=== PATIENT | male | born 1955 | race Hispanic/Latino ===

== ENCOUNTER 2016-06-01 02:32 | Inpatient (IN) | payer OTHER ==
[~2016-06-01] VITALS: Ht 172.7 cm; Wt 84.8 kg
[~2016-06-01 02:32] MED LIST: AMARYL1 MG PO; FUROSEMIDE20 MG PO; GLUCOPHAGE500 MG PO; HYDRALAZINE10 MG PO; LISINOPRIL2.5 MG PO; LISINOPRIL20 MG PO; METFORMIN1000 MG PO
--- NOTE | 2016-06-01 02:49 | NUR ---
PT FROM HOME C/O DIABETES PER DAUGHTER "I NEED HIM CHECKED OUT". PT [place] [facility] [place] PER PT "WOULD NOT TREAT ME BECAUSE I WAS NOT COVERED, I RAN OUT OF INSULIN 10 DAYS AGO" BILATERAL LEG EDEMA AND CERVANTES SHEDDING. PT PRIMARY LANGUAGE IRISH, PT HAD CATARACTS SURGERY LAST YEAR THAT WAS NOT COMPLETED AND PT HAS VISION LOSS. AWAITING [facility]
--- NOTE | 2016-06-01 02:52 | NUR ---
PT AMBULATE TO ROOM WITH CANE ASSISTANCE.
--- NOTE | 2016-06-01 02:53 | NUR ---
DR MADDEN IN FOR LUIS MANUELAL
--- NOTE | 2016-06-01 02:55 | NUR ---
PTS BS IN TRIAGE 425.
--- NOTE | 2016-06-01 02:58 | NUR ---
PT MANUAL BP 196/70.
--- NOTE | 2016-06-01 03:05 | ED GENERAL ADULT ---
History of Present Illness General Chief Complaint: General Adult Stated Complaint: PER DAUGHTER " I WANT HIM CHECKED" HX DIABETIES Source: patient, family, old records Exam Limitations: no limitations Vital Signs & Intake/Output Vital Signs & Intake/Output Vital Signs Date Time Temp Pulse Resp B/P Pulse O2 O2 Flow FiO2 Ox Delivery Rate 06/01 0249 98 Room Air 06/01 023 98.5 72 18 196/70 97 Room Air Allergies Coded Allergies: MDX - Seafood (SEAFOOD) (Severe, RASH, BREATHING PROBLEM 10/08/13) Reconcile Medications Furosemide 20 MG TABLET 0.5 TAB PO DAILY LEG EDEMA Glimepiride (Amaryl) 1 MG TAB 1 TAB PO DAILY DIABETES HYDRALAZINE HCL (Hydralazine) 10 MG TABLET 1 TAB PO TID HTN Lisinopril 2.5 MG TABLET 1 TAB PO DAILY HTN Metformin Hydochloride (Glucophage) 500 MG TABLET 500 MG PO 0800,1700 DIABETES Triage Note: PT FROM HOME C/O DIABETES PER DAUGHTER "I NEED HIM CHECKED OUT". [place] [place] PER PT "WOULD NOT TREAT ME BECAUSE I WAS NOT COVERED, I RAN OUT OF INSULIN 10 DAYS AGO" BILATERAL LEG EDEMA AND CERVANTES SHEDDING. PT PRIMARY LANGUAGE GERMAN, PT HAD CATARACTS SURGERY LAST YEAR THAT WAS NOT COMPLETED AND PT HAS VISION LOSS. AWAITING [facility] Triage Nurses Notes Reviewed? yes HPI: Patient had been living in [place] for the past 6 months and just came back to [place] today. His girlfriend in [place] and was supposed be taking care of him and his medications however she has not been doing so. Patient is currently staying with his daughter. Tonight as he was getting ready for bed his daughter noticed that his legs were very scaly and flaking. Patient is on a lot of medications and he does not know what they're for his daughter does not know what they are so she brought him to the emergency room for evaluation. Patient states he has no fevers or chills. There is no nausea or vomiting. There is no chest pain or shortness of breath. Patient is not sure which medication she is supposed to be taking and he knows that he has not taking his insulin and approximately 4 days. Past History Travel History Traveled to [place] past 21 day No Medical History Any Pertinent Medical History? see below for history EENT: cataracts Cardiovascular: hypertension, hyperlipidemia Renal: chronic kidney disease Endocrine: diabetes History of MRSA: No History of VRE: No History of CDIFF: No Surgical History Surgical History: non-contributory Psychosocial History Who do you live with Spouse What is your primary language Urdu Tobacco Use: Quit >30 days ago ETOH Use: denies use Illicit Drug Use: denies illicit drug use Family History Family History, If Any: MOTHER (CVA, DM, ). SISTER (Breast cancer). Hx Contributory? No Review of Systems Review of Systems Constitutional: Reports: no symptoms. EENTM: Reports: no symptoms. Respiratory: Reports: no symptoms. Cardiovascular: Reports: no symptoms. GI: Reports: no symptoms. Genitourinary: Reports: no symptoms. Musculoskeletal: Reports: no symptoms. Skin: Reports: no symptoms. Neurological/Psychological: Reports: no symptoms. Hematologic/Endocrine: Reports: no symptoms. Immunologic/Allergic: Reports: no symptoms. All Other Systems: Reviewed and Negative Physical Exam Physical Exam General Appearance: well developed/nourished, alert, awake, moderate distress Head: atraumatic Eyes: Bilateral: other (BLIND). Ears, Nose, Throat: normal pharynx, normal ENT inspection, hearing grossly normal Neck: normal inspection, supple, full range of motion, NO jvd Respiratory: normal breath sounds, chest non-tender, no respiratory distress, lungs clear Cardiovascular: regular rate/rhythm, normal peripheral pulses Gastrointestinal: normal bowel sounds, soft, non-tender, no organomegaly Back: normal inspection, normal range of motion Extremities: pedal edema, EVIDENCE OF A TINEA INFECTION Neurologic/Psych: no motor/sensory deficits, awake, alert, oriented x 3 Skin: TINEA INFECTION TO LOWER EXTREMITIES Lymphatic: no anterior cervical veronica Core Measures ACS in differential dx? No CVA/TIA Diagnosis: No Severe Sepsis Present: No Septic Shock Present: No Progress Differential Diagnoses I considered the following diagnoses in my evaluation of the patient: [ Electrolyte abnormality, DKA, hyperglycemia, tinea infection] Plan of Care: Orders Procedure Date/time Status Patient Data 06/01 412 Active Add-on Test (ER Only) 06/01 412 Active URINE DRUGS OF ABUSE 06/01 410 Active URINALYSIS 06/01 410 Active Admit to inpatient 06/01 408 Active Add-on Test (ER Only) 06/01 407 Active ARTERIAL BLOOD GAS (GEN) 06/01 401 Active Add-on Test (ER Only) 06/01 401 Active EKG 06/01 401 Active TROPONIN LEVEL 06/01 308 Active LACTIC ACID 06/01 308 Active COMPREHENSIVE METABOLIC PANEL 06/01 304 Active CBC WITHOUT DIFFERENTIAL 06/01 304 Complete ACETONE 06/01 304 Active Current Medications Sig/Michael Start time Last Medication Dose Stop Time Status Admin Insulin Human Regular 6 UNITS ONCE ONE 06/01 414 UNVr (Novolin R Inj) 06/01 415 Insulin Human Regular 100 UNIT Q24H 06/01 414 UNVr (Novolin R (Insulin Drip)) Sodium Chloride 100 ML (Normal Saline 0.9%) Sodium Chloride 1,000 ML BOLUS ONE 06/01 414 UNVr (Normal Saline 0.9%) 06/01 513 Laboratory Tests 06/01/16401: Lactic Acid Cancelled 06/01/16308: Anion Gap 18 H, Estimated GFR 17 L, BUN/Creatinine Ratio 26.9 H, Glucose 541 *H, Lactic Acid Pending, Calcium 8.8, Total Bilirubin 0.3, AST 14 L, ALT 23, Alkaline Phosphatase 134 H, Troponin I Pending, Total Protein 7.3, Albumin 3.7, Globulin 3.6, Albumin/Globulin Ratio 1.0 L, CBC w Diff NO MAN DIFF REQ, RBC 3.52 L, MCV 87.2, MCH 28.7, RDW 14.3, MPV 9.9, Gran % 81.9 H, Lymphocytes % 9.1 L, Monocytes % 6.4, Eosinophils % 2.0, Basophils % 0.6, Absolute Granulocytes 7.6 H, Absolute Lymphocytes 0.8 L, Absolute Monocytes 0.6, Absolute Eosinophils 0.2, Absolute Basophils 0.1, PUBS MCHC 33.0, Acetone Level NEGATIVE Initial ED EKG: SINUS RHYTHM WITH NO ISCHEMIC st CHANGES HOWEVER THERE ARE PEAKED t WAVES. Rhythm Strip: normal sinus rhythm Comments: The main thing is Mr. Roblero needs to be set up with a primary care physician to sit down and talk to him and his daughter the medications that he is supposed be taking and what they are for. History has a low CO2 and an elevated anion gap however his acetone is negative. He is hyperglycemic and his potassium level is high in response to the acidosis. Patient will be treated for DKA. Lactic acid is pending. Patient is not on metformin. Departure Departure Disposition: STILL A PATIENT Condition: Critical Clinical Impression Primary Impression: Metabolic acidosis Secondary Impressions: Acute renal failure, Hyperglycemia, Hyperkalemia, Tinea pedis Referrals: PATIENT HAS NO PRIMARY CARE DR (PCP/Family) Departure Forms: Customer Survey General Discharge Information Admission Note Spoke With: TISHA GIBBS,AICHA Documentation of Exam: Documentation of any treatments & extenuating circumstances including Concerns Regarding Discharge (functional status, medication knowledge or non-compliance, living conditions, etc.) that warrant an admission rather than observation: [ Patient will require ICU level of monitoring. Insulin drip was initiated. IV fluids. Patient will require an endocrinology consult, renal consult,] Critical Care Note Critical Care Note Critical Care Time: mins: (80 MINUTES)
[2016-06-01 03:19] LABS: ABSOLUTE BASOPHIL COUNT 0.1 /CUMM (0.0-0.2); ABSOLUTE EOSINOPHIL COUNT 0.2 /CUMM (0.0-0.7); ABSOLUTE GRANULOCYTE CT 7.6 /CUMM (1.4-6.5); ABSOLUTE LYMPH COUNT 0.8 /CUMM (1.2-3.4); ABSOLUTE MONOCYTE COUNT 0.6 /CUMM (0.10-0.60); BASOPHIL % 0.6 % (0.0-2.0); GRANULOCYTE % 81.9 % (42.2-75.2); HEMATOCRIT 30.7 % (42-52); MEAN CORPUSCULAR HGB 28.7 PG (27.0-31.0); MEAN CORPUSCULAR VOLUME 87.2 FL (80.0-94.0); MEAN PLATELET VOLUME 9.9 FL (7.4-10.4); PLATELET COUNT 208 /CUMM (130-400); RBC DISTRIBUTION WIDTH 14.3 % (11.5-14.5); RED BLOOD CELL CT 3.52 /CUMM (4.70-6.10); WHITE BLOOD CELL COUNT 9.3 /CUMM (4.8-10.8)
--- NOTE | 2016-06-01 03:20 | NUR ---
IV ACCESS ESTALIBSHED BY THIS RN, RH #[id number]. LABS DRAWN AND SENT BY THIS RN (SST, RUSSELL ,LAV, BLUE)
--- NOTE | 2016-06-01 03:59 | NUR ---
CRITICAL TEST RESULTS [id number] TANI NESS 60 M TESTS AND RESULTS: POTASSSIUM: 6.0, GLUCOSE: 541 Results received and read back by: TERESO FERNÁNDEZ Results received date and time: 06/01/16 2029 The following provider was notified of the results, and read the results back: DR. MADDEN Notified date and time: 06/01/16 at 0354
--- NOTE | 2016-06-01 04:34 | NUR ---
PT ADMIT TO ICU RM 112.
--- NOTE | 2016-06-01 04:42 | NUR ---
SECOND IV LINE ESTABLISHED BY THIS RN #[id number]. 10% CALCIUM CL INFUSING AT 100MH/HR.
--- NOTE | 2016-06-01 05:09 | NUR ---
PT URINATED IN A URINAL, PT REFUSED PACK CATHETER AND DR GILES INFORMED AND STATED THAT IS FINE. URINE TRIO SENT BY THIS RN. URINE OUTPUT 250ML. INSULIN DRIP ADMINISTERED STARTING AT 4UNITS/HR PER DR GILES AND HOUSE STAFF.
--- NOTE | 2016-06-01 05:14 | History & Physical ---
See Addendum REYNA GIBBS,JOSE A 06/01/16 0512: General Information and HPI MD Statement: I have seen and personally examined TANI NESS and documented this H&P. The patient is a 60 year old M who presented with a patient stated chief complaint of poor state of health. Source of Information: patient, family Exam Limitations: no limitations History of Present Illness: This a 60-year-old gentleman with a past medical history of hypertension, hyperlipidemia, CKD, diabetes, asthma, cholelithiasis, legally blind from cataracts, is presented to [facility] by family members were concerned that the patient was in a very poor state of health. Of note patient had just arrived tonight from [place] (where he has been living for about 6 months) via train and was being picked up by his daughter. Most of the history is obtained from the daughter and ex- who were present in the room, patient speaks mostly mohawk. Patient relayed to family members that he had not taken his medications for about 10 days and also states that while he was in [place] he has been hospitalized at [facility] for what seems to be treatment for hypoglycemia. Patient is unsure of his medication regimens. Of note, Daughter is very concerned and feels like the patient has been neglected he was in [place], and that he is homeless and wanted to know if patient getting assistance with half-way upon discharge. Patient denies any recent infection, cough, fever/chills, abdominal pain, nausea , vomiting, chest pain, shortness of breath, or illicit drug use. Allergies/Medications Allergies: Coded Allergies: Fish Containing Products (Severe, RASH, BREATHING PROBLEM? 06/01/16) Uncoded Allergies: SEAFOOD (Severe, RASH, BREATHING PROBLEM 06/01/16) Past History Travel History Traveled to [place] past 21 day No Medical History EENT: cataracts Cardiovascular: hypertension, hyperlipidemia Renal: chronic kidney disease Endocrine: diabetes History of MRSA: No History of VRE: No History of CDIFF: No Surgical History Surgical History: non-contributory Past Family/Social History Family History Relations & Conditions if any MOTHER (CVA, DM, ). SISTER (Breast cancer). Psychosocial History ETOH Use: denies use Illicit Drug Use: denies illicit drug use Review of Systems Review of Systems Constitutional: Reports: chills. Cardiovascular: Denies: chest pain, orthopena, palpitations. Respiratory: Denies: cough, hemoptysis, orthopnea, short of breath. GI: Denies: abdominal pain, constipation, diarrhea. Genitourinary: Denies: discharge, dysuria, frequency. Musculoskeletal: Denies: joint pain, joint swelling. Skin: Reports: erythema. Neurological/Psychological: Denies: confusion, depressed, dementia, numbness, paresthesia. Hematologic/Endocrine: Denies: bruising, bleeding. Exam & Diagnostic Data Last 24 Hrs of Vital Signs/I&O Vital Signs Date Time Temp Pulse Resp B/P Pulse O2 O2 Flow FiO2 Ox Delivery Rate 06/01 05 96.4 64 18 160/64 97 Room Air 06/01 0249 98 Room Air 06/01 0239 98.5 72 18 196/70 97 Room Air Intake & Output 06/01 0800 06/01 0000 05/31 1600 Intake Total Output Total Balance Patient 77.111 kg Weight Physical Exam General Appearance Alert, Oriented X3, Cooperative, Mild Distress Skin significance dermatitis with flaking on lower extremity bilaterally from toes extending to mid tibial areas , mild ulceration of right toe. HEENT Atraumatic, dry oral mucosa Neck Supple, No JVD, No thryomegaly Lymphatic Cervical nl Cardiovascular Regular Rate, Normal S1, Normal S2 Lungs Clear to Auscultation Abdomen Soft, No Tenderness, distended abdomen Neurological Normal Speech, Strength at 5/5 X4 Ext, Sensation Intact Extremities No Tenderness/Swelling Vascular not able to appreciate DP pulses Last 24 Hrs of Labs/Eduardo: Laboratory Tests 06/01/16 0513: Methadone Screen Pending, Barbiturate Screen Pending, Ur Phencyclidine Scrn Pending, Amphetamines Screen Pending, U Benzodiazepines Scrn Pending, Urine Cocaine Screen Pending, Urine Cannabis Screen Pending, Urine Color Pending, Urine Clarity Pending, Urine pH Pending, Ur Specific [place] Pending, Urine Protein Pending, Urine Ketones Pending, Urine Nitrite Pending, Urine Bilirubin Pending, Urine Urobilinogen Pending, Ur Leukocyte Esterase Pending, Ur Microscopic SEDIMENT EXAMINED, Urine RBC Pending, Urine Hemoglobin Pending, Urine Glucose Pending 06/01/16 0405: pH 7.30 *L, pCO2 39, pO2 90, HCO3 19 L, ABG O2 Sat (Measured) 96.0, P-50 (Temp Corrected) N, Carboxyhemoglobin 0.3 L, O2 Concentration % RA, Phlebotomy Draw Site RIGHT BRACHIAL 06/01/16 0402: Lactic Acid Cancelled 06/01/16 0309: Anion Gap 18 H, Estimated GFR 17 L, BUN/Creatinine Ratio 26.9 H, Glucose 541 *H, Serum Osmolality 348 H, Lactic Acid 2.2 H, Calcium 8.8, Magnesium 2.1, Total Bilirubin 0.3, AST 14 L, ALT 23, Alkaline Phosphatase 134 H, Troponin I 0.03, Total Protein 7.3, Albumin 3.7, Globulin 3.6, Albumin/Globulin Ratio 1.0 L, CBC w Diff NO MAN DIFF REQ, RBC 3.52 L, MCV 87.2, MCH 28.7, RDW 14.3, MPV 9.9, Gran % 81.9 H, Lymphocytes % 9.1 L, Monocytes % 6.4, Eosinophils % 2.0, Basophils % 0.6, Absolute Granulocytes 7.6 H, Absolute Lymphocytes 0.8 L, Absolute Monocytes 0.6, Absolute Eosinophils 0.2, Absolute Basophils 0.1, PUBS MCHC 33.0, Acetone Level NEGATIVE Microbiology 06/01 537 UPPER RESP: Surveillance Culture - ORD 06/01 537 GI: Surveillance Culture - ORD 06/01 512 URINE ROUT: Urine Culture - RECD 06/01 432 BLOOD: Blood Culture - COLB 06/01 432 BLOOD: Blood Culture - COLB Diagnostic Data EKG Results No acute ischemic changes noted CXR Results XAM TYPE: RAD - XRY-PORTABLE CHEST XRAY EXAMINATION: XR PORTABLE CHEST CLINICAL INFORMATION: Diabetic ketoacidosis of unknown source. COMPARISON: 10/08/2013 TECHNIQUE: Portable view of the chest was obtained. FINDINGS: The lungs are well expanded. There is no focal consolidation, edema, or effusion. No pneumothorax. The cardiomediastinal silhouette is prominent, unchanged. No acute osseous abnormality. IMPRESSION: No acute pulmonary findings. DICTATED BY: LAMAR GIBBS,JANA Assessment/Plan Assessment: This is a 60-year-old male with a significant past medical history of diabetes, hypertension, CKD, who has not taken his medication for 10 days, presents in a poor state of health and is found to have hyperglycemia, elevated blood pressure and hyperkalemia. Impression * Hyperglycemia: No ketones and medication history suggest a Type 2 diabetes. Not DKA. * Metabolic acidosis could be possible 2/2 to renal insufficency * Hyperkalemia with no acute EKG: possibly 2/2 metabolic acidosis vs renal insufficiency * Acute on chronic CKD? * Anemia * Elevated BP in the setting of non compliance * Lower extremity swelling with venous insufficency Plan * Status post 2 L bolus, will start 100ml/hr NS hydration * Accu-Cheks every 1 hours * Insulin drip 4 unit/hr and will adjusty according targeting BG of 250 * Will switch to D5 normal saline once BG <250 * Obtain HgAIC * Will trend BEP and monitor potassium closely q 3hrs * Will trend troponins and EKG * Continuous cardiac monitoring * Strict ins and outs to monitor for fluid overload in the context of security patient CKD patient * Even though patient denies any cardiac history, he does have isosorbide and Nitrostat as part of his medication regimen therefore will obtain cardiology consult * Echocardiogram in the morning * Will consider vascular consult * f/u cultures * Will obtain ICU consult * wound consult * Will obtain social work consult for possible placement as patient is homeless. As Ranked By This Provider Problem List: 1. Hyperkalemia 2. Hyperglycemia 3. Metabolic acidosis 4. SAMSON (acute kidney injury) 5. Uncontrolled hypertension Core Measures/Miscellaneous Acute Coronary Syndrome ACS Diagnosis: No Cerebrovascular Accident CVA/TIA Diagnosis: No Congestive Heart Failure CHF Diagnosis: No Venous Thromboembolism VTE Risk Factors: Acute medical illness, Age > 40 VTE Prophylaxis Ordered Inpt: Pharm- Heparin No Mech VTE prophylaxis d/t: Vascular insuff of limb No VTE Pharm Prophylaxis d/t: No contraindications VTE Diagnosis: No VTE Type: NONE VTE Confirmed by (Test): NONE Severe Sepsis Severe Sepsis Present: No Septic Shock Septic Shock Present: No Miscellaneous Documentation Attending Case Discussed With: AICHA GILES MD Primary Care Physician: PATIENT HAS NO PRIMARY CARE DR Patient sees these Specialists none Level of Patient Care: Critical Care (CRI) BOB GILES MD 06/01/16 0518: General Information and HPI Allergies/Medications Home Med list Allopurinol 100 MG TABLET 1 TAB PO DAILY Gout (Reported) Amlodipine Besylate 10 MG TABLET 1 TAB PO DAILY Hypertension (Reported) Atorvastatin Calcium 80 MG TABLET 1 TAB PO DAILY Hyperlipidemia (Reported) Bumetanide 1 MG TABLET 1 TAB PO DAILY Heart (Reported) Calcium Acetate 667 MG CAPSULE 1 CAP PO TID Unknown (Reported) Clonidine HCl 0.2 MG TABLET 1 TAB PO QPM HTN (Reported) Doxazosin Mesylate 2 MG TABLET 1 TAB PO DAILY Angina (Reported) Furosemide 40 MG TABLET 1 TAB PO BID LE swelling (Reported) Gabapentin 100 MG CAPSULE 1 CAP PO TID Neuropathy (Reported) Glimepiride (Amaryl) 1 MG TAB 1 TAB PO DAILY DIABETES Hydralazine HCl 25 MG TABLET 1 TAB PO TID HTN (Reported) Insulin Detemir (Levemir) 100 UNIT/ML VIAL 14 UNITS SQ ONCE Diabetes ( Reported) Linagliptin (Tradjenta) 5 MG TABLET 1 TAB PO DAILY Diabetes (Reported) Lisinopril 2.5 MG TABLET 1 TAB PO DAILY HTN Metformin Hydochloride (Glucophage) 500 MG TABLET 500 MG PO 0800,1700 DIABETES Nitroglycerin (Nitrostat) 0.4 MG TAB.SUBL 1 TAB SL AD PRN Chest pain ( Reported) 1st sign of attack; may repeat every 5 minutes until relief; if pain persists after 3 tablets in 15 minutes, prompt medical att Pravastatin Sodium 40 MG TABLET 1 TAB PO DAILY Hyperlipidemia (Reported) Attending MD Review Statement Attending Statement Attending MD Statement: examined this patient, discuss w/resident/PA/ELEMENTARY SCHOOL PRINCIPAL, agreed w/resident/PA/ELEMENTARY SCHOOL PRINCIPAL, discussed with family Attending Assessment/Plan: 60 yo St Helenian speaking M with h/o Insulin dependent DM, asthma, HTN, HLD, diabetic neuropathy, retinopathy, CKD stage 3B, vision loss s/p cataract surgery , is brought in by daughter for evaluation. History as provided by daughter (Zuleima ) and ex-. Patient had moved to [place] 6 months ago with his girlfriend who was not taking good care of him. He came back to [place] by train today with girlfriend and her kids, while at the train station, they had an argument after which she left him there. Patient called his daughter who then brought him to her apartment. Daughter checked his sugar which was in 300-400's. She then saw his LE were scaly and leaking so she brought him for evaluation. Patient reports , he ran out of insulin 10 days ago. He was also admitted to a hospital in [place] for ?diabetes ?LE cellulitis. Daughter reports the girlfriend used to keep him in the [place] hospital and not care for him. Patient c/o dry mouth, itching all over, dyspnea on exertion, mild chest discomfort and chills. He denies lightheadedness, nausea, vomiting, abdominal pain, diarrhea or urinary s/ s. Ex-smoker quit 30 yrs ago, denies alcohol or illicit drug use. He was last admitted to [facility] 2013 for hypertensive urgency, and his PCP was Karena Ríos at that point. VSS. Exam: elderly male in mild distress due to shaking chills, vision loss, no pallor or jaundice. HEENT: PERRL, dry mucous membranes, no pharyngeal erythema, Neck supple, Chest b/l clear, Heart S1S2 regular, Abd soft, distended, nontender , Extremities: b/l LE with 1+ edema and dry scaling/ peeling skin with multiple erythematous open areas starting from mid calf to involve up to both the feet, tinea pedis++. Ringworm rash noted to his left thigh. Labs: H/H 10.1/30.7, K 6.0 , bicarb 19, AG 18, BUN 97, creat 3.6 (1.5 in 2014), glucose 541, lactic acid 2.2, S. Osm 348, trop neg, acetone neg, AB.30/39/90/19. CXR neg. EKG: SR, no acute changes (compared to 2014 EKG). Echo (2013): EF > 65%. 1. DKA in the setting of noncompliance with insulin, although acetone is negative. Accucheks Q1, NS bolus x 3, followed by maintenance, insulin drip titrate based on sugars, once sugars < 250, change to D5-1/2NS with KCL, ICU bundle Q3 hourly, Endo consult, clear liquid diet, once AG closes and acidosis improves will change to subcutaneous insulin per Endo recs. Hold tradjenta and levemir (patient's meds). Obtain critical care consult. Trend lactic acid. Check urinalysis, urine tox screen, HbA1c, lipid panel, TSH and free T4. 2. Acute on CKD stage 3B with metabolic acidosis and hyperkalemia. IV fluids, monitor BUN/ creatinine. If renal functions do not improve, check renal ultrasound, urine lytes and obtain Nephro consult. Hold lasix, bumex, allopurinol and calcium acetate. 3. Lower extremity scaly rash with tinea pedis. I don't think he has active cellulitis, the changes appear to be chronic. He was treated with multiple antibiotics previously, will need to obtain information from [facility] and [facility] in [place]. Will obtain Wound and ID consult in AM. 4. HTN. Hold hydralazine, amlodipine, doxazosin and clonidine for now, restart slowly with one at a time based on BP response. 5. Patient denies h/o CAD or CHF, unclear why he is on 2 different doses of lasix and bumex. Holding off both for now. c/o dyspnea on exertion and mild chest discomfort, will give TRC nebs, check serial EKG and troponin to rule out ACS, obtain Echo, CXR neg for pneumonia or CHF. 6. HLD. Check lipid panel and plan to restart statin. Noted patient has both pravastatin and atorvastatin listed. 7. Diabetic neuropathy. Can restart gabapentin in AM. DVT ppx Hep SC. Full code. Discharge disposition: please obtain Social work and case management consult for disposition as patient is homeless. Ex- and daughter Zuleima do not have resources to care for him. TTS > 45 mins. Please note, daughter Zuleima and ex- do not want patient's girlfriend - Isela West to meet him or get in touch with him in the hospital premises. ROHIT SALAS 06/01/16 0615: Resident Review Statement Resident Statement: examined this patient, discussed with agriculture intern, agreed with agriculture intern, discussed with family, reviewed EMR data (avail), discussed with nursing , reviewed images Other Findings: Mr. Ness is a 60-year-old gentleman with a PMH of DM, HTN, cataract surgery, vision loss, chronic kidney disease was brought in by his daughter after arriving this evening via train from [place] due to concerns of not looking well. Patient is St Helenian-speaking only: She reports that he has been living in [facility] for the past 6 months is unsure as to which medications he has been taking while living with his girlfriend. He reports shivering, some shortness of breath with exertion, diffuse itching, some changes in urinary frequency. He denies any cough, recent URI symptoms, palpitations, fevers, diarrhea/ constipation. At his baseline he ablates with the aide of a cane. His daughter reports that he currently doesn't have a place to live here in [place]. VS on admission: BP 196/70, HR 72, RR 18, SPO2 97% on RA, T 98.5 Pertinent labs: WBC 9.3, H&H 10.2/30.7, platelets 208, potassium 6.0, sodium 139 , anion gap 19 BUN/CR: 97/3.6 Glucose 541 Lactic acid 2.2 Serum osmolality 348 Echo (10/09/2013): EF greater than 65%, RV systolic pressure 33.5 mmHg (seen by Dr. Lopez) PE: AAO 3, St Helenian-speaking. No acute distress. Lungs CTA BL. RRR, normal S1 /S2. Normal bowel sounds. Noticeable erythema along the right forearm extending from the wrist up to the elbow. Significant bilateral lower extremity skin changes with flaking/chronic venous changes covering both dital aspects of his LE. Problem list 1. Hyperglycemia with anion gap metabolic acidosis 2. Hyperkalemia 3. Anemia 4. Renal insufficiency 5. Hypertensive urgency with wide pulse pressure 6. Venous skin changes bilateral lower extremities Plan: * Admit to the ICU and start the patient on insulin drip at 4 units an hour. Accucheks Q1hr, follow-up electrolytes Qhrs. Endocrinology already consulted ( Gage Lira MD). Recommendations: Transition from normal saline to D5 half tenderness once sugar reaches 250mg/dL. Adjust insulin drip to maintain blood sugar above 180mg/dL * Continuous cardiac monitoring, Serial EKG/troponin: 0900 hrs,1500 hrs. Echocardiogram. Patient has been previously seen by Dr. Lopez. Lasix have been held in setting of renal insufficiency. Monitor for fluid congestion. We' ll start patient on home dose of amlodipine 10 mg. Hydralazine 25 mg 3 times a day on hold at this time * Follow-up iron studies * Monitor creatinine in setting of aggressive fluid hydration * Obtain wound consult, ID consult for lower extremity venous skin changes. Follow blood cultures and consider starting on Unasyn if spiking fever hypotensive. * Obtain social work consult prior to discharge for housing assistance * Clear liquids and advance as tolerated * DVT prophylaxis: ALPs * CODE STATUS: Full code OF NOTE: Family has requested no contact from the patient's ex-girlfriend (Isela Swain)
--- NOTE | 2016-06-01 05:19 | Admission Certification ---
Admission Certification Certification Statement - As attending physician, I certify that at the time of - admission, based on clinical presentation, severity of - symptoms, need for further diagnostic testing and - therapeutic interventions, and risk of adverse outcomes - without in-hospital treatment, in my clinical assessment, - this patient requires an acute hospital stay for a minimum - of two nights or longer. I have also considered psychsocial - factors such as support system, advanced age, financial - issues, cognitive issues, and failed out-patient treatments, - past re-admission history, safety of patient, and lack of - compliance as applicable. Specific rationale supporting this admission is: Diabetic ketoacidosis due to noncompliance with insulin requiring ICU level of care. Acute on CKD stage 3B.
[2016-06-01] MEDS ORDERED: PRAVASTATIN SOD40 M2 PO ×2 (05:23→08:18)
[2016-06-01] MEDS ORDERED: ATORVASTATIN CA80 M1 PO (05:24)
[2016-06-01] MEDS ORDERED: HYDRALAZINE HCL25 M1 PO (05:25)
[2016-06-01] MEDS ORDERED: FUROSEMIDE40 M1 PO (05:25)
[2016-06-01] MEDS ORDERED: TRADJENTA5 M1 PO (05:26)
[2016-06-01] MEDS ORDERED: ALLOPURINOL100 M1 PO (05:27)
--- NOTE | 2016-06-01 05:29 | NUR ---
REPORT GIVEN TO [facility]. THIS RN ASKED SHEYLA IF SOMEONE COULD HELP TRANSFER AND SHEYLA RESPONDED WITH "WE DONT HAVE TECHS SO ILL SEE" THIS RN ASKED SHEYLA TO PLEASE CALL ME BACK TO INFORM ME OF TRANSPORT SITUATION.
--- NOTE | 2016-06-01 05:39 | RADIOLOGY REPORT ---
EXAMINATION: XR PORTABLE CHEST CLINICAL INFORMATION: Diabetic ketoacidosis of unknown source. COMPARISON: 10/08/2013 TECHNIQUE: Portable view of the chest was obtained. FINDINGS: The lungs are well expanded. There is no focal consolidation, edema, or effusion. No pneumothorax. The cardiomediastinal silhouette is prominent, unchanged. No acute osseous abnormality. IMPRESSION: No acute pulmonary findings.
[2016-06-01 06:00] VITALS: BP 180/84
[2016-06-01] MEDS ORDERED: AMLODIPINE BESY10 M1 PO (06:01)
--- NOTE | 2016-06-01 06:30 | NUR ---
PT ALERT SPEAKS MOSTLY ROMANIAN BUT ABLE TO MAKE NEEDS KNOW. PT TRANSFERED SELF INTO BED. PLACED ON MONITOR. PT VSS. PT ON RA, LUNGS CLEAR. PT IN SINUS ARRYTHMIA RATE 56-60. DR. GODOY NOTIFIED. PT BP 180/70 MANUALLY TO LEFT ARM AND RIGHT ARM BP 204/78. MD AWARE. BLOOD SUGAR DOWN TO 223. INULSIN GTTS DECREASED TO 1 UNIT/HR AND D5-1/2 NS @ 100 MLS/HR INTIATED PE . LABS DRAWN CALL LIGHT WITHIN REACH. PT HAS VISUAL ISSUES, CALL LIGHT HAS GAUZE TO CALL LIGHT SO PATIENT CAN FEEL. PER PT AND FAMILY NO INFORMATION AND NO VISITS FROM ADILSON MUÑOZ
--- NOTE | 2016-06-01 07:38 | Cons- Endocrinology ---
General Information and HPI Consulting Request Date of Consult: 06/01/16 Requested By: medical team Reason for Consult: uncontrolled diabetes Source of Information: patient, old records Exam Limitations: language barrier History of Present Illness: This 60-year-old male with a known history of diabetes mellitus type 2, hypertension, and chronic renal insufficiency came up from [place] by train. Family brought him to emergency room because he was not feeling well. He states he had not taken his medications for several days. He may have been hospitalized in [place] for hypoglycemia. In speaking with him he states he was on once a day insulin but is not sure the name of the insulin. He states he took 20-30 units. Reported diabetes mellitus medication includes glimeperide 2 mg daily and metformin. The patient has briefly been treated with an insulin drip with improvement in his his numbers. His most recent labs show glucose 209 creatinine 3.4, and potassium 5.2. His anion gap has closed and his bicarbonate remains low at 19. Allergies/Medications Allergies: Coded Allergies: Fish Containing Products (Severe, RASH, BREATHING PROBLEM? 06/01/16) Uncoded Allergies: SEAFOOD (Severe, RASH, BREATHING PROBLEM 06/01/16) Home Med List: Allopurinol 100 MG TABLET 1 TAB PO DAILY Gout (Reported) Amlodipine Besylate 10 MG TABLET 1 TAB PO DAILY Hypertension (Reported) Atorvastatin Calcium 80 MG TABLET 1 TAB PO DAILY Hyperlipidemia (Reported) Bumetanide 1 MG TABLET 1 TAB PO DAILY Heart (Reported) Calcium Acetate 667 MG CAPSULE 1 CAP PO TID Unknown (Reported) Clonidine HCl 0.2 MG TABLET 1 TAB PO QPM HTN (Reported) Doxazosin Mesylate 2 MG TABLET 1 TAB PO DAILY Angina (Reported) Furosemide 40 MG TABLET 1 TAB PO BID LE swelling (Reported) Gabapentin 100 MG CAPSULE 1 CAP PO TID Neuropathy (Reported) Glimepiride (Amaryl) 1 MG TAB 1 TAB PO DAILY DIABETES Hydralazine HCl 25 MG TABLET 1 TAB PO TID HTN (Reported) Insulin Detemir (Levemir) 100 UNIT/ML VIAL 14 UNITS SQ ONCE Diabetes ( Reported) Linagliptin (Tradjenta) 5 MG TABLET 1 TAB PO DAILY Diabetes (Reported) Lisinopril 2.5 MG TABLET 1 TAB PO DAILY HTN Metformin Hydochloride (Glucophage) 500 MG TABLET 500 MG PO 0800,1700 DIABETES Nitroglycerin (Nitrostat) 0.4 MG TAB.SUBL 1 TAB SL AD PRN Chest pain ( Reported) 1st sign of attack; may repeat every 5 minutes until relief; if pain persists after 3 tablets in 15 minutes, prompt medical att Pravastatin Sodium 40 MG TABLET 1 TAB PO DAILY Hyperlipidemia (Reported) Current Medications: Current Medications Sig/Michael Start time Last Medication Dose Route Stop Time Status Admin Amlodipine Besylate 10 MG DAILY 06/01 0615 AC PO Calcium Chloride 1 GM ONCE ONE 06/01 429 DC 06/01 IV 06/01 0431 0444 Calcium Chloride 0 .STK-MED ONE 06/01 0422 DC .ROUTE Dextrose/Sodium 1,000 ML Q10H 06/01 0630 AC 06/01 Chloride IV 0656 Glycerin/Mineral Oil 1 ALISIA TID PRN 06/01 0745 UNVr TOP Heparin Sodium 5,000 UNIT Q8 06/01 06 AC 06/01 (Porcine) SC 0704 Insulin Human Regular 6 UNITS ONCE ONE 06/01 0415 DC 06/01 IV 06/01 0416 0445 Insulin Human Regular 100 UNIT Q24H 06/01 0415 AC 06/01 Sodium Chloride 100 ML IV 0514 Sodium Chloride 1,000 ML Q10H 06/01 0545 AC IV Sodium Chloride 1,000 ML BOLUS ONE 06/01 0430 DC 06/01 IV 06/01 0529 0458 Sodium Chloride 1,000 ML BOLUS ONE 06/01 0415 DC 06/01 IV 06/01 0514 0444 Past History Travel History Traveled to [place] past 21 day No Medical History EENT: cataracts Cardiovascular: hypertension, hyperlipidemia Renal: chronic kidney disease Endocrine: diabetes Surgical History Surgical History: non-contributory Family History Relations & Conditions If Any: MOTHER (CVA, DM, ). SISTER (Breast cancer). Psychosocial History ETOH Use: denies use Illicit Drug Use: denies illicit drug use Exam & Diagnostic Data Last 24 Hrs of Vital Signs/I&O Vital Signs Date Time Temp Pulse Resp B/P Pulse O2 O2 Flow FiO2 Ox Delivery Rate 06/01 511 96.4 64 18 160/64 97 Room Air 06/01 0249 98 Room Air 06/01 023 98.5 72 18 196/70 97 Room Air Intake & Output 06/01 0800 06/01 0000 05/31 1600 Intake Total 263 Output Total 0 Balance 263 Intake, IV 263 Intake, Oral 0 Output, Urine 0 Patient 170 lb Weight Vital Signs Date Time Temp Pulse Resp B/P Pulse O2 O2 Flow FiO2 Ox Delivery Rate 06/01 511 96.4 64 18 160/64 97 Room Air 06/01 0249 98 Room Air 06/01 0239 98.5 72 18 196/70 97 Room Air Intake & Output 06/01 0800 06/01 0000 05/31 1600 Intake Total 263 Output Total 0 Balance 263 Intake, IV 263 Intake, Oral 0 Output, Urine 0 Patient 170 lb Weight Physical Exam General Appearance: alert, awake, comfortable Head: normal appearance Neck: normal inspection Respiratory: normal breath sounds Cardiovascular: regular rate/rhythm Gastrointestinal: normal bowel sounds, soft Extremities: normal inspection Skin: scaly red rash lower legs and feet Labs/Eduardo Results: Laboratory Tests 06/01 06/01 06/01 0702 0620 0620 Chemistry Sodium (137 - 145 mmol/L) 144 Potassium (3.5 - 5.1 mmol/L) 5.2 H Chloride (98 - 107 mmol/L) 109 H Carbon Dioxide (22 - 30 mmol/L) 19 L Anion Gap (5 - 16) 16 BUN (9 - 20 mg/dL) 89 H Creatinine (0.7 - 1.2 mg/dL) 3.4 H Estimated GFR (>60 ml/min) 19 L Glucose (65 - 99 mg/dL) 209 H Lactic Acid (0.7 - 2.1 mmol/L) Cancelled 1.7 Calcium (8.4 - 10.2 mg/dL) 9.0 Phosphorus (2.5 - 4.5 mg/dL) 5.0 H Magnesium (1.6 - 2.3 mg/dL) 2.0 Total Bilirubin (0.2 - 1.3 mg/dL) 0.2 AST (17 - 59 U/L) 13 L ALT (21 - 72 U/L) 17 L Albumin (3.5 - 5.0 g/dL) 3.1 L Triglycerides (<150 mg/dL) 191 H Cholesterol (< 200 MG/DL) 100 LDL Cholesterol, Calc (65 - 129 mg/dL) 35 L HDL Cholesterol (40 - 60 mg/dL) 27 L Cholesterol/HDL Ratio (0.00 - 4.88 %) 4 06/01 06/01 0513 0405 Blood Gas pH (7.35 - 7.45 PH) 7.30 *L pCO2 (35 - 45 TORR) 39 pO2 (80 - 100 TORR) 90 HCO3 (21 - 28 MEQ/L) 19 L ABG O2 Sat (Measured) (>96.0 %) 96.0 P-50 (Temp Corrected) N Carboxyhemoglobin (1.5 - 5.0 %) 0.3 L O2 Concentration % RA Miscellaneous Phlebotomy Draw Site RIGHT BRACHIAL Toxicology Urine Opiates Screen (>2000 NG/ML) < 100.00 Methadone Screen (>300 NG/ML) < 40 Barbiturate Screen (>200 NG/ML) < 60 Ur Phencyclidine Scrn (>25 NG/ML) < 6.00 Amphetamines Screen (>1000 NG/ML) < 100 U Benzodiazepines Scrn (>200 NG/ML) < 85 Urine Cocaine Screen (>300 NG/ML) < 50 Urine Cannabis Screen (>50 NG/ML) < 5.00 Urines Urinalysis LIGHT H Urine Color (YEL,AMB,STR) YEL Urine Clarity (CLEAR) CLEAR Urine pH (5.0 - 8.0) 6.0 Ur Specific [place] (1.001 - 1.035) 1.025 Urine Protein (NEG,<30 MG/DL) 100 H Urine Ketones (NEG) NEG Urine Nitrite (NEG) NEG Urine Bilirubin (NEG) NEG Urine Urobilinogen (0.1 - 1.0 EU/dl) 0.2 Ur Leukocyte Esterase (NEG) NEG Ur Microscopic SEDIMENT EXAMINED Urine RBC (0 - 5 /HPF) 1-3 Ur Epithelial Cells (NONE,FEW) FEW Urine Hemoglobin (NEG) SMALL H Urine Glucose (N MG/DL) >=1000 H 06/01 06/01 06/01 0402 0309 0305 Chemistry Sodium (137 - 145 mmol/L) 139 Potassium (3.5 - 5.1 mmol/L) 6.0 *H Chloride (98 - 107 mmol/L) 102 Carbon Dioxide (22 - 30 mmol/L) 19 L Anion Gap (5 - 16) 18 H BUN (9 - 20 mg/dL) 97 H Creatinine (0.7 - 1.2 mg/dL) 3.6 H Estimated GFR (>60 ml/min) 17 L BUN/Creatinine Ratio (7 - 25 %) 26.9 H Glucose (65 - 99 mg/dL) 541 *H Hemoglobin A1c Pending Serum Osmolality (285 - 295 MOSM/KG) 348 H Lactic Acid (0.7 - 2.1 mmol/L) Cancelled 2.2 H Calcium (8.4 - 10.2 mg/dL) 8.8 Magnesium (1.6 - 2.3 mg/dL) 2.1 Iron (49 - 181 ug/dL) 49 TIBC (261 - 462 ug/dL) 306 Ferritin (17.9 - 464 ng/mL) 157.0 Total Bilirubin (0.2 - 1.3 mg/dL) 0.3 AST (17 - 59 U/L) 14 L ALT (21 - 72 U/L) 23 Alkaline Phosphatase (< 127 U/L) 134 H Creatine Kinase (55 - 170 U/L) 157 Troponin I (<0.11 ng/ml) 0.03 Total Protein (6.3 - 8.2 g/dL) 7.3 Albumin (3.5 - 5.0 g/dL) 3.7 Globulin (1.9 - 4.2 gm/dL) 3.6 Albumin/Globulin Ratio (1.1 - 2.2 %) 1.0 L Hematology CBC w Diff NO MAN DIFF REQ WBC (4.8 - 10.8 /CUMM) 9.3 RBC (4.70 - 6.10 /CUMM) 3.52 L Hgb (14.0 - 18.0 G/DL) 10.1 L Hct (42 - 52 %) 30.7 L MCV (80.0 - 94.0 FL) 87.2 MCH (27.0 - 31.0 PG) 28.7 RDW (11.5 - 14.5 %) 14.3 Plt Count (130 - 400 /CUMM) 208 MPV (7.4 - 10.4 FL) 9.9 Gran % (42.2 - 75.2 %) 81.9 H Lymphocytes % (20.5 - 51.1 %) 9.1 L Monocytes % (1.7 - 9.3 %) 6.4 Eosinophils % (0 - 5 %) 2.0 Basophils % (0.0 - 2.0 %) 0.6 Absolute Granulocytes (1.4 - 6.5 /CUMM) 7.6 H Absolute Lymphocytes (1.2 - 3.4 /CUMM) 0.8 L Absolute Monocytes (0.10 - 0.60 /CUMM) 0.6 Absolute Eosinophils (0.0 - 0.7 /CUMM) 0.2 Absolute Basophils (0.0 - 0.2 /CUMM) 0.1 PUBS MCHC (33.0 - 37.0 G/DL) 33.0 Toxicology Acetone Level (NEGATIVE) NEGATIVE Assessment/Plan Assessment/Plan This 60-year-old L with a known history of diabetes mellitus type 2 and chronic renal insufficiency, as well as hypertension was brought by his family to the emergency room because he was not feeling well. He recently arrived by train from [place]. He he was found in the emergency room to have a high sugar of 541 with hyperkalemia( k=6.0). Anion gap was mildly elevated at 18 and CO2 reduced to 19. Lactic acid was 2.2 The patient has been treated with an insulin drip briefly and his numbers have improved. His blood sugars now 209 in the laboratory and his potassium has improved to 5.2. The anion gap is closed and his CO2 remains low at 19. The insulin drip has been stopped. The patient's acidosis is partly on the basis of chronic renal insufficiency with a small component of ketosis. He has some skin breakdown on his feet with a scaly rash and this could be a source of infection. He has been pancultured. At this time I would recommend placing the patient on a diabetic diet and subcutaneous insulin. We should reduce the rate of his IV to 50 mL an hour of D5 half-normal saline. The IV can be discontinued once we know he is eating and drinking well. Because he has chronic renal insufficiency out of place him on rather a low dose insulin regimen while monitoring carefully for hypoglycemia. Would begin Levemir 10 units once a day in the morning and sliding-scale NovoLog before meals. Sliding scale NovoLog before meals should be 80-150 give 2 units NovoLog, 151-200 give 3 units NovoLog, 201-250 give 4 units NovoLog, 251 of 300 give 5 units NovoLog, 301-350 give 6 units NovoLog, 351 of 400 give 7 units NovoLog. A separate bedtime sliding scale NovoLog should be written. Sliding-scale NovoLog at bedtime should be less than 250 give no insulin, 251-300 give 2 units NovoLog, 301-350 give 3 units NovoLog, 351 of 400 give 4 units NovoLog. Consult Acknowledgment - Thank you for your consult request.
[2016-06-01 08:00] VITALS: BP 156/84
--- NOTE | 2016-06-01 08:15 | NUR ---
REC'D THE PT SLEEPING IN BED. PT EASILKY AROUSED AND OFFERS NO C/O. LAZAR. POSITIONS SELF FOR COMFORT. PT IS IN A FIRST DEGREE AVB WITH A RATE IN THE HIGH 50'S TO 60'S W/ ECTOPY PER THE GLASS BLOCK BENDER. BLANCA BS ARE CLEAR WITH AN O2 SAT OF 98% ON ROOM AIR. ABD ISSOFT WTH NORMOACTIVE BOWEL SOUNDS. PT VOIDED 400ML OF CLEAR YELLOW URINE. THE IV RATE WAS DECREASED TO 50ML/HR PER DR MONTIEL. PT NOW PLACED ON TIDAC/HS FSG WITH NOVOLOG COVERAGE, TO START AT 1200. BLE ARE NOTED TO BE REDDENED AND SWOLLEN WITH DRY SCALY PATCHES FROM TOP OF CERVANTES TO FEET. OPEN AREA NOTED TO OUTER ASPECT OF L FOOT. AWAITING WOUND CONSULT FROM DR. SALCEDO.
[2016-06-01] MEDS ORDERED: GABAPENTIN100 M2 PO (08:20)
[2016-06-01] MEDS ORDERED: DOXAZOSIN MESYLA2 M1 PO (08:21)
[2016-06-01] MEDS ORDERED: NITROSTAT0.4 M1 SL (08:21)
[2016-06-01] MEDS ORDERED: CLONIDINE HCL0.2 M1 PO (08:22)
[2016-06-01] MEDS ORDERED: BUMETANIDE1 M1 PO (08:22)
[2016-06-01] MEDS ORDERED: CALCIUM ACETAT667 M3 PO (08:23)
[2016-06-01] MEDS ORDERED: LEVEMIR100 UNIT/1 SQ (08:24)
--- NOTE | 2016-06-01 08:50 | Cons- Wound Care ---
General Information and HPI Consulting Request Date of Consult: 06/01/16 Requested By: TISHA GIBBS,SIENNABossman Reason for Consult: Right lower extremity ulcers present on admission. History of Present Illness: Patient is 60-year-old with poorly controlled diabetes hypertension and kidney disease admitted with feeling poorly hyperglycemia and metabolic acidosis. He reports having had a chronic lower extremity edema and pruritus. He's had small ulcers of his right foot for some time with no specific intervention. He is unaware of any comp getting peripheral vascular disease. Allergies/Medications Allergies: Coded Allergies: Fish Containing Products (Severe, RASH, BREATHING PROBLEM? 06/01/16) Uncoded Allergies: SEAFOOD (Severe, RASH, BREATHING PROBLEM 06/01/16) Home Med List: Allopurinol 100 MG TABLET 1 TAB PO DAILY Gout (Reported) Amlodipine Besylate 10 MG TABLET 1 TAB PO DAILY Hypertension (Reported) Atorvastatin Calcium 80 MG TABLET 1 TAB PO DAILY Hyperlipidemia (Reported) Bumetanide 1 MG TABLET 1 TAB PO DAILY Heart (Reported) Calcium Acetate 667 MG CAPSULE 1 CAP PO TID Unknown (Reported) Clonidine HCl 0.2 MG TABLET 1 TAB PO QPM HTN (Reported) Doxazosin Mesylate 2 MG TABLET 1 TAB PO DAILY Angina (Reported) Furosemide 40 MG TABLET 1 TAB PO BID LE swelling (Reported) Gabapentin 100 MG CAPSULE 1 CAP PO TID Neuropathy (Reported) Glimepiride (Amaryl) 1 MG TAB 1 TAB PO DAILY DIABETES Hydralazine HCl 25 MG TABLET 1 TAB PO TID HTN (Reported) Insulin Detemir (Levemir) 100 UNIT/ML VIAL 14 UNITS SQ ONCE Diabetes ( Reported) Linagliptin (Tradjenta) 5 MG TABLET 1 TAB PO DAILY Diabetes (Reported) Lisinopril 2.5 MG TABLET 1 TAB PO DAILY HTN Metformin Hydochloride (Glucophage) 500 MG TABLET 500 MG PO 0800,1700 DIABETES Nitroglycerin (Nitrostat) 0.4 MG TAB.SUBL 1 TAB SL AD PRN Chest pain ( Reported) 1st sign of attack; may repeat every 5 minutes until relief; if pain persists after 3 tablets in 15 minutes, prompt medical att Pravastatin Sodium 40 MG TABLET 1 TAB PO DAILY Hyperlipidemia (Reported) Review of Systems Review of Systems: He denies claudication Past History Travel History Traveled to [place] past 21 day No Medical History Blood Transfusion Hx: No Neurological: N EENT: cataracts Cardiovascular: hypertension, hyperlipidemia Respiratory: asthma Gastrointestinal: NONE Hepatic: NONE Renal: chronic kidney disease Musculoskeletal: NONE Psychiatric: NONE Endocrine: diabetes Blood Disorders: NONE Cancer(s): NONE 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 SISTER (Breast cancer). Psychosocial History Where Do You Live? Home Smoking Status: Former Smoker ETOH Use: denies use Illicit Drug Use: denies illicit drug use Exam & Diagnostic Data Vital Signs and I&O Vital Signs Result Date Time Pulse Ox 98 06/01 599 O2 Delivery Room Air 06/01 599 B/P 180/84 06/01 599 Temp 98.1 06/01 599 Pulse 58 06/01 599 Resp 20 06/01 599 There is bilateral 2+ pitting edema there is extensive flaking of skin of both lower extremities distal pulses are unable to be palpated over the right dorsal foot is a superficial probable partial thickness wound with dry red fill measuring approximately 1.5 x 0.7 cm over the plantar aspect of his right great toe is evidence of a prior ulcer which appears to be epithelialized approximately 2 x 0.8 cm proximal to this is a fissure which measures approximately 2 x 1 mm Assessment/Plan Impression/Plan: 60-year-old gentleman poorly controlled diabetes hypertension admitted with hyperglycemia and metabolic acidosis. His chronic edema for which there is likely a component of venous insufficiency. His wounds appear to be a partially healed and/or partial thickness present on admission. His exam suggests complicating peripheral vascular disease. Recommend leg elevation and skin moisturization. Wounds can be covered with Xeroform change daily. Obtain arterial ultrasound to evaluate presence of peripheral vascular disease Consult Acknowledgment - Thank you for your consult request.
--- NOTE | 2016-06-01 09:47 | Cons- Nephrology ---
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 Found to be hyperglycemic & hyperkalemic requiring initiation of insulin drip. Known severe, stage 4, CKD w baseline Cr mid 3s associated nononephrotic range proteinuria & renal function near baseline on admit. On outpt ACEI but recently noncompliant w insulin. Has declined all ESRD planning in past but denies gross uremic sx or SOB. No record of any NSAIDs or recent IV contrast. Has also had chronic met acid requiring po bicarb supplement. Allergies/Medications Allergies: Coded Allergies: Fish Containing Products (Severe, RASH, BREATHING PROBLEM? 06/01/16) Uncoded Allergies: SEAFOOD (Severe, RASH, BREATHING PROBLEM 06/01/16) Home Med List: Allopurinol 100 MG TABLET 1 TAB PO DAILY Gout (Reported) Amlodipine Besylate 10 MG TABLET 1 TAB PO DAILY Hypertension (Reported) Atorvastatin Calcium 80 MG TABLET 1 TAB PO DAILY Hyperlipidemia (Reported) Bumetanide 1 MG TABLET 1 TAB PO DAILY Heart (Reported) Calcium Acetate 667 MG CAPSULE 1 CAP PO TID Unknown (Reported) Clonidine HCl 0.2 MG TABLET 1 TAB PO QPM HTN (Reported) Doxazosin Mesylate 2 MG TABLET 1 TAB PO DAILY Angina (Reported) Furosemide 40 MG TABLET 1 TAB PO BID LE swelling (Reported) Gabapentin 100 MG CAPSULE 1 CAP PO TID Neuropathy (Reported) Glimepiride (Amaryl) 1 MG TAB 1 TAB PO DAILY DIABETES Hydralazine HCl 25 MG TABLET 1 TAB PO TID HTN (Reported) Insulin Detemir (Levemir) 100 UNIT/ML VIAL 14 UNITS SQ ONCE Diabetes ( Reported) Linagliptin (Tradjenta) 5 MG TABLET 1 TAB PO DAILY Diabetes (Reported) Lisinopril 2.5 MG TABLET 1 TAB PO DAILY HTN Metformin Hydochloride (Glucophage) 500 MG TABLET 500 MG PO 0800,1700 DIABETES Nitroglycerin (Nitrostat) 0.4 MG TAB.SUBL 1 TAB SL AD PRN Chest pain ( Reported) 1st sign of attack; may repeat every 5 minutes until relief; if pain persists after 3 tablets in 15 minutes, prompt medical att Pravastatin Sodium 40 MG TABLET 1 TAB PO DAILY Hyperlipidemia (Reported) Current Medications: Current Medications Sig/Michael Start time Last Medication Dose Route Stop Time Status Admin Amlodipine Besylate 10 MG DAILY 06/01 0615 AC PO Calcium Chloride 1 GM ONCE ONE 06/01 0430 DC 06/01 IV 06/01 0431 0444 Calcium Chloride 0 .STK-MED ONE 06/01 0422 DC .ROUTE Dextrose/Sodium 1,000 ML Q10H 06/01 0630 AC 06/01 Chloride IV 0656 Glycerin/Mineral Oil 1 ALISIA TID PRN 06/01 0745 AC TOP Heparin Sodium 5,000 UNIT Q8 06/01 0600 AC 06/01 (Porcine) SC 0704 Insulin Aspart 0 AC & AT BEDTIME 06/01 1200 AC SC Insulin Detemir 10 UNITS DAILY 06/01 1000 AC SC Insulin Human Regular 6 UNITS ONCE ONE 06/01 0415 DC 06/01 IV 06/01 0416 0445 Insulin Human Regular 100 UNIT Q24H 06/01 0415 DC 06/01 Sodium Chloride 100 ML IV 0514 Sodium Chloride 1,000 ML Q10H 06/01 0545 DC IV Sodium Chloride 1,000 ML BOLUS ONE 06/01 0430 DC 06/01 IV 06/01 0529 0458 Sodium Chloride 1,000 ML BOLUS ONE 06/01 0415 DC 06/01 IV 06/01 0514 0444 Review of Systems Review of Systems Constitutional: Reports: chills. EENTM: Reports: no symptoms. Cardiovascular: Reports: no symptoms. Respiratory: Reports: no symptoms. GI: Reports: no symptoms. Genitourinary: Reports: no symptoms. Musculoskeletal: Reports: no symptoms. Skin: Reports: rash (chronic desquamtaing rash legs). Neurological/Psychological: Reports: no symptoms. Hematologic/Endocrine: Reports: no symptoms. Immunologic/Allergic: Reports: no symptoms. 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 SISTER (Breast cancer). Relation not specified for: FH: diabetes mellitus FH: hypertension Psychosocial History Where Do You Live? Home Smoking Status: Former Smoker ETOH Use: denies use Illicit Drug Use: denies illicit drug use Exam & Diagnostic Data Vital Signs and I&O Vital Signs Date Time Temp Pulse Resp B/P Pulse O2 O2 Flow FiO2 Ox Delivery Rate 06/01 599 98 Room Air 06/01 06 98.1 58 20 180/84 95 Room Air 06/01 0512 96.4 64 18 160/64 97 Room Air 06/01 0249 98 Room Air 06/01 0239 98.5 72 18 196/70 97 Room Air Intake & Output 06/01 1600 06/01 0400 05/31 1600 05/31 0400 05/30 1600 05/30 0400 Intake Total 263 Output Total 0 Balance 263 Intake, IV 263 Intake, Oral 0 Output, Urine 0 Patient 187 lb 170 lb Weight Physical Exam General Appearance: well developed/nourished, no apparent distress Head: atraumatic, normal appearance Eyes: Bilateral: normal appearance. 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, no asterixis Skin: rash (desquamating lower legs bilat) Lymphatic: no anterior cervical veronica Results Pertinent Lab Results: Laboratory Tests 06/01 06/01 06/01 06/01 0905 0702 0620 0620 Chemistry Sodium (137 - 145 mmol/L) Pending 144 Potassium (3.5 - 5.1 mmol/L) Pending 5.2 H Chloride (98 - 107 mmol/L) Pending 109 H Carbon Dioxide (22 - 30 mmol/L) Pending 19 L Anion Gap (5 - 16) Pending 16 BUN (9 - 20 mg/dL) Pending 89 H Creatinine (0.7 - 1.2 mg/dL) Pending 3.4 H Estimated GFR (>60 ml/min) 19 L Glucose (65 - 99 mg/dL) Pending 209 H Lactic Acid (0.7 - 2.1 mmol/L) Cancelled 1.7 Calcium (8.4 - 10.2 mg/dL) Pending 9.0 Phosphorus (2.5 - 4.5 mg/dL) Pending 5.0 H Magnesium (1.6 - 2.3 mg/dL) Pending 2.0 Total Bilirubin (0.2 - 1.3 mg/dL) Pending 0.2 AST (17 - 59 U/L) Pending 13 L ALT (21 - 72 U/L) Pending 17 L Troponin I Pending Albumin (3.5 - 5.0 g/dL) Pending 3.1 L Triglycerides (<150 mg/dL) 191 H Cholesterol (< 200 MG/DL) 100 LDL Cholesterol, Calc (65 - 129 mg/dL) 35 L HDL Cholesterol (40 - 60 mg/dL) 27 L Cholesterol/HDL Ratio (0.00 - 4.88 %) 4 TSH Pending Free T4 Pending 06/01 06/01 0513 0405 Blood Gas pH (7.35 - 7.45 PH) 7.30 *L pCO2 (35 - 45 TORR) 39 pO2 (80 - 100 TORR) 90 HCO3 (21 - 28 MEQ/L) 19 L ABG O2 Sat (Measured) (>96.0 %) 96.0 P-50 (Temp Corrected) N Carboxyhemoglobin (1.5 - 5.0 %) 0.3 L O2 Concentration % RA Miscellaneous Phlebotomy Draw Site RIGHT BRACHIAL Toxicology Urine Opiates Screen (>2000 NG/ML) < 100.00 Methadone Screen (>300 NG/ML) < 40 Barbiturate Screen (>200 NG/ML) < 60 Ur Phencyclidine Scrn (>25 NG/ML) < 6.00 Amphetamines Screen (>1000 NG/ML) < 100 U Benzodiazepines Scrn (>200 NG/ML) < 85 Urine Cocaine Screen (>300 NG/ML) < 50 Urine Cannabis Screen (>50 NG/ML) < 5.00 Urines Urinalysis LIGHT H Urine Color (YEL,AMB,STR) YEL Urine Clarity (CLEAR) CLEAR Urine pH (5.0 - 8.0) 6.0 Ur Specific [place] (1.001 - 1.035) 1.025 Urine Protein (NEG,<30 MG/DL) 100 H Urine Ketones (NEG) NEG Urine Nitrite (NEG) NEG Urine Bilirubin (NEG) NEG Urine Urobilinogen (0.1 - 1.0 EU/dl) 0.2 Ur Leukocyte Esterase (NEG) NEG Ur Microscopic SEDIMENT EXAMINED Urine RBC (0 - 5 /HPF) 1-3 Ur Epithelial Cells (NONE,FEW) FEW Urine Hemoglobin (NEG) SMALL H Urine Glucose (N MG/DL) >=1000 H 06/01 06/01 06/01 0402 0309 0305 Chemistry Sodium (137 - 145 mmol/L) 139 Potassium (3.5 - 5.1 mmol/L) 6.0 *H Chloride (98 - 107 mmol/L) 102 Carbon Dioxide (22 - 30 mmol/L) 19 L Anion Gap (5 - 16) 18 H BUN (9 - 20 mg/dL) 97 H Creatinine (0.7 - 1.2 mg/dL) 3.6 H Estimated GFR (>60 ml/min) 17 L BUN/Creatinine Ratio (7 - 25 %) 26.9 H Glucose (65 - 99 mg/dL) 541 *H Hemoglobin A1c Pending Serum Osmolality (285 - 295 MOSM/KG) 348 H Lactic Acid (0.7 - 2.1 mmol/L) Cancelled 2.2 H Calcium (8.4 - 10.2 mg/dL) 8.8 Magnesium (1.6 - 2.3 mg/dL) 2.1 Iron (49 - 181 ug/dL) 49 TIBC (261 - 462 ug/dL) 306 Ferritin (17.9 - 464 ng/mL) 157.0 Total Bilirubin (0.2 - 1.3 mg/dL) 0.3 AST (17 - 59 U/L) 14 L ALT (21 - 72 U/L) 23 Alkaline Phosphatase (< 127 U/L) 134 H Creatine Kinase (55 - 170 U/L) 157 Troponin I (<0.11 ng/ml) 0.03 Total Protein (6.3 - 8.2 g/dL) 7.3 Albumin (3.5 - 5.0 g/dL) 3.7 Globulin (1.9 - 4.2 gm/dL) 3.6 Albumin/Globulin Ratio (1.1 - 2.2 %) 1.0 L Hematology CBC w Diff NO MAN DIFF REQ WBC (4.8 - 10.8 /CUMM) 9.3 RBC (4.70 - 6.10 /CUMM) 3.52 L Hgb (14.0 - 18.0 G/DL) 10.1 L Hct (42 - 52 %) 30.7 L MCV (80.0 - 94.0 FL) 87.2 MCH (27.0 - 31.0 PG) 28.7 RDW (11.5 - 14.5 %) 14.3 Plt Count (130 - 400 /CUMM) 208 MPV (7.4 - 10.4 FL) 9.9 Gran % (42.2 - 75.2 %) 81.9 H Lymphocytes % (20.5 - 51.1 %) 9.1 L Monocytes % (1.7 - 9.3 %) 6.4 Eosinophils % (0 - 5 %) 2.0 Basophils % (0.0 - 2.0 %) 0.6 Absolute Granulocytes (1.4 - 6.5 /CUMM) 7.6 H Absolute Lymphocytes (1.2 - 3.4 /CUMM) 0.8 L Absolute Monocytes (0.10 - 0.60 /CUMM) 0.6 Absolute Eosinophils (0.0 - 0.7 /CUMM) 0.2 Absolute Basophils (0.0 - 0.2 /CUMM) 0.1 PUBS MCHC (33.0 - 37.0 G/DL) 33.0 Toxicology Acetone Level (NEGATIVE) NEGATIVE Imaging/Other Studies: CXR: The lungs are well expanded. There is no focal consolidation, edema, or effusion. No pneumothorax. The cardiomediastinal silhouette is prominent, unchanged. No acute osseous abnormality. IMPRESSION: No acute pulmonary findings. Assessment/Plan Assessment/Recommendations Assessment: 1. CKD: severe, stage 4, due to presumed diabetic & HTN nephrosclerosis. GFR @ recent baseline & no renal replacement need @ present time. Needs ESRD option education & planning, but has repeatedly declined & best done as outpt. 2. Hyperkalemia: improved; due to hyperglycemia w redistribution K out of cells, ACEI, & prob underlying hyporenin hypoaldo. Needs K diet restriction & given recurrent nature --> avoid RAAS interruption going forward. 3. 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 DKA unlikely w neg serum acetone & urine ketones. Recommendations: 1. 2 gram K diet 2. Na bicarb 1300 mg bid po 3. Lasix as needed 4. No ACEI or ARB; no K sparing diuretics OK for floor from renal perespective
--- NOTE | 2016-06-01 10:17 | Cons- Cardiology ---
General Information and HPI Consulting Request Date of Consult: 06/01/16 Requested By: TISHA GIBBS,AICHA Reason for Consult: Cardiology evaluation in a patient with renal disease and diabetes who presents with DKA. Source of Information: patient, old records Exam Limitations: language barrier History of Present Illness: The patient is a 60-year-old man with a history of diabetes and CKD. He presents with diabetic ketoacidosis. He has stage 4 CKD which is worse than his previous values. He apparently just returned from [place] and was brought to the hospital by his family because he did not look well. Apparently he has not been taking his medications for some time. Unfortunately because of language barrier I cannot get any useful history out of the patient and his family is not here at the current time. He is on blood pressure medications and a statin at home. The patient denies any history of heart disease. His initial and second EKG were both within normal limits and he has 1 negative troponin. There is no history of chest pain or shortness of breath on admission. Allergies/Medications Allergies: Coded Allergies: Fish Containing Products (Severe, RASH, BREATHING PROBLEM? 06/01/16) Uncoded Allergies: SEAFOOD (Severe, RASH, BREATHING PROBLEM 06/01/16) Home Med List: Allopurinol 100 MG TABLET 1 TAB PO DAILY Gout (Reported) Amlodipine Besylate 10 MG TABLET 1 TAB PO DAILY Hypertension (Reported) Atorvastatin Calcium 80 MG TABLET 1 TAB PO DAILY Hyperlipidemia (Reported) Bumetanide 1 MG TABLET 1 TAB PO DAILY Heart (Reported) Calcium Acetate 667 MG CAPSULE 1 CAP PO TID Unknown (Reported) Clonidine HCl 0.2 MG TABLET 1 TAB PO QPM HTN (Reported) Doxazosin Mesylate 2 MG TABLET 1 TAB PO DAILY Angina (Reported) Furosemide 40 MG TABLET 1 TAB PO BID LE swelling (Reported) Gabapentin 100 MG CAPSULE 1 CAP PO TID Neuropathy (Reported) Glimepiride (Amaryl) 1 MG TAB 1 TAB PO DAILY DIABETES Hydralazine HCl 25 MG TABLET 1 TAB PO TID HTN (Reported) Insulin Detemir (Levemir) 100 UNIT/ML VIAL 14 UNITS SQ ONCE Diabetes ( Reported) Linagliptin (Tradjenta) 5 MG TABLET 1 TAB PO DAILY Diabetes (Reported) Lisinopril 2.5 MG TABLET 1 TAB PO DAILY HTN Metformin Hydochloride (Glucophage) 500 MG TABLET 500 MG PO 0800,1700 DIABETES Nitroglycerin (Nitrostat) 0.4 MG TAB.SUBL 1 TAB SL AD PRN Chest pain ( Reported) 1st sign of attack; may repeat every 5 minutes until relief; if pain persists after 3 tablets in 15 minutes, prompt medical att Pravastatin Sodium 40 MG TABLET 1 TAB PO DAILY Hyperlipidemia (Reported) Current Medications: Current Medications Sig/Michael Start time Last Medication Dose Route Stop Time Status Admin Amlodipine Besylate 10 MG DAILY 06/01 0615 AC PO Calcium Chloride 1 GM ONCE ONE 06/01 0430 DC 06/01 IV 06/01 0431 0444 Calcium Chloride 0 .STK-MED ONE 06/01 0422 DC .ROUTE Dextrose/Sodium 1,000 ML Q10H 06/01 0630 AC 06/01 Chloride IV 0656 Glycerin/Mineral Oil 1 ALISIA TID PRN 06/01 0745 AC TOP Heparin Sodium 5,000 UNIT Q8 06/01 0600 AC 06/01 (Porcine) SC 0704 Insulin Aspart 0 AC & AT BEDTIME 06/01 1200 AC SC Insulin Detemir 10 UNITS DAILY 06/01 1000 AC SC Insulin Human Regular 6 UNITS ONCE ONE 06/01 0415 DC 06/01 IV 06/01 0416 0445 Insulin Human Regular 100 UNIT Q24H 06/01 0415 DC 06/01 Sodium Chloride 100 ML IV 0514 Sodium Chloride 1,000 ML Q10H 06/01 0545 DC IV Sodium Chloride 1,000 ML BOLUS ONE 06/01 0430 DC 06/01 IV 06/01 0529 0458 Sodium Chloride 1,000 ML BOLUS ONE 06/01 0415 DC 06/01 IV 06/01 0514 0444 Review of Systems Review of Systems: Unobtainable at this time Past History Travel History Traveled to [place] past 21 day No Medical History Blood Transfusion Hx: No Neurological: N EENT: cataracts Cardiovascular: hypertension, hyperlipidemia Respiratory: asthma Gastrointestinal: NONE Hepatic: NONE Renal: chronic kidney disease Musculoskeletal: NONE Psychiatric: NONE Endocrine: diabetes Blood Disorders: anemia Cancer(s): 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 SISTER (Breast cancer). Relation not specified for: FH: diabetes mellitus FH: hypertension Psychosocial History Where Do You Live? Home Smoking Status: Former Smoker ETOH Use: denies use Illicit Drug Use: denies illicit drug use Exam & Diagnostic Data Vital Signs and I&O Vital Signs Date Time Temp Pulse Resp B/P Pulse O2 O2 Flow FiO2 Ox Delivery Rate 06/01 599 98 Room Air 06/01 06 98.1 58 20 180/84 95 Room Air 06/01 0512 96.4 64 18 160/64 97 Room Air 06/01 0249 98 Room Air 06/01 0239 98.5 72 18 196/70 97 Room Air Intake & Output 06/01 0000 05/31 1600 05/31 0000 Intake Total 263 Output Total 0 Balance 263 Intake, IV 263 Intake, Oral 0 Output, Urine 0 Patient 187 lb 187 lb Weight Physical Exam: Elderly-appearing male in bed in no distress HEENT exam grossly normal but poor vision Neck veins not distended Chest is clear Heart reveals grade 2 to 3/6 systolic ejection murmur at the base radiating to the apex Abdomen is benign Extremities show extensive fungal infection of the nails and legs Labs/Eduardo Results: Laboratory Tests 06/01 06/01 06/01 06/01 0905 0702 0620 0620 Chemistry Sodium (137 - 145 mmol/L) 145 144 Potassium (3.5 - 5.1 mmol/L) 5.3 H 5.2 H Chloride (98 - 107 mmol/L) 110 H 109 H Carbon Dioxide (22 - 30 mmol/L) 21 L 19 L Anion Gap (5 - 16) 14 16 BUN (9 - 20 mg/dL) 87 H 89 H Creatinine (0.7 - 1.2 mg/dL) 3.2 H 3.4 H Estimated GFR (>60 ml/min) 20 L 19 L Glucose (65 - 99 mg/dL) 165 H 209 H Lactic Acid (0.7 - 2.1 mmol/L) Cancelled 1.7 Calcium (8.4 - 10.2 mg/dL) 8.9 9.0 Phosphorus (2.5 - 4.5 mg/dL) 4.8 H 5.0 H Magnesium (1.6 - 2.3 mg/dL) 2.0 2.0 Total Bilirubin (0.2 - 1.3 mg/dL) 0.2 0.2 AST (17 - 59 U/L) 13 L 13 L ALT (21 - 72 U/L) 16 L 17 L Troponin I (<0.11 ng/ml) Pending Albumin (3.5 - 5.0 g/dL) 3.1 L 3.1 L Triglycerides (<150 mg/dL) 191 H Cholesterol (< 200 MG/DL) 100 LDL Cholesterol, Calc (65 - 129 mg/dL) 35 L HDL Cholesterol (40 - 60 mg/dL) 27 L Cholesterol/HDL Ratio (0.00 - 4.88 %) 4 TSH (0.270 - 4.200 uIU/mL) Pending Free T4 (0.78 - 2.44 ng/dL) Pending 06/01 06/01 0513 0405 Blood Gas pH (7.35 - 7.45 PH) 7.30 *L pCO2 (35 - 45 TORR) 39 pO2 (80 - 100 TORR) 90 HCO3 (21 - 28 MEQ/L) 19 L ABG O2 Sat (Measured) (>96.0 %) 96.0 P-50 (Temp Corrected) N Carboxyhemoglobin (1.5 - 5.0 %) 0.3 L O2 Concentration % RA Miscellaneous Phlebotomy Draw Site RIGHT BRACHIAL Toxicology Urine Opiates Screen (>2000 NG/ML) < 100.00 Methadone Screen (>300 NG/ML) < 40 Barbiturate Screen (>200 NG/ML) < 60 Ur Phencyclidine Scrn (>25 NG/ML) < 6.00 Amphetamines Screen (>1000 NG/ML) < 100 U Benzodiazepines Scrn (>200 NG/ML) < 85 Urine Cocaine Screen (>300 NG/ML) < 50 Urine Cannabis Screen (>50 NG/ML) < 5.00 Urines Urinalysis LIGHT H Urine Color (YEL,AMB,STR) YEL Urine Clarity (CLEAR) CLEAR Urine pH (5.0 - 8.0) 6.0 Ur Specific [place] (1.001 - 1.035) 1.025 Urine Protein (NEG,<30 MG/DL) 100 H Urine Ketones (NEG) NEG Urine Nitrite (NEG) NEG Urine Bilirubin (NEG) NEG Urine Urobilinogen (0.1 - 1.0 EU/dl) 0.2 Ur Leukocyte Esterase (NEG) NEG Ur Microscopic SEDIMENT EXAMINED Urine RBC (0 - 5 /HPF) 1-3 Ur Epithelial Cells (NONE,FEW) FEW Urine Hemoglobin (NEG) SMALL H Urine Glucose (N MG/DL) >=1000 H 06/01 06/01 06/01 0402 0309 0309 Chemistry Sodium (137 - 145 mmol/L) 139 Potassium (3.5 - 5.1 mmol/L) 6.0 *H Chloride (98 - 107 mmol/L) 102 Carbon Dioxide (22 - 30 mmol/L) 19 L Anion Gap (5 - 16) 18 H BUN (9 - 20 mg/dL) 97 H Creatinine (0.7 - 1.2 mg/dL) 3.6 H Estimated GFR (>60 ml/min) 17 L BUN/Creatinine Ratio (7 - 25 %) 26.9 H Glucose (65 - 99 mg/dL) 541 *H Hemoglobin A1c Pending Serum Osmolality (285 - 295 MOSM/KG) 348 H Lactic Acid (0.7 - 2.1 mmol/L) Cancelled 2.2 H Calcium (8.4 - 10.2 mg/dL) 8.8 Magnesium (1.6 - 2.3 mg/dL) 2.1 Iron (49 - 181 ug/dL) 49 TIBC (261 - 462 ug/dL) 306 Ferritin (17.9 - 464 ng/mL) 157.0 Total Bilirubin (0.2 - 1.3 mg/dL) 0.3 AST (17 - 59 U/L) 14 L ALT (21 - 72 U/L) 23 Alkaline Phosphatase (< 127 U/L) 134 H Creatine Kinase (55 - 170 U/L) 157 Troponin I (<0.11 ng/ml) 0.03 Total Protein (6.3 - 8.2 g/dL) 7.3 Albumin (3.5 - 5.0 g/dL) 3.7 Globulin (1.9 - 4.2 gm/dL) 3.6 Albumin/Globulin Ratio (1.1 - 2.2 %) 1.0 L Hematology CBC w Diff NO MAN DIFF REQ WBC (4.8 - 10.8 /CUMM) 9.3 RBC (4.70 - 6.10 /CUMM) 3.52 L Hgb (14.0 - 18.0 G/DL) 10.1 L Hct (42 - 52 %) 30.7 L MCV (80.0 - 94.0 FL) 87.2 MCH (27.0 - 31.0 PG) 28.7 RDW (11.5 - 14.5 %) 14.3 Plt Count (130 - 400 /CUMM) 208 MPV (7.4 - 10.4 FL) 9.9 Gran % (42.2 - 75.2 %) 81.9 H Lymphocytes % (20.5 - 51.1 %) 9.1 L Monocytes % (1.7 - 9.3 %) 6.4 Eosinophils % (0 - 5 %) 2.0 Basophils % (0.0 - 2.0 %) 0.6 Absolute Granulocytes (1.4 - 6.5 /CUMM) 7.6 H Absolute Lymphocytes (1.2 - 3.4 /CUMM) 0.8 L Absolute Monocytes (0.10 - 0.60 /CUMM) 0.6 Absolute Eosinophils (0.0 - 0.7 /CUMM) 0.2 Absolute Basophils (0.0 - 0.2 /CUMM) 0.1 PUBS MCHC (33.0 - 37.0 G/DL) 33.0 Toxicology Acetone Level (NEGATIVE) NEGATIVE Diagnostic Data EKG Results EKG on admission showed sinus rhythm at a rate of 61 and is within normal limits. Repeat EKG done at 9:25 AM today shows sinus rhythm at a rate of 60 and is within normal limits CXR Results PATIENT: TANI NESS PRESENT AGE: 60 PATIENT ACCOUNT NO: [id number] : 54 LOCATION: [facility] ORDERING PHYSICIAN: ROHIT SALAS MD SERVICE DATE: 06/01/16 EXAM TYPE: RAD - XRY-PORTABLE CHEST XRAY EXAMINATION: XR PORTABLE CHEST CLINICAL INFORMATION: Diabetic ketoacidosis of unknown source. COMPARISON: 10/08/2013 TECHNIQUE: Portable view of the chest was obtained. FINDINGS: The lungs are well expanded. There is no focal consolidation, edema, or effusion. No pneumothorax. The cardiomediastinal silhouette is prominent, unchanged. No acute osseous abnormality. IMPRESSION: No acute pulmonary findings. 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 <Electronically signed in Other Vendor System> SIGNED BY: JANA NEWTON MD 06/01 0539 Assessment/Plan Assessment/Plan This patient presents with uncontrolled diabetes and worsening renal failure. There is no history of heart disease and he has normal EKGs. He has a negative troponin 1. He has a murmur consistent with aortic stenosis. An echocardiogram has been ordered. I recommend restarting him on blood pressure medications to keep his blood pressure in the reasonable range. As per nephrology we should not use an EMY inhibitor or an ARB but we can resume his amlodipine and hydralazine as needed for blood pressure control. The echocardiogram will be useful to evaluate the degree of aortic valve disease that he has. This can be followed up as an outpatient. I would not recommend a stress test at this time but he may need that also as an outpatient. Consult Acknowledgment - Thank you for your consult request.
--- NOTE | 2016-06-01 11:14 | PN- CRCU ---
Subjective HPI/Critical Care Issues: The patient is a 60-year-old man with a history of diabetes and CKD. He presents with diabetic ketoacidosis. He has stage 4 CK D which is worse than his some previous values. He apparently just returned from [place] and was brought to the hospital by his family because he did not look well. Apparently he has not been taking his medications for some time. Unfortunately because of language barrier I cannot get any useful history out of the patient and his family is not here at the current time. He is on blood pressure medication and a statin at home. The patient denies any history of heart disease. There is no history of chest pain or shortness of breath on admission. Review of Systems Constitutional: Reports: chills. Cardiovascular: Denies: chest pain, orthopena, palpitations. Respiratory: Denies: cough, hemoptysis, orthopnea, short of breath. GI: Denies: abdominal pain, constipation, diarrhea. Genitourinary: Denies: discharge, dysuria, frequency. Musculoskeletal: Denies: joint pain, joint swelling. Skin: Reports: erythema. Neurological/Psychological: Denies: confusion, depressed, dementia, numbness, paresthesia. Hematologic/Endocrine: Denies: bruising, bleeding. Physical Exam General Appearance Alert, Oriented X3, Cooperative, Mild Distress Skin significance dermatitis with flaking on lower extremity bilaterally from toes extending to mid tibial areas , mild ulceration of right toe. HEENT Atraumatic, dry oral mucosa Neck Supple, No JVD, No thryomegaly Lymphatic Cervical nl Cardiovascular Regular Rate, Normal S1, Normal S2 Lungs Clear to Auscultation Abdomen Soft, No Tenderness, distended abdomen Neurological Normal Speech, Strength at 5/5 X4 Ext, Sensation Intact Extremities There is bilateral 2+ pitting edema there is extensive flaking of skin of both lower extremities distal pulses are unable to be palpated over the right dorsal foot is a superficial probable partial thickness wound with dry red fill measuring approximately 1.5 x 0.7 cm over the plantar aspect of his right great toe is evidence of a prior ulcer which appears to be epithelialized approximately 2 x 0.8 cm proximal to this is a fissure which measures approximately 2 x 1 mm Vascular not able to appreciate DP pulses Objective Current Medications: Current Medications Sig/Michael Start time Last Medication Dose Route Stop Time Status Admin Amlodipine Besylate 10 MG DAILY 06/01 0615 AC 06/01 PO 1028 Calcium Chloride 1 GM ONCE ONE 06/01 0430 DC 06/01 IV 06/01 0431 0444 Calcium Chloride 0 .STK-MED ONE 06/01 0422 DC .ROUTE Dextrose/Sodium 1,000 ML Q10H 06/01 0630 AC 06/01 Chloride IV 0656 Glycerin/Mineral Oil 1 ALISIA TID PRN 06/01 0745 AC TOP Heparin Sodium 5,000 UNIT Q8 06/01 0600 AC 06/01 (Porcine) SC 0704 Hydralazine HCl 25 MG TID 06/01 1600 AC PO Insulin Aspart 0 AC & AT BEDTIME 06/01 1200 AC SC Insulin Detemir 10 UNITS DAILY 06/01 1000 AC 06/01 SC 1027 Insulin Human Regular 6 UNITS ONCE ONE 06/01 0415 DC 06/01 IV 06/01 0416 0445 Insulin Human Regular 100 UNIT Q24H 06/01 0415 DC 06/01 Sodium Chloride 100 ML IV 0514 Sodium Bicarbonate 1,300 MG BID 06/01 1051 UNVr PO Sodium Chloride 1,000 ML Q10H 06/01 0545 DC IV Sodium Chloride 1,000 ML BOLUS ONE 06/01 429 DC 06/01 IV 06/01 0529 0458 Sodium Chloride 1,000 ML BOLUS ONE 06/015 DC 06/01 IV 06/01 0514 0444 Vital Signs & I&O Last 24 Hrs of Vitals and I&O: Laboratory Tests 06/01 06/01 06/01 06/01 0905 0702 0620 0620 Chemistry Sodium (137 - 145 mmol/L) 145 144 Potassium (3.5 - 5.1 mmol/L) 5.3 H 5.2 H Chloride (98 - 107 mmol/L) 110 H 109 H Carbon Dioxide (22 - 30 mmol/L) 21 L 19 L Anion Gap (5 - 16) 14 16 BUN (9 - 20 mg/dL) 87 H 89 H Creatinine (0.7 - 1.2 mg/dL) 3.2 H 3.4 H Estimated GFR (>60 ml/min) 20 L 19 L Glucose (65 - 99 mg/dL) 165 H 209 H Lactic Acid (0.7 - 2.1 mmol/L) Cancelled 1.7 Calcium (8.4 - 10.2 mg/dL) 8.9 9.0 Phosphorus (2.5 - 4.5 mg/dL) 4.8 H 5.0 H Magnesium (1.6 - 2.3 mg/dL) 2.0 2.0 Total Bilirubin (0.2 - 1.3 mg/dL) 0.2 0.2 AST (17 - 59 U/L) 13 L 13 L ALT (21 - 72 U/L) 16 L 17 L Troponin I (<0.11 ng/ml) 0.06 Albumin (3.5 - 5.0 g/dL) 3.1 L 3.1 L Triglycerides (<150 mg/dL) 191 H Cholesterol (< 200 MG/DL) 100 LDL Cholesterol, Calc (65 - 129 mg/dL) 35 L HDL Cholesterol (40 - 60 mg/dL) 27 L Cholesterol/HDL Ratio (0.00 - 4.88 %) 4 TSH (0.270 - 4.200 uIU/mL) 0.572 Free T4 (0.78 - 2.44 ng/dL) 1.27 06/01 06/01 0513 0405 Blood Gas pH (7.35 - 7.45 PH) 7.30 *L pCO2 (35 - 45 TORR) 39 pO2 (80 - 100 TORR) 90 HCO3 (21 - 28 MEQ/L) 19 L ABG O2 Sat (Measured) (>96.0 %) 96.0 P-50 (Temp Corrected) N Carboxyhemoglobin (1.5 - 5.0 %) 0.3 L O2 Concentration % RA Miscellaneous Phlebotomy Draw Site RIGHT BRACHIAL Toxicology Urine Opiates Screen (>2000 NG/ML) < 100.00 Methadone Screen (>300 NG/ML) < 40 Barbiturate Screen (>200 NG/ML) < 60 Ur Phencyclidine Scrn (>25 NG/ML) < 6.00 Amphetamines Screen (>1000 NG/ML) < 100 U Benzodiazepines Scrn (>200 NG/ML) < 85 Urine Cocaine Screen (>300 NG/ML) < 50 Urine Cannabis Screen (>50 NG/ML) < 5.00 Urines Urinalysis LIGHT H Urine Color (YEL,AMB,STR) YEL Urine Clarity (CLEAR) CLEAR Urine pH (5.0 - 8.0) 6.0 Ur Specific [place] (1.001 - 1.035) 1.025 Urine Protein (NEG,<30 MG/DL) 100 H Urine Ketones (NEG) NEG Urine Nitrite (NEG) NEG Urine Bilirubin (NEG) NEG Urine Urobilinogen (0.1 - 1.0 EU/dl) 0.2 Ur Leukocyte Esterase (NEG) NEG Ur Microscopic SEDIMENT EXAMINED Urine RBC (0 - 5 /HPF) 1-3 Ur Epithelial Cells (NONE,FEW) FEW Urine Hemoglobin (NEG) SMALL H Urine Glucose (N MG/DL) >=1000 H 06/01 06/01 06/01 0402 0309 0305 Chemistry Sodium (137 - 145 mmol/L) 139 Potassium (3.5 - 5.1 mmol/L) 6.0 *H Chloride (98 - 107 mmol/L) 102 Carbon Dioxide (22 - 30 mmol/L) 19 L Anion Gap (5 - 16) 18 H BUN (9 - 20 mg/dL) 97 H Creatinine (0.7 - 1.2 mg/dL) 3.6 H Estimated GFR (>60 ml/min) 17 L BUN/Creatinine Ratio (7 - 25 %) 26.9 H Glucose (65 - 99 mg/dL) 541 *H Hemoglobin A1c Pending Serum Osmolality (285 - 295 MOSM/KG) 348 H Lactic Acid (0.7 - 2.1 mmol/L) Cancelled 2.2 H Calcium (8.4 - 10.2 mg/dL) 8.8 Magnesium (1.6 - 2.3 mg/dL) 2.1 Iron (49 - 181 ug/dL) 49 TIBC (261 - 462 ug/dL) 306 Ferritin (17.9 - 464 ng/mL) 157.0 Total Bilirubin (0.2 - 1.3 mg/dL) 0.3 AST (17 - 59 U/L) 14 L ALT (21 - 72 U/L) 23 Alkaline Phosphatase (< 127 U/L) 134 H Creatine Kinase (55 - 170 U/L) 157 Troponin I (<0.11 ng/ml) 0.03 Total Protein (6.3 - 8.2 g/dL) 7.3 Albumin (3.5 - 5.0 g/dL) 3.7 Globulin (1.9 - 4.2 gm/dL) 3.6 Albumin/Globulin Ratio (1.1 - 2.2 %) 1.0 L Hematology CBC w Diff NO MAN DIFF REQ WBC (4.8 - 10.8 /CUMM) 9.3 RBC (4.70 - 6.10 /CUMM) 3.52 L Hgb (14.0 - 18.0 G/DL) 10.1 L Hct (42 - 52 %) 30.7 L MCV (80.0 - 94.0 FL) 87.2 MCH (27.0 - 31.0 PG) 28.7 RDW (11.5 - 14.5 %) 14.3 Plt Count (130 - 400 /CUMM) 208 MPV (7.4 - 10.4 FL) 9.9 Gran % (42.2 - 75.2 %) 81.9 H Lymphocytes % (20.5 - 51.1 %) 9.1 L Monocytes % (1.7 - 9.3 %) 6.4 Eosinophils % (0 - 5 %) 2.0 Basophils % (0.0 - 2.0 %) 0.6 Absolute Granulocytes (1.4 - 6.5 /CUMM) 7.6 H Absolute Lymphocytes (1.2 - 3.4 /CUMM) 0.8 L Absolute Monocytes (0.10 - 0.60 /CUMM) 0.6 Absolute Eosinophils (0.0 - 0.7 /CUMM) 0.2 Absolute Basophils (0.0 - 0.2 /CUMM) 0.1 PUBS MCHC (33.0 - 37.0 G/DL) 33.0 Toxicology Acetone Level (NEGATIVE) NEGATIVE Microbiology Date/Time Procedure - Status Source Growth 06/01 627 Blood Culture - RECD BLOOD 06/01 619 Blood Culture - RECD BLOOD 06/01 599 Surveillance Culture - RECD GI 06/01 05 Surveillance Culture - RECD UPPER RESP 06/01 512 Urine Culture - RECD URINE ROUT Vital Signs Date Time Temp Pulse Resp B/P Pulse O2 O2 Flow FiO2 Ox Delivery Rate 06/01 1028 98.7 60 18 173/75 06/01 0600 98 Room Air 06/01 06 98.1 58 20 180/84 95 Room Air 06/01 0512 96.4 64 18 160/64 97 Room Air 06/01 0249 98 Room Air 06/01 0239 98.5 72 18 196/70 97 Room Air Intake & Output 06/01 1600 06/01 0800 06/01 0000 Intake Total 263 Output Total 0 Balance 263 Intake, IV 263 Intake, Oral 0 Output, Urine 0 Patient 187 lb 187 lb Weight Impression/Plan Impression/Plan Impression/Plan: This 60-year-old male with a known history of diabetes mellitus type 2, hypertension, and chronic renal insufficiency came up from [place] by train. Family brought him to emergency room because he was not feeling well. He states he had not taken his medications for several days. He may have been hospitalized in [place] for hypoglycemia. Impression * Hyperglycemia: No ketones and medication history suggest a Type 2 diabetes. Not DKA. * Metabolic acidosis could be possible 2/2 to renal insufficency and rtz prob * Improved Hyperkalemia with no acute EKG: possibly 2/2 metabolic acidosis vs renal insufficiency * Acute on chronic CKD? with acidosis, stage 4, due to presumed diabetic & HTN nephrosclerosis. GFR @ recent baseline & no renal replacement need @ present time. Needs ESRD option education & planning, but has repeatedly declined * Anemia * Elevated BP in the setting of non compliance * Lower extremity swelling with venous insufficency with chronic ulcers REC 2 gram K diet Na bicarb 1300 mg bid po Lasix as needed No ACEI or ARB; no K sparing diuretics Diabetic diet Reduce ivf and dc once he is eating LEvemir per endo and sliding scale as noted by endo WOund care per Wound team Arterial ultrasound OK to the floor regular vs TELE Ask cardio and pt should be transferred today
--- NOTE | 2016-06-01 12:44 | NUR ---
PT WAS DOWNGRADED TO GEN MED AT 1130.
--- NOTE | 2016-06-01 13:54 | NUR ---
XEROFORM PLACD TO THE OPEN AREA ON THE INNER ASPECT OF THE R FOOT AND THEN THE WOUND AND PART OF FOOT WAS WRAPPED IN KERLIX. LUBRIDERN LOTION GENEROUSLY APPPLIED TO BLE.
--- NOTE | 2016-06-01 13:57 | NUR ---
PT IS HAVING AN ULTRASOUND PERFORMED OF BLE AT THE BEDSIDE.
--- NOTE | 2016-06-01 15:46 | ULTRASOUND REPORT ---
EXAMINATION: US-BILAT LOW EXTR ARTERIAL DOP CLINICAL INFORMATION: Chronic venous insufficiency, rule out arterial disease. COMPARISON: None. TECHNIQUE: Real-time ultrasound and Doppler techniques (integrating B-mode 2-D vascular images, Doppler spectral analysis and color flow Doppler imaging) were utilized to interrogate the lower extremities. FINDINGS: Right lower extremity: Common femoral artery: 217 cm/sec; monophasic waveform Superficial femoral artery proximal: 164 cm/sec; monophasic waveform Superficial femoral artery mid portion: 139 cm/sec; monophasic waveform Superficial femoral artery distal: 138 cm/sec; monophasic waveform Profunda artery: 181 cm/sec; monophasic waveform Popliteal artery: 299 cm/sec; monophasic waveform Posterior tibial artery: 57 cm/sec; monophasic waveform Anterior tibial artery: 218 cm/sec; monophasic waveform Dorsalis pedis artery: Not visualized due to open wound over the area. Left lower extremity: Common femoral artery: 206 cm/sec; monophasic waveform Superficial femoral artery proximal: 105 cm/sec; monophasic waveform Superficial femoral artery mid portion: 122 cm/sec; monophasic waveform Superficial femoral artery distal: 110 cm/sec; monophasic waveform Profunda artery: 168 cm/sec; monophasic waveform Popliteal artery: 181 cm/sec; monophasic waveform Posterior tibial artery: 109 cm/sec; monophasic waveform Anterior tibial artery: 186 cm/sec; monophasic waveform Dorsalis pedis artery: 140 cm/sec; monophasic waveform ADDITIONAL FINDINGS: 3.0 x 1.9 x 3.0 cm lymph node in the left groin with preserved fatty rowan.. IMPRESSION: Evidence of mild to moderate bilateral peripheral arterial disease. Greater sensitivity and specificity can be obtained with pre-and post exercise PVRs with GEOVANY calculations. Also consider dedicated CTA for further anatomical detail.
[2016-06-01 16:00] VITALS: BP 190/76
--- NOTE | 2016-06-01 17:16 | NUR ---
PT JUST HAD BEDSIDE ECHO PEFORMED. IVF STOPPED AT 1710 PER MD ORDER.
[2016-06-01 17:45] VITALS: BP 168/64
--- NOTE | 2016-06-01 17:48 | NUR ---
PT'S BP WAS NOTED TO BE 190/76 AT 1600. PT WAS MEDICATED WITH 1600 DOSE OF APRESOLINE 25MG PO AT THAT TIME. REPEST BP AT [facility] WAS 168/64. DR KOKI SERNA NOTIFIED.
--- NOTE | 2016-06-01 18:08 | ECHOCARDIOGRAM REPORT ---
TANI NESS Age: 60 : 1955 Gender: M Exam Date: 06/01/2016 16:40 Exam Location: [facility] Ht (in): 65 Wt (lb): 170 BSA: 1.90 BP: 190 / 76 Ordering Physician: ROHIT SALAS MD Referring Physician: Iraj Lopez MD Chief, SoC Technologist: Nayely King [facility] Room Number: 112 Indications: HYPERTENSION Rhythm: Sinus Technical Quality: Good FINDINGS Left Ventricle Normal size left ventricle. Mild concentric left ventricular hypertrophy. Normal left ventricular ejection fraction visually estimated at %. No obvious regional wall motion abnormalities. Normal left ventricular diastolic filling pattern for age. Right Ventricle The right ventricle is normal in size and function. Right Atrium The right atrium is normal in size. Left Atrium Left atrial size at the upper limits of normal. Mitral Valve Mild thickening/calcification of the mitral valve leaflets. Trace mitral regurgitation. Aortic Valve Diffuse thickening of the aortic valve cusps with mnimally reduced excursion. There is very mild aortic stenosis. There is no aortic regurgitation. Tricuspid Valve Structurally normal tricuspid valve. Mild tricuspid regurgitation. Right ventricular systolic pressure estimated to be elevated at 45- 50 mmHg. Pulmonic Valve Structurally normal pulmonic valve. There is no pulmonic regurgitation. Pericardium Normal pericardium without effusion. No pleural effusion. Great Vessels Normal aortic root dimension. The aortic arch and great vessels are well seen and are normal. CONCLUSIONS Mild concentric left ventricular hypertrophy. Normal left ventricular ejection fraction visually estimated at %. Left atrial size at the upper limits of normal. Mild thickening/calcification of the mitral valve leaflets. Diffuse thickening of the aortic valve cusps with mnimally reduced excursion. There is very mild aortic stenosis. Right ventricular systolic pressure estimated to be elevated at 45- 50 mmHg. Iraj Lopez M.D. (Electronically Signed) Final Date: 01 June 2016 18:08 MEASUREMENTS (Male / Female) Normal Values 2D ECHO LV Diastolic Diameter PLAX 5.0 cm 4.2 - 5.9 / 3.9 - 5.3 cm LV Systolic Diameter PLAX 3.0 cm 2.1 - 4.0 cm LV Fractional Shortening PLAX 40.0 % 25 - 46 % LV Ejection Fraction 2D Teich 70.4 % IVS Diastolic Thickness 1.2 cm LVPW Diastolic Thickness 1.2 cm LV Relative Wall Thickness 0.5 RV Internal Dim ED PLAX 3.2 cm 1.9 - 3.8 cm LVOT Diameter 2.0 cm Aortic Root Diameter 3.1 cm LA Systolic Diameter LX 4.7 cm 3.0 - 4.0 / 2.7 - 3.8 cm LA Volume 55.0 cm 18 - 58 / 22 - 52 cm Ascending Aorta Diameter 3.2 cm DOPPLER AV Peak Velocity 220.0 cm/s AV Peak Gradient 19.4 mmHg AV Mean Velocity 154.0 cm/s AV Mean Gradient 11.0 mmHg AV Velocity Time Integral 55.3 cm LVOT Peak Velocity 148.0 cm/s LVOT Peak Gradient 8.8 mmHg LVOT Mean Velocity 107.0 cm/s LVOT Mean Gradient 5.0 mmHg LVOT Velocity Time Integral 35.5 cm LVOT Stroke Volume 111.5 cm AV Area Cont Eq vti 2.0 cm AV Area Cont Eq pk 2.1 cm MV Peak Velocity 159.0 cm/s MV Peak Gradient 10.1 mmHg MV Mean Velocity 87.2 cm/s MV Mean Gradient 4.0 mmHg Mitral E Point Velocity 138.0 cm/s Mitral A Point Velocity 117.0 cm/s Mitral E to A Ratio 1.2 MV PHT Velocity 165.0 cm/s MV Deceleration Sunflower 839.0 cm/s MV Pressure Half Time 59.0 ms MV Area PHT 3.7 cm MV Deceleration Time 209.0 ms TR Peak Velocity 327.0 cm/s TR Peak Gradient 42.8 mmHg Right Atrial Pressure 5.0 mmHg Pulmonary Artery Systolic Pressu 47.8 mmHg Right Ventricular Systolic Press 47.8 mmHg PV Peak Velocity 177.0 cm/s PV Peak Gradient 12.5 mmHg PV Mean Velocity 117.0 cm/s PV Mean Gradient 6.0 mmHg PV Velocity Time Integral 45.0 cm LV E' Lateral Velocity 10.3 cm/s Mitral E to LV E' Lateral Ratio 13.4 LV E' Septal Velocity 6.2 cm/s Mitral E to LV E' Septal Ratio 22.1
--- NOTE | 2016-06-01 20:41 | NUR ---
REPORTED 188/[address] GUERRERO GIVE SCHEDULED APRESOLINE & CLONIDINE NOW WILL CONTINUE TO MONITOR
[2016-06-02] VITALS: BP 170/80
--- NOTE | 2016-06-02 00:37 | NUR ---
MANUAL BP 170/80, REPORTED TO , APRESOLINE 25 MG PO GIVEN ORDERED. ALERT AND ORIENTED, DENIES PAIN AT THIS TIME. LUNGS SOUND CLEAR.
--- NOTE | 2016-06-02 02:49 | NUR ---
MANUAL BP 180/90. REPORTED TO .DENIES CHEST PAIN.
[2016-06-02 05:51] LABS: ABSOLUTE BASOPHIL COUNT 0 /CUMM (0.0-0.2); ABSOLUTE EOSINOPHIL COUNT 0.3 /CUMM (0.0-0.7); ABSOLUTE GRANULOCYTE CT 5.1 /CUMM (1.4-6.5); ABSOLUTE LYMPH COUNT 1.3 /CUMM (1.2-3.4); ABSOLUTE MONOCYTE COUNT 0.7 /CUMM (0.10-0.60); BASOPHIL % 0.6 % (0.0-2.0); EOSINOPHIL % 3.8 % (0-5); GRANULOCYTE % 69.1 % (42.2-75.2); HEMATOCRIT 28.4 % (42-52); MEAN CORPUSCULAR HGB CONC 33.3 G/DL (33.0-37.0); MEAN CORPUSCULAR VOLUME 87.1 FL (80.0-94.0); MEAN PLATELET VOLUME 9.7 FL (7.4-10.4); PLATELET COUNT 201 /CUMM (130-400); RBC DISTRIBUTION WIDTH 14.5 % (11.5-14.5); RED BLOOD CELL CT 3.26 /CUMM (4.70-6.10); WHITE BLOOD CELL COUNT 7.4 /CUMM (4.8-10.8)
--- NOTE | 2016-06-02 07:41 | PN- Diabetes ---
Assessment/Plan Assessment: The patient is eating. He states that he feels improved. He states that he does not live in [place] but has been living in [place]. He does go to [facility] for his medical care. The patient is presently on Levemir 10 units once a day as well as low dose sliding scale NovoLog. His blood sugars have been in good control with fasting 149 before lunch 213 before dinner 126 and at bedtime 146. His sugar in the laboratory this morning is 110. The patient has been started on bicarbonate by mouth by Dr. Asher because of probable Type 4 renal tubular acidosis Plan: Suggest continue the present insulin. The patient should not be on metformin which is listed as one of his preadmission drugs because of his renal failure. Subjective Subjective: Feels improved Review of Systems Constitutional: Denies: chills, fever. Cardiovascular: Denies: chest pain. Respiratory: Denies: short of breath. Gastrointestinal: Denies: nausea, vomiting. Skin: Reports: rash (flaky rash on the). Objective Last 24 Hrs of Vital Signs/I&O Vital Signs Date Time Temp Pulse Resp B/P Pulse O2 O2 Flow FiO2 Ox Delivery Rate 06/02 0033 82 22 170/60 06/02 0000 98.5 82 20 170/80 Room Air 06/02 0000 98 Room Air 06/01 2037 188/06/01 63 188/06/01 1745 168/64 06/01 1607 98.8 68 20 190/76 06/01 1600 97 Room Air Room Air 06/01 1600 99.2 68 20 190/76 97 Room Air Room Air 06/01 1028 98.7 60 18 173/75 06/01 0800 98 Room Air Room Air 06/01 0800 98.7 58 16 156/84 98 Room Air Room Air Intake & Output 06/02 0800 06/02 0000 06/01 1600 Intake Total 426 674 Output Total 850 1150 Balance -424 -476 Intake, IV 166 424 Intake, Oral 260 250 Number 0 0 Bowel Movements Output, Urine 850 1150 Patient 187 lb Weight Vital Signs Date Time Temp Pulse Resp B/P Pulse O2 O2 Flow FiO2 Ox Delivery Rate 06/02 0033 82 22 170/60 06/02 0000 98.5 82 20 170/80 Room Air 06/02 0000 98 Room Air 06/01 2037 188/74 01/10 2037 63 188/74 06/01 1745 168/64 06/01 1607 98.8 68 20 190/76 06/01 1600 97 Room Air Room Air 06/01 1600 99.2 68 20 190/76 97 Room Air Room Air 06/01 1028 98.7 60 18 173/75 06/01 0800 98 Room Air Room Air 06/01 0800 98.7 58 16 156/84 98 Room Air Room Air Intake & Output 06/02 0800 06/02 0000 06/01 1600 Intake Total 426 674 Output Total 850 1150 Balance -424 -476 Intake, IV 166 424 Intake, Oral 260 250 Number 0 0 Bowel Movements Output, Urine 850 1150 Patient 187 lb Weight Physical Exam General Appearance: alert, awake Neck: normal inspection Respiratory: normal breath sounds Abdomen: normal bowel sounds Extremities: right foot bandage. Left foot rash which is flaking. Current Medications: Current Medications Sig/Michael Start time Last Medication Dose Route Stop Time Status Admin Amlodipine Besylate 10 MG DAILY 06/01 0615 AC 06/01 PO 1028 Clonidine 0.2 MG QPM 06/01 2200 AC 06/01 PO 2038 Dextrose/Sodium 1,000 ML Q10H 06/01 0630 DC 06/01 Chloride IV 0656 Diphenhydramine HCl 25 MG ONCE ONE 06/01 1615 DC 06/01 PO 06/01 1616 1607 Glycerin/Mineral Oil 1 ALISIA TID PRN 06/01 0745 AC 06/01 TOP 1338 Heparin Sodium 5,000 UNIT Q8 06/01 0600 AC 06/01 (Porcine) SC 2146 Hydralazine HCl 25 MG ONCE ONE 06/01 2345 DC 06/02 PO 06/01 2346 0033 Hydralazine HCl 25 MG TID 06/01 1600 AC 06/01 PO 2037 Insulin Aspart 0 AC & AT BEDTIME 06/01 1200 AC 06/01 SC 2145 Insulin Detemir 10 UNITS DAILY 06/01 1000 AC 06/01 SC 1027 Insulin Human Regular 100 UNIT Q24H 06/01 0415 DC 06/01 Sodium Chloride 100 ML IV 0514 Sodium Bicarbonate 1,300 MG BID 06/01 1051 AC 06/01 PO 2144 Sodium Chloride 1,000 ML Q10H 06/01 0545 DC IV Findings Pertinent Lab/Eduardo Results: Laboratory Tests 06/02 06/01 06/01 0445 1530 1500 Chemistry Sodium (137 - 145 mmol/L) 146 H Potassium (3.5 - 5.1 mmol/L) 5.0 5.6 H Cancelled Chloride (98 - 107 mmol/L) 111 H Carbon Dioxide (22 - 30 mmol/L) 20 L Anion Gap (5 - 16) 14 BUN (9 - 20 mg/dL) 76 H Creatinine (0.7 - 1.2 mg/dL) 2.9 H Estimated GFR (>60 ml/min) 22 L Glucose (65 - 99 mg/dL) 110 H Calcium (8.4 - 10.2 mg/dL) 8.7 Phosphorus (2.5 - 4.5 mg/dL) 4.3 Magnesium (1.6 - 2.3 mg/dL) 1.9 Total Bilirubin (0.2 - 1.3 mg/dL) 0.3 AST (17 - 59 U/L) 13 L ALT (21 - 72 U/L) 21 Troponin I (<0.11 ng/ml) 0.06 Albumin (3.5 - 5.0 g/dL) 2.9 L Hematology CBC w Diff NO MAN DIFF REQ WBC (4.8 - 10.8 /CUMM) 7.4 RBC (4.70 - 6.10 /CUMM) 3.26 L Hgb (14.0 - 18.0 G/DL) 9.5 L Hct (42 - 52 %) 28.4 L MCV (80.0 - 94.0 FL) 87.1 MCH (27.0 - 31.0 PG) 29.0 RDW (11.5 - 14.5 %) 14.5 Plt Count (130 - 400 /CUMM) 201 MPV (7.4 - 10.4 FL) 9.7 Gran % (42.2 - 75.2 %) 69.1 Lymphocytes % (20.5 - 51.1 %) 17.1 L Monocytes % (1.7 - 9.3 %) 9.4 H Eosinophils % (0 - 5 %) 3.8 Basophils % (0.0 - 2.0 %) 0.6 Absolute Granulocytes (1.4 - 6.5 /CUMM) 5.1 Absolute Lymphocytes (1.2 - 3.4 /CUMM) 1.3 Absolute Monocytes (0.10 - 0.60 /CUMM) 0.7 H Absolute Eosinophils (0.0 - 0.7 /CUMM) 0.3 Absolute Basophils (0.0 - 0.2 /CUMM) 0 PUBS MCHC (33.0 - 37.0 G/DL) 33.3 06/01 0905 Chemistry Sodium (137 - 145 mmol/L) 145 Potassium (3.5 - 5.1 mmol/L) 5.3 H Chloride (98 - 107 mmol/L) 110 H Carbon Dioxide (22 - 30 mmol/L) 21 L Anion Gap (5 - 16) 14 BUN (9 - 20 mg/dL) 87 H Creatinine (0.7 - 1.2 mg/dL) 3.2 H Estimated GFR (>60 ml/min) 20 L Glucose (65 - 99 mg/dL) 165 H Calcium (8.4 - 10.2 mg/dL) 8.9 Phosphorus (2.5 - 4.5 mg/dL) 4.8 H Magnesium (1.6 - 2.3 mg/dL) 2.0 Total Bilirubin (0.2 - 1.3 mg/dL) 0.2 AST (17 - 59 U/L) 13 L ALT (21 - 72 U/L) 16 L Troponin I (<0.11 ng/ml) 0.06 Albumin (3.5 - 5.0 g/dL) 3.1 L TSH (0.270 - 4.200 uIU/mL) 0.572 Free T4 (0.78 - 2.44 ng/dL) 1.27
[2016-06-02 08:00] VITALS: BP 186/72
--- NOTE | 2016-06-02 09:13 | PN- Nephrology ---
Assessment/Plan Assessment: 1. CKD: severe, stage 4, due to DM & HTN; no renal replacement indication but will need eventual ESRD planning --> best done as outpt 2. Met acid: stable - continue po bicarb 3. Hyperkalemia: improved; keep off RAAS interrruption 4. Hypertension: uncontrolled - would increase hydralazine; if remains hi can add labetalol or carvedilol Suggestion: 1. 2 gram K diet 2. change hydralazine 50 mg bid (doubt will comply w tid schedule as outpt) OK for discharge from renal perspective w outpt f/u in our office Subjective Subjective: No complaints Ate breakfast - no N/V No SOB or CP Objective Vital Signs and I&Os Vital Signs Date Time Temp Pulse Resp B/P Pulse O2 O2 Flow FiO2 Ox Delivery Rate 06/02 0033 82 22 170/60 06/02 0000 98.5 82 20 170/80 Room Air 06/02 0000 98 Room Air 06/01 2038 188/74 06/01 2037 63 188/74 06/01 1745 168/64 06/01 1607 98.8 68 20 190/76 06/01 1600 97 Room Air Room Air 06/01 1600 99.2 68 20 190/76 97 Room Air Room Air 06/01 1028 98.7 60 18 173/75 Intake & Output 06/02 1600 06/02 0400 06/01 1600 06/01 0400 05/31 1600 05/31 0400 Intake Total 426 937 Output Total 850 1150 Balance -424 -213 Intake, IV 166 687 Intake, Oral 260 250 Number 0 0 Bowel Movements Output, Urine 850 1150 Patient 187 lb 170 lb Weight Physical Exam General Appearance: well developed/nourished, no apparent distress Head: atraumatic Neck: normal inspection Respiratory: lungs clear Cardiovascular: regular rate/rhythm, friction rub (none) Abdomen: soft, non-tender Extremities: pedal edema Neurologic/Psychiatric: no motor/sensory deficits, awake, alert Skin: rash (scaley lower extremities) Current Medications: Current Medications Sig/Michael Start time Last Medication Dose Route Stop Time Status Admin Amlodipine Besylate 10 MG DAILY 06/01 0615 AC 06/01 PO 1028 Clonidine 0.2 MG QPM 06/01 2199 AC 06/01 PO 203 Dextrose/Sodium 1,000 ML Q10H 06/01 0630 DC 06/01 Chloride IV 0656 Diphenhydramine HCl 25 MG ONCE ONE 06/01 1615 DC 06/01 PO 06/01 1616 1607 Glycerin/Mineral Oil 1 ALISIA TID PRN 06/01 0745 06/01 TOP 1338 Heparin Sodium 5,000 UNIT Q8 06/01 0600 AC 06/01 (Porcine) SC 2146 Hydralazine HCl 25 MG .STK-MED ONE 06/02 0027 DC PO 06/02 0028 Hydralazine HCl 25 MG ONCE ONE 06/01 2345 DC 06/02 PO 06/01 2346 0033 Hydralazine HCl 25 MG TID 06/01 1600 AC 06/01 PO 2037 Insulin Aspart 0 AC & AT BEDTIME 06/01 1200 AC 06/02 VT 0837 Insulin Detemir 10 UNITS DAILY 06/01 1000 AC 06/01 VT 1027 Sodium Bicarbonate 1,300 MG BID 06/01 1051 AC 06/01 PO 2144 Results Pertinent Lab Results: Laboratory Tests 06/02 06/01 06/01 0445 1530 1500 Chemistry Sodium (137 - 145 mmol/L) 146 H Potassium (3.5 - 5.1 mmol/L) 5.0 5.6 H Cancelled Chloride (98 - 107 mmol/L) 111 H Carbon Dioxide (22 - 30 mmol/L) 20 L Anion Gap (5 - 16) 14 BUN (9 - 20 mg/dL) 76 H Creatinine (0.7 - 1.2 mg/dL) 2.9 H Estimated GFR (>60 ml/min) 22 L Glucose (65 - 99 mg/dL) 110 H Calcium (8.4 - 10.2 mg/dL) 8.7 Phosphorus (2.5 - 4.5 mg/dL) 4.3 Magnesium (1.6 - 2.3 mg/dL) 1.9 Total Bilirubin (0.2 - 1.3 mg/dL) 0.3 AST (17 - 59 U/L) 13 L ALT (21 - 72 U/L) 21 Troponin I (<0.11 ng/ml) 0.06 Albumin (3.5 - 5.0 g/dL) 2.9 L Hematology CBC w Diff NO MAN DIFF REQ WBC (4.8 - 10.8 /CUMM) 7.4 RBC (4.70 - 6.10 /CUMM) 3.26 L Hgb (14.0 - 18.0 G/DL) 9.5 L Hct (42 - 52 %) 28.4 L MCV (80.0 - 94.0 FL) 87.1 MCH (27.0 - 31.0 PG) 29.0 RDW (11.5 - 14.5 %) 14.5 Plt Count (130 - 400 /CUMM) 201 MPV (7.4 - 10.4 FL) 9.7 Gran % (42.2 - 75.2 %) 69.1 Lymphocytes % (20.5 - 51.1 %) 17.1 L Monocytes % (1.7 - 9.3 %) 9.4 H Eosinophils % (0 - 5 %) 3.8 Basophils % (0.0 - 2.0 %) 0.6 Absolute Granulocytes (1.4 - 6.5 /CUMM) 5.1 Absolute Lymphocytes (1.2 - 3.4 /CUMM) 1.3 Absolute Monocytes (0.10 - 0.60 /CUMM) 0.7 H Absolute Eosinophils (0.0 - 0.7 /CUMM) 0.3 Absolute Basophils (0.0 - 0.2 /CUMM) 0 PUBS MCHC (33.0 - 37.0 G/DL) 33.3 06/01 06/01 06/01 06/01 0905 0702 0620 0620 Chemistry Sodium (137 - 145 mmol/L) 145 144 Potassium (3.5 - 5.1 mmol/L) 5.3 H 5.2 H Chloride (98 - 107 mmol/L) 110 H 109 H Carbon Dioxide (22 - 30 mmol/L) 21 L 19 L Anion Gap (5 - 16) 14 16 BUN (9 - 20 mg/dL) 87 H 89 H Creatinine (0.7 - 1.2 mg/dL) 3.2 H 3.4 H Estimated GFR (>60 ml/min) 20 L 19 L Glucose (65 - 99 mg/dL) 165 H 209 H Lactic Acid (0.7 - 2.1 mmol/L) Cancelled 1.7 Calcium (8.4 - 10.2 mg/dL) 8.9 9.0 Phosphorus (2.5 - 4.5 mg/dL) 4.8 H 5.0 H Magnesium (1.6 - 2.3 mg/dL) 2.0 2.0 Total Bilirubin (0.2 - 1.3 mg/dL) 0.2 0.2 AST (17 - 59 U/L) 13 L 13 L ALT (21 - 72 U/L) 16 L 17 L Troponin I (<0.11 ng/ml) 0.06 Albumin (3.5 - 5.0 g/dL) 3.1 L 3.1 L Triglycerides (<150 mg/dL) 191 H Cholesterol (< 200 MG/DL) 100 LDL Cholesterol, Calc (65 - 129 mg/dL) 35 L HDL Cholesterol (40 - 60 mg/dL) 27 L Cholesterol/HDL Ratio (0.00 - 4.88 %) 4 TSH (0.270 - 4.200 uIU/mL) 0.572 Free T4 (0.78 - 2.44 ng/dL) 1.27 06/01 06/01 0513 0405 Blood Gas pH (7.35 - 7.45 PH) 7.30 *L pCO2 (35 - 45 TORR) 39 pO2 (80 - 100 TORR) 90 HCO3 (21 - 28 MEQ/L) 19 L ABG O2 Sat (Measured) (>96.0 %) 96.0 P-50 (Temp Corrected) N Carboxyhemoglobin (1.5 - 5.0 %) 0.3 L O2 Concentration % RA Miscellaneous Phlebotomy Draw Site RIGHT BRACHIAL Toxicology Urine Opiates Screen (>2000 NG/ML) < 100.00 Methadone Screen (>300 NG/ML) < 40 Barbiturate Screen (>200 NG/ML) < 60 Ur Phencyclidine Scrn (>25 NG/ML) < 6.00 Amphetamines Screen (>1000 NG/ML) < 100 U Benzodiazepines Scrn (>200 NG/ML) < 85 Urine Cocaine Screen (>300 NG/ML) < 50 Urine Cannabis Screen (>50 NG/ML) < 5.00 Urines Urinalysis LIGHT H Urine Color (YEL,AMB,STR) YEL Urine Clarity (CLEAR) CLEAR Urine pH (5.0 - 8.0) 6.0 Ur Specific [place] (1.001 - 1.035) 1.025 Urine Protein (NEG,<30 MG/DL) 100 H Urine Ketones (NEG) NEG Urine Nitrite (NEG) NEG Urine Bilirubin (NEG) NEG Urine Urobilinogen (0.1 - 1.0 EU/dl) 0.2 Ur Leukocyte Esterase (NEG) NEG Ur Microscopic SEDIMENT EXAMINED Urine RBC (0 - 5 /HPF) 1-3 Ur Epithelial Cells (NONE,FEW) FEW Urine Hemoglobin (NEG) SMALL H Urine Glucose (N MG/DL) >=1000 H 06/01 06/01 06/01 0402 0309 0305 Chemistry Sodium (137 - 145 mmol/L) 139 Potassium (3.5 - 5.1 mmol/L) 6.0 *H Chloride (98 - 107 mmol/L) 102 Carbon Dioxide (22 - 30 mmol/L) 19 L Anion Gap (5 - 16) 18 H BUN (9 - 20 mg/dL) 97 H Creatinine (0.7 - 1.2 mg/dL) 3.6 H Estimated GFR (>60 ml/min) 17 L BUN/Creatinine Ratio (7 - 25 %) 26.9 H Glucose (65 - 99 mg/dL) 541 *H Hemoglobin A1c Pending Serum Osmolality (285 - 295 MOSM/KG) 348 H Lactic Acid (0.7 - 2.1 mmol/L) Cancelled 2.2 H Calcium (8.4 - 10.2 mg/dL) 8.8 Magnesium (1.6 - 2.3 mg/dL) 2.1 Iron (49 - 181 ug/dL) 49 TIBC (261 - 462 ug/dL) 306 Ferritin (17.9 - 464 ng/mL) 157.0 Total Bilirubin (0.2 - 1.3 mg/dL) 0.3 AST (17 - 59 U/L) 14 L ALT (21 - 72 U/L) 23 Alkaline Phosphatase (< 127 U/L) 134 H Creatine Kinase (55 - 170 U/L) 157 Troponin I (<0.11 ng/ml) 0.03 Total Protein (6.3 - 8.2 g/dL) 7.3 Albumin (3.5 - 5.0 g/dL) 3.7 Globulin (1.9 - 4.2 gm/dL) 3.6 Albumin/Globulin Ratio (1.1 - 2.2 %) 1.0 L Hematology CBC w Diff NO MAN DIFF REQ WBC (4.8 - 10.8 /CUMM) 9.3 RBC (4.70 - 6.10 /CUMM) 3.52 L Hgb (14.0 - 18.0 G/DL) 10.1 L Hct (42 - 52 %) 30.7 L MCV (80.0 - 94.0 FL) 87.2 MCH (27.0 - 31.0 PG) 28.7 RDW (11.5 - 14.5 %) 14.3 Plt Count (130 - 400 /CUMM) 208 MPV (7.4 - 10.4 FL) 9.9 Gran % (42.2 - 75.2 %) 81.9 H Lymphocytes % (20.5 - 51.1 %) 9.1 L Monocytes % (1.7 - 9.3 %) 6.4 Eosinophils % (0 - 5 %) 2.0 Basophils % (0.0 - 2.0 %) 0.6 Absolute Granulocytes (1.4 - 6.5 /CUMM) 7.6 H Absolute Lymphocytes (1.2 - 3.4 /CUMM) 0.8 L Absolute Monocytes (0.10 - 0.60 /CUMM) 0.6 Absolute Eosinophils (0.0 - 0.7 /CUMM) 0.2 Absolute Basophils (0.0 - 0.2 /CUMM) 0.1 PUBS MCHC (33.0 - 37.0 G/DL) 33.0 Toxicology Acetone Level (NEGATIVE) NEGATIVE Imaging/Other Studies: CXR: IMPRESSION: No acute pulmonary findings. ECHO: Mild concentric left ventricular hypertrophy. Normal left ventricular ejection fraction visually estimated at %. Left atrial size at the upper limits of normal. Mild thickening/calcification of the mitral valve leaflets. Diffuse thickening of the aortic valve cusps with mnimally reduced excursion. There is very mild aortic stenosis. Right ventricular systolic pressure estimated to be elevated at 45- 50 mmHg.
--- NOTE | 2016-06-02 11:08 | PN- Cardiology ---
Subjective Subjective: The patient is alert and up in a chair. He is a lot more conversant than yesterday. He has no complaints. He remains hypertensive. He has been restarted on hydralazine, clonidine, amlodipine. His BUN/creatinine are slightly improved to 76 and 2.9 respectively. His echocardiogram showed minimal aortic stenosis and mild to moderate pulmonary hypertension. Objective Vital Signs and I&Os Vital Signs Date Time Temp Pulse Resp B/P Pulse O2 O2 Flow FiO2 Ox Delivery Rate 06/02 0914 80 186/74 06/02 0913 80 184/76 06/02 0800 97.8 80 20 186/72 96 Room Air 06/02 0033 82 22 170/60 06/02 0000 98.5 82 20 170/80 Room Air 06/02 0000 98 Room Air 06/01 2038 188/74 06/01 2037 63 188/74 06/01 1745 168/64 06/01 1607 98.8 68 20 190/76 06/01 1600 97 Room Air Room Air 06/01 1600 99.2 68 20 190/76 97 Room Air Room Air Intake & Output 06/02 1600 06/02 0800 06/02 0000 06/01 1600 06/01 0800 06/01 0000 Intake Total 426 674 263 Output Total 850 1150 0 Balance -424 -476 263 Intake, IV 166 424 263 Intake, Oral 260 250 0 Number 0 0 Bowel Movements Output, Urine 850 1150 0 Patient 187 lb 187 lb Weight Physical Exam: HEENT exam is normal Chest is clear Heart reveals systolic ejection murmur at the base Extremities reveal no edema Current Medications: Current Medications Sig/Michael Start time Last Medication Dose Route Stop Time Status Admin Amlodipine Besylate 10 MG DAILY 06/01 0615 AC 06/02 PO 0914 Clonidine 0.2 MG QPM 06/01 2200 AC 06/01 PO 2038 Dextrose/Sodium 1,000 ML Q10H 06/01 0630 DC 06/01 Chloride IV 0656 Diphenhydramine HCl 25 MG ONCE ONE 06/01 1615 DC 06/01 PO 06/01 1616 1607 Glycerin/Mineral Oil 1 ALISIA TID PRN 06/01 0745 AC 06/01 TOP 1338 Heparin Sodium 5,000 UNIT Q8 06/01 0600 AC 06/01 (Porcine) SC 2146 Hydralazine HCl 25 MG .STK-MED ONE 06/02 0027 DC PO 06/02 0028 Hydralazine HCl 25 MG ONCE ONE 06/01 2345 DC 06/02 PO 06/01 2346 0033 Hydralazine HCl 25 MG TID 06/01 1600 AC 06/02 PO 0913 Insulin Aspart 0 AC & AT BEDTIME 06/01 1200 AC 06/02 SC 0837 Insulin Detemir 10 UNITS DAILY 06/01 1000 AC 06/02 SC 0914 Sodium Bicarbonate 1,300 MG BID 06/01 1051 AC 06/02 PO 0913 Results Recent Imaging Studies: CONCLUSIONS Mild concentric left ventricular hypertrophy. Normal left ventricular ejection fraction visually estimated at %. Left atrial size at the upper limits of normal. Mild thickening/calcification of the mitral valve leaflets. Diffuse thickening of the aortic valve cusps with mnimally reduced excursion. There is very mild aortic stenosis. Right ventricular systolic pressure estimated to be elevated at 45- 50 mmHg. Iraj Lopez M.D. (Electronically Signed) Final Date: 01 June 2016 18:08 Assessment/Plan Assessment/Plan The patient is clinically improved. He does not have any clinically significant heart disease at this time. I would just recommend adjusting his blood pressure medications to keep his pressure in the high-normal range. He does not need telemetry on transfer from the ICU. Continue telemetry? No
[2016-06-02 12:35] VITALS: BP 192/70
--- NOTE | 2016-06-02 13:08 | PN- Pulmonary ---
Subjective HPI/Critical Care Issues: The patient is alert and up in a chair. He is a lot more conversant than yesterday. He has no complaints. He remains hypertensive. He has been restarted on hydralazine, clonidine, amlodipine. His BUN/creatinine are slightly improved to 76 and 2.9 respectively. His echocardiogram showed minimal aortic stenosis and mild to moderate pulmonary hypertension. Objective Current Medications: Current Medications Sig/Michael Start time Last Medication Dose Route Stop Time Status Admin Amlodipine Besylate 10 MG DAILY 06/01 0615 AC 06/02 PO 0914 Clonidine 0.2 MG QPM 06/01 2200 AC 06/01 PO 2038 Dextrose/Sodium 1,000 ML Q10H 06/01 0630 DC 06/01 Chloride IV 0656 Diphenhydramine HCl 25 MG ONCE ONE 06/01 1615 DC 06/01 PO 06/01 1616 1607 Glycerin/Mineral Oil 1 ALISIA TID PRN 06/01 0745 AC 06/01 TOP 1338 Heparin Sodium 5,000 UNIT Q8 06/01 0600 AC 06/01 (Porcine) SC 2146 Hydralazine HCl 50 MG BID 06/02 2200 AC PO Hydralazine HCl 25 MG ONCE ONE 06/02 1245 DC 06/02 PO 06/02 1246 1241 Hydralazine HCl 25 MG .STK-MED ONE 06/02 0027 DC PO 06/02 0028 Hydralazine HCl 25 MG ONCE ONE 06/01 2345 DC 06/02 PO 06/01 2346 0033 Hydralazine HCl 25 MG TID 06/01 1600 DC 06/02 PO 0913 Insulin Aspart 0 AC & AT BEDTIME 06/01 1200 AC 06/02 VT 1153 Insulin Detemir 10 UNITS DAILY 06/01 1000 AC 06/02 SC 0914 Sodium Bicarbonate 1,300 MG BID 06/01 1051 AC 06/02 PO 0913 Vital Signs & I&O Last 24 Hrs of Vitals and I&O: Vital Signs Date Time Temp Pulse Resp B/P Pulse O2 O2 Flow FiO2 Ox Delivery Rate 06/02 1241 70 192/70 06/02 1235 192/70 06/02 0914 80 186/74 06/02 0913 80 184/76 06/02 0800 97.8 80 20 186/72 96 Room Air 06/02 0033 82 22 170/60 06/02 0000 98.5 82 20 170/80 Room Air 06/02 0000 98 Room Air 06/01 2037 188/74 06/01 2036 63 188/74 06/01 1745 168/64 06/01 1607 98.8 68 20 190/76 06/01 1600 97 Room Air Room Air 06/01 1600 99.2 68 20 190/76 97 Room Air Room Air Intake & Output 06/02 1600 06/02 0800 06/02 0000 Intake Total 426 Output Total 850 Balance -424 Intake, IV 166 Intake, Oral 260 Number 0 Bowel Movements Output, Urine 850 Patient 187 lb Weight Laboratory Tests 06/02 06/01 06/01 0445 1530 1500 Chemistry Sodium (137 - 145 mmol/L) 146 H Potassium (3.5 - 5.1 mmol/L) 5.0 5.6 H Cancelled Chloride (98 - 107 mmol/L) 111 H Carbon Dioxide (22 - 30 mmol/L) 20 L Anion Gap (5 - 16) 14 BUN (9 - 20 mg/dL) 76 H Creatinine (0.7 - 1.2 mg/dL) 2.9 H Estimated GFR (>60 ml/min) 22 L Glucose (65 - 99 mg/dL) 110 H Calcium (8.4 - 10.2 mg/dL) 8.7 Phosphorus (2.5 - 4.5 mg/dL) 4.3 Magnesium (1.6 - 2.3 mg/dL) 1.9 Total Bilirubin (0.2 - 1.3 mg/dL) 0.3 AST (17 - 59 U/L) 13 L ALT (21 - 72 U/L) 21 Troponin I (<0.11 ng/ml) 0.06 Albumin (3.5 - 5.0 g/dL) 2.9 L Hematology CBC w Diff NO MAN DIFF REQ WBC (4.8 - 10.8 /CUMM) 7.4 RBC (4.70 - 6.10 /CUMM) 3.26 L Hgb (14.0 - 18.0 G/DL) 9.5 L Hct (42 - 52 %) 28.4 L MCV (80.0 - 94.0 FL) 87.1 MCH (27.0 - 31.0 PG) 29.0 RDW (11.5 - 14.5 %) 14.5 Plt Count (130 - 400 /CUMM) 201 MPV (7.4 - 10.4 FL) 9.7 Gran % (42.2 - 75.2 %) 69.1 Lymphocytes % (20.5 - 51.1 %) 17.1 L Monocytes % (1.7 - 9.3 %) 9.4 H Eosinophils % (0 - 5 %) 3.8 Basophils % (0.0 - 2.0 %) 0.6 Absolute Granulocytes (1.4 - 6.5 /CUMM) 5.1 Absolute Lymphocytes (1.2 - 3.4 /CUMM) 1.3 Absolute Monocytes (0.10 - 0.60 /CUMM) 0.7 H Absolute Eosinophils (0.0 - 0.7 /CUMM) 0.3 Absolute Basophils (0.0 - 0.2 /CUMM) 0 PUBS MCHC (33.0 - 37.0 G/DL) 33.3 06/01 06/01 06/01 06/01 0905 0702 0620 0620 Chemistry Sodium (137 - 145 mmol/L) 145 144 Potassium (3.5 - 5.1 mmol/L) 5.3 H 5.2 H Chloride (98 - 107 mmol/L) 110 H 109 H Carbon Dioxide (22 - 30 mmol/L) 21 L 19 L Anion Gap (5 - 16) 14 16 BUN (9 - 20 mg/dL) 87 H 89 H Creatinine (0.7 - 1.2 mg/dL) 3.2 H 3.4 H Estimated GFR (>60 ml/min) 20 L 19 L Glucose (65 - 99 mg/dL) 165 H 209 H Lactic Acid (0.7 - 2.1 mmol/L) Cancelled 1.7 Calcium (8.4 - 10.2 mg/dL) 8.9 9.0 Phosphorus (2.5 - 4.5 mg/dL) 4.8 H 5.0 H Magnesium (1.6 - 2.3 mg/dL) 2.0 2.0 Total Bilirubin (0.2 - 1.3 mg/dL) 0.2 0.2 AST (17 - 59 U/L) 13 L 13 L ALT (21 - 72 U/L) 16 L 17 L Troponin I (<0.11 ng/ml) 0.06 Albumin (3.5 - 5.0 g/dL) 3.1 L 3.1 L Triglycerides (<150 mg/dL) 191 H Cholesterol (< 200 MG/DL) 100 LDL Cholesterol, Calc (65 - 129 mg/dL) 35 L HDL Cholesterol (40 - 60 mg/dL) 27 L Cholesterol/HDL Ratio (0.00 - 4.88 %) 4 TSH (0.270 - 4.200 uIU/mL) 0.572 Free T4 (0.78 - 2.44 ng/dL) 1.27 06/01 06/01 0513 0405 Blood Gas pH (7.35 - 7.45 PH) 7.30 *L pCO2 (35 - 45 TORR) 39 pO2 (80 - 100 TORR) 90 HCO3 (21 - 28 MEQ/L) 19 L ABG O2 Sat (Measured) (>96.0 %) 96.0 P-50 (Temp Corrected) N Carboxyhemoglobin (1.5 - 5.0 %) 0.3 L O2 Concentration % RA Miscellaneous Phlebotomy Draw Site RIGHT BRACHIAL Toxicology Urine Opiates Screen (>2000 NG/ML) < 100.00 Methadone Screen (>300 NG/ML) < 40 Barbiturate Screen (>200 NG/ML) < 60 Ur Phencyclidine Scrn (>25 NG/ML) < 6.00 Amphetamines Screen (>1000 NG/ML) < 100 U Benzodiazepines Scrn (>200 NG/ML) < 85 Urine Cocaine Screen (>300 NG/ML) < 50 Urine Cannabis Screen (>50 NG/ML) < 5.00 Urines Urinalysis LIGHT H Urine Color (YEL,AMB,STR) YEL Urine Clarity (CLEAR) CLEAR Urine pH (5.0 - 8.0) 6.0 Ur Specific [place] (1.001 - 1.035) 1.025 Urine Protein (NEG,<30 MG/DL) 100 H Urine Ketones (NEG) NEG Urine Nitrite (NEG) NEG Urine Bilirubin (NEG) NEG Urine Urobilinogen (0.1 - 1.0 EU/dl) 0.2 Ur Leukocyte Esterase (NEG) NEG Ur Microscopic SEDIMENT EXAMINED Urine RBC (0 - 5 /HPF) 1-3 Ur Epithelial Cells (NONE,FEW) FEW Urine Hemoglobin (NEG) SMALL H Urine Glucose (N MG/DL) >=1000 H 06/01 06/01 06/01 0402 0309 0305 Chemistry Sodium (137 - 145 mmol/L) 139 Potassium (3.5 - 5.1 mmol/L) 6.0 *H Chloride (98 - 107 mmol/L) 102 Carbon Dioxide (22 - 30 mmol/L) 19 L Anion Gap (5 - 16) 18 H BUN (9 - 20 mg/dL) 97 H Creatinine (0.7 - 1.2 mg/dL) 3.6 H Estimated GFR (>60 ml/min) 17 L BUN/Creatinine Ratio (7 - 25 %) 26.9 H Glucose (65 - 99 mg/dL) 541 *H Hemoglobin A1c (<5.7) 8.8 H Serum Osmolality (285 - 295 MOSM/KG) 348 H Lactic Acid (0.7 - 2.1 mmol/L) Cancelled 2.2 H Calcium (8.4 - 10.2 mg/dL) 8.8 Magnesium (1.6 - 2.3 mg/dL) 2.1 Iron (49 - 181 ug/dL) 49 TIBC (261 - 462 ug/dL) 306 Ferritin (17.9 - 464 ng/mL) 157.0 Total Bilirubin (0.2 - 1.3 mg/dL) 0.3 AST (17 - 59 U/L) 14 L ALT (21 - 72 U/L) 23 Alkaline Phosphatase (< 127 U/L) 134 H Creatine Kinase (55 - 170 U/L) 157 Troponin I (<0.11 ng/ml) 0.03 Total Protein (6.3 - 8.2 g/dL) 7.3 Albumin (3.5 - 5.0 g/dL) 3.7 Globulin (1.9 - 4.2 gm/dL) 3.6 Albumin/Globulin Ratio (1.1 - 2.2 %) 1.0 L Hematology CBC w Diff NO MAN DIFF REQ WBC (4.8 - 10.8 /CUMM) 9.3 RBC (4.70 - 6.10 /CUMM) 3.52 L Hgb (14.0 - 18.0 G/DL) 10.1 L Hct (42 - 52 %) 30.7 L MCV (80.0 - 94.0 FL) 87.2 MCH (27.0 - 31.0 PG) 28.7 RDW (11.5 - 14.5 %) 14.3 Plt Count (130 - 400 /CUMM) 208 MPV (7.4 - 10.4 FL) 9.9 Gran % (42.2 - 75.2 %) 81.9 H Lymphocytes % (20.5 - 51.1 %) 9.1 L Monocytes % (1.7 - 9.3 %) 6.4 Eosinophils % (0 - 5 %) 2.0 Basophils % (0.0 - 2.0 %) 0.6 Absolute Granulocytes (1.4 - 6.5 /CUMM) 7.6 H Absolute Lymphocytes (1.2 - 3.4 /CUMM) 0.8 L Absolute Monocytes (0.10 - 0.60 /CUMM) 0.6 Absolute Eosinophils (0.0 - 0.7 /CUMM) 0.2 Absolute Basophils (0.0 - 0.2 /CUMM) 0.1 PUBS MCHC (33.0 - 37.0 G/DL) 33.0 Toxicology Acetone Level (NEGATIVE) NEGATIVE Microbiology Date/Time Procedure - Status Source Growth 06/01 0528 Blood Culture - RES BLOOD 06/01 06 Blood Culture - RES BLOOD 06/01 06 Surveillance Culture - COMP GI 06/01 05 Surveillance Culture - COMP UPPER RESP 06/01 512 Urine Culture - RES URINE ROUT Impression/Plan Impression/Plan Impression/Plan: hysical Exam: HEENT exam is normal Chest is clear Heart reveals systolic ejection murmur at the base Extremities reveal no edema This 60-year-old male with a known history of diabetes mellitus type 2, hypertension, and chronic renal insufficiency came up from [place] by train. Family brought him to emergency room because he was not feeling well. He states he had not taken his medications for several days. He may have been hospitalized in [place] for hypoglycemia. Impression * Improving Hyperglycemia: No ketones and medication history suggest a Type 2 diabetes. Not DKA. * Improving Metabolic acidosis could be possible 2/2 to renal insufficency and rtz prob * Improved Hyperkalemia with no acute EKG: possibly 2/2 metabolic acidosis vs renal insufficiency * Acute on chronic CKD? with acidosis, stage 4, due to presumed diabetic & HTN nephrosclerosis. GFR @ recent baseline & no renal replacement need @ present time. Needs ESRD option education & planning, but has repeatedly declined * Anemia * Elevated BP in the setting of non compliance, now on meds * Lower extremity swelling with venous insufficency with chronic ulcers REC Transfer to floor and signed out to the hospitalist team ( Dr Rod aware) 2 gram K diet Na bicarb 1300 mg bid po Lasix as needed No ACEI or ARB; no K sparing diuretics Diabetic diet BP mgt per renal and cardio LEvemir per endo and sliding scale as noted by endo WOund care per Wound team OK to the floor regular
--- NOTE | 2016-06-02 13:51 | PN- Resident CRCU ---
See Addendum Subjective HPI/CRCU Issues: Patient seen and examined. He is seen sitting upright in his chair at bedside resting comfortably. He appears to be in no acute distress. He denies any pain or any other complaints at this time. Additionally he denies any headache, fever, chills, chest pain, shortness of breath, nausea, vomiting, diarrhea. No overnight events reported. Objective Vital Signs & I&O Last 8 Hrs of Vitals and I&O: Intake & Output 06/02 1600 Intake Total Output Total Balance Patient 84.822 kg Weight Vitals: - Temperature: 97.8-98.5 - Heart Rate: 70-82 - Respiratory Rate: 20-22 - Systolic Blood pressure: 170-192 - Diastolic Blood pressure: 60-80 - Oxygen Saturation: 96-98% on room air Exam General Appearance: well developed/nourished, no apparent distress, alert, awake , comfortable Other Physical Findings: General -well-developed, elderly male in no acute distress HEENT - NCAT, PERRL, EOMI, anicteric sclera Cardio - S1, S2 w/o murmurs/gallops/rubs Resp - CTA bilaterally w/o wheezing/rhochi/crackles GI -soft, nontender, nondistended, bowel sounds present Neuro - Awake and alert, CN II - XII grossly intact Extremities-chronic bilateral lower extremity skin changes with scaling, distal pulses intact Current Medications: Current Medications Sig/Michael Start time Last Medication Dose Route Stop Time Status Admin Amlodipine Besylate 10 MG DAILY 06/01 0615 AC 06/02 PO 0914 Clonidine 0.2 MG QPM 06/01 2200 AC 06/01 PO 2038 Dextrose/Sodium 1,000 ML Q10H 06/01 0630 MO 06/01 Chloride IV 0656 Diphenhydramine HCl 25 MG ONCE ONE 06/01 1615 DC 06/01 PO 06/01 1616 1607 Glycerin/Mineral Oil 1 ALISIA TID PRN 06/01 0745 06/01 TOP 1338 Heparin Sodium 5,000 UNIT Q8 06/01 0600 06/01 (Porcine) SC 2146 Hydralazine HCl 50 MG BID 06/02 2200 AC PO Hydralazine HCl 25 MG ONCE ONE 06/02 1245 DC 06/02 PO 06/02 1246 1241 Hydralazine HCl 25 MG .STK-MED ONE 06/02 0027 DC PO 06/02 0028 Hydralazine HCl 25 MG ONCE ONE 06/01 2345 DC 06/02 PO 06/01 2346 0033 Hydralazine HCl 25 MG TID 06/01 1600 DC 06/02 PO 0913 Insulin Aspart 0 AC & AT BEDTIME 06/01 1200 AC 06/02 SC 1153 Insulin Detemir 10 UNITS DAILY 06/01 1000 AC 06/02 SC 0914 Sodium Bicarbonate 1,300 MG BID 06/01 1051 AC 06/02 PO 0913 Impression/Plan Impression/Problem List Impression: Patient appears comfortable today with no complaints. Heart no current plans to pursue any intervention for his elevated creatinine levels which are reportedly baseline. He is noncompliant with his home medication regimen which may have caused many of his ailments. Social work consult placed to determine best next step regarding patient's discharge. Patient was cleared to be transferred to the general medicine floor without telemetry per the recommendations by the consulting specialists. Problem list: -Hyperglycemia, normalized with insulin drip now stable -CKD stage IV -Chronic bilateral lower extremity skin changes -Uncontrolled hypertension Cardiovascular/nephrology: Patient with a history of uncontrolled hypertension possibly secondary to renal disease. Murmur on examination is suggestive of aortic stenosis. -Avoid ACEi/ARBS, K+ sparring diuretics & nephrotoxic medications -Hydralazine 50 mg by mouth twice a day -Clonidine 0.2 mg by mouth before bed -Amlodipine 10 mg by mouth daily -Sodium bicarbonate 1300 mg by mouth twice a day -Cardiology consult following -Nephrology consult following -Follow up echocardiogram Endocrinology: Patient has a long history of insulin-dependent diabetes mellitus with associated medication noncompliance. -Accu-Cheks -Discontinue metformin at home for renal disease -NovoLog sliding scale insulin 3 times a day before meals/at bedtime -Levemir 10 units daily Social: Patient reportedly returned to [place] from [place] recently after an event with his girlfriend. His daughter and ex- in [place] reportedly do not have the resources to take care of the patient. -Social work consult placed, follow-up recommendations Diet-diabetic diet with 2 g and Na/K restriction DVT PPx - SC Heparin Code Status - FULL CODE Problem List: 1. Hyperglycemia Pain Ratin Tomorrow's Labs & Rationales: BEP - SAMSON ON CKD, hyperkalemia Plan DVT/Prophylaxis: pharmacological
--- NOTE | 2016-06-02 15:57 | NUR ---
Referral received yeterday morning via electronic order filler. This patient is a 60 year old man, admitted to the hospital on 06/01/16 with hyperkalemia. Of note, patient and his family (which includes a common law and twin daughters age 6) arrived in [place] from [place] late in the evening of 05/31/16. Patient also has two adult daughters, Zuleima and Zack and I spoke with both of them today. Mr. Roblero has lived in [place] previously and had medical coverage from [facility]. I met with the patient this am along with Dr. Ardon. Medical team reports that patient is nearing stability for discharge. Mr. Roblero said he would be living with his daughter Zuleima, but when Zack called me, it seemed as though he would be better suited there. I have asked Zack to work with her sister on locating necessary documentation to assist in getting his [facility] coverage reinstated and she has verbalized understanding. Case discussed with returned case inspector and will follow to support case managements efforts for safe disposition planning.
[2016-06-02 16:00] VITALS: BP 180/70
[2016-06-03] VITALS: BP 190/80
--- NOTE | 2016-06-03 00:47 | NUR ---
PATIENT ALERT AND CONVERSING FREELY. PULSE RATE =60 AND XA=916/80. NOTIFIED. LUBRIDERM APPLIED TO DRY LOWER LEGS. DRESSING INTACT TO R LOWER LEG.
--- NOTE | 2016-06-03 04:47 | NUR ---
PATIENT'S MC=609/80. MADE AWARE. PATIENT DENIES HEADACHE OR CHEST PAIN,.REPORYS NAUSEA.GINGERALE GIVEN. WILL OBTAIN ORDER FOR MED.
--- NOTE | 2016-06-03 05:00 | NUR ---
AC=000/80.PULSE RATE=60. REPORTED TO .AM NORVASC DOSE GIVEN NOW. PO ZOFRAN GIVEN FOR NAUSEA.
--- NOTE | 2016-06-03 07:00 | NUR ---
YU=502/80 AFTER NORVASC DOSE.
--- NOTE | 2016-06-03 07:30 | PN- Diabetes ---
Assessment/Plan Assessment: The patient is eating. He states that he feels improved. However he has noticed some sweating. His blood pressure remains high. He states that he does not live in [place] but has been living in [place]. He was visiting in [place] for 3 months with his brother. He does go to [facility] for his medical care. The patient is presently on Levemir 10 units once a day as well as low dose sliding scale NovoLog. Fingerstick blood sugars yesterday were 118 before breakfast, 296 before lunch, 201 and before dinner, and 166 at bedtime. The patient has been started on bicarbonate by mouth by Dr. Asher because of probable Type 4 renal tubular acidosis Plan: Suggest continue the present insulin. Increase activity. Adjust blood pressure medications as per cardiology. Subjective Subjective: And planes of sweating Review of Systems Constitutional: Reports: chills. Denies: fever. Cardiovascular: Denies: chest pain. Respiratory: Denies: short of breath. Gastrointestinal: Denies: nausea, vomiting. Skin: Reports: rash (feet). Objective Last 24 Hrs of Vital Signs/I&O Vital Signs Date Time Temp Pulse Resp B/P Pulse O2 O2 Flow FiO2 Ox Delivery Rate 06/03 0501 60 20 200/80 06/03 0000 98.7 60 20 190/80 97 Room Air 06/03 0000 97 Room Air 06/02 2136 96.5 66 16 180/60 06/02 2135 96.5 66 18 180/60 06/02 1635 99.0 69 18 180/70 06/02 1600 99.0 69 18 180/70 99 Room Air 06/02 1241 70 192/70 06/02 1235 192/70 06/02 0914 80 186/74 06/02 0913 80 184/76 06/02 0800 97.8 80 20 186/72 96 Room Air Intake & Output 06/03 0800 06/03 0000 06/02 1600 Intake Total 300 360 Output Total 1000 Balance -700 360 Intake, Oral 300 360 Output, Urine 1000 Patient 187 lb Weight Vital Signs Date Time Temp Pulse Resp B/P Pulse O2 O2 Flow FiO2 Ox Delivery Rate 06/03 0501 60 20 200/80 06/03 0000 98.7 60 20 190/80 97 Room Air 06/03 0000 97 Room Air 06/02 2136 96.5 66 16 180/60 01/11 2136 96.5 66 18 180/60 06/02 1635 99.0 69 18 180/70 06/02 1600 99.0 69 18 180/70 99 Room Air 06/02 1241 70 192/70 06/02 1235 192/70 06/02 0914 80 186/74 06/02 0913 80 184/76 06/02 0800 97.8 80 20 186/72 96 Room Air Intake & Output 06/03 0800 06/03 0000 06/02 1600 Intake Total 300 360 Output Total 1000 Balance -700 360 Intake, Oral 300 360 Output, Urine 1000 Patient 187 lb Weight Physical Exam General Appearance: alert, awake Neck: normal inspection Respiratory: normal breath sounds Cardiovascular: regular rate/rhythm Neurologic/Psychiatric: awake, alert Skin: rash (both feet with flaking skin) Current Medications: Current Medications Sig/Michael Start time Last Medication Dose Route Stop Time Status Admin Amlodipine Besylate 10 MG DAILY 06/01 0615 AC 06/03 PO 0501 Clonidine 0.2 MG QPM 06/01 2200 AC 06/02 PO 2137 Glycerin/Mineral Oil 1 ALISIA TID PRN 06/01 0745 AC 06/03 TOP 0000 Heparin Sodium 5,000 UNIT Q8 06/01 0600 AC 06/03 (Porcine) IN 0706 Hydralazine HCl 50 MG BID 06/02 2200 DC PO Hydralazine HCl 50 MG TID 06/02 1600 AC 06/02 PO 2136 Hydralazine HCl 25 MG ONCE ONE 06/02 1245 DC 06/02 PO 06/02 1246 1241 Hydralazine HCl 25 MG TID 06/01 1600 DC 06/02 PO 0913 Insulin Aspart 0 AC & AT BEDTIME 06/01 1200 AC 06/02 IN 1641 Insulin Detemir 10 UNITS DAILY 06/01 1000 AC 06/02 IN 0914 Ondansetron HCl 4 MG ONCE ONE 06/03 0500 DC 06/03 PO 06/03 0501 0503 Sodium Bicarbonate 1,300 MG BID 06/01 1051 AC 06/02 PO 2137 Findings Pertinent Lab/Eduardo Results: Laboratory Tests 06/03 0430 Chemistry Sodium (137 - 145 mmol/L) 144 Potassium (3.5 - 5.1 mmol/L) 4.8 Chloride (98 - 107 mmol/L) 107 Carbon Dioxide (22 - 30 mmol/L) 21 L Anion Gap (5 - 16) 16 BUN (9 - 20 mg/dL) 67 H Creatinine (0.7 - 1.2 mg/dL) 2.7 H Estimated GFR (>60 ml/min) 24 L BUN/Creatinine Ratio (7 - 25 %) 24.8
[2016-06-03 08:00] VITALS: BP 172/64
--- NOTE | 2016-06-03 08:16 | PN- Wound Care ---
Subjective Subjective: Patient is awake alert without complaints Objective Vital Signs and I&Os Vital Signs Result Date Time B/P 200/80 06/03 0501 Pulse 60 06/03 0501 Resp 20 06/03 0501 Pulse Ox 97 06/03 0000 O2 Delivery Room Air 06/03 0000 Temp 98.7 06/03 0000 O2 Flow Rate Room Air 06/03 0000 Intake & Output 06/03 0000 06/02 1600 06/02 0800 Intake Total 360 Output Total Balance 360 Intake, Oral 360 Patient 187 lb Weight Exam of his legs show persistent scaling. The right plantar great toe ulcer after cleansing has an area that appears to be open and full-thickness measuring approximately 1 x 0.5 cm. The remainder ulcers are unchanged Impression/Plan Impression/Plan Impression/Plan: 60-year-old gentleman poorly controlled diabetes hypertension admitted with hyperglycemia and metabolic acidosis. His chronic edema for which there is likely a component of venous insufficiency. Continue moisturization Xeroform on a daily basis with leg elevation await arterial ultrasound
--- NOTE | 2016-06-03 08:44 | PN- Nephrology ---
Assessment/Plan Assessment: 1. CKD: severe, stage 4, due to DM & HTN; w/o current renal replacement indication but needs ESRD planning --> best done as outpt 2. Met acid: stable - continue po bicarb 3. Hyperkalemia: improved; keep off RAAS interrruption 4. Hypertension: still uncontrolled; would restart Lasix & add labetalol Suggestion: 1. Lasix 40 mg qday 2. Labetalol 200 mg bid OK for discharge from renal perspective w outpt f/u Subjective Subjective: No complaints Denies uremic sx; no CP or SOB Objective Vital Signs and I&Os Vital Signs Date Time Temp Pulse Resp B/P Pulse O2 O2 Flow FiO2 Ox Delivery Rate 06/03 0501 60 20 200/80 06/03 0000 98.7 60 20 190/80 97 Room Air 06/03 0000 97 Room Air 06/02 213 96.5 66 16 180/60 06/02 2136 96.5 66 18 180/60 06/02 1635 99.0 69 18 180/70 06/02 1600 99.0 69 18 180/70 99 Room Air 06/02 1241 70 192/70 06/02 1235 192/70 06/02 0914 80 186/74 06/02 0913 80 184/76 Intake & Output 06/03 1600 06/03 0400 06/02 1600 06/02 0400 06/01 1600 06/01 0400 Intake Total 300 360 426 937 Output Total 0850 661 4806 Balance -700 360 -424 -213 Intake, IV 166 687 Intake, Oral 300 360 260 250 Number 0 0 Bowel Movements Output, Urine 3375 382 8871 Patient 187 lb 187 lb 170 lb Weight Physical Exam General Appearance: well developed/nourished, no apparent distress Head: atraumatic, normal appearance Respiratory: normal breath sounds, no respiratory distress, quiet respiration, lungs clear Cardiovascular: regular rate/rhythm, friction rub (none) Abdomen: soft, non-tender Extremities: pedal edema (1+ right; tr left) Neurologic/Psychiatric: awake, alert Current Medications: Current Medications Sig/Michael Start time Last Medication Dose Route Stop Time Status Admin Amlodipine Besylate 10 MG DAILY 06/01 0615 AC 06/03 PO 0501 Clonidine 0.2 MG QPM 06/01 2199 AC 06/02 PO 213 Glycerin/Mineral Oil 1 ALISIA TID PRN 06/01 0745 AC 06/03 TOP 0000 Heparin Sodium 5,000 UNIT Q8 06/01 0600 AC 06/03 (Porcine) PR 0706 Hydralazine HCl 50 MG BID 06/02 2200 DC PO Hydralazine HCl 50 MG TID 06/02 1600 AC 06/02 PO 2136 Hydralazine HCl 25 MG ONCE ONE 06/02 1245 DC 06/02 PO 06/02 1246 1241 Hydralazine HCl 25 MG TID 06/01 1600 DC 06/02 PO 0913 Insulin Aspart 0 AC & AT BEDTIME 06/01 1200 AC 06/03 PR 0816 Insulin Detemir 10 UNITS DAILY 06/01 1000 AC 06/02 PR 0914 Ondansetron HCl 4 MG ONCE ONE 06/03 0500 DC 06/03 PO 06/03 0501 0503 Sodium Bicarbonate 1,300 MG BID 06/01 1051 AC 06/02 PO 2137 Results Pertinent Lab Results: Laboratory Tests 06/03 06/02 06/01 0430 0445 1530 Chemistry Sodium (137 - 145 mmol/L) 144 146 H Potassium (3.5 - 5.1 mmol/L) 4.8 5.0 5.6 H Chloride (98 - 107 mmol/L) 107 111 H Carbon Dioxide (22 - 30 mmol/L) 21 L 20 L Anion Gap (5 - 16) 16 14 BUN (9 - 20 mg/dL) 67 H 76 H Creatinine (0.7 - 1.2 mg/dL) 2.7 H 2.9 H Estimated GFR (>60 ml/min) 24 L 22 L BUN/Creatinine Ratio (7 - 25 %) 24.8 Glucose (65 - 99 mg/dL) 110 H Calcium (8.4 - 10.2 mg/dL) 8.7 Phosphorus (2.5 - 4.5 mg/dL) 4.3 Magnesium (1.6 - 2.3 mg/dL) 1.9 Total Bilirubin (0.2 - 1.3 mg/dL) 0.3 AST (17 - 59 U/L) 13 L ALT (21 - 72 U/L) 21 Troponin I (<0.11 ng/ml) 0.06 Albumin (3.5 - 5.0 g/dL) 2.9 L Hematology CBC w Diff NO MAN DIFF REQ WBC (4.8 - 10.8 /CUMM) 7.4 RBC (4.70 - 6.10 /CUMM) 3.26 L Hgb (14.0 - 18.0 G/DL) 9.5 L Hct (42 - 52 %) 28.4 L MCV (80.0 - 94.0 FL) 87.1 MCH (27.0 - 31.0 PG) 29.0 RDW (11.5 - 14.5 %) 14.5 Plt Count (130 - 400 /CUMM) 201 MPV (7.4 - 10.4 FL) 9.7 Gran % (42.2 - 75.2 %) 69.1 Lymphocytes % (20.5 - 51.1 %) 17.1 L Monocytes % (1.7 - 9.3 %) 9.4 H Eosinophils % (0 - 5 %) 3.8 Basophils % (0.0 - 2.0 %) 0.6 Absolute Granulocytes (1.4 - 6.5 /CUMM) 5.1 Absolute Lymphocytes (1.2 - 3.4 /CUMM) 1.3 Absolute Monocytes (0.10 - 0.60 /CUMM) 0.7 H Absolute Eosinophils (0.0 - 0.7 /CUMM) 0.3 Absolute Basophils (0.0 - 0.2 /CUMM) 0 PUBS MCHC (33.0 - 37.0 G/DL) 33.3 06/01 06/01 06/01 06/01 1500 0905 0702 0620 Chemistry Sodium (137 - 145 mmol/L) 145 Potassium (3.5 - 5.1 mmol/L) Cancelled 5.3 H Chloride (98 - 107 mmol/L) 110 H Carbon Dioxide (22 - 30 mmol/L) 21 L Anion Gap (5 - 16) 14 BUN (9 - 20 mg/dL) 87 H Creatinine (0.7 - 1.2 mg/dL) 3.2 H Estimated GFR (>60 ml/min) 20 L Glucose (65 - 99 mg/dL) 165 H Lactic Acid (0.7 - 2.1 mmol/L) Cancelled 1.7 Calcium (8.4 - 10.2 mg/dL) 8.9 Phosphorus (2.5 - 4.5 mg/dL) 4.8 H Magnesium (1.6 - 2.3 mg/dL) 2.0 Total Bilirubin (0.2 - 1.3 mg/dL) 0.2 AST (17 - 59 U/L) 13 L ALT (21 - 72 U/L) 16 L Troponin I (<0.11 ng/ml) 0.06 Albumin (3.5 - 5.0 g/dL) 3.1 L TSH (0.270 - 4.200 uIU/mL) 0.572 Free T4 (0.78 - 2.44 ng/dL) 1.27 06/01 06/01 0620 0513 Chemistry Sodium (137 - 145 mmol/L) 144 Potassium (3.5 - 5.1 mmol/L) 5.2 H Chloride (98 - 107 mmol/L) 109 H Carbon Dioxide (22 - 30 mmol/L) 19 L Anion Gap (5 - 16) 16 BUN (9 - 20 mg/dL) 89 H Creatinine (0.7 - 1.2 mg/dL) 3.4 H Estimated GFR (>60 ml/min) 19 L Glucose (65 - 99 mg/dL) 209 H Calcium (8.4 - 10.2 mg/dL) 9.0 Phosphorus (2.5 - 4.5 mg/dL) 5.0 H Magnesium (1.6 - 2.3 mg/dL) 2.0 Total Bilirubin (0.2 - 1.3 mg/dL) 0.2 AST (17 - 59 U/L) 13 L ALT (21 - 72 U/L) 17 L Albumin (3.5 - 5.0 g/dL) 3.1 L Triglycerides (<150 mg/dL) 191 H Cholesterol (< 200 MG/DL) 100 LDL Cholesterol, Calc (65 - 129 mg/dL) 35 L HDL Cholesterol (40 - 60 mg/dL) 27 L Cholesterol/HDL Ratio (0.00 - 4.88 %) 4 Toxicology Urine Opiates Screen (>2000 NG/ML) < 100.00 Methadone Screen (>300 NG/ML) < 40 Barbiturate Screen (>200 NG/ML) < 60 Ur Phencyclidine Scrn (>25 NG/ML) < 6.00 Amphetamines Screen (>1000 NG/ML) < 100 U Benzodiazepines Scrn (>200 NG/ML) < 85 Urine Cocaine Screen (>300 NG/ML) < 50 Urine Cannabis Screen (>50 NG/ML) < 5.00 Urines Urinalysis LIGHT H Urine Color (YEL,AMB,STR) YEL Urine Clarity (CLEAR) CLEAR Urine pH (5.0 - 8.0) 6.0 Ur Specific [place] (1.001 - 1.035) 1.025 Urine Protein (NEG,<30 MG/DL) 100 H Urine Ketones (NEG) NEG Urine Nitrite (NEG) NEG Urine Bilirubin (NEG) NEG Urine Urobilinogen (0.1 - 1.0 EU/dl) 0.2 Ur Leukocyte Esterase (NEG) NEG Ur Microscopic SEDIMENT EXAMINED Urine RBC (0 - 5 /HPF) 1-3 Ur Epithelial Cells (NONE,FEW) FEW Urine Hemoglobin (NEG) SMALL H Urine Glucose (N MG/DL) >=1000 H 06/01 06/01 0405 0402 Blood Gas pH (7.35 - 7.45 PH) 7.30 *L pCO2 (35 - 45 TORR) 39 pO2 (80 - 100 TORR) 90 HCO3 (21 - 28 MEQ/L) 19 L ABG O2 Sat (Measured) (>96.0 %) 96.0 P-50 (Temp Corrected) N Carboxyhemoglobin (1.5 - 5.0 %) 0.3 L O2 Concentration % RA Chemistry Lactic Acid Cancelled Miscellaneous Phlebotomy Draw Site RIGHT BRACHIAL 06/01 06/01 0309 0305 Chemistry Sodium (137 - 145 mmol/L) 139 Potassium (3.5 - 5.1 mmol/L) 6.0 *H Chloride (98 - 107 mmol/L) 102 Carbon Dioxide (22 - 30 mmol/L) 19 L Anion Gap (5 - 16) 18 H BUN (9 - 20 mg/dL) 97 H Creatinine (0.7 - 1.2 mg/dL) 3.6 H Estimated GFR (>60 ml/min) 17 L BUN/Creatinine Ratio (7 - 25 %) 26.9 H Glucose (65 - 99 mg/dL) 541 *H Hemoglobin A1c (<5.7) 8.8 H Serum Osmolality (285 - 295 MOSM/KG) 348 H Lactic Acid (0.7 - 2.1 mmol/L) 2.2 H Calcium (8.4 - 10.2 mg/dL) 8.8 Magnesium (1.6 - 2.3 mg/dL) 2.1 Iron (49 - 181 ug/dL) 49 TIBC (261 - 462 ug/dL) 306 Ferritin (17.9 - 464 ng/mL) 157.0 Total Bilirubin (0.2 - 1.3 mg/dL) 0.3 AST (17 - 59 U/L) 14 L ALT (21 - 72 U/L) 23 Alkaline Phosphatase (< 127 U/L) 134 H Creatine Kinase (55 - 170 U/L) 157 Troponin I (<0.11 ng/ml) 0.03 Total Protein (6.3 - 8.2 g/dL) 7.3 Albumin (3.5 - 5.0 g/dL) 3.7 Globulin (1.9 - 4.2 gm/dL) 3.6 Albumin/Globulin Ratio (1.1 - 2.2 %) 1.0 L Hematology CBC w Diff NO MAN DIFF REQ WBC (4.8 - 10.8 /CUMM) 9.3 RBC (4.70 - 6.10 /CUMM) 3.52 L Hgb (14.0 - 18.0 G/DL) 10.1 L Hct (42 - 52 %) 30.7 L MCV (80.0 - 94.0 FL) 87.2 MCH (27.0 - 31.0 PG) 28.7 RDW (11.5 - 14.5 %) 14.3 Plt Count (130 - 400 /CUMM) 208 MPV (7.4 - 10.4 FL) 9.9 Gran % (42.2 - 75.2 %) 81.9 H Lymphocytes % (20.5 - 51.1 %) 9.1 L Monocytes % (1.7 - 9.3 %) 6.4 Eosinophils % (0 - 5 %) 2.0 Basophils % (0.0 - 2.0 %) 0.6 Absolute Granulocytes (1.4 - 6.5 /CUMM) 7.6 H Absolute Lymphocytes (1.2 - 3.4 /CUMM) 0.8 L Absolute Monocytes (0.10 - 0.60 /CUMM) 0.6 Absolute Eosinophils (0.0 - 0.7 /CUMM) 0.2 Absolute Basophils (0.0 - 0.2 /CUMM) 0.1 PUBS MCHC (33.0 - 37.0 G/DL) 33.0 Toxicology Acetone Level (NEGATIVE) NEGATIVE
--- NOTE | 2016-06-03 10:13 | PN- Housestaff ---
See Addendum Subjective Follow-up For: Hyperglycemia Chronic lower extremity wounds Hypertension Chronic kidney disease Subjective: Patient seen and examined. He is seen sitting upright in bed resting comfortably injuring his breakfast. He appears to be in no acute distress. He reports that his legs are persistently itchy but are relieved with Benadryl as needed. He does otherwise say that he did not sleep well last night and is quite tired. He denies any further complaints. Additionally he denies any headache, fever, chills, chest pain, shortness of breath, cough, nausea, vomiting, diarrhea. No overnight events reported. Review of Systems Constitutional: Reports: see HPI. Objective Last 24 Hrs of Vital Signs/I&O Vital Signs Date Time Temp Pulse Resp B/P Pulse O2 O2 Flow FiO2 Ox Delivery Rate 06/03 0800 98.1 60 20 172/64 97 Room Air 06/03 0501 60 20 200/80 06/03 0000 98.7 60 20 190/80 97 Room Air 06/03 0000 97 Room Air 06/02 2137 96.5 66 16 180/60 06/02 2136 96.5 66 18 180/60 06/02 1635 99.0 69 18 180/70 06/02 1600 99.0 69 18 180/70 99 Room Air 06/02 1241 70 192/70 06/02 1235 192/70 Intake & Output 06/03 1600 06/03 0800 06/03 0000 Intake Total 300 360 Output Total 1000 Balance -700 360 Intake, Oral 300 360 Output, Urine 1000 Physical Exam General Appearance: Alert, Oriented X3, Cooperative, No Acute Distress Other Physical Findings: General -well-developed, elderly male in no acute distress HEENT - NCAT, PERRL, EOMI, anicteric sclera Cardio -systolic murmur Resp - CTA bilaterally w/o wheezing/rhochi/crackles GI -soft, obese, nontender, bowel sounds present Neuro - Awake and alert, CN II - XII grossly intact, visual acuity diminished Extremities-chronic bilateral lower extremity skin changes, distal pulses intact Current Medications: Current Medications Sig/Michael Start time Last Medication Dose Route Stop Time Status Admin Amlodipine Besylate 10 MG DAILY 06/01 0615 AC 06/03 PO 0501 Clonidine 0.2 MG QPM 06/01 2200 DC 06/02 PO 213 Doxazosin Mesylate 1 MG DAILY 06/03 1000 AC PO Furosemide 40 MG DAILY 06/03 1000 AC PO Glycerin/Mineral Oil 1 ALISIA TID PRN 06/01 0745 AC 06/03 TOP 0000 Heparin Sodium 5,000 UNIT Q8 06/01 0600 AC 06/03 (Porcine) SC 0706 Hydralazine HCl 50 MG BID 06/02 2200 DC PO Hydralazine HCl 50 MG TID 06/02 1600 AC 06/02 PO 2136 Hydralazine HCl 25 MG ONCE ONE 06/02 1245 DC 06/02 PO 06/02 1246 1241 Hydralazine HCl 25 MG TID 06/01 1600 DC 06/02 PO 0913 Insulin Aspart 0 AC & AT BEDTIME 06/01 1200 AC 06/03 SC 0816 Insulin Detemir 10 UNITS DAILY 06/01 1000 AC 06/02 SC 0914 Ondansetron HCl 4 MG ONCE ONE 06/03 0500 DC 06/03 PO 06/03 0501 0503 Sodium Bicarbonate 1,300 MG BID 06/01 1051 AC 06/02 PO 2137 Last 24 Hrs of Lab/Eduardo Results Last 24 Hrs of Labs/Mics: Laboratory Tests 06/03/16 0430: Anion Gap 16, Estimated GFR 24 L, BUN/Creatinine Ratio 24.8 Assessment/Plan Assessment: Per recommendations of housestaff attending patient's hypertensive medication regimen was optimized to include cardura 1 mg to be titrated for further control blood pressure in lieu of clonidine. Lasix were restarted for mild fluid retention observed in patients lower extremities. Echocardiogram did not include about ejection fraction, awaiting addendum. Patient remains a general medicine hold and will be transferred to the medical floor once a bed is available. Case management is working on obtaining insurance for the patient as he previously had a [employer] plan. Problem list: -Hyperglycemia, normalized with insulin drip now stable -CKD stage IV -Chronic bilateral lower extremity skin changes -Uncontrolled hypertension Cardiovascular/nephrology: Patient with a history of uncontrolled hypertension possibly secondary to renal disease. Murmur on examination is suggestive of aortic stenosis. -Avoid ACEi/ARBS, K+ sparring diuretics & nephrotoxic medications -Hydralazine 50mg PO TID -Cardura 1mg PO Daily started -Clonidine discontinued -Amlodipine 10 mg by mouth daily -Sodium bicarbonate 1300 mg by mouth twice a day -Cardiology consult following -Nephrology consult following -Follow up echocardiogram ejection fraction Endocrinology: Patient has a long history of insulin-dependent diabetes mellitus with associated medication noncompliance. -Accu-Cheks -Discontinue metformin at home for renal disease -NovoLog sliding scale insulin 3 times a day before meals/at bedtime -Levemir 10 units daily Social: Patient reportedly returned to [place] from [place] recently after an event with his girlfriend. His daughter and ex- in [place] reportedly do not have the resources to take care of the patient. Patient's other daughter Amee was contacted by social work whom is willing to take and her father after discharge. -Social work consult placed, follow-up recommendations Diet-diabetic diet with 2 g and Na/K restriction DVT PPx - SC Heparin Code Status - FULL CODE Problem List: 1. Hyperglycemia Pain Ratin Pain Location: As noted in plan Pain Goal: Remain pain free Pain Plan: As noted in plan Tomorrow's Labs & Rationales: BEP - acute on chronic kidney injury
[2016-06-03 16:00] VITALS: BP 172/64
[2016-06-03 18:08] VITALS: BP 178/64
[2016-06-03 20:00] VITALS: BP 190/80
--- NOTE | 2016-06-03 20:51 | NUR ---
PATIENT ALERT.TJ=533/80. DENIES PAIN.NO SOB NOTED.DUE FOR HYDRALAZINE AT 2200
[2016-06-03 22:53] VITALS: BP 210/72
[2016-06-04 01:11] VITALS: BP 190/74
--- NOTE | 2016-06-04 02:27 | NUR ---
LATE ENTRY FOR 06/03/[address] RAMON BLOODPRESSURE 210/78 HR 68. AX3. NO C/O FROM PT. AWAIT ANY NEW ORDERS.
[2016-06-04 04:14] VITALS: BP 190/70
--- NOTE | 2016-06-04 07:39 | PN- Diabetes ---
See Addendum Assessment/Plan Assessment: The patient is eating. He states that he feels improved. Sweating at night but his blood sugar was tested again and was not low. His blood pressure remains poorly controlled. The patient is presently on Levemir 10 units once a day as well as low dose sliding scale NovoLog. His blood sugars came high after breakfast yesterday. His stick blood sugar just they were 196 before breakfast, 310 before lunch, 131 before dinner, and 170 at bedtime. The patient has been started on bicarbonate by mouth by Dr. Asher because of probable Type 4 renal tubular acidosis. This has helped his serum potassium. The patient has an ulcer on his right great toe. Plan: Suggest continue the present insulin regimen. The patient needs better control of his blood pressure. Increase activity. The patient should have an x-ray of the right foot and right great toe to see if there is evidence of osteomyelitis. Also consider podiatry consult. Subjective Subjective: Perspiring during the night Review of Systems Constitutional: Reports: chills. Denies: fever. Cardiovascular: Denies: chest pain. Respiratory: Denies: short of breath. Gastrointestinal: Denies: nausea, vomiting. Skin: Reports: rash (both feet). Objective Last 24 Hrs of Vital Signs/I&O Vital Signs Date Time Temp Pulse Resp B/P Pulse O2 O2 Flow FiO2 Ox Delivery Rate 06/04 413 66 190/70 06/04 0111 68 190/74 Intake & Output 06/04 0800 Intake Total 120 Output Total Balance 120 Intake, Oral 120 Vital Signs Date Time Temp Pulse Resp B/P Pulse O2 O2 Flow FiO2 Ox Delivery Rate 06/044 66 190/70 06/04 0111 68 190/74 06/03 2253 97.0 68 20 210/72 97 Room Air 06/03 2111 98.3 66 18 190/80 06/03 2000 98.3 66 18 190/80 97 06/03 1808 178/64 06/03 1600 99.1 58 20 172/64 97 Room Air 06/03 1557 58 172/64 06/03 1011 60 192/74 06/03 0800 98.1 60 20 172/64 97 Room Air Intake & Output 06/04 0800 06/04 0000 06/03 1600 Intake Total 320 Output Total Balance 320 Intake, Oral 320 Physical Exam General Appearance: alert, awake, comfortable Head: normal appearance Neck: normal inspection Respiratory: normal breath sounds Abdomen: normal bowel sounds Extremities: normal inspection (right foot bandaged) Current Medications: Current Medications Sig/Michael Start time Last Medication Dose Route Stop Time Status Admin Amlodipine Besylate 10 MG DAILY 06/01 0615 AC 06/03 PO 0501 Clonidine 0.2 MG ONE ONE 06/03 2345 CAN PO 06/03 2346 Clonidine 0.2 MG QPM 06/01 2200 DC 06/02 PO 2137 Doxazosin Mesylate 2 MG DAILY 06/04 1000 CAN PO Doxazosin Mesylate 2 MG ONCE ONE 06/03 2345 DC 06/03 PO 06/03 2346 2349 Doxazosin Mesylate 1 MG ONCE ONE 06/03 1345 DC 06/03 PO 06/03 1346 1410 Doxazosin Mesylate 1 MG DAILY 06/03 1000 DC 06/03 PO 1010 Furosemide 40 MG DAILY 06/03 1000 AC 06/03 PO 1011 Glycerin/Mineral Oil 1 ALISIA TID PRN 06/01 0745 AC 06/03 TOP 2115 Heparin Sodium 5,000 UNIT Q8 06/01 0600 AC 06/04 (Porcine) NV 0726 Hydralazine HCl 100 MG BID 06/04 1000 AC PO Hydralazine HCl 50 MG TID 06/02 1600 DC 06/03 PO 06/04 0000 2111 Insulin Aspart 0 AC & AT BEDTIME 06/01 1200 AC 06/03 SC 1647 Insulin Detemir 10 UNITS DAILY 06/01 1000 AC 06/03 SC 1012 Loratadine 10 MG DAILY 06/03 1203 AC 06/03 PO 1408 Ondansetron HCl 4 MG ONCE ONE 06/04 0300 DC 06/04 PO 06/04 0301 0323 Oxymetazoline HCl 2 SPRAY BID PRN 06/03 1215 AC DEREJE Sodium Bicarbonate 1,300 MG BID 06/01 1051 AC 06/03 PO 2109
--- NOTE | 2016-06-04 08:06 | NUR ---
LATE ENTRY FOR 414 DR RAMON NOTIFIED OF BLOOD PRESSURE 190/70 AND HEART RATE 66. PT WITH NO COMPLAINTS.
--- NOTE | 2016-06-04 08:28 | Event Note ---
Event Note Event Note: Situation: * hypertensive Urgency Brief: * Patient was transferred to [facility] overnight. * I was called from the floor saying that his pressures were very high * They were noted to be 220/80mmhg * One of the nurses and myselves rechecked it again and it was 218/78mmHg * Signs/Symptoms : patient was alert oriented x 3,complaining of mild heaviness in the head sweating and having feeling warm, also is complaning of nausea * Vitals : b/p 220/80, HR : 63, RR : 20,T- 98.9, 97% On RA * FS :127 * Patient was put on portable montior on the general medicine floor * Current hypertension regimen regimen:cardura 1mg daily, hydralazine 100 mg bid ( which was increased dosage yday) and norvasc 10 mg daily. A/P: * Patient was given one time 5 mg of iv hydralazine while on general medicine floor while he was on the protable monitor * 5 ot 10 minutes after one time 5 mg iv hydralaziNe B/P : 216/70 * Transfer the patient to tele, so that B/P can be continuosly monitored alongwith telemetry monitoring * Patient will go to ICU as tele hold in room 112 * Plan to give another 10 mg iv hydralazine. * please do Stat EKg, troponin times one. * Plan discussed with Dr hameed. * Consider giving PO BP meds early if b/p still high. * target systolic b/p : 160 to 170, donot drop aggesively.
--- NOTE | 2016-06-04 09:00 | NUR ---
0810: PATIENT TRANSFERRED DOWN FROM [facility] AND SETTLED IN ROOM 112 PATIENT C/O DIAPHORESIS AND SOME INTERMITTENT NAUSEA MANUAL B/P ASSESSED TO BE 220/84. OTHER VITALS WNL. 10 MG IV HYDRALAZINE ORDERED/GIVEN. MORNING B/P MEDS GIVEN AT 0750 PER EMAR BEFORE PATIENT WAS TRANSFERRED DOWN. SB/P REASSESSMENTS: 150S-180S. SBP-DOWN IS THE 150S-160S WHEN PATIENT WAS ASLEEP. PATIENT DOWNGRADED TO GEN MED AGAIN. PATIENT MADE COMFORTABLE ORIENTED TO ROOM, GIVEN URINAL AND CALL DIXON, SAFETY MAINTAINED.
--- NOTE | 2016-06-04 09:32 | NUR ---
PHYSICAL THERAPY: Attempted to see patient this A.M.; Patient refusing P.T. stating "Not now, not today, I do not feel good." Patient educated on the benefits of mobility and diane activity to maintain strength. Patient con't to defer treatment; will f/u as appropriate
--- NOTE | 2016-06-04 11:10 | PN- Nephrology ---
See Addendum Assessment/Plan Assessment: 1. CKD: severe, stage 4, due to DM & HTN; stable w/o dialysis indication 2. Met acid: stable - continue po bicarb 3. Hyperkalemia: improved; keep off RAAS interrruption 4. Hypertension: improved Suggestion: 1. uptitrate Cardura tonight if BP remains hi 2. consider change hydralazine --> minoxidil if BP remains uncontrolled Subjective Subjective: Events this morning w worsening HTN requiring IV hydralazine noted Now BP better 156/65 No CP or SOB No uremic sx Objective Vital Signs and I&Os Vital Signs Date Time Temp Pulse Resp B/P Pulse O2 O2 Flow FiO2 Ox Delivery Rate 06/04 0854 67 220/90 06/04 0800 63 210/82 06/04 0751 63 210/82 06/04 0751 63 210/82 06/04 0414 66 190/70 06/04 0111 68 190/74 06/03 2253 97.0 68 20 210/72 97 Room Air 06/03 2111 98.3 66 18 190/80 06/03 2000 98.3 66 18 190/80 97 06/03 1808 178/64 06/03 1600 99.1 58 20 172/64 97 Room Air 06/03 1557 58 172/64 Intake & Output 06/04 1600 06/04 0400 06/03 1600 06/03 0400 06/02 1600 06/02 0400 Intake Total 120 320 300 360 426 Output Total 200 1000 850 Balance -80 320 -700 360 -424 Intake, IV 166 Intake, Oral 120 320 300 360 260 Number 0 Bowel Movements Output, Urine 200 1000 850 Patient 187 lb Weight Physical Exam General Appearance: well developed/nourished, no apparent distress Head: atraumatic, normal appearance Neck: normal inspection Respiratory: no respiratory distress, quiet respiration, lungs clear Cardiovascular: regular rate/rhythm, friction rub (none) Abdomen: soft, non-tender, no organomegaly Extremities: swelling (trace) Neurologic/Psychiatric: awake, alert Current Medications: Current Medications Sig/Michael Start time Last Medication Dose Route Stop Time Status Admin Amlodipine Besylate 10 MG DAILY 06/01 0615 AC 06/04 PO 0751 Clonidine 0.2 MG ONE ONE 06/03 2345 CAN PO 06/03 2346 Doxazosin Mesylate 2 MG DAILY 06/04 1000 CAN PO Doxazosin Mesylate 2 MG ONCE ONE 06/03 2345 DC 06/03 PO 06/03 2346 2349 Doxazosin Mesylate 1 MG ONCE ONE 06/03 1345 DC 06/03 PO 06/03 1346 1410 Doxazosin Mesylate 1 MG DAILY 06/03 1000 DC 06/03 PO 1010 Furosemide 40 MG DAILY 06/03 1000 AC 06/04 PO 0938 Glycerin/Mineral Oil 1 ALISIA TID PRN 06/01 0745 AC 06/03 TOP 2115 Heparin Sodium 5,000 UNIT Q8 06/01 0600 AC 06/04 (Porcine) SC 0726 Hydralazine HCl 100 MG BID 06/04 1000 AC 06/04 PO 0751 Hydralazine HCl 10 MG ONCE ONE 06/04 0830 DC 06/04 IV 06/04 0831 0854 Hydralazine HCl 5 MG ONCE ONE 06/04 0800 DC 06/04 IV 06/04 0801 0800 Hydralazine HCl 50 MG TID 06/02 1600 DC 06/03 PO 06/04 0000 2111 Insulin Aspart 0 AC & AT BEDTIME 06/01 1200 AC 06/04 SC 0909 Insulin Detemir 10 UNITS DAILY 06/01 1000 AC 06/04 SC 0938 Loratadine 10 MG DAILY 06/03 1203 AC 06/04 PO 0937 Ondansetron HCl 4 MG ONCE ONE 06/04 0300 DC 06/04 PO 06/04 0301 0323 Oxymetazoline HCl 2 SPRAY BID PRN 06/03 1215 AC 06/04 DEREJE 0942 Sodium Bicarbonate 1,300 MG BID 06/01 1051 AC 06/04 PO 0937 Results Pertinent Lab Results: Laboratory Tests 06/04 06/04 06/03 06/02 0900 0642 0430 0445 Chemistry Sodium (137 - 145 mmol/L) 141 144 146 H Potassium (3.5 - 5.1 mmol/L) 4.8 4.8 5.0 Chloride (98 - 107 mmol/L) 105 107 111 H Carbon Dioxide (22 - 30 mmol/L) 25 21 L 20 L Anion Gap (5 - 16) 11 16 14 BUN (9 - 20 mg/dL) 61 H 67 H 76 H Creatinine (0.7 - 1.2 mg/dL) 2.7 H 2.7 H 2.9 H Estimated GFR (>60 ml/min) 24 L 24 L 22 L BUN/Creatinine Ratio (7 - 25 %) 22.6 24.8 Glucose (65 - 99 mg/dL) 110 H Calcium (8.4 - 10.2 mg/dL) 8.7 Phosphorus (2.5 - 4.5 mg/dL) 4.3 Magnesium (1.6 - 2.3 mg/dL) 1.9 Total Bilirubin (0.2 - 1.3 mg/dL) 0.3 AST (17 - 59 U/L) 13 L ALT (21 - 72 U/L) 21 Troponin I (<0.11 ng/ml) 0.07 Albumin (3.5 - 5.0 g/dL) 2.9 L Hematology CBC w Diff NO MAN DIFF REQ WBC (4.8 - 10.8 /CUMM) 7.4 RBC (4.70 - 6.10 /CUMM) 3.26 L Hgb (14.0 - 18.0 G/DL) 9.5 L Hct (42 - 52 %) 28.4 L MCV (80.0 - 94.0 FL) 87.1 MCH (27.0 - 31.0 PG) 29.0 RDW (11.5 - 14.5 %) 14.5 Plt Count (130 - 400 /CUMM) 201 MPV (7.4 - 10.4 FL) 9.7 Gran % (42.2 - 75.2 %) 69.1 Lymphocytes % (20.5 - 51.1 %) 17.1 L Monocytes % (1.7 - 9.3 %) 9.4 H Eosinophils % (0 - 5 %) 3.8 Basophils % (0.0 - 2.0 %) 0.6 Absolute Granulocytes (1.4 - 6.5 /CUMM) 5.1 Absolute Lymphocytes (1.2 - 3.4 /CUMM) 1.3 Absolute Monocytes (0.10 - 0.60 /CUMM) 0.7 H Absolute Eosinophils (0.0 - 0.7 /CUMM) 0.3 Absolute Basophils (0.0 - 0.2 /CUMM) 0 PUBS MCHC (33.0 - 37.0 G/DL) 33.3 06/01 06/01 1530 1500 Chemistry Potassium (3.5 - 5.1 mmol/L) 5.6 H Cancelled Troponin I (<0.11 ng/ml) 0.06
--- NOTE | 2016-06-04 11:22 | PN- Housestaff ---
See Addendum Subjective Follow-up For: Hypertension Hyperglycemia Subjective: Patient seen and examined. He is seen sitting upright in bed resting comfortably. He appears to be in no acute distress. He was transferred back to the ICU as a telemetry hold for persistent elevated systolic blood pressure. Currently he admits to feeling sweaty but denies any chest pain, nausea, shortness of breath. Additionally he denies any headache, fever, chills, palpitations, cough, vomiting, diarrhea. No overnight events reported other than above. Review of Systems Constitutional: Reports: see HPI. Objective Last 24 Hrs of Vital Signs/I&O Vital Signs Date Time Temp Pulse Resp B/P Pulse O2 O2 Flow FiO2 Ox Delivery Rate 06/04 0854 67 220/90 06/04 0800 63 210/82 06/04 0800 97 Room Air Room Air 06/04 0751 63 210/82 06/04 0751 63 210/82 06/04 0414 66 190/70 06/04 0111 68 190/74 06/03 2253 97.0 68 20 210/72 97 Room Air 06/03 2111 98.3 66 18 190/80 06/03 2000 98.3 66 18 190/80 97 06/03 1808 178/64 06/03 1600 99.1 58 20 172/64 97 Room Air 06/03 1557 58 172/64 Intake & Output 06/04 1600 06/04 0800 06/04 0000 Intake Total 120 320 Output Total 200 Balance -80 320 Intake, Oral 120 320 Output, Urine 200 Physical Exam General Appearance: Alert, Oriented X3, Cooperative, No Acute Distress Other Physical Findings: General - well developed, well nourished man in no acute distress Skin-cool to touch, mild diaphoresis HEENT - NCAT, PERRL, EOMI, anicteric sclera Cardio - S1, S2 w/o murmurs/gallops/rubs Resp - CTA bilaterally w/o wheezing/rhochi/crackles GI - soft, nontender, nondistended, bowel sounds present Neuro - Awake and alert, CN II - XII grossly intact Extremities - no edema, pulses intact Current Medications: Current Medications Sig/Michael Start time Last Medication Dose Route Stop Time Status Admin Amlodipine Besylate 10 MG DAILY 06/01 0615 AC 06/04 PO 0751 Clonidine 0.2 MG ONE ONE 06/03 2345 CAN PO 06/03 2346 Doxazosin Mesylate 2 MG QPM 06/04 2200 AC PO Doxazosin Mesylate 2 MG DAILY 06/04 1000 CAN PO Doxazosin Mesylate 2 MG ONCE ONE 06/03 2345 DC 06/03 PO 06/03 2346 2349 Doxazosin Mesylate 1 MG ONCE ONE 06/03 1345 DC 06/03 PO 06/03 1346 1410 Doxazosin Mesylate 1 MG DAILY 06/03 1000 DC 06/03 PO 1010 Furosemide 40 MG DAILY 06/03 1000 AC 06/04 PO 0938 Glycerin/Mineral Oil 1 ALISIA TID PRN 06/01 0745 AC 06/03 TOP 2115 Heparin Sodium 5,000 UNIT Q8 06/01 0600 AC 06/04 (Porcine) SC 0726 Hydralazine HCl 100 MG BID 06/04 1000 AC 06/04 PO 0751 Hydralazine HCl 10 MG ONCE ONE 06/04 0830 DC 06/04 IV 06/04 0831 0854 Hydralazine HCl 5 MG ONCE ONE 06/04 0800 DC 06/04 IV 06/04 0801 0800 Hydralazine HCl 50 MG TID 06/02 1600 DC 06/03 PO 06/04 0000 2111 Insulin Aspart 0 AC & AT BEDTIME 06/01 1200 AC 06/04 SC 1211 Insulin Detemir 10 UNITS DAILY 06/01 1000 AC 06/04 SC 0938 Loratadine 10 MG DAILY 06/03 1203 AC 06/04 PO 0937 Ondansetron HCl 4 MG ONCE ONE 06/04 0300 DC 06/04 PO 06/04 0301 0323 Oxymetazoline HCl 2 SPRAY BID PRN 06/03 1215 AC 06/04 DEREJE 0942 Sodium Bicarbonate 1,300 MG BID 06/01 1051 AC 06/04 PO 0937 Last 24 Hrs of Lab/Eduardo Results Last 24 Hrs of Labs/Mics: Laboratory Tests 06/04/16 0900: Troponin I 0.07 06/04/16 0642: Anion Gap 11, Estimated GFR 24 L, BUN/Creatinine Ratio 22.6 Assessment/Plan Assessment: Patient transferred back to the intensive care unit as a telemetry hold for persistent elevated blood pressure despite multiple medications. She was found to have a systolic blood pressure reportedly in the 230 range despite being given doses of his a.m. blood pressure medications early. He was given a total of 15 mg of intravenous hydralazine for his blood pressure lowered to 150s systolic. Problem list: -Hyperglycemia, normalized with insulin drip now stable -CKD stage IV -Chronic bilateral lower extremity skin changes -Uncontrolled hypertension Cardiovascular/nephrology: Patient with a history of uncontrolled hypertension possibly secondary to renal disease. Murmur on examination is suggestive of aortic stenosis. -Avoid ACEi/ARBS, K+ sparring diuretics & nephrotoxic medications -Amlodipine 10 mg by mouth daily -Hydralazine 100mg PO BID -Cardura 4mg PO QHS -Sodium bicarbonate 1300 mg by mouth twice a day -Cardiology consult following -Nephrology consult following -Follow up echocardiogram ejection fraction Endocrinology: Patient has a long history of insulin-dependent diabetes mellitus with associated medication noncompliance. -Accu-Cheks -Discontinue metformin at home for renal disease -NovoLog sliding scale insulin 3 times a day before meals/at bedtime -Levemir 10 units daily Social: Patient reportedly returned to [place] from [place] recently after an event with his girlfriend. His daughter and ex- in [place] reportedly do not have the resources to take care of the patient. Patient's other daughter Amee was contacted by social work whom is willing to take and her father after discharge. -Social work consult placed, follow-up recommendations Diet-diabetic diet with 2 g and Na/K restriction DVT PPx - SC Heparin Code Status - FULL CODE Problem List: 1. Hypertensive urgency 2. Hyperglycemia Pain Ratin Pain Location: None Pain Goal: Pain 4 or less Pain Plan: As noted in plan Tomorrow's Labs & Rationales: BEP
--- NOTE | 2016-06-04 13:48 | NUR ---
Physical Therapy: Patient refused PT this afternoon. Stated that he would participate in PT tomorrow.
[2016-06-04 16:00] VITALS: BP 182/80
[2016-06-04 18:20] VITALS: BP 194/84
--- NOTE | 2016-06-04 18:30 | NUR ---
1814: PATIENT'S B/P CHECKED TO BE 194/84 PATIENT C/O DIAPHORESIS INFORMED DR. LUJAN. 4MG CARDURA ORDERED FOR 2199, GIVEN EARLY/AT THIS TIME PER DR. LUJAN REPORT GIVEN TO RANDAL MARVIN FOR A REASSESSMENT OF B/P. TRANSFER TO UPSTAIRS HELD AT THIS TIME.
--- NOTE | 2016-06-04 23:09 | RADIOLOGY REPORT ---
EXAMINATION: XR FOOT, RIGHT CLINICAL INFORMATION: Tenderness. Osteomyelitis. COMPARISON: None TECHNIQUE: AP, lateral, and oblique views of the right foot. FINDINGS: No evidence of acute fracture or dislocation. There is irregularity of the fourth metatarsal head with a rotated appearance. There is disruption of the fourth metatarsophalangeal joint. Remaining joint spaces are maintained. Mild degenerative changes at the first metatarsophalangeal joint with osteophyte formation. Diffuse vascular calcifications. Small heel spurs. Mild soft tissue swelling of the forefoot. IMPRESSION: Erosion of the fourth metatarsal head could represent osteomyelitis.
[2016-06-05] VITALS (8 sets, daily range): BP systolic 160–190; BP diastolic 70–90
--- NOTE | 2016-06-05 00:17 | NUR ---
PATIENT RECEIVED ALERT AND RESPONSIVE, WELL ORIENTED TO SURROUNDINGS, SKIN PINK, WARM AND DRY, BREATHE SOUNDS CLEAR BILATERALLY, O2 SAT 97% ON RA, ABDOMEN SOFT, +BS, VOIDING CLEAR, YELLOW UO WITHOUT DIFFICULTY, BP RUE 172/70, LUE 152/70, PATIENT C/O MILD NAUSEA-ASKING FOR MEDICATION HE WAS GIVEN LAST NIGHT- DR GUERRERO NOTIFIED AND PATIENT TO RECEIVE ORDERED PO ZOFRAN
--- NOTE | 2016-06-05 02:13 | NUR ---
PATIENT HAS REPORTED RELIEF FROM NAUSEA AFTER EARLIER ZOFRAN PATIENT TO BE TELE HOLD PER DR GUERRERO- PLACED ON COMPENSATION DIRECTOR- SINUS WITHOUT ECTOPY, HEART RATE 60'S TO 70'S/MIN
--- NOTE | 2016-06-05 06:11 | NUR ---
NO CHANGES IN STATUS NOTED OVERNIGHT, SBP 172 TO 180/70'S, EVENTS AND PROMOTIONS ASSISTANT SINUS BRADYCARDIA WITHOUT ECTOPY WHEN ASLEEP, HEART RATE MID TO HIGH 50'S/MIN, AWAITNG AM MD ROUNDS
--- NOTE | 2016-06-05 08:57 | PN- Diabetes ---
Assessment/Plan Assessment: The patient is eating. He states that he feels improved. He complained of sweating at night but his blood sugar was tested again and was not low. He was moved back to the intensive care unit because of uncontrolled hypertension. The question of pheochromocytoma was raised. The patient is presently on Levemir 10 units once a day as well as low dose sliding scale NovoLog. A stick blood sugars yesterday were in a good range. Fingerstick sugar before breakfast was 136, before lunch 179, before dinner 120, and at bedtime 158. The patient has been started on bicarbonate by mouth by Dr. Asher because of probable Type 4 renal tubular acidosis. This has helped his serum potassium. The patient has an ulcer on his right great toe. X-ray of the toes shows evidence of probable osteomyelitis. Plan: Suggest continue the present insulin regimen. The patient will need an MRI of his foot and a podiatry consult. With regard to his hypertension, the patient did have plasma fractionated catecholamines and plasma fractionated normetanephrine done yesterday. Subjective Subjective: Feels improved Review of Systems Constitutional: Denies: chills, fever. Cardiovascular: Denies: chest pain. Respiratory: Denies: short of breath. Gastrointestinal: Denies: abdominal pain, nausea, vomiting. Skin: Reports: rash (both feet). Objective Last 24 Hrs of Vital Signs/I&O Vital Signs Date Time Temp Pulse Resp B/P Pulse O2 O2 Flow FiO2 Ox Delivery Rate 06/05 0734 67 180/80 06/05 0833 67 180/80 06/05 0600 58 18 178/76 97 Room Air 06/05 0400 70 18 180/74 97 Room Air 06/05 0000 97 Room Air 06/05 0000 98.7 72 20 172/70 97 Room Air 06/04 2146 68 18 176/86 06/04 1820 67 194/84 06/04 1600 97 Room Air Room Air 06/04 1600 98.1 65 18 182/80 96 Room Air Room Air Intake & Output 06/05 1600 06/05 0800 06/05 0000 Intake Total 480 Output Total 350 300 Balance -350 180 Intake, Oral 480 Number 0 Bowel Movements Output, Urine 350 300 Vital Signs Date Time Temp Pulse Resp B/P Pulse O2 O2 Flow FiO2 Ox Delivery Rate 06/05 0834 67 180/80 06/05 0833 67 180/80 06/05 0600 58 18 178/76 97 Room Air 06/05 0400 70 18 180/74 97 Room Air 06/05 0000 97 Room Air 06/05 0000 98.7 72 20 172/70 97 Room Air 06/04 2146 68 18 176/86 06/04 1820 67 194/84 06/04 1600 97 Room Air Room Air 06/04 1600 98.1 65 18 182/80 96 Room Air Room Air Intake & Output 06/05 1600 06/05 0800 06/05 0000 Intake Total 480 Output Total 350 300 Balance -350 180 Intake, Oral 480 Number 0 Bowel Movements Output, Urine 350 300 Physical Exam General Appearance: alert, anxious, comfortable Head: normal appearance Neck: normal inspection Respiratory: normal breath sounds Cardiovascular: regular rate/rhythm Abdomen: normal bowel sounds Extremities: right foot bandaged Current Medications: Current Medications Sig/Michael Start time Last Medication Dose Route Stop Time Status Admin Amlodipine Besylate 10 MG DAILY 06/01 0615 AC 06/05 PO 0834 Doxazosin Mesylate 2 MG QPM 06/04 2200 DC PO Doxazosin Mesylate 4 MG QPM 06/04 2200 AC 06/04 PO 1805 Furosemide 40 MG DAILY 06/03 1000 AC 06/05 PO 0849 Glycerin/Mineral Oil 1 ALISIA TID PRN 06/01 0745 AC 06/03 TOP 2115 Heparin Sodium 5,000 UNIT Q8 06/01 0600 AC 06/05 (Porcine) SC 0554 Hydralazine HCl 100 MG BID 06/04 1000 AC 06/05 PO 0833 Insulin Aspart 0 AC & AT BEDTIME 06/01 1200 AC 06/05 SC 0833 Insulin Detemir 10 UNITS DAILY 06/01 1000 AC 06/05 SC 0849 Loratadine 10 MG DAILY 06/03 1203 AC 06/05 PO 0850 Ondansetron HCl 4 MG ONCE ONE 06/04 2345 DC 06/05 PO 06/04 2346 0006 Oxymetazoline HCl 2 SPRAY BID PRN 06/03 1215 AC 06/04 DEREJE 0942 Sodium Bicarbonate 1,300 MG BID 06/01 1051 AC 06/05 PO 0849 Sodium Chloride 250 ML BOLUS ONE 06/04 1645 DC 06/04 IV 06/04 1914 1653 Findings Pertinent Lab/Eduardo Results: Laboratory Tests 06/05 06/04 06/04 06/04 06/04 0340 1750 1750 1608 0900 Chemistry Sodium (137 - 145 mmol/L) 141 Potassium (3.5 - 5.1 mmol/L) 4.8 Chloride (98 - 107 mmol/L) 103 Carbon Dioxide (22 - 30 mmol/L) 24 Anion Gap (5 - 16) 14 BUN (9 - 20 mg/dL) 68 H Creatinine (0.7 - 1.2 mg/dL) 3.0 H Estimated GFR (>60 ml/min) 21 L BUN/Creatinine Ratio (7 - 25 %) 22.7 Troponin I (<0.11 ng/ml) 0.07 Dopamine Pending Cancelled Plasma Epinephrine Pending Cancelled Norepinephrine Pending Cancelled Total Catecholamines Pending Cancelled Plasma Free Metaneph Pending Plasma Free Normeta Pending Pls Totl Free Metaneph Pending
--- NOTE | 2016-06-05 11:04 | PN- Att Addend ---
See Addendum Attending Addendum Attending Brief Note Patient seen and examined, denies any current complaints. Blood pressure still consistently high. Blood sugars under acceptable range. Right foot x-ray shows osteomyelitis. Vital Signs Date Time Temp Pulse Resp B/P Pulse O2 O2 Flow FiO2 Ox Delivery Rate 06/05 0834 67 180/80 06/05 0833 67 180/80 06/05 0800 96 Room Air Room Air 06/05 0800 98.2 67 20 180/80 96 Room Air Room Air 06/05 0600 58 18 178/76 97 Room Air 06/05 0400 70 18 180/74 97 Room Air 06/05 0000 97 Room Air 06/05 0000 98.7 72 20 172/70 97 Room Air 06/04 2146 68 18 176/86 06/04 1820 67 194/84 06/04 1600 97 Room Air Room Air 06/04 1600 98.1 65 18 182/80 96 Room Air Room Air on exam; aox3, nad. cv; s1,s2, rrr. resp; clear abd; soft, nt, bs+ ext; no edema. skin; + scaly skin on b/l legs Laboratory Tests 06/05 06/04 06/04 06/04 0340 1750 1750 1608 Chemistry Sodium (137 - 145 mmol/L) 141 Potassium (3.5 - 5.1 mmol/L) 4.8 Chloride (98 - 107 mmol/L) 103 Carbon Dioxide (22 - 30 mmol/L) 24 Anion Gap (5 - 16) 14 BUN (9 - 20 mg/dL) 68 H Creatinine (0.7 - 1.2 mg/dL) 3.0 H Estimated GFR (>60 ml/min) 21 L BUN/Creatinine Ratio (7 - 25 %) 22.7 Dopamine Pending Cancelled Plasma Epinephrine Pending Cancelled Norepinephrine Pending Cancelled Total Catecholamines Pending Cancelled Plasma Free Metaneph Pending Plasma Free Normeta Pending Pls Totl Free Metaneph Pending A/P: 60 y/o M with pmh sig for hypertension, hyperlipidemia, CKD, diabetes, asthma, cholelithiasis, legally blind from cataracts, was originally admitted for DKA, uncontrolled hypertension and acute on chronic renal failure secondary to noncompliance of medications. Current issues include uncontrolled hypertension as well as osteo-mellitus of the right foot. Currently treated with insulin for diabetes. Please follow further endocrinology recommendations. Blood sugars are in acceptable range. Patient on 3 antihypertensive medications with max dose of amlodipine and hydralazine. Blood pressure seems to be not well controlled. Nephrology recommend starting the patient on minoxidil instead of hydralazine if blood pressure uncontrolled. I noticed that there is no cardiology note from last 2 days. Please consult cardiology as well. The medications switch will also need to be discussed with cardiology as minoxidil does have significant cardiac side effects. Continue amlodipine and Lasix. Continue to monitor renal function. Right foot x-rays consistent with osteomyelitis. Please obtain a right foot MRI and get a podiatry consult. DVT Px; Hep sq
--- NOTE | 2016-06-05 12:38 | Cons- Podiatry ---
General Information and HPI Consulting Request Date of Consult: 06/05/16 Requested By: AUGIE COPE MD History of Present Illness: Mr. Roblero is a 60-year-old male with a significant past medical history including diabetes, chronic kidney disease and hypertension. Probably, the patient had been in [place] over the recent past months and after traveling to [place] was noted by his family to be in an overall poor state of health. This precipitated his presentation to the ED. the patient is uncertain about the duration of the ulcerations noted about his left and right feet. Allergies/Medications Allergies: Coded Allergies: Fish Containing Products (Severe, RASH, BREATHING PROBLEM? 06/01/16) Uncoded Allergies: SEAFOOD (Severe, RASH, BREATHING PROBLEM 06/01/16) Home Med List: Allopurinol 100 MG TABLET 1 TAB PO DAILY Gout (Reported) Amlodipine Besylate 10 MG TABLET 1 TAB PO DAILY Hypertension (Reported) Atorvastatin Calcium 80 MG TABLET 1 TAB PO DAILY Hyperlipidemia (Reported) Bumetanide 1 MG TABLET 1 TAB PO DAILY Heart (Reported) Calcium Acetate 667 MG CAPSULE 1 CAP PO TID Unknown (Reported) Clonidine HCl 0.2 MG TABLET 1 TAB PO QPM HTN (Reported) Doxazosin Mesylate 2 MG TABLET 1 TAB PO DAILY Angina (Reported) Furosemide 40 MG TABLET 1 TAB PO BID LE swelling (Reported) Gabapentin 100 MG CAPSULE 1 CAP PO TID Neuropathy (Reported) Glimepiride (Amaryl) 1 MG TAB 1 TAB PO DAILY DIABETES Hydralazine HCl 25 MG TABLET 1 TAB PO TID HTN (Reported) Insulin Detemir (Levemir) 100 UNIT/ML VIAL 14 UNITS SQ ONCE Diabetes ( Reported) Linagliptin (Tradjenta) 5 MG TABLET 1 TAB PO DAILY Diabetes (Reported) Lisinopril 2.5 MG TABLET 1 TAB PO DAILY HTN Metformin Hydochloride (Glucophage) 500 MG TABLET 500 MG PO 0800,1700 DIABETES Nitroglycerin (Nitrostat) 0.4 MG TAB.SUBL 1 TAB SL AD PRN Chest pain ( Reported) 1st sign of attack; may repeat every 5 minutes until relief; if pain persists after 3 tablets in 15 minutes, prompt medical att Pravastatin Sodium 40 MG TABLET 1 TAB PO DAILY Hyperlipidemia (Reported) Past History Medical History Blood Transfusion Hx: No Neurological: N EENT: cataracts Cardiovascular: hypertension, hyperlipidemia Respiratory: asthma Gastrointestinal: NONE Hepatic: NONE Renal: chronic kidney disease Musculoskeletal: NONE Psychiatric: NONE Endocrine: diabetes Blood Disorders: anemia Cancer(s): 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 SISTER (Breast cancer). Relation not specified for: FH: diabetes mellitus FH: hypertension Psychosocial History Where Do You Live? Home Smoking Status: Former Smoker ETOH Use: denies use Illicit Drug Use: denies illicit drug use Review of Systems Review of Systems: Unremarkable except for that noted in history present illness. Exam & Diagnostic Data Vital Signs and I&O Vital Signs Date Time Temp Pulse Resp B/P Pulse O2 O2 Flow FiO2 Ox Delivery Rate 06/05 0834 67 180/80 06/05 0833 67 180/80 06/05 0800 96 Room Air Room Air 06/05 0800 98.2 67 20 180/80 96 Room Air Room Air 06/05 0600 58 18 178/76 97 Room Air 06/05 0400 70 18 180/74 97 Room Air 06/05 0000 97 Room Air 06/05 0000 98.7 72 20 172/70 97 Room Air 06/04 2146 68 18 176/86 06/04 1820 67 194/84 06/04 1600 97 Room Air Room Air 06/04 1600 98.1 65 18 182/80 96 Room Air Room Air Intake & Output 06/05 1600 06/05 0800 06/05 0000 06/04 1600 06/04 0800 06/04 0000 Intake Total 480 600 120 320 Output Total 350 300 500 200 Balance -350 180 100 -80 320 Intake, Oral 480 600 120 320 Number 0 Bowel Movements Output, Urine 350 300 500 200 Physical Exam: Multiple small Thomas grade 2 ulcerations identified over the left and right distal foot. No probing or undermining identified. No crepitus or fluctuance noted. Pedal pulses are nonpalpable bilaterally. A component of chronic venous insufficiency insufficiency is also identified. Assessment/Plan Assessment/Plan Chronic ulcerations to bilateral feet in the setting of peripheral vascular disease. Continue daily local wound care per wound service recommendations. Consider an MRI to further characterize the x-ray findings noted to his right foot. Consult Acknowledgment - Thank you for your consult request. Attending MD Review Statement Attending Statement Attending MD Statement: examined this patient
--- NOTE | 2016-06-05 15:18 | PN- Housestaff ---
Subjective Follow-up For: Hyperglycemia Hypertension Chronic skin lower extremity skin changes CKD Possible osteomyelitis Subjective: Patient seen and examined. He is seen sitting upright in bed resting comfortably. He appears to be in no acute distress. He says that he sinuses are bothering him and that he has a runny nose, but otherwise denies any complaints. The pain in his right lower extremity has subsided. Additionally he denies any headache, fever, chills, chest pain, shortness of breath, nausea, vomiting, diarrhea. No overnight events reported. Review of Systems Constitutional: Reports: see HPI. Objective Last 24 Hrs of Vital Signs/I&O Vital Signs Date Time Temp Pulse Resp B/P Pulse O2 O2 Flow FiO2 Ox Delivery Rate 06/05 0834 67 180/80 06/05 0833 67 180/80 06/05 0800 96 Room Air Room Air 06/05 0800 98.2 67 20 180/80 96 Room Air Room Air 06/05 0600 58 18 178/76 97 Room Air 06/05 0400 70 18 180/74 97 Room Air 06/05 0000 97 Room Air 06/05 0000 98.7 72 20 172/70 97 Room Air 06/04 2146 68 18 176/86 06/04 1820 67 194/84 06/04 1600 97 Room Air Room Air 06/04 1600 98.1 65 18 182/80 96 Room Air Room Air Intake & Output 06/05 1600 06/05 0800 06/05 0000 Intake Total 600 480 Output Total 750 350 300 Balance -150 -350 180 Intake, Oral 600 480 Number 0 Bowel Movements Output, Urine 750 350 300 Physical Exam General Appearance: Alert, Oriented X3, Cooperative, No Acute Distress Other Physical Findings: General -well-developed, well-nourished male in no acute distress HEENT - NCAT, PERRL, EOMI, anicteric sclera Cardio - S1, S2 w/o murmurs/gallops/rubs Resp - CTA bilaterally w/o wheezing/rhochi/crackles GI - soft, nontender, nondistended, bowel sounds present Neuro - Awake and alert, CN II - XII grossly intact Extremities -no edema, chronic skin changes with overlying scaling, multiple minor wounds, decreased distal pulses Current Medications: Current Medications Sig/Michael Start time Last Medication Dose Route Stop Time Status Admin Amlodipine Besylate 10 MG DAILY 06/01 614 AC 06/05 PO 0834 Doxazosin Mesylate 4 MG QPM 06/04 2200 AC 06/04 PO 1805 Furosemide 40 MG DAILY 06/03 1000 AC 06/05 PO 0849 Glycerin/Mineral Oil 1 ALISIA TID PRN 06/01 0745 AC 06/03 TOP 2115 Heparin Sodium 5,000 UNIT Q8 06/01 0600 AC 06/05 (Porcine) SC 1323 Hydralazine HCl 100 MG BID 06/04 1000 AC 06/05 PO 0833 Insulin Aspart 0 AC & AT BEDTIME 06/01 1200 AC 06/05 SC 1259 Insulin Detemir 10 UNITS DAILY 06/01 1000 AC 06/05 SC 0849 Loratadine 10 MG DAILY 06/03 1203 AC 06/05 PO 0850 Ondansetron HCl 4 MG ONCE ONE 06/04 2345 DC 06/05 PO 06/04 2346 0006 Oxymetazoline HCl 2 SPRAY BID PRN 06/03 1215 DC 06/04 DEREJE 0942 Sodium Bicarbonate 1,300 MG BID 06/01 1051 AC 06/05 PO 0849 Sodium Chloride 250 ML BOLUS ONE 06/04 1645 DC 06/04 IV 06/04 1914 1653 Last 24 Hrs of Lab/Eduardo Results Last 24 Hrs of Labs/Mics: Laboratory Tests 06/05/16 0340: Anion Gap 14, Estimated GFR 21 L, BUN/Creatinine Ratio 22.7 06/04/16 1750: Plasma Free Metaneph Pending, Plasma Free Normeta Pending, Pls Totl Free Metaneph Pending 06/04/16 1750: Dopamine Pending, Plasma Epinephrine Pending, Norepinephrine Pending, Total Catecholamines Pending 06/04/16 1608: Dopamine Cancelled, Plasma Epinephrine Cancelled, Norepinephrine Cancelled, Total Catecholamines Cancelled Assessment/Plan Assessment: Patient continues to have elevated systolic blood pressures in the range of 170- 190 despite being on multiple hypertensive medications. X-ray of the right foot performed yesterday demonstrated possible presence of osteomyelitis. Podiatry consult was placed and it was determined that an MRI should be obtained when available however given his extensive medical history and presentation that the clinical picture did not overly suggest that of osteomyelitis. ID consult was placed, recommendations pending. Catecholamines/metanephrine testing was obtained yesterday per endocrinology recommendations, follow-up results. Awaiting recommendations from cardiology for further control of his antihypertensive regimen. Problem list: -Hyperglycemia, normalized with insulin drip now stable -CKD stage IV -Chronic bilateral lower extremity skin changes -Uncontrolled hypertension -Possible RLE osteomyelitis Cardiovascular/nephrology: Patient with a history of uncontrolled hypertension possibly secondary to renal disease. Murmur on examination is suggestive of aortic stenosis. -Avoid ACEi/ARBS, K+ sparring diuretics & nephrotoxic medications -Amlodipine 10 mg by mouth daily -Hydralazine 100mg PO BID -Cardura 4mg PO QHS -Sodium bicarbonate 1300 mg by mouth twice a day -Cardiology consult following -Nephrology consult following Infectious Disease: Patient with extensive medical history and chronic lower extremity skin changes with possible right lower extremity osteomyelitis. -MRI on Tuesday -Wound Care -Podiatry Consult -ID consult Endocrinology: Patient has a long history of insulin-dependent diabetes mellitus with associated medication noncompliance. -Accu-Cheks -Discontinue metformin at home for renal disease -NovoLog sliding scale insulin 3 times a day before meals/at bedtime -Levemir 10 units daily Social: Patient reportedly returned to [place] from [place] recently after an event with his girlfriend. His daughter and ex- in [place] reportedly do not have the resources to take care of the patient. Patient's other daughter Amee was contacted by social work whom is willing to take and her father after discharge. -Social work consult placed, follow-up recommendations Diet-diabetic diet with 2 g and Na/K restriction DVT PPx - SC Heparin Code Status - FULL CODE Problem List: 1. Uncontrolled hypertension Pain Ratin Pain Location: Lower extremities Pain Goal: Remain pain free Pain Plan: As noted in plan Tomorrow's Labs & Rationales: Complete blood count ICU bundle
--- NOTE | 2016-06-05 22:04 | NUR ---
PT A+OX3. ELEVATED B/P AT 1930- 190/90. B/P MEDICATIONS GIVEN EARLY. MD ORELLANA AWARE. B/P NOW 160/80. FS-165. BLE WRAPPED W/ KERLIX. NO C/O PAIN OR DISCOMFORT. WILL CONTINUE TO MONITOR.
[2016-06-06] VITALS (8 sets, daily range): BP systolic 150–188; BP diastolic 68–86
--- NOTE | 2016-06-06 00:07 | NUR ---
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
[2016-06-06 04:47] LABS: ABSOLUTE BASOPHIL COUNT 0 /CUMM (0.0-0.2); ABSOLUTE EOSINOPHIL COUNT 0.2 /CUMM (0.0-0.7); ABSOLUTE GRANULOCYTE CT 4.2 /CUMM (1.4-6.5); ABSOLUTE LYMPH COUNT 1.1 /CUMM (1.2-3.4); ABSOLUTE MONOCYTE COUNT 0.5 /CUMM (0.10-0.60); BASOPHIL % 0.5 % (0.0-2.0); EOSINOPHIL % 2.5 % (0-5); GRANULOCYTE % 69.5 % (42.2-75.2); HEMATOCRIT 29.8 % (42-52); MEAN CORPUSCULAR HGB 29.1 PG (27.0-31.0); MEAN CORPUSCULAR HGB CONC 33.3 G/DL (33.0-37.0); MEAN CORPUSCULAR VOLUME 87.3 FL (80.0-94.0); MEAN PLATELET VOLUME 9.5 FL (7.4-10.4); PLATELET COUNT 178 /CUMM (130-400); RBC DISTRIBUTION WIDTH 14.1 % (11.5-14.5); RED BLOOD CELL CT 3.41 /CUMM (4.70-6.10); WHITE BLOOD CELL COUNT 6.1 /CUMM (4.8-10.8)
--- NOTE | 2016-06-06 06:35 | NUR ---
NO CHANGES IN STATUS NOTED OVERNIGHT, PATIENT HAS SLEPT WELL, AWAITING AM MD ROUNDS
--- NOTE | 2016-06-06 09:03 | PN- Housestaff ---
Subjective Follow-up For: Hyperglycemia Hypertension Chronic skin lower extremity skin changes CKD Possible osteomyelitis Complaints: no complaints Subjective: Patient seen and examined. He is seen sitting upright in chair resting comfortably. He appears to be in no acute distress. He denies any fever, chills, dizziness, lightheadedness. Review of Systems Constitutional: Reports: see HPI. Comments: ROS negative except the above. Objective Last 24 Hrs of Vital Signs/I&O Vital Signs Date Time Temp Pulse Resp B/P Pulse O2 O2 Flow FiO2 Ox Delivery Rate 06/06 2119 65 182/78 06/06 1943 97 Room Air 06/06 1937 98.7 66 18 178/78 97 Room Air 06/06 1600 99.1 62 20 150/78 96 Room Air 06/06 0910 66 188/86 06/06 0910 98.8 66 188/86 06/06 0909 66 188/86 06/06 0800 Room Air 06/06 0800 99.0 64 18 160/78 99 Room Air 06/06 0600 62 16 170/70 06/06 0400 99.0 68 20 180/68 Room Air 06/06 0000 98 Room Air 06/06 0000 99.3 68 18 168/76 98 Room Air 06/05 2234 98.1 66 20 160/80 97 Room Air Intake & Output 06/06 1600 06/06 0800 06/06 0000 Intake Total 550 240 Output Total 825 420 450 Balance -275 -420 -210 Intake, Oral 550 240 Number 0 Bowel Movements Output, Urine 825 420 450 Physical Exam General Appearance: Alert, Oriented X3, Cooperative, No Acute Distress Skin: No Rashes, erythema over both the feet. HEENT: Atraumatic, PERRLA Neck: Supple, No JVD Cardiovascular: Regular Rate, Normal S1, Normal S2 Lungs: Normal Air Movement, Diffuse expiratory wheezing evident Abdomen: Normal Bowel Sounds, Soft, No Tenderness Neurological: Normal Gait, Normal Speech Extremities: No Clubbing, No Cyanosis, No Edema Vascular: Pulses Symmetrical Current Medications: Current Medications Sig/Michael Start time Last Medication Dose Route Stop Time Status Admin Amlodipine Besylate 10 MG DAILY 06/01 614 AC 06/06 PO 0910 Artificial Tears 2 GTT TID 06/06 2199 AC 06/06 OPH 2119 Doxazosin Mesylate 4 MG QPM 06/04 2199 AC 06/06 PO 2120 Furosemide 40 MG DAILY 06/03 1000 AC 06/06 PO 0907 Glycerin/Mineral Oil 1 ALISIA TID PRN 06/01 0745 AC 06/03 TOP 2115 Heparin Sodium 5,000 UNIT Q8 06/01 0600 AC 06/06 (Porcine) SC 2118 Hydralazine HCl 100 MG BID 06/04 1000 AC 06/06 PO 2120 Insulin Aspart 0 AC & AT BEDTIME 06/01 1200 AC 06/06 SC 1644 Insulin Detemir 10 UNITS DAILY 06/01 1000 AC 06/06 SC 0910 Loratadine 10 MG DAILY 06/03 1203 AC 06/06 PO 0907 Senna/Docusate Sodium 2 TAB DAILY NEEDED PRN 06/06 0930 AC 06/06 PO 1304 Sodium Bicarbonate 1,300 MG BID 06/01 1051 AC 06/06 PO 211 Last 24 Hrs of Lab/Eduardo Results Last 24 Hrs of Labs/Mics: Laboratory Tests 06/06/16 0400: Anion Gap 14, Estimated GFR 23 L, Glucose 100 H, Calcium 8.8, Phosphorus 4.4, Magnesium 1.7, Total Bilirubin 0.3, AST 30, ALT 27, Albumin 3.1 L, CBC w Diff NO MAN DIFF REQ, RBC 3.41 L, MCV 87.3, MCH 29.1, RDW 14.1, MPV 9.5, Gran % 69.5 , Lymphocytes % 18.9 L, Monocytes % 8.6, Eosinophils % 2.5, Basophils % 0.5, Absolute Granulocytes 4.2, Absolute Lymphocytes 1.1 L, Absolute Monocytes 0.5, Absolute Eosinophils 0.2, Absolute Basophils 0, PUBS MCHC 33.3 Assessment/Plan Assessment: Patient continues to have elevated systolic blood pressures in the range of 170- 190 despite being on multiple hypertensive medications. X-ray of the right foot performed demonstrated possible presence of osteomyelitis. Podiatry consult was placed and it was determined that an MRI should be obtained . ID consult was placed, recommendations pending. Catecholamines/metanephrine testing was obtained per endocrinology recommendations, follow-up results. Awaiting recommendations from cardiology for further control of his antihypertensive regimen. Problem list: -Hyperglycemia, normalized with insulin drip now stable -CKD stage IV -Chronic bilateral lower extremity skin changes -Uncontrolled hypertension -Possible RLE osteomyelitis Cardiovascular/nephrology: Patient with a history of uncontrolled hypertension possibly secondary to renal disease. Murmur on examination is suggestive of aortic stenosis. -Avoid ACEi/ARBS, K+ sparring diuretics & nephrotoxic medications -Amlodipine 10 mg by mouth daily -Hydralazine 100mg PO BID -Cardura 4mg PO QHS -Sodium bicarbonate 1300 mg by mouth twice a day -Cardiology consult following -Nephrology consult following Infectious Disease: Patient with extensive medical history and chronic lower extremity skin changes with possible right lower extremity osteomyelitis. -MRI on Tuesday -Wound Care -Podiatry Consult -ID consult Endocrinology: Patient has a long history of insulin-dependent diabetes mellitus with associated medication noncompliance. -Accu-Cheks -Discontinue metformin at home for renal disease -NovoLog sliding scale insulin 3 times a day before meals/at bedtime -Levemir 10 units daily Social: Patient reportedly returned to [place] from [place] recently after an event with his girlfriend. His daughter and ex- in [place] reportedly do not have the resources to take care of the patient. Patient's other daughter Amee was contacted by social work whom is willing to take and her father after discharge. -Social work consult placed, follow-up recommendations Diet-diabetic diet with 2 g and Na/K restriction DVT PPx - SC Heparin Code Status - FULL CODE Problem List: 1. Hypertensive urgency 2. Uncontrolled hypertension 3. Metabolic acidosis 4. Acute renal failure 5. Tinea pedis 6. Diabetes Pain Ratin Pain Location: n/a Pain Goal: Pain 4 or less Pain Plan: Tylenol PRN Tomorrow's Labs & Rationales: ICU bundle CBC
--- NOTE | 2016-06-06 09:51 | PN- Diabetes ---
Assessment/Plan Assessment: The patient is eating. He states that he feels improved. He complained of sweating at night but his blood sugar was tested again and was not low. He was moved back to the intensive care unit because of uncontrolled hypertension. The question of pheochromocytoma was raised. The patient is presently on Levemir 10 units once a day as well as low dose sliding scale NovoLog. A stick blood sugars yesterday were in a good range. Fingerstick sugars today were 103 before breakfast, 174 before lunch, 96 before dinner, and 165 at bedtime. In the laboratory this morning the patient's blood sugar is 100. The patient has been started on bicarbonate by mouth by Dr. Asher because of probable Type 4 renal tubular acidosis. This has helped his serum potassium. The patient has an ulcer on his right great toe. X-ray of the toes shows evidence of probable osteomyelitis. Plan: Suggest continue the present insulin. The patient's blood pressure regimen needs further adjustment. The patient needs an MRI of his right foot when this is available. The patient has been seen by Dr. Linares and podiatry consult. Subjective Subjective: Feels improved Review of Systems Constitutional: Denies: chills, fever. Cardiovascular: Denies: chest pain. Gastrointestinal: Denies: nausea, vomiting. Genitourinary: Denies: dysuria. Skin: Reports: no symptoms. Objective Last 24 Hrs of Vital Signs/I&O Vital Signs Date Time Temp Pulse Resp B/P Pulse O2 O2 Flow FiO2 Ox Delivery Rate 06/06 0910 66 188/86 06/06 0909 66 188/86 06/06 0600 62 16 170/70 06/06 0400 99.0 68 20 180/68 Room Air 06/06 0000 98 Room Air 06/06 0000 99.3 68 18 168/76 98 Room Air 06/05 2234 98.1 66 20 160/80 97 Room Air 06/05 2030 75 160/80 06/05 1957 65 190/90 06/05 1930 65 190/90 06/05 1600 100 Room Air Room Air 06/05 1600 98.9 67 18 178/70 100 Room Air Room Air Intake & Output 06/06 1600 06/06 0800 06/06 0000 Intake Total 240 Output Total 420 450 Balance -420 -210 Intake, Oral 240 Number 0 Bowel Movements Output, Urine 420 450 Vital Signs Date Time Temp Pulse Resp B/P Pulse O2 O2 Flow FiO2 Ox Delivery Rate 06/06 0910 66 188/86 06/06 0909 66 188/86 06/06 0600 62 16 170/70 06/06 0400 99.0 68 20 180/68 Room Air 06/06 0000 98 Room Air 06/06 0000 99.3 68 18 168/76 98 Room Air 06/05 2234 98.1 66 20 160/80 97 Room Air 06/05 2030 75 160/80 06/05 1956 65 190/90 06/05 1930 65 190/90 06/05 1600 100 Room Air Room Air 06/05 1600 98.9 67 18 178/70 100 Room Air Room Air Intake & Output 06/06 1600 06/06 0800 06/06 0000 Intake Total 240 Output Total 420 450 Balance -420 -210 Intake, Oral 240 Number 0 Bowel Movements Output, Urine 420 450 Vital Signs Date Time Temp Pulse Resp B/P Pulse O2 O2 Flow FiO2 Ox Delivery Rate 06/06 0910 66 188/86 06/06 0909 66 188/86 06/06 0600 62 16 170/70 06/06 0400 99.0 68 20 180/68 Room Air 06/06 0000 98 Room Air 06/06 0000 99.3 68 18 168/76 98 Room Air 06/05 2234 98.1 66 20 160/80 97 Room Air 06/05 2030 75 160/80 06/05 1956 65 190/90 06/05 1930 65 190/90 06/05 1600 100 Room Air Room Air 06/05 1600 98.9 67 18 178/70 100 Room Air Room Air Intake & Output 06/06 1600 06/06 0800 06/06 0000 Intake Total 240 Output Total 420 450 Balance -420 -210 Intake, Oral 240 Number 0 Bowel Movements Output, Urine 420 450 Physical Exam General Appearance: alert, awake, comfortable Head: normal appearance Neck: normal inspection Respiratory: normal breath sounds Cardiovascular: regular rate/rhythm Abdomen: normal bowel sounds Extremities: rash both feet Current Medications: Current Medications Sig/Michael Start time Last Medication Dose Route Stop Time Status Admin Amlodipine Besylate 10 MG DAILY 06/01 614 AC 06/06 PO 909 Doxazosin Mesylate 4 MG QPM 06/04 2200 AC 06/05 PO 1955 Furosemide 40 MG DAILY 06/03 1000 AC 06/06 PO 09 Glycerin/Mineral Oil 1 ALISIA TID PRN 06/01 0745 AC 06/03 TOP 2115 Heparin Sodium 5,000 UNIT Q8 06/01 0600 AC 06/06 (Porcine) SC 0551 Hydralazine HCl 100 MG BID 06/04 1000 AC 06/06 PO 0909 Insulin Aspart 0 AC & AT BEDTIME 06/01 1200 AC 06/06 SC 0910 Insulin Detemir 10 UNITS DAILY 06/01 1000 AC 06/06 SC 0910 Loratadine 10 MG DAILY 06/03 1203 AC 06/06 PO 0907 Senna/Docusate Sodium 2 TAB DAILY NEEDED PRN 06/06 0930 AC PO Sodium Bicarbonate 1,300 MG BID 06/01 1051 AC 06/06 PO 0907 Findings Pertinent Lab/Eduardo Results: Laboratory Tests 06/06 0400 Chemistry Sodium (137 - 145 mmol/L) 142 Potassium (3.5 - 5.1 mmol/L) 4.6 Chloride (98 - 107 mmol/L) 104 Carbon Dioxide (22 - 30 mmol/L) 25 Anion Gap (5 - 16) 14 BUN (9 - 20 mg/dL) 65 H Creatinine (0.7 - 1.2 mg/dL) 2.8 H Estimated GFR (>60 ml/min) 23 L Glucose (65 - 99 mg/dL) 100 H Calcium (8.4 - 10.2 mg/dL) 8.8 Phosphorus (2.5 - 4.5 mg/dL) 4.4 Magnesium (1.6 - 2.3 mg/dL) 1.7 Total Bilirubin (0.2 - 1.3 mg/dL) 0.3 AST (17 - 59 U/L) 30 ALT (21 - 72 U/L) 27 Albumin (3.5 - 5.0 g/dL) 3.1 L Hematology CBC w Diff NO MAN DIFF REQ WBC (4.8 - 10.8 /CUMM) 6.1 RBC (4.70 - 6.10 /CUMM) 3.41 L Hgb (14.0 - 18.0 G/DL) 9.9 L Hct (42 - 52 %) 29.8 L MCV (80.0 - 94.0 FL) 87.3 MCH (27.0 - 31.0 PG) 29.1 RDW (11.5 - 14.5 %) 14.1 Plt Count (130 - 400 /CUMM) 178 MPV (7.4 - 10.4 FL) 9.5 Gran % (42.2 - 75.2 %) 69.5 Lymphocytes % (20.5 - 51.1 %) 18.9 L Monocytes % (1.7 - 9.3 %) 8.6 Eosinophils % (0 - 5 %) 2.5 Basophils % (0.0 - 2.0 %) 0.5 Absolute Granulocytes (1.4 - 6.5 /CUMM) 4.2 Absolute Lymphocytes (1.2 - 3.4 /CUMM) 1.1 L Absolute Monocytes (0.10 - 0.60 /CUMM) 0.5 Absolute Eosinophils (0.0 - 0.7 /CUMM) 0.2 Absolute Basophils (0.0 - 0.2 /CUMM) 0 PUBS MCHC (33.0 - 37.0 G/DL) 33.3
--- NOTE | 2016-06-06 12:14 | PN- Att Addend ---
Attending Addendum Attending Brief Note Patient seen and examined, denies any complaints. Blood pressure is slightly better but still not under optimal control. Vital Signs Date Time Temp Pulse Resp B/P Pulse O2 O2 Flow FiO2 Ox Delivery Rate 06/06 0910 66 188/86 06/06 0909 66 188/86 06/06 0600 62 16 170/70 06/06 0400 99.0 68 20 180/68 Room Air 06/06 0000 98 Room Air 06/06 0000 99.3 68 18 168/76 98 Room Air 06/05 2234 98.1 66 20 160/80 97 Room Air 06/05 2030 75 160/80 06/05 1957 65 190/90 06/05 1930 65 190/90 06/05 1600 100 Room Air Room Air 06/05 1600 98.9 67 18 178/70 100 Room Air Room Air on exam; aox3, nad. cv; s1,s2, rrr, + systolic murmur. resp; clear abd; soft, nt, bs+ ext; + scaly skin b/l le. right foot is wrapped in dressing. Laboratory Tests 06/06 399 Chemistry Sodium (137 - 145 mmol/L) 142 Potassium (3.5 - 5.1 mmol/L) 4.6 Chloride (98 - 107 mmol/L) 104 Carbon Dioxide (22 - 30 mmol/L) 25 Anion Gap (5 - 16) 14 BUN (9 - 20 mg/dL) 65 H Creatinine (0.7 - 1.2 mg/dL) 2.8 H Estimated GFR (>60 ml/min) 23 L Glucose (65 - 99 mg/dL) 100 H Calcium (8.4 - 10.2 mg/dL) 8.8 Phosphorus (2.5 - 4.5 mg/dL) 4.4 Magnesium (1.6 - 2.3 mg/dL) 1.7 Total Bilirubin (0.2 - 1.3 mg/dL) 0.3 AST (17 - 59 U/L) 30 ALT (21 - 72 U/L) 27 Albumin (3.5 - 5.0 g/dL) 3.1 L Hematology CBC w Diff NO MAN DIFF REQ WBC (4.8 - 10.8 /CUMM) 6.1 RBC (4.70 - 6.10 /CUMM) 3.41 L Hgb (14.0 - 18.0 G/DL) 9.9 L Hct (42 - 52 %) 29.8 L MCV (80.0 - 94.0 FL) 87.3 MCH (27.0 - 31.0 PG) 29.1 RDW (11.5 - 14.5 %) 14.1 Plt Count (130 - 400 /CUMM) 178 MPV (7.4 - 10.4 FL) 9.5 Gran % (42.2 - 75.2 %) 69.5 Lymphocytes % (20.5 - 51.1 %) 18.9 L Monocytes % (1.7 - 9.3 %) 8.6 Eosinophils % (0 - 5 %) 2.5 Basophils % (0.0 - 2.0 %) 0.5 Absolute Granulocytes (1.4 - 6.5 /CUMM) 4.2 Absolute Lymphocytes (1.2 - 3.4 /CUMM) 1.1 L Absolute Monocytes (0.10 - 0.60 /CUMM) 0.5 Absolute Eosinophils (0.0 - 0.7 /CUMM) 0.2 Absolute Basophils (0.0 - 0.2 /CUMM) 0 PUBS MCHC (33.0 - 37.0 G/DL) 33.3 A/P; 60 y/o M with pmh sig for hypertension, hyperlipidemia, CKD, diabetes, asthma, cholelithiasis, legally blind from cataracts, was originally admitted for DKA, uncontrolled hypertension and acute on chronic renal failure secondary to noncompliance of medications. Please discuss with cardiology and nephrology about adjusting anti- hypertensives. Blood sugars are stable. Patient has been seen by podiatry and Dr. Linares recommended MRI which be done tomorrow. DVT px: Heparin subcutaneous. Creatinine slightly improved this morning.
--- NOTE | 2016-06-06 18:54 | NUR ---
Patient is alert and oriented x's 3, able to follow commands and respond approp. OOB with minimal assistance- needs guidance and is legally blind. SB-NSR on tele monitor. HR= 50-70's SBP: 150-170's and pt currently denies chest pain. On room air lungs clear. O2 sat 96%- abd soft non tender w/ + bowel sounds- po senna given per order. Voiding clear yellow urine in urinal. ALOE cream placed on BLE- R great toe dressed with xeroform FB DPD per order. +1 edema noted. Pt currently denies pain and vitals are stable. Will cont to closely monitor patient.
[2016-06-07 05:34] LABS: ABSOLUTE BASOPHIL COUNT 0 /CUMM (0.0-0.2); ABSOLUTE EOSINOPHIL COUNT 0.2 /CUMM (0.0-0.7); ABSOLUTE GRANULOCYTE CT 3.8 /CUMM (1.4-6.5); ABSOLUTE LYMPH COUNT 1.1 /CUMM (1.2-3.4); ABSOLUTE MONOCYTE COUNT 0.5 /CUMM (0.10-0.60); BASOPHIL % 0.4 % (0.0-2.0); EOSINOPHIL % 2.8 % (0-5); GRANULOCYTE % 67.1 % (42.2-75.2); HEMATOCRIT 27.2 % (42-52); MEAN CORPUSCULAR HGB 29.2 PG (27.0-31.0); MEAN CORPUSCULAR HGB CONC 33.4 G/DL (33.0-37.0); MEAN CORPUSCULAR VOLUME 87.4 FL (80.0-94.0); MEAN PLATELET VOLUME 8.5 FL (7.4-10.4); PLATELET COUNT 177 /CUMM (130-400); RED BLOOD CELL CT 3.11 /CUMM (4.70-6.10); WHITE BLOOD CELL COUNT 5.6 /CUMM (4.8-10.8)
--- NOTE | 2016-06-07 07:29 | PN- Diabetes ---
Assessment/Plan Assessment: The patient is eating. He states that he feels improved. He complained of sweating at night but his blood sugar was tested again and was not low. He was moved back to the intensive care unit because of uncontrolled hypertension. The question of pheochromocytoma was raised. The patient is presently on Levemir 10 units once a day as well as low dose sliding scale NovoLog. A stick blood sugars yesterday were in a good range. Fingerstick sugars today were 85 before breakfast, 181 before lunch, 134 before dinner, and 183 at bedtime. This morning his blood sugar in the lab is 100. The patient has been started on bicarbonate by mouth by Dr. Asher because of probable Type 4 renal tubular acidosis. This has helped his serum potassium. The patient has an ulcer on his right great toe. X-ray of the toes shows evidence of probable osteomyelitis. The patient is to have an MRI of the foot done. Plan: Suggest continue the present insulin regimen. The patient needs an MRI of his foot. Also his blood pressure medications probably need further adjustment. Subjective Subjective: No further sweating Review of Systems Constitutional: Denies: chills, fever. Cardiovascular: Denies: chest pain. Respiratory: Denies: short of breath. Gastrointestinal: Denies: abdominal pain. Skin: Reports: no symptoms. Objective Last 24 Hrs of Vital Signs/I&O Vital Signs Date Time Temp Pulse Resp B/P Pulse O2 O2 Flow FiO2 Ox Delivery Rate 06/07 0000 98 Room Air 06/06 2330 98.7 68 24 158/76 98 Room Air 06/06 2120 65 182/78 06/06 1943 97 Room Air 06/06 1937 98.7 66 18 178/78 97 Room Air 06/06 1600 99.1 62 20 150/78 96 Room Air 06/06 0910 66 188/86 06/06 0910 98.8 66 188/86 06/06 0909 66 188/86 06/06 0800 Room Air 06/06 0800 99.0 64 18 160/78 99 Room Air Intake & Output 06/07 0800 06/07 0000 06/06 1600 Intake Total 240 480 550 Output Total 125 1075 825 Balance 115 -595 -275 Intake, IV 0 0 Intake, Oral 240 480 550 Number 0 0 Bowel Movements Output, Urine 125 1075 825 Vital Signs Date Time Temp Pulse Resp B/P Pulse O2 O2 Flow FiO2 Ox Delivery Rate 06/07 0000 98 Room Air 06/06 2330 98.7 68 24 158/76 98 Room Air 06/06 2120 65 182/78 06/06 1943 97 Room Air 06/06 193 98.7 66 18 178/78 97 Room Air 06/06 1600 99.1 62 20 150/78 96 Room Air 06/06 0910 66 188/86 06/06 0910 98.8 66 188/86 06/06 0909 66 188/86 06/06 0800 Room Air 06/06 0800 99.0 64 18 160/78 99 Room Air Intake & Output 06/07 0800 06/07 0000 06/06 1600 Intake Total 240 480 550 Output Total 125 1075 825 Balance 115 -595 -275 Intake, IV 0 0 Intake, Oral 240 480 550 Number 0 0 Bowel Movements Output, Urine 125 1075 825 Physical Exam General Appearance: alert, awake Respiratory: normal breath sounds Cardiovascular: regular rate/rhythm Abdomen: normal bowel sounds Extremities: normal inspection Current Medications: Current Medications Sig/Michael Start time Last Medication Dose Route Stop Time Status Admin Amlodipine Besylate 10 MG DAILY 06/01 0615 AC 06/06 PO 0910 Artificial Tears 2 GTT TID 06/06 2200 AC 06/06 OPH 2120 Doxazosin Mesylate 4 MG QPM 06/04 2200 AC 06/06 PO 2120 Furosemide 40 MG DAILY 06/03 1000 AC 06/06 PO 0907 Glycerin/Mineral Oil 1 ALISIA TID PRN 06/01 0745 AC 06/03 TOP 2115 Heparin Sodium 5,000 UNIT Q8 06/01 0600 AC 06/07 (Porcine) ME 0626 Hydralazine HCl 100 MG BID 06/04 1000 AC 06/06 PO 2120 Insulin Aspart 0 AC & AT BEDTIME 06/01 1200 AC 06/06 ME 1644 Insulin Detemir 10 UNITS DAILY 06/01 1000 AC 06/06 ME 0910 Loratadine 10 MG DAILY 06/03 1203 AC 06/06 PO 0907 Melatonin 5 MG ONCE ONE 06/07 0130 DC 06/07 PO 06/07 0131 0130 Senna/Docusate Sodium 2 TAB DAILY NEEDED PRN 06/06 0930 AC 06/06 PO 1304 Sodium Bicarbonate 1,300 MG BID 06/01 1051 AC 06/06 PO 2118 Findings Pertinent Lab/Eduardo Results: Laboratory Tests 06/07 05 Chemistry Sodium (137 - 145 mmol/L) 143 Potassium (3.5 - 5.1 mmol/L) 4.1 Chloride (98 - 107 mmol/L) 108 H Carbon Dioxide (22 - 30 mmol/L) 27 Anion Gap (5 - 16) 8 BUN (9 - 20 mg/dL) 62 H Creatinine (0.7 - 1.2 mg/dL) 2.7 H Estimated GFR (>60 ml/min) 24 L Glucose (65 - 99 mg/dL) 100 H Calcium (8.4 - 10.2 mg/dL) 8.6 Phosphorus (2.5 - 4.5 mg/dL) 4.8 H Magnesium (1.6 - 2.3 mg/dL) 1.9 Total Bilirubin (0.2 - 1.3 mg/dL) 0.2 AST (17 - 59 U/L) 34 ALT (21 - 72 U/L) 38 Albumin (3.5 - 5.0 g/dL) 2.7 L Hematology CBC w Diff NO MAN DIFF REQ WBC (4.8 - 10.8 /CUMM) 5.6 RBC (4.70 - 6.10 /CUMM) 3.11 L Hgb (14.0 - 18.0 G/DL) 9.1 L Hct (42 - 52 %) 27.2 L MCV (80.0 - 94.0 FL) 87.4 MCH (27.0 - 31.0 PG) 29.2 RDW (11.5 - 14.5 %) 14.0 Plt Count (130 - 400 /CUMM) 177 MPV (7.4 - 10.4 FL) 8.5 Gran % (42.2 - 75.2 %) 67.1 Lymphocytes % (20.5 - 51.1 %) 20.3 L Monocytes % (1.7 - 9.3 %) 9.4 H Eosinophils % (0 - 5 %) 2.8 Basophils % (0.0 - 2.0 %) 0.4 Absolute Granulocytes (1.4 - 6.5 /CUMM) 3.8 Absolute Lymphocytes (1.2 - 3.4 /CUMM) 1.1 L Absolute Monocytes (0.10 - 0.60 /CUMM) 0.5 Absolute Eosinophils (0.0 - 0.7 /CUMM) 0.2 Absolute Basophils (0.0 - 0.2 /CUMM) 0 PUBS MCHC (33.0 - 37.0 G/DL) 33.4
[2016-06-07 08:00] VITALS: BP 142/70
--- NOTE | 2016-06-07 08:25 | PN- Housestaff ---
KOKI SERNA MD 06/07/16 0821: Subjective Follow-up For: Hyperglycemia Hypertension Chronic skin lower extremity skin changes CKD Possible osteomyelitis Subjective: Patient seen and examined. He is seen lying flat in bed resting comfortably. He appears to be in no acute distress. He reports sleeping well last night and his previous symptoms of a runny nose, congestion, itchyness. His right foot pain is also much better today. Additionally he denies any headache, fever, chills, chest pain, palpitations, shortness of breath, cough, nausea, vomiting, diarrhea. No overnight events reported. Review of Systems Constitutional: Reports: see HPI. Objective Last 24 Hrs of Vital Signs/I&O Vital Signs Date Time Temp Pulse Resp B/P Pulse O2 O2 Flow FiO2 Ox Delivery Rate 06/07 08 97 Room Air 06/07 08 98.4 65 16 142/70 97 Room Air 06/07 0000 98 Room Air 06/06 2330 98.7 68 24 158/76 98 Room Air 06/06 2120 65 182/78 06/06 1943 97 Room Air 06/06 1937 98.7 66 18 178/78 97 Room Air 06/06 1600 99.1 62 20 150/78 96 Room Air Intake & Output 06/07 1600 06/07 0800 06/07 0000 Intake Total 240 480 Output Total 125 1075 Balance 115 -595 Intake, IV 0 0 Intake, Oral 240 480 Number 0 0 Bowel Movements Output, Urine 125 1075 Physical Exam General Appearance: Alert, Oriented X3, Cooperative, No Acute Distress Other Physical Findings: General -well-developed, well-nourished male in no acute distress HEENT - NCAT, PERRL, EOMI, anicteric sclera Cardio - S1, S2 w/o murmurs/gallops/rubs Resp - CTA bilaterally w/o wheezing/rhochi/crackles GI - soft, nontender, nondistended, bowel sounds present Neuro - Awake and alert, CN II - XII grossly intact Extremities -no edema, chronic skin changes with overlying scaling, multiple minor wounds, decreased distal pulses Current Medications: Current Medications Sig/Michael Start time Last Medication Dose Route Stop Time Status Admin Amlodipine Besylate 10 MG DAILY 06/01 0615 AC 06/06 PO 0910 Artificial Tears 2 GTT TID 06/06 2199 AC 06/06 OPH 2119 Doxazosin Mesylate 4 MG QPM 06/04 2200 AC 06/06 PO 2120 Furosemide 40 MG DAILY 06/03 1000 AC 06/06 PO 0907 Glycerin/Mineral Oil 1 ALISIA TID PRN 06/01 0745 06/03 TOP 2115 Heparin Sodium 5,000 UNIT Q8 06/01 0600 AC 06/07 (Porcine) SC 0626 Hydralazine HCl 100 MG BID 06/04 1000 AC 06/06 PO 2120 Insulin Aspart 0 AC & AT BEDTIME 06/01 1200 AC 06/07 SC 0821 Insulin Detemir 10 UNITS DAILY 06/01 1000 AC 06/06 SC 0910 Loratadine 10 MG DAILY 06/03 1203 AC 06/06 PO 0907 Melatonin 5 MG ONCE ONE 06/07 0130 DC 06/07 PO 06/07 013 0130 Polyethylene Glycol 17 GM DAILY PRN 06/07 0915 AC PO Senna/Docusate Sodium 2 TAB DAILY NEEDED PRN 06/06 0930 AC 06/06 PO 1304 Sodium Bicarbonate 1,300 MG BID 06/01 1051 AC 06/06 PO 2118 Last 24 Hrs of Lab/Eduardo Results Last 24 Hrs of Labs/Mics: Laboratory Tests 06/07/16 0521: Anion Gap 8, Estimated GFR 24 L, Glucose 100 H, Calcium 8.6, Phosphorus 4.8 H , Magnesium 1.9, Total Bilirubin 0.2, AST 34, ALT 38, Albumin 2.7 L, CBC w Diff NO MAN DIFF REQ, RBC 3.11 L, MCV 87.4, MCH 29.2, RDW 14.0, MPV 8.5, Gran % 67.1 , Lymphocytes % 20.3 L, Monocytes % 9.4 H, Eosinophils % 2.8, Basophils % 0.4, Absolute Granulocytes 3.8, Absolute Lymphocytes 1.1 L, Absolute Monocytes 0.5, Absolute Eosinophils 0.2, Absolute Basophils 0, PUBS MCHC 33.4 Assessment/Plan Assessment: Patient's systolic blood pressure has minimally improved with the current antihypertensive regimen. Follow-up evaluation and discharge recommendations from cardiology are pending today. Patient is to have an MRI of his right foot this morning to assess for osteomyelitis of the extremity. Catecholamine/ metanephrine testing is still pending. His sugars have been well controlled on the current diabetic regimen. Problem list: -Hyperglycemia, normalized with insulin drip now stable -CKD stage IV -Chronic bilateral lower extremity skin changes -Uncontrolled hypertension -Possible RLE osteomyelitis Cardiovascular/nephrology: Patient with a history of uncontrolled hypertension possibly secondary to renal disease. Murmur on examination is suggestive of aortic stenosis. -Avoid ACEi/ARBS, K+ sparring diuretics & nephrotoxic medications -Amlodipine 10 mg by mouth daily -Hydralazine 100mg PO BID -Cardura 4mg PO QHS -Clonidine 0.1mg PO BID started -Lasix 80mg PO Daily -Sodium bicarbonate 1300 mg by mouth twice a day -Cardiology consult following -Nephrology consult following Infectious Disease: Patient with extensive medical history and chronic lower extremity skin changes with possible right lower extremity osteomyelitis. MRI is indeterminate for osteomyelitis. -NPO overnight for biopsy in morning to r/o osteo -Wound Care -Podiatry Consult -ID consult Endocrinology: Patient has a long history of insulin-dependent diabetes mellitus with associated medication noncompliance. -Accu-Cheks -Discontinue metformin at home for renal disease -NovoLog sliding scale insulin 3 times a day before meals/at bedtime -Levemir 10 units daily Social: Patient reportedly returned to [place] from [place] recently after an event with his girlfriend. His daughter and ex- in [place] reportedly do not have the resources to take care of the patient. Patient's other daughter Amee was contacted by social work whom is willing to take and her father after discharge. -Social work consult placed, follow-up recommendations Diet-diabetic diet with 2 g and Na/K restriction DVT PPx - SC Heparin Code Status - FULL CODE Problem List: 1. Uncontrolled hypertension Pain Ratin Pain Location: Right lower extremity Pain Goal: Remain pain free Pain Plan: As noted in plan Tomorrow's Labs & Rationales: Complete blood count ICU bundle AUGIE COPE MD 06/07/16 2154: Attending Review Statement Attending Statement Attending MD Statement: examined this patient, discuss w/resident/PA/LIGHTER CAPTAIN, agreed w/resident/PA/LIGHTER CAPTAIN, reviewed EMR data (avail), discussed with nursing, discussed with case mgmt, reviewed images, amended to note Attending Assessment/Plan: The patient was seen and discussed with house staff and CRM. Still awaiting information regarding medical insurance. Podiatry input appreciated. No surgery/ biopsy of toe planned at present as Dr. Linares does not feel that this represents clinical osteomyelitis.
[2016-06-07] MEDS ORDERED: HYDRALAZINE HC100 M1 PO ×2 (10:45→10:47)
[2016-06-07] MEDS ORDERED: DOXAZOSIN MESYLA4 M1 PO (10:45)
--- NOTE | 2016-06-07 11:24 | NUR ---
OFF UNIT TO MRI RIGHT FOOT
--- NOTE | 2016-06-07 11:52 | PN- Nephrology ---
Assessment/Plan Assessment: Stage IV CKD - 2/2 IDDM and HTN. Has 1-2g of protein at baseline but with a normal albumin. Edema - Had been on lasix 80mg in the past. With his current level of kidney function, a higher dose may be appropriate. This may also help with BP. HTN - BP remains elevated. He has been on clonidine in the past which would be reasonable to add back. I would also increase his lasix to 80mg. Hyperkalemia - Has had issues with hyperkalemia as an outpatient. I would hold off on adding back RAAS inhibition, especially with his current eGFR. Suggestion: -Would increase lasix to 80mg daily -Would start clonidine 0.1mg BID -Target goal BP 140/90 -K restriction Pt should f/u with Dr. Dewey after discharge - [phone]. Subjective Subjective: K 4.1 Creatinine 2.7 (baseline ~2.7-3.4) Bicarb 27 on replacement BP mostly 160's-180's Pt without any specific complaints to me Objective Vital Signs and I&Os Vital Signs Date Time Temp Pulse Resp B/P Pulse O2 O2 Flow FiO2 Ox Delivery Rate 06/07 0951 60 142/70 06/07 0949 70 142/70 06/07 0800 97 Room Air 06/07 0800 98.4 65 16 142/70 97 Room Air 06/07 0000 98 Room Air 06/06 2330 98.7 68 24 158/76 98 Room Air 06/06 2120 65 182/78 06/06 1943 97 Room Air 06/06 1937 98.7 66 18 178/78 97 Room Air 06/06 1600 99.1 62 20 150/78 96 Room Air Intake & Output 06/07 1600 06/07 0400 06/06 1600 06/06 0400 06/05 1600 06/05 0400 Intake Total 240 480 550 240 600 480 Output Total 125 1075 9777 881 4108 300 Balance 115 -595 -695 -210 -500 180 Intake, IV 0 0 Intake, Oral 240 480 550 240 600 480 Number 0 0 0 0 Bowel Movements Output, Urine 125 1075 6735 839 0581 300 Physical Exam: Gen - mostly talking on phone HEENT - supple CV - RRR Chest - clear Abd - soft, nontender Ext - 1+ edema with erythema, flaking sin Neuro - alert, conversive Current Medications: Current Medications Sig/Michael Start time Last Medication Dose Route Stop Time Status Admin Amlodipine Besylate 10 MG DAILY 06/01 0615 AC 06/07 PO 0949 Artificial Tears 2 GTT TID 06/06 2200 AC 06/07 OPH 0952 Doxazosin Mesylate 4 MG QPM 06/04 2200 AC 06/06 PO 2120 Furosemide 40 MG DAILY 06/03 1000 AC 06/07 PO 0949 Glycerin/Mineral Oil 1 ALISIA TID PRN 06/01 0745 AC 06/03 TOP 2115 Heparin Sodium 5,000 UNIT Q8 06/01 0600 AC 06/07 (Porcine) SC 0626 Hydralazine HCl 100 MG BID 06/04 1000 AC 06/07 PO 0951 Insulin Aspart 0 AC & AT BEDTIME 06/01 1200 AC 06/07 SC 0821 Insulin Detemir 10 UNITS DAILY 06/01 1000 AC 06/07 SC 1001 Loratadine 10 MG DAILY 06/03 1203 AC 06/07 PO 0949 Melatonin 5 MG ONCE ONE 06/07 0130 DC 06/07 PO 06/07 0131 0130 Polyethylene Glycol 17 GM DAILY PRN 06/07 0915 AC 06/07 PO 1019 Senna/Docusate Sodium 2 TAB DAILY NEEDED PRN 06/06 0930 AC 06/06 PO 1304 Sodium Bicarbonate 1,300 MG BID 06/01 1051 AC 06/07 PO 0949 Results Pertinent Lab Results: Laboratory Tests 06/07 06/06 0521 0400 Chemistry Sodium (137 - 145 mmol/L) 143 142 Potassium (3.5 - 5.1 mmol/L) 4.1 4.6 Chloride (98 - 107 mmol/L) 108 H 104 Carbon Dioxide (22 - 30 mmol/L) 27 25 Anion Gap (5 - 16) 8 14 BUN (9 - 20 mg/dL) 62 H 65 H Creatinine (0.7 - 1.2 mg/dL) 2.7 H 2.8 H Estimated GFR (>60 ml/min) 24 L 23 L Glucose (65 - 99 mg/dL) 100 H 100 H Calcium (8.4 - 10.2 mg/dL) 8.6 8.8 Phosphorus (2.5 - 4.5 mg/dL) 4.8 H 4.4 Magnesium (1.6 - 2.3 mg/dL) 1.9 1.7 Total Bilirubin (0.2 - 1.3 mg/dL) 0.2 0.3 AST (17 - 59 U/L) 34 30 ALT (21 - 72 U/L) 38 27 Albumin (3.5 - 5.0 g/dL) 2.7 L 3.1 L Hematology CBC w Diff NO MAN DIFF REQ NO MAN DIFF REQ WBC (4.8 - 10.8 /CUMM) 5.6 6.1 RBC (4.70 - 6.10 /CUMM) 3.11 L 3.41 L Hgb (14.0 - 18.0 G/DL) 9.1 L 9.9 L Hct (42 - 52 %) 27.2 L 29.8 L MCV (80.0 - 94.0 FL) 87.4 87.3 MCH (27.0 - 31.0 PG) 29.2 29.1 RDW (11.5 - 14.5 %) 14.0 14.1 Plt Count (130 - 400 /CUMM) 177 178 MPV (7.4 - 10.4 FL) 8.5 9.5 Gran % (42.2 - 75.2 %) 67.1 69.5 Lymphocytes % (20.5 - 51.1 %) 20.3 L 18.9 L Monocytes % (1.7 - 9.3 %) 9.4 H 8.6 Eosinophils % (0 - 5 %) 2.8 2.5 Basophils % (0.0 - 2.0 %) 0.4 0.5 Absolute Granulocytes (1.4 - 6.5 /CUMM) 3.8 4.2 Absolute Lymphocytes (1.2 - 3.4 /CUMM) 1.1 L 1.1 L Absolute Monocytes (0.10 - 0.60 /CUMM) 0.5 0.5 Absolute Eosinophils (0.0 - 0.7 /CUMM) 0.2 0.2 Absolute Basophils (0.0 - 0.2 /CUMM) 0 0 PUBS MCHC (33.0 - 37.0 G/DL) 33.4 33.3 06/05 06/04 06/04 06/04 0340 1750 1750 1608 Chemistry Sodium (137 - 145 mmol/L) 141 Potassium (3.5 - 5.1 mmol/L) 4.8 Chloride (98 - 107 mmol/L) 103 Carbon Dioxide (22 - 30 mmol/L) 24 Anion Gap (5 - 16) 14 BUN (9 - 20 mg/dL) 68 H Creatinine (0.7 - 1.2 mg/dL) 3.0 H Estimated GFR (>60 ml/min) 21 L BUN/Creatinine Ratio (7 - 25 %) 22.7 Dopamine Pending Cancelled Plasma Epinephrine Pending Cancelled Norepinephrine Pending Cancelled Total Catecholamines Pending Cancelled Plasma Free Metaneph Pending Plasma Free Normeta Pending Pls Totl Free Metaneph Pending Imaging/Other Studies: TTE 06/01 CONCLUSIONS Mild concentric left ventricular hypertrophy. Normal left ventricular ejection fraction visually estimated at %. Left atrial size at the upper limits of normal. Mild thickening/calcification of the mitral valve leaflets. Diffuse thickening of the aortic valve cusps with mnimally reduced excursion. There is very mild aortic stenosis. Right ventricular systolic pressure estimated to be elevated at 45- 50 mmHg.
--- NOTE | 2016-06-07 14:11 | PN- Cardiology ---
Subjective Subjective: I was asked to reevaluate the patient for persistent hypertension. Blood pressure has been significantly elevated during this hospitalization, and multiple medication adjustments have been made. The patient reports that he is feeling well from a cardiac standpoint. No recent chest pain or shortness of breath. No palpitations. No diaphoresis. No lightheadedness or dizziness. Objective Vital Signs and I&Os Vital Signs Date Time Temp Pulse Resp B/P Pulse O2 O2 Flow FiO2 Ox Delivery Rate 06/07 0951 60 142/70 06/07 0949 70 142/70 06/07 0800 97 Room Air 06/07 0800 98.4 65 16 142/70 97 Room Air 06/07 0000 98 Room Air 06/06 2330 98.7 68 24 158/76 98 Room Air 06/06 2120 65 182/78 06/06 1943 97 Room Air 06/06 1937 98.7 66 18 178/78 97 Room Air 06/06 1600 99.1 62 20 150/78 96 Room Air Intake & Output 06/07 1600 06/07 0800 06/07 0000 06/06 1600 06/06 0800 06/06 0000 Intake Total 240 480 550 240 Output Total 125 1075 825 420 450 Balance 115 -595 -275 -420 -210 Intake, IV 0 0 Intake, Oral 240 480 550 240 Number 0 0 0 Bowel Movements Output, Urine 125 1075 825 420 450 Physical Exam: Gen: NAD HEENT: normal Lungs: clear to auscultation, normal resp. effort Heart: RRR, S1, S2, 106 systolic murmur Abdomen: Soft, nontender, no masses Extremities: Trace edema Neuro: Alert and oriented x 3, cranial nerves intact Current Medications: Current Medications Sig/Michael Start time Last Medication Dose Route Stop Time Status Admin Amlodipine Besylate 10 MG DAILY 06/01 0615 AC 06/07 PO 0949 Artificial Tears 2 GTT TID 06/06 2200 AC 06/07 OPH 0952 Clonidine 0.1 MG BID 06/07 1315 AC PO Doxazosin Mesylate 4 MG QPM 06/04 2199 AC 06/06 PO 2120 Furosemide 40 MG DAILY 06/03 1000 AC 06/07 PO 0949 Glycerin/Mineral Oil 1 ALISIA TID PRN 06/01 0745 AC 06/03 TOP 2115 Heparin Sodium 5,000 UNIT Q8 06/01 0600 AC 06/07 (Porcine) SC 1257 Hydralazine HCl 100 MG BID 06/04 1000 AC 06/07 PO 0951 Insulin Aspart 0 AC & AT BEDTIME 06/01 1200 AC 06/07 SC 1256 Insulin Detemir 10 UNITS DAILY 06/01 1000 06/07 TX 1001 Loratadine 10 MG DAILY 06/03 1203 AC 06/07 PO 0949 Melatonin 5 MG ONCE ONE 06/07 0130 DC 06/07 PO 06/07 0131 0130 Polyethylene Glycol 17 GM DAILY PRN 06/07 0915 AC 06/07 PO 1019 Senna/Docusate Sodium 2 TAB DAILY NEEDED PRN 06/06 0930 AC 06/06 PO 1304 Sodium Bicarbonate 1,300 MG BID 06/01 1051 AC 06/07 PO 0949 Results Last 48 Hrs of Labs/Mics: Laboratory Tests 06/07/16 0521: Anion Gap 8, Estimated GFR 24 L, Glucose 100 H, Calcium 8.6, Phosphorus 4.8 H , Magnesium 1.9, Total Bilirubin 0.2, AST 34, ALT 38, Albumin 2.7 L, CBC w Diff NO MAN DIFF REQ, RBC 3.11 L, MCV 87.4, MCH 29.2, RDW 14.0, MPV 8.5, Gran % 67.1 , Lymphocytes % 20.3 L, Monocytes % 9.4 H, Eosinophils % 2.8, Basophils % 0.4, Absolute Granulocytes 3.8, Absolute Lymphocytes 1.1 L, Absolute Monocytes 0.5, Absolute Eosinophils 0.2, Absolute Basophils 0, PUBS MCHC 33.4 06/06/16 0400: Anion Gap 14, Estimated GFR 23 L, Glucose 100 H, Calcium 8.8, Phosphorus 4.4, Magnesium 1.7, Total Bilirubin 0.3, AST 30, ALT 27, Albumin 3.1 L, CBC w Diff NO MAN DIFF REQ, RBC 3.41 L, MCV 87.3, MCH 29.1, RDW 14.1, MPV 9.5, Gran % 69.5 , Lymphocytes % 18.9 L, Monocytes % 8.6, Eosinophils % 2.5, Basophils % 0.5, Absolute Granulocytes 4.2, Absolute Lymphocytes 1.1 L, Absolute Monocytes 0.5, Absolute Eosinophils 0.2, Absolute Basophils 0, PUBS MCHC 33.3 Recent Imaging Studies: Echocardiogram 06/01/16: Mild concentric left ventricular hypertrophy. Normal left ventricular ejection fraction visually estimated at %. Left atrial size at the upper limits of normal. Mild thickening/calcification of the mitral valve leaflets. Diffuse thickening of the aortic valve cusps with mnimally reduced excursion. There is very mild aortic stenosis. Right ventricular systolic pressure estimated to be elevated at 45- 50 mmHg. Assessment/Plan Assessment/Plan Assessment: 1. Diabetes mellitus 2. Chronic kidney disease 3. Mild aortic stenosis 4. Possible osteomyelitis 5. Hypertension, not yet controlled Recommendations: * I agree with starting clonidine 0.1 mg PO twice a day for additional blood pressure control.\ * Continue amlodipine, hydralazine, and furosemide * The patient is planned for discharge tomorrow. Continue telemetry? No
--- NOTE | 2016-06-07 14:13 | MRI REPORT ---
EXAMINATION: MR FOOT WITHOUT CONTRAST, RIGHT CLINICAL INFORMATION: Right foot pain. Possible osteomyelitis. COMPARISON: Radiographs 06/04/2016. TECHNIQUE: MRI without contrast is performed on the right foot. FINDINGS: Chronic 4th MTP joint arthritis with deformity of the metatarsal head which lacks marrow edema to indicate an active inflammatory arthritis although there is a small joint effusion. There is marrow edema diffusely involving the 4th proximal phalanx with foci of T1 low signal intensity in the mid aspect which could represent osteomyelitis if clinically suspected in this location, although this is nonspecific and could be posttraumatic. No obvious soft tissue ulceration is present. Bone marrow signal is otherwise unremarkable. There is mild 1st MTP joint osteoarthritis. There is diffuse soft tissue edema, and edema with mild atrophy throughout the intrinsic muscles of the foot which is nonspecific although not uncommon in diabetic patients. No focal fluid collection. IMPRESSION: Diffuse marrow edema of the 4th proximal phalanx which is nonspecific and may be posttraumatic. Osteomyelitis is a possibility if there is a strong clinical suspicion. No overlying ulcer is evident. There are chronic arthritic changes of the 4th MTP joint. Diffuse soft tissue edema. Mild 1st MTP joint osteoarthritis.
[2016-06-07 16:00] VITALS: BP 140/80
--- NOTE | 2016-06-07 16:16 | Transfer of Care Summary ---
Hospital Course Course Hospital Course: Patient admitted on 06/01/16 after being brought in to the [place] ED by family members who were concerned patient appeared ill and in a poor state of health. He recently arrived from [place] where he was living for 6 months. He ran out of his medications 10 days prior to admission. Glucose was found to be 541 on admission and ketones negative. Patient was started on an insulin drip and admitted to the ICU for further evaluation. Blood sugars quickly normalized however patients blood pressure was persistently elevated for which his blood pressure medication regimen was optimized. Patient described right foot pain for which a radiograph obtained was suspicious for osteomyelitis. An MRI was obtained but was indeterminant for osteo. Podiatry crop consultant felt that patient did not didn't appear to clinical have osteomyelitis given the lability of his pain and absence of leukocytosis and fever. Endocrinology: History of IDDM, diabetic nephropathy, retinopathy. Multiple hospitalizations for medication noncompliance. Patient was started on an insulin drip in the ER and admitted to the ICU. Blood sugars quickly normalized and patients insulin regimen was optimized. -Metformin/Lisinopril held for CKD -Novolog SSI -Levemir -Endocrine consult following Cardiovascular: History of hypertension, hyperlipidemia.Troponin/EKG negative X3. Patient has a systolic murmur on examination. Echocardigogram demonstrates aortic stenosis. Patient has had persistently elevated systolic blood pressures despite multiple antihypertensive regimens. -Amlodipine 10mg PO Daily -Hydralazine 100mg PO BID -Cardura 4mg PO QHS -Clonidine 0.1mg PO BID -Cardiology consult following Infectious Disease: Patient complaining of right foot pain. XR of foot was suggestive of osteomyelitis. Podiatry and ID consults were placed. MRI of foot was inconclusive for osteo. Patient did not clinically appear to have osteomyelitis so a bone biopsy was deferred at this time. -Podiatry following -ID consult placed Renal: History of CKD. -No ACEI/ARB/K sparing diuertics -Renal dialysis diet -NaHCO3 1300mg PO BID -Lasix 80mg PO Daily -Nephrology following Follow up/Discharge: - Patient is to be discharged to home with his daughter - Hold metformin/lisinopril on discharge for CKD - Follow up Catecholamines/Metanephrines for evaluation of pheo per Dr. Lira - Ensure patient is discharnge on a renal dialysis diet Assessment/Plan: As above
[2016-06-08] VITALS: BP 160/90
--- NOTE | 2016-06-08 01:08 | NUR ---
PT ALERT AND ORIENTED, DENIES PAIN AT THIS TIME. MANUAL BP 160/90 NSR 60'S.
[2016-06-08 06:14] LABS: ABSOLUTE BASOPHIL COUNT 0 /CUMM (0.0-0.2); ABSOLUTE EOSINOPHIL COUNT 0.2 /CUMM (0.0-0.7); ABSOLUTE LYMPH COUNT 1.2 /CUMM (1.2-3.4); ABSOLUTE MONOCYTE COUNT 0.6 /CUMM (0.10-0.60); BASOPHIL % 0.5 % (0.0-2.0); GRANULOCYTE % 67.7 % (42.2-75.2); HEMATOCRIT 28.3 % (42-52); MEAN CORPUSCULAR HGB 29.1 PG (27.0-31.0); MEAN CORPUSCULAR HGB CONC 33.3 G/DL (33.0-37.0); MEAN CORPUSCULAR VOLUME 87.6 FL (80.0-94.0); MEAN PLATELET VOLUME 8.7 FL (7.4-10.4); PLATELET COUNT 175 /CUMM (130-400); RBC DISTRIBUTION WIDTH 14.1 % (11.5-14.5); RED BLOOD CELL CT 3.23 /CUMM (4.70-6.10)
[2016-06-08 08:00] VITALS: BP 174/70
--- NOTE | 2016-06-08 09:49 | PN- Nephrology ---
Assessment/Plan Assessment: 1. Acute kidney injury. His serum creatinine is better than when he was admitted. Part of this acute change may in fact be due to progression of his underlying chronic kidney disease. 2. Hypertension. Clonidine was added. RAAS interruption is being avoided due to his hyperkalemia. He likewise, his furosemide has been increased. 3. Chronic kidney disease now stage IV. He will need close follow-up as an outpatient. In the past, he did not see Dr. Dewey. He was seen initially by Chato Tello MD of [facility] in August 2014 when he was hospitalized at [facility]. He was also seen at [facility] by Dr. Fran Gastelum. His most recent outpatient serum creatinines were roughly 2.7 mg/d. This was in August 2015. In addition, he is been hospitalized at [facility] as well as other facilities with recurrent bouts of hyperkalemia while on an EMY inhibitor. 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 In June 2015, a railroad purchasing agent had prescribed a full course of Bactrim for him for a foot infection. Not surprisingly, this led to another hospital stay with hyperkalemia. 4. Diabetes mellitus. He is had diabetes for more than 20 years Suggestion: 1. The addition of clonidine is noted. I would avoid raising this to more than 0.6 mg per day. His compliance is an issue. Reading through the old records, it becomes apparent blood pressure control has been a major issue over the years. The other issue with clonidine and hydralazine is involving to medications that require multiple doses in a day. The concern would be that one dose a day would be missed 2. Please make sure he remains on a 2 g sodium, 2 g potassium diet. He should not require a fluid restriction at this point. Fluid restrictions are generally reserved for those with hyponatremia or who are already on dialysis. 3. Another thought would be to reintroduce emy inhibition or angiotensin receptor keri blockade once again. This would be undertaken only if he is on Veltessa. This is a thought, I would not start that medication or an EMY inhibitor at this time. 4. Would favor increasing the Cardura. 5. With regards to the sodium bicarbonate, it is been found that sodium bicarbonate treats the chronic metabolic acidosis caused by renal failure. It has been shown in those studies not to increase fluid overload. In fact, it showed that bicarbonate supplementation actually slows the progression of chronic kidney disease. It also affords the benefit of protecting the bones from the chronic metabolic acidosis due to loss of renal functional mass. Subjective Subjective: The patient looks and feels fairly well. He tells me that his visual impairment as a result of his cataract operation. Frankly, I would wonder whether or not he has proliferative diabetic retinopathy. It is not clear to me as to when he last saw an radio rigger. Objective Vital Signs and I&Os Vital Signs Date Time Temp Pulse Resp B/P Pulse O2 O2 Flow FiO2 Ox Delivery Rate 06/08 0000 97 Room Air 06/08 0000 98.8 64 22 160/90 97 Room Air 06/07 2157 97.1 66 18 172/58 06/07 2155 97.6 65 18 172/68 06/07 1600 98 Room Air Room Air 06/07 1600 98.3 64 18 140/80 98 Room Air Room Air 06/07 1424 60 160/60 06/07 0951 60 142/70 06/07 0949 70 142/70 Intake & Output 06/08 1600 06/08 0400 06/07 1600 06/07 0400 06/06 1600 06/06 0400 Intake Total 857 870 4626 480 550 240 Output Total 300 383 354 8797 1245 450 Balance -200 -200 815 -595 -695 -210 Intake, IV 0 0 Intake, Oral 467 486 9517 480 550 240 Number 0 0 0 Bowel Movements Output, Urine 300 854 059 4132 1245 450 Physical Exam General Appearance: well developed/nourished, no apparent distress, alert, awake , comfortable, obese Head: atraumatic, normal appearance Ears, Nose, Throat: hearing grossly normal Neck: normal inspection, supple, full range of motion, trachea mid line Respiratory: normal breath sounds, chest non-tender, lungs clear Cardiovascular: regular rate/rhythm, edema Abdomen: normal bowel sounds, soft, non-tender, no abdominal bruits Back: normal inspection Extremities: perhaps some edema Neurologic/Psychiatric: aside from his inability to see, no gross neurologic deficits. Skin: intact, did not examine his feet Lymphatic: no anterior cervical veronica Current Medications: Current Medications Sig/Michael Start time Last Medication Dose Route Stop Time Status Admin Amlodipine Besylate 10 MG DAILY 06/01 0615 AC 06/07 PO 0949 Artificial Tears 2 GTT TID 06/06 2199 AC 06/07 OPH 2203 Clonidine 0.1 MG BID 06/07 1315 AC 06/07 PO 2157 Doxazosin Mesylate 4 MG QPM 06/04 2200 AC 06/07 PO 2156 Furosemide 80 MG DAILY 06/08 1000 AC PO Furosemide 40 MG ONE ONE 06/07 1515 DC 06/07 PO 06/07 1516 1727 Furosemide 40 MG DAILY 06/03 1000 DC 06/07 PO 0949 Glycerin/Mineral Oil 1 ALISIA TID PRN 06/01 0745 06/03 TOP 2115 Heparin Sodium 5,000 UNIT Q8 06/01 0600 06/07 (Porcine) SC 2150 Hydralazine HCl 100 MG BID 06/04 1000 AC 06/07 PO 2155 Insulin Aspart 0 AC & AT BEDTIME 06/01 1200 AC 06/08 SC 0836 Insulin Detemir 10 UNITS DAILY 06/01 1000 06/07 SC 1001 Loratadine 10 MG DAILY 06/03 1203 AC 06/07 PO 0949 Polyethylene Glycol 17 GM DAILY PRN 06/07 0915 06/07 PO 1019 Senna 374 MG .STK-MED ONE 06/07 1004 DC PO 06/07 1005 Senna/Docusate Sodium 2 TAB DAILY NEEDED PRN 06/06 0930 06/06 PO 1304 Sodium Bicarbonate 1,300 MG BID 06/01 1051 06/07 PO 2205 Results Pertinent Lab Results: Laboratory Tests 06/08 06/07 0600 0521 Chemistry Sodium (137 - 145 mmol/L) 142 143 Potassium (3.5 - 5.1 mmol/L) 4.3 4.1 Chloride (98 - 107 mmol/L) 106 108 H Carbon Dioxide (22 - 30 mmol/L) 26 27 Anion Gap (5 - 16) 10 8 BUN (9 - 20 mg/dL) 68 H 62 H Creatinine (0.7 - 1.2 mg/dL) 3.1 H 2.7 H Estimated GFR (>60 ml/min) 21 L 24 L Glucose (65 - 99 mg/dL) 112 H 100 H Calcium (8.4 - 10.2 mg/dL) 8.7 8.6 Phosphorus (2.5 - 4.5 mg/dL) 4.9 H 4.8 H Magnesium (1.6 - 2.3 mg/dL) 1.8 1.9 Total Bilirubin (0.2 - 1.3 mg/dL) 0.2 0.2 AST (17 - 59 U/L) 37 34 ALT (21 - 72 U/L) 42 38 Albumin (3.5 - 5.0 g/dL) 3.0 L 2.7 L Hematology CBC w Diff NO MAN DIFF REQ NO MAN DIFF REQ WBC (4.8 - 10.8 /CUMM) 6.0 5.6 RBC (4.70 - 6.10 /CUMM) 3.23 L 3.11 L Hgb (14.0 - 18.0 G/DL) 9.4 L 9.1 L Hct (42 - 52 %) 28.3 L 27.2 L MCV (80.0 - 94.0 FL) 87.6 87.4 MCH (27.0 - 31.0 PG) 29.1 29.2 RDW (11.5 - 14.5 %) 14.1 14.0 Plt Count (130 - 400 /CUMM) 175 177 MPV (7.4 - 10.4 FL) 8.7 8.5 Gran % (42.2 - 75.2 %) 67.7 67.1 Lymphocytes % (20.5 - 51.1 %) 19.4 L 20.3 L Monocytes % (1.7 - 9.3 %) 9.4 H 9.4 H Eosinophils % (0 - 5 %) 3.0 2.8 Basophils % (0.0 - 2.0 %) 0.5 0.4 Absolute Granulocytes (1.4 - 6.5 /CUMM) 4.0 3.8 Absolute Lymphocytes (1.2 - 3.4 /CUMM) 1.2 1.1 L Absolute Monocytes (0.10 - 0.60 /CUMM) 0.6 0.5 Absolute Eosinophils (0.0 - 0.7 /CUMM) 0.2 0.2 Absolute Basophils (0.0 - 0.2 /CUMM) 0 0 PUBS MCHC (33.0 - 37.0 G/DL) 33.3 33.4 06/06 0400 Chemistry Sodium (137 - 145 mmol/L) 142 Potassium (3.5 - 5.1 mmol/L) 4.6 Chloride (98 - 107 mmol/L) 104 Carbon Dioxide (22 - 30 mmol/L) 25 Anion Gap (5 - 16) 14 BUN (9 - 20 mg/dL) 65 H Creatinine (0.7 - 1.2 mg/dL) 2.8 H Estimated GFR (>60 ml/min) 23 L Glucose (65 - 99 mg/dL) 100 H Calcium (8.4 - 10.2 mg/dL) 8.8 Phosphorus (2.5 - 4.5 mg/dL) 4.4 Magnesium (1.6 - 2.3 mg/dL) 1.7 Total Bilirubin (0.2 - 1.3 mg/dL) 0.3 AST (17 - 59 U/L) 30 ALT (21 - 72 U/L) 27 Albumin (3.5 - 5.0 g/dL) 3.1 L Hematology CBC w Diff NO MAN DIFF REQ WBC (4.8 - 10.8 /CUMM) 6.1 RBC (4.70 - 6.10 /CUMM) 3.41 L Hgb (14.0 - 18.0 G/DL) 9.9 L Hct (42 - 52 %) 29.8 L MCV (80.0 - 94.0 FL) 87.3 MCH (27.0 - 31.0 PG) 29.1 RDW (11.5 - 14.5 %) 14.1 Plt Count (130 - 400 /CUMM) 178 MPV (7.4 - 10.4 FL) 9.5 Gran % (42.2 - 75.2 %) 69.5 Lymphocytes % (20.5 - 51.1 %) 18.9 L Monocytes % (1.7 - 9.3 %) 8.6 Eosinophils % (0 - 5 %) 2.5 Basophils % (0.0 - 2.0 %) 0.5 Absolute Granulocytes (1.4 - 6.5 /CUMM) 4.2 Absolute Lymphocytes (1.2 - 3.4 /CUMM) 1.1 L Absolute Monocytes (0.10 - 0.60 /CUMM) 0.5 Absolute Eosinophils (0.0 - 0.7 /CUMM) 0.2 Absolute Basophils (0.0 - 0.2 /CUMM) 0 PUBS MCHC (33.0 - 37.0 G/DL) 33.3
--- NOTE | 2016-06-08 12:50 | PN- Cardiology ---
Subjective Subjective: The patient reports that he is feeling well. No chest pain. No palpitations. No diaphoresis. He has received 3 doses of clonidine, and his blood pressure to be elevated. Objective Vital Signs and I&Os Vital Signs Date Time Temp Pulse Resp B/P Pulse O2 O2 Flow FiO2 Ox Delivery Rate 06/08 1030 57 178/74 06/08 1029 57 178/74 06/08 1028 57 178/74 06/08 0800 98.2 61 20 174/70 97 Room Air 06/08 0800 97 Room Air 06/08 0000 97 Room Air 06/08 0000 98.8 64 22 160/90 97 Room Air 06/07 2157 97.1 66 18 172/58 06/07 2155 97.6 65 18 172/68 06/07 1600 98 Room Air Room Air 06/07 1600 98.3 64 18 140/80 98 Room Air Room Air 06/07 1424 60 160/60 Intake & Output 06/08 1600 06/08 0800 06/08 0000 06/07 1600 06/07 0800 06/07 0000 Intake Total 560 093 3388 240 480 Output Total 300 800 897 755 7579 Balance -200 -200 700 115 -595 Intake, IV 0 0 0 Intake, Oral 580 310 1789 240 480 Number 0 0 0 Bowel Movements Output, Urine 300 [phone] Physical Exam: Gen: NAD HEENT: normal Lungs: clear to auscultation, normal resp. effort Heart: RRR, S1, S2, 106 systolic murmur Abdomen: Soft, nontender, no masses Extremities: Trace edema Neuro: Alert and oriented x 3, cranial nerves intact Current Medications: Current Medications Sig/Michael Start time Last Medication Dose Route Stop Time Status Admin Amlodipine Besylate 10 MG DAILY 06/01 0615 AC 06/08 PO 1029 Artificial Tears 2 GTT TID 06/060 AC 06/08 OPH 1029 Clonidine 0.1 MG BID 06/07 1315 AC 06/08 PO 1030 Doxazosin Mesylate 4 MG QPM 06/04 2200 AC 06/07 PO 2156 Furosemide 80 MG DAILY 06/08 1000 AC 06/08 PO 1029 Furosemide 40 MG ONE ONE 06/07 1515 DC 06/07 PO 06/07 1516 1727 Furosemide 40 MG DAILY 06/03 1000 DC 06/07 PO 0949 Glycerin/Mineral Oil 1 ALISIA TID PRN 06/01 0745 AC 06/03 TOP 2115 Heparin Sodium 5,000 UNIT Q8 06/01 0600 06/07 (Porcine) SC 2150 Hydralazine HCl 100 MG BID 06/04 1000 AC 06/08 PO 1028 Insulin Aspart 0 AC & AT BEDTIME 06/01 1200 06/08 [place] 1207 Insulin Detemir 10 UNITS DAILY 06/01 1000 06/08 SC 1030 Loratadine 10 MG DAILY 06/03 1203 AC 06/08 PO 1028 Polyethylene Glycol 17 GM DAILY PRN 06/07 0915 06/07 PO 1019 Senna/Docusate Sodium 2 TAB DAILY NEEDED PRN 06/06 0930 AC 06/06 PO 1304 Sodium Bicarbonate 1,300 MG BID 06/01 1051 06/08 PO 1029 Results Last 48 Hrs of Labs/Mics: Laboratory Tests 06/08/16 0600: Anion Gap 10, Estimated GFR 21 L, Glucose 112 H, Calcium 8.7, Phosphorus 4.9 H, Magnesium 1.8, Total Bilirubin 0.2, AST 37, ALT 42, Albumin 3.0 L, CBC w Diff NO MAN DIFF REQ, RBC 3.23 L, MCV 87.6, MCH 29.1, RDW 14.1, MPV 8.7, Gran % 67.7, Lymphocytes % 19.4 L, Monocytes % 9.4 H, Eosinophils % 3.0, Basophils % 0.5, Absolute Granulocytes 4.0, Absolute Lymphocytes 1.2, Absolute Monocytes 0.6 , Absolute Eosinophils 0.2, Absolute Basophils 0, PUBS MCHC 33.3 06/07/16 0521: Anion Gap 8, Estimated GFR 24 L, Glucose 100 H, Calcium 8.6, Phosphorus 4.8 H , Magnesium 1.9, Total Bilirubin 0.2, AST 34, ALT 38, Albumin 2.7 L, CBC w Diff NO MAN DIFF REQ, RBC 3.11 L, MCV 87.4, MCH 29.2, RDW 14.0, MPV 8.5, Gran % 67.1 , Lymphocytes % 20.3 L, Monocytes % 9.4 H, Eosinophils % 2.8, Basophils % 0.4, Absolute Granulocytes 3.8, Absolute Lymphocytes 1.1 L, Absolute Monocytes 0.5, Absolute Eosinophils 0.2, Absolute Basophils 0, PUBS MCHC 33.4 Assessment/Plan Assessment/Plan Assessment: 1. Diabetes mellitus 2. Chronic kidney disease 3. Mild aortic stenosis 4. Possible osteomyelitis 5. Hypertension, not yet controlled Recommendations: * Increase clonidine to 0.2 mg p.m. twice a day for blood pressure control * Continue amlodipine, hydralazine, and furosemide * Follow up in one to 2 weeks after discharge. Continue telemetry? No
--- NOTE | 2016-06-08 13:03 | PN- Housestaff ---
KEVIN GIBBS,[facility] HOSPITALBossman 06/08/16 1249: Subjective Follow-up For: hyperglycemia CkD Possible osteomyelitis Subjective: Saw patient at bedside this a.m. He was sitting up in chair and eating breakfast. No complaints. His pressures were elevated in the 160s patient denied any headache, shortness of breath or dizziness. Review of Systems Constitutional: Denies: chills, fever, malaise. EENTM: Reports: no symptoms (ote patient has baseline blind). Cardiovascular: Denies: chest pain, palpitations. Respiratory: Denies: cough, short of breath. Gastrointestinal: Reports: no symptoms. Genitourinary: Reports: no symptoms. Musculoskeletal: Denies: muscle pain, muscle stiffness. Skin: Reports: change in skin color, lesions. Objective Last 24 Hrs of Vital Signs/I&O Vital Signs Date Time Temp Pulse Resp B/P Pulse O2 O2 Flow FiO2 Ox Delivery Rate 06/08 1030 57 178/74 06/08 1029 57 178/74 06/08 1028 57 178/74 06/08 0800 98.2 61 20 174/70 97 Room Air 06/08 0800 97 Room Air 06/08 0000 97 Room Air 06/08 0000 98.8 64 22 160/90 97 Room Air 06/07 2157 97.1 66 18 172/58 06/07 2155 97.6 65 18 172/68 06/07 1600 98 Room Air Room Air 06/07 1600 98.3 64 18 140/80 98 Room Air Room Air 06/07 1424 60 160/60 Intake & Output 06/08 1600 06/08 0800 06/08 0000 Intake Total 100 600 Output Total 300 800 Balance -200 -200 Intake, Oral 100 600 Output, Urine 300 800 Physical Exam General Appearance: Alert, Oriented X3, Cooperative, No Acute Distress Skin: No Breakdown HEENT: Atraumatic, PERRLA Neck: Supple Cardiovascular: Regular Rate, Normal S1, Normal S2 Lungs: Normal Air Movement Abdomen: Soft, No Tenderness Neurological: Normal Speech Current Medications: Current Medications Sig/Michael Start time Last Medication Dose Route Stop Time Status Admin Amlodipine Besylate 10 MG DAILY 06/01 0615 06/08 PO 1029 Artificial Tears 2 GTT TID 06/06 2200 AC 06/08 OPH 1029 Clonidine 0.1 MG BID 06/07 1315 AC 06/08 PO 1030 Doxazosin Mesylate 4 MG QPM 06/04 2200 AC 06/07 PO 2156 Furosemide 80 MG DAILY 06/08 1000 AC 06/08 PO 1029 Furosemide 40 MG ONE ONE 06/07 1515 DC 06/07 PO 06/07 1516 1727 Furosemide 40 MG DAILY 06/03 1000 DC 06/07 PO 0949 Glycerin/Mineral Oil 1 ALISIA TID PRN 06/01 0745 AC 06/03 TOP 2115 Heparin Sodium 5,000 UNIT Q8 06/01 0600 AC 06/07 (Porcine) SC 2150 Hydralazine HCl 100 MG BID 06/04 1000 AC 06/08 PO 1028 Insulin Aspart 0 AC & AT BEDTIME 06/01 1200 AC 06/08 SC 1207 Insulin Detemir 10 UNITS DAILY 06/01 1000 AC 06/08 SC 1030 Loratadine 10 MG DAILY 06/03 1203 AC 06/08 PO 1028 Polyethylene Glycol 17 GM DAILY PRN 06/07 0915 AC 06/07 PO 1019 Senna/Docusate Sodium 2 TAB DAILY NEEDED PRN 06/06 0930 AC 06/06 PO 1304 Sodium Bicarbonate 1,300 MG BID 06/01 1051 AC 06/08 PO 1029 Last 24 Hrs of Lab/Eduardo Results Last 24 Hrs of Labs/Mics: Laboratory Tests 06/08/16 0600: Anion Gap 10, Estimated GFR 21 L, Glucose 112 H, Calcium 8.7, Phosphorus 4.9 H, Magnesium 1.8, Total Bilirubin 0.2, AST 37, ALT 42, Albumin 3.0 L, CBC w Diff NO MAN DIFF REQ, RBC 3.23 L, MCV 87.6, MCH 29.1, RDW 14.1, MPV 8.7, Gran % 67.7, Lymphocytes % 19.4 L, Monocytes % 9.4 H, Eosinophils % 3.0, Basophils % 0.5, Absolute Granulocytes 4.0, Absolute Lymphocytes 1.2, Absolute Monocytes 0.6 , Absolute Eosinophils 0.2, Absolute Basophils 0, PUBS MCHC 33.3 Assessment/Plan Assessment: This is a 60-year-old male with past medical history significant for diabetes, hypertension, gallstone, cataract surgery, visual loss, CK D, comes in with chief complaint of mildly is found to be hyperglycemic, with chills, bilateral lower extremity swelling, erythema and lower extremities. Additionally he was noted to have elevated creatinine and blood pressure is. Catecholamine/ metanephrine testing is still pending. His sugars have been well controlled on the current diabetic regimen. PLAN Cardiovascular/nephrology: Patient with a history of uncontrolled hypertension possibly secondary to renal disease. Murmur on examination is suggestive of aortic stenosis. * Avoid ACEi/ARBS, K+ sparring diuretics & nephrotoxic medications * Amlodipine 10 mg by mouth daily * Hydralazine 100mg PO BID * Cardura 4mg PO QHS * Clonidine 0.1mg PO BID--> increased to .2mg po BID today. * Lasix 80mg PO Daily * Sodium bicarbonate 1300 mg by mouth twice a day * Cardiology following: On discharge, patient can follow-up with Dr. Johnson 1 -2 weeks after leaving the hospital. * Nephrology following Infectious Disease:Patient with extensive medical history and chronic lower extremity skin changes with possible right lower extremity osteomyelitis. MRI is indeterminate for osteomyelitis. * Wound Care * Podiatry Consult * ID consult Endocrinology:Patient has a long history of insulin-dependent diabetes mellitus with associated medication noncompliance. He states that prior to admission he had been off his medications for almost 2 weeks. Regimen an outpatient basis we will include Basaglar and Humalog. * Outpatient regimen: Basaglar 10u daily and Humalog per current NovoLog sliding scale regimen * Accu-Cheks * Discontinue metformin at home for renal disease * NovoLog sliding scale insulin 3 times a day before meals/at bedtime while inpatient * Levemir 10 units daily while inpatient Social: Patient reportedly returned to [place] from [place] recently after an event with his girlfriend. His daughter and ex- in [place] reportedly do not have the resources to take care of the patient. Patient's other daughter Amee was contacted by social work whom is willing to take and her father after discharge. * Social work consult placed, follow-up recommendations * Dr. Lira has agreed to family offer a start up supply of base of bladder. And some pens. * We have established contact an appointment with PCP for patient. He is scheduled to see Dr. Ríos Problem List: 1. Metabolic acidosis 2. Hyperglycemia 3. Hyperkalemia 4. Acute renal failure Pain Ratin Pain Location: None Pain Goal: Remain pain free Pain Plan: None Tomorrow's Labs & Rationales: ICU bundle AUGIE COPE MD 06/08/16 2212: Attending MD Review Statement Attending Statement Attending MD Statement: examined this patient, discuss w/resident/PA/BRANCH ADMINISTRATOR, agreed w/resident/PA/BRANCH ADMINISTRATOR, reviewed EMR data (avail), discussed with case mgmt, amended to note Attending Assessment/Plan: The patient was seen and discussed with house staff. Agree with the plan of care as outlined. Patient now with JENNIFER active. OK to discharge today with plan for follow-up with Dr. Ríos and clinic. VNA/home PT.
[2016-06-08 13:33] VITALS: BP 156/68
[2016-06-08] MEDS ORDERED: LASIX40 M1 PO (15:14)
[2016-06-08] MEDS ORDERED: BASAGLAR K100 UNIT/1 SQ (15:14)
[2016-06-08] MEDS ORDERED: SODIUM BICARBO325 M1 PO (15:14)
[2016-06-08] MEDS ORDERED: HYDRALAZINE HCL50 M1 PO ×3 (15:14→16:34)
[2016-06-08] MEDS ORDERED: HUMALOG KW100 UNIT/1 SQ (15:44)
--- NOTE | 2016-06-08 15:47 | Patient Discharge Instructions ---
Discharge Instructions General Discharge Information You were seen/treated for: Hypoglycemia CK D Possible osteomyelitis Watch for these problems: Fever High blood sugar Shortness of breath Chest pain Special Instructions: 1. Follow-up with Dr. Dominguez in 1-2 weeks after discharge 2. Follow-up with Dr. Ríos your PCP on June 10 at 2:15 PM. 3. Stop taking oral diabetes medications. Restart insulin pen. Diet Continue normal diet: No Recommended Diet: Heart Healthy Activity Full Activity/No Limits: No Activity Self Limited: Yes Acute Coronary Syndrome Inclusion Criteria At DC or during hospital stay patient has or had the following: ACS DIAGNOSIS No Discharge Core Measures Meds if any: Prescribed or Continued at Discharge Meds if any: NOT Prescribed or Continued at Discharge Congestive Heart Failure Inclusion Criteria At DC or during hospital stay patient has or had the following: CHF DIAGNOSIS No Discharge Core Measures Meds if any: Prescribed or Continued at Discharge Meds if any: NOT Prescribed or Continued at Discharge Cerebrovascular accident Inclusion Criteria At DC or during hospital stay patient has or had the following: CVA/TIA Diagnosis No Discharge Core Measures Meds if any: Prescribed or Continued at Discharge Meds if any: NOT Prescribed or Continued at Discharge Venous thromboembolism Inclusion Criteria VTE Diagnosis No VTE Type NONE VTE Confirmed by (Test) NONE Discharge Core Measures - Per Current guidelines, there needs to be overlap - treatment for the first 5 days of Warfarin therapy. - If discharged on Warfarin prior to 5 days of - overlap therapy, the patient will need to be - assessed for post discharge needs including - *Post discharge parental anticoagulation - *Warfarin and/or parental anticoagulation education - *Follow up date to check INR post discharge At least 5 days overlap therapy as Inpatient No Meds if any: Prescribed or Continued at Discharge Note: Overlap Therapy is Warfarin and Anticoagulant Meds if any: NOT Prescribed or Continued at Discharge
[2016-06-08] MEDS ORDERED: HYDRALAZINE HCL25 M1 PO (15:53)
[2016-06-08 16:00] VITALS: BP 132/84
[2016-06-08] MEDS ORDERED: ATORVASTATIN CA80 M1 PO (16:06)
[2016-06-08] MEDS ORDERED: ASPIRIN81 M4 PO (16:41)
--- NOTE | 2016-06-24 17:57 | Discharge Summary ---
Visit Information Visit Dates Admission Date: 06/01/16 Discharge Date: 06/08/16 Hospital Course Course Attending Physician: AUGIE COPE MD Primary Care Physician: PATIENT HAS NO PRIMARY CARE DR Consulting Request: 1 Consulting Specialty: Cardiology Consulting Request: 2 Consulting Specialty: Endocrinology Consulting Request: 3 Consulting Specialty: Nephrology Hospital Course: Patient admitted on 06/01/16 after being brought in to the [facility] ED by family members who were concerned patient appeared ill and in a poor state of health. He recently arrived from [place] where he was living for 6 months. He ran out of his medications 10 days prior to admission. Glucose was found to be 541 on admission and ketones negative. Patient was started on an insulin drip and admitted to the ICU for further evaluation. Blood sugars quickly normalized however patients blood pressure was persistently elevated for which his blood pressure medication regimen was optimized. Patient described right foot pain for which a radiograph obtained was suspicious for osteomyelitis. An MRI was obtained but was indeterminant for osteo. Podiatry health analytics consultant felt that patient did not didn't appear to clinical have osteomyelitis given the lability of his pain and absence of leukocytosis and fever. Endocrinology: History of IDDM, diabetic nephropathy, retinopathy. Multiple hospitalizations for medication noncompliance. Patient was started on an insulin drip in the ER and admitted to the ICU. Blood sugars quickly normalized and patients insulin regimen was optimized. Metformin/lisinopril held on admission for chronic kidney disease. Serum glucose was controlled with novolog/levemir regimen as detailed by endocrinology health analytics consultant. Cardiovascular: History of hypertension, hyperlipidemia.Troponin/EKG negative X3. Patient has a systolic murmur on examination. Echocardigogram demonstrates aortic stenosis. Patient has had persistently elevated systolic blood pressures despite multiple antihypertensive regimens. Patient was continued on amlodipine/hydralazine/ cardura/clonidine as recommeneded by cardiology/nephrology consultated. Infectious Disease: Patient complaining of right foot pain. XR of foot was suggestive of osteomyelitis. Podiatry and ID consults were placed. MRI of foot was inconclusive for osteo. Patient did not clinically appear to have osteomyelitis so a bone biopsy was deferred at this time. Renal: History of CKD. Patient was continued on a renal dialysis diet and started on the following medications: -NaHCO3 1300mg PO BID -Lasix 80mg PO Daily Follow up/Discharge: - Patient is to be discharged to home with his daughter - Hold metformin/lisinopril on discharge for CKD - Follow up Catecholamines/Metanephrines for evaluation of pheo per Dr. Lira - Ensure patient is discharnge on a renal dialysis diet Allergies: Coded Allergies: Fish Containing Products (Severe, RASH, BREATHING PROBLEM? 06/01/16) Uncoded Allergies: SEAFOOD (Severe, RASH, BREATHING PROBLEM 06/01/16) Significant Procedures: SERVICE DATE: 06/01/16- EXAM TYPE: US - US-BILAT LOW EXTR ARTERIAL DOP IMPRESSION: Evidence of mild to moderate bilateral peripheral arterial disease. Greater sensitivity and specificity can be obtained with pre-and post exercise PVRs with GEOVANY calculations. Also consider dedicated CTA for further anatomical detail. SERVICE DATE: 06/01/16- EXAM TYPE: CARD - ECHOCARDIOGRAM CONCLUSIONS Mild concentric left ventricular hypertrophy. Normal left ventricular ejection fraction visually estimated at %. Left atrial size at the upper limits of normal. Mild thickening/calcification of the mitral valve leaflets. Diffuse thickening of the aortic valve cusps with mnimally reduced excursion. There is very mild aortic stenosis. Right ventricular systolic pressure estimated to be elevated at 45- 50 mmHg. SERVICE DATE: 06/01/160454 EXAM TYPE: RAD - XRY-PORTABLE CHEST XRAY IMPRESSION: No acute pulmonary findings. SERVICE DATE: 06/04/16- EXAM TYPE: RAD - XRY-FOOT COMPLETE, R IMPRESSION: Erosion of the fourth metatarsal head could represent osteomyelitis. SERVICE DATE: 06/07/16- EXAM TYPE: MRI - MRI-RT FOOT W/O MARGIE IMPRESSION: Diffuse marrow edema of the 4th proximal phalanx which is nonspecific and may be posttraumatic. Osteomyelitis is a possibility if there is a strong clinical suspicion. No overlying ulcer is evident. There are chronic arthritic changes of the 4th MTP joint. Diffuse soft tissue edema. Mild 1st MTP joint osteoarthritis. Disposition Summary Disposition Principal Diagnosis: Hyperglycemia Additional Diagnosis: Chronic kidney disease Discharge Disposition: home health services Discharge Instructions General Discharge Information Code Status: Full Code Patient's Diet: Diabetic diet with 2g sodium/K restriction Patient's Activity: Return to full activity as tolerated Follow-Up Instructions/Appts: 1. Follow-up with Dr. Dominguez in 1-2 weeks after discharge 2. Follow-up with Dr. Ríos your PCP on June 10 at 2:15 PM. 3. Stop taking oral diabetes medications. Restart insulin pen. Medications at Discharge Discharge Medications: Stop taking the following medications: Metformin Hydochloride (Glucophage) 500 MG TABLET ORAL 0800,1700 Qty = 60 Glimepiride (Amaryl) 1 MG TAB ORAL DAILY Qty = 30 Lisinopril (Lisinopril) 2.5 MG TABLET ORAL DAILY Qty = 30 Furosemide (Furosemide) 20 MG TABLET ORAL DAILY Qty = 30 Pravastatin Sodium (Pravastatin Sodium) 40 MG TABLET ORAL DAILY Furosemide (Furosemide) 40 MG TABLET ORAL TWICE DAILY Hydralazine HCl (Hydralazine HCl) 25 MG TABLET ORAL THREE TIMES DAILY Linagliptin (Tradjenta) 5 MG TABLET ORAL DAILY Doxazosin Mesylate (Doxazosin Mesylate) 2 MG TABLET ORAL DAILY Insulin Detemir (Levemir) 100 UNIT/ML VIAL SUB-Q GIVE ONCE Continue taking these medications: Allopurinol (Allopurinol) 100 MG TABLET 1 Tablet ORAL DAILY Comments: NOT GIVEN IN HOSPITAL Amlodipine Besylate (Amlodipine Besylate) 10 MG TABLET 1 Tablet ORAL DAILY Comments: Last Taken: 06/08/16 Time: 10:30 AM Gabapentin (Gabapentin) 100 MG CAPSULE 1 Capsule ORAL THREE TIMES DAILY Comments: NOT GIVEN IN HOSPITAL Nitroglycerin (Nitrostat) 0.4 MG TAB.SUBL 1 Tablet SUBLINGUAL As Directed as needed for Chest pain Instructions: 1st sign of attack; may repeat every 5 minutes until relief; if pain persists after 3 tablets in 15 minutes, prompt medical att Comments: NOT GIVEN IN HOSPITAL Bumetanide (Bumetanide) 1 MG TABLET 1 Tablet ORAL DAILY Comments: NOT GIVEN IN HOSPITAL Clonidine HCl (Clonidine HCl) 0.2 MG TABLET 1 Tablet ORAL Every night Comments: Last Taken: 06/08/16 Time: 10:30 AM Calcium Acetate (Calcium Acetate) 667 MG CAPSULE 1 Capsule ORAL THREE TIMES DAILY Comments: NOT GIVEN IN HOSPITAL Start taking the following new medications: Hydralazine HCl (Hydralazine HCl) 50 MG TABLET 2 Tablet ORAL TWICE DAILY Days = 30 No Refills Doxazosin Mesylate (Doxazosin Mesylate) 4 MG TABLET 1 Tablet ORAL Every night Qty = 30 No Refills Comments: Last Taken: 06/07/16 Time: 10:00 PM Furosemide (Lasix) 40 MG TABLET 80 Milligram ORAL DAILY Days = 60 Refills = 2 Comments: Last Taken: 06/08/16 Time: 10:30 AM Sodium Bicarbonate (Sodium Bicarbonate) 325 MG TABLET 1,300 Milligram ORAL TWICE DAILY Days = 30 No Refills Comments: Last Taken: 06/08/16 Time: 10:30 AM Insulin Glargine,Hum.rec.anlog (Basaglar Kwikpen U-100) 100 UNIT/ML (3 ML) INSULN.PEN 10 Units SUB-Q DAILY Days = 30 No Refills Comments: Last Taken: 06/08/16 Time: 10:30 AM Insulin Lispro (Humalog Kwikpen U-100) 100 UNIT/ML INSULN.PEN 0 SUB-Q SEE INSTRUCTIONS Days = 30 Refills = 2 Instructions: Blood sugar UNITS 80-150 2 151-200 3 201-250 4 251-300 5 301-350 6 351-400 7 The following medications have been changed: Old: Atorvastatin Calcium (Atorvastatin Calcium) 80 MG TABLET 1 Tablet ORAL DAILY New: Atorvastatin Calcium (Atorvastatin Calcium) 80 MG TABLET 1 Tablet ORAL DAILY Days = 30 Comments: NOT GIVEN IN HOSPITAL Copies To: LINDSEY GIBBS,MARYELLEN Gee; WALT GIBBS,JAVIER; TIANA GIBBS,MARCIE Ferrera; LAITH GIBBS,GAVIOTA Vargas Attending MD Review Statement Documenting Attending: AUGIE COPE MD Other Findings: The patient was seen and agree with the plan of care upon dischage.
== END 2016-06-08 17:45 | disposition home health service (06) | DRG 420 ==
LOC: ERH 02:32 → ERHI 04:09 → EDPENDDISTM 04:09 → ENPENDDIS 04:09 → CRI 04:09 → 2NB 06-03 22:39 → CRI 06-04 08:09
PROVIDERS: Emergency Medicine; Internal Medicine; Internal Medicine Interventional Cardiology; Student in an Organized Health Care Education/Training Program; ADMIT Student in an Organized Health Care Education/Training Program
DX: E11.65 Type 2 diabetes mellitus with hyperglycemia (principal); N17.9 Acute kidney failure, unspecified; E87.4 Mixed disorder of acid-base balance; E87.5 Hyperkalemia; N18.4 Chronic kidney disease, stage 4 (severe); L97.519 Non-pressure chronic ulcer of other part of right foot with unspecified severity; B35.3 Tinea pedis; I12.9 Hypertensive chronic kidney disease with stage 1 through stage 4 chronic kidney disease, or unspecified chronic kidney disease; L30.9 Dermatitis, unspecified; D64.9 Anemia, unspecified; E11.21 Type 2 diabetes mellitus with diabetic nephropathy; E11.319 Type 2 diabetes mellitus with unspecified diabetic retinopathy without macular edema; E11.40 Type 2 diabetes mellitus with diabetic neuropathy, unspecified; Z79.4 Long term (current) use of insulin; I73.9 Peripheral vascular disease, unspecified; E78.5 Hyperlipidemia, unspecified; Z87.891 Personal history of nicotine dependence
CPT/HCPCS: 2NBSP; 75657; 83835; CCU; 36415; 73630-RT; 80307; 81001; 82436; 87040; 87086; 93005; 93010; 93306; 93925; 96361; 96374; 97001-GP; 97110-GO; 97116-GO; 97530-GO; J0360; J1644; J1815; J3101; J7040; J7042

== ENCOUNTER 2016-07-07 12:12 | Inpatient (IN) | payer OTHER ==
[~2016-07-07] VITALS: Ht 165.1 cm; Wt 77.1 kg
[~2016-07-07 12:12] MED LIST changes: +ALLOPURINOL100 M1 PO; +AMLODIPINE BESY10 M1 PO; +ASPIRIN81 M4 PO; +ATORVASTATIN CA80 M1 PO; +BASAGLAR K100 UNIT/1 SQ; +BUMETANIDE1 M1 PO; +CALCIUM ACETAT667 M3 PO; +CLONIDINE HCL0.2 M1 PO; +DOXAZOSIN MESYLA2 M1 PO; +DOXAZOSIN MESYLA4 M1 PO; +FUROSEMIDE40 M1 PO; +GABAPENTIN100 M2 PO; +HUMALOG KW100 UNIT/1 SQ; +HYDRALAZINE HC100 M1 PO; +HYDRALAZINE HCL25 M1 PO; +HYDRALAZINE HCL50 M1 PO; +LASIX40 M1 PO; +LEVEMIR100 UNIT/1 SQ; +NITROSTAT0.4 M1 SL; +PRAVASTATIN SOD40 M2 PO; +SODIUM BICARBO325 M1 PO; +TRADJENTA5 M1 PO
--- NOTE | 2016-07-07 12:19 | NUR ---
PER PT LEGS SWOLLEN AND PAINFUL X 7-8 MONTHS, BLE CHRONIC PVD, ALSO HAS NO LIVER, HEART PAIN MEDS. KICKED OUT OF [facility] HOUSE RAN OUT CANT GET THEM BS IN TRIAGE 200
--- NOTE | 2016-07-07 13:41 | ED GENERAL ADULT ---
History of Present Illness General Chief Complaint: General Adult Stated Complaint: SWOLLEN FEET, HX OF DIABETES Source: patient Exam Limitations: no limitations Vital Signs & Intake/Output Vital Signs & Intake/Output Vital Signs Date Time Temp Pulse Resp B/P Pulse O2 O2 Flow FiO2 Ox Delivery Rate 07/08 1600 98.2 58 20 178/56 95 Room Air 07/08 1031 160/62 07/08 1031 160/62 07/08 0800 98.0 58 18 160/70 95 Room Air 07/08 0430 55 154/68 07/07 2300 98.3 60 18 160/78 96 Room Air 07/07 2056 60 160/78 ED Intake and Output 07/08 0000 07/07 1200 Intake Total 1500 Output Total 1225 Balance 275 Intake, IV 1100 Intake, Oral 400 Output, Urine 1225 Patient 170 lb Weight Triage Note: PER PT LEGS SWOLLEN AND PAINFUL X 7-8 MONTHS, BLE CHRONIC PVD, ALSO HAS NO LIVER, HEART PAIN MEDS. KICKED OUT OF GIRLFRIENDS HOUSE RAN OUT CANT GET THEM Triage Nurses Notes Reviewed? yes Onset: Gradual Duration: constant Timing: recent history Severity: moderate Severity Numbers: 5 HPI: Patient is a 60-year-old male with a past medical history of type 1 diabetes, diabetic nephropathy, retinopathy partial blindness, noncompliance with medications, hypertension, hyperlipidemia, who presents emergency room with his ex- for concerns that last week his girlfriend who has residency on their apartment and [place] kicked patient out of the house in which patient was intermittently living in his car with his daughter for the past week however he has been noncompliant with medications due to his blindness he cannot self administer this medication. His daughter and his girlfriend have been intermittently given patient his injections of insulin. Patient complains of chronic lower extremity pain. Patient denies any fever chills chest pain abdominal pain. Patient also has been complaining of worsening bilateral leg pain and skin irritation and dryness (FRANSISCO CAMPBELL,BEN) Allergies Coded Allergies: Fish Containing Products (Severe, RASH, BREATHING PROBLEM? 06/01/16) shellfish derived (Severe, RASH, BREATHING PROBLEM 07/08/16) Reconcile Medications Allopurinol 100 MG TABLET 1 TAB PO DAILY Gout (Reported) Amlodipine Besylate 10 MG TABLET 1 TAB PO DAILY Hypertension (Reported) Aspirin (Ecotrin*) 81 MG TABLET.DR 1 TAB PO DAILY HEART HEALTH (Reported) Atorvastatin Calcium 80 MG TABLET 1 TAB PO DAILY HYPERLIPIDEMIA Bumetanide 1 MG TABLET 1 TAB PO DAILY Heart (Reported) Calcium Acetate 667 MG CAPSULE 1 CAP PO TID Unknown (Reported) Clonidine HCl 0.2 MG TABLET 1 TAB PO QPM HTN (Reported) Doxazosin Mesylate 4 MG TABLET 1 TAB PO QPM HTN Furosemide 40 MG TABLET 1 TAB PO BID WATER PILL (Reported) Gabapentin 100 MG CAPSULE 1 CAP PO TID Neuropathy (Reported) Hydralazine HCl 50 MG TABLET 2 TAB PO BID HTN Insulin Glargine,Hum.rec.anlog (Basaglar Kwikpen U-100) 100 UNIT/ML (3 ML) INSULN.PEN 10 UNITS SQ DAILY DIABETES MELLITUS Insulin Lispro (Humalog Kwikpen U-100) 100 UNIT/ML INSULN.PEN 0 SQ SEE ADMIN CRITERIA DIABETES MELLITUS. Blood sugar UNITS 80-150 2 151-200 3 201-250 4 251-300 5 301-350 6 351-400 7 Linagliptin (Tradjenta) 5 MG TABLET 1 TAB PO DAILY DM (Reported) Nitroglycerin (Nitrostat) 0.4 MG TAB.SUBL 1 TAB SL AD PRN Chest pain ( Reported) 1st sign of attack; may repeat every 5 minutes until relief; if pain persists after 3 tablets in 15 minutes, prompt medical att Pravastatin Sodium (Pravachol) 40 MG TABLET 1 TAB PO DAILY CHOLESTEROL ( Reported) Sennosides (Senna) 8.6 MG TABLET 1 TAB PO QPM CONSTIPATION (Reported) Sodium Bicarbonate 325 MG TABLET 4 TAB PO BID METAB ACIDOSIS (Reported) (SERAFIN GIBBS,NOLAN) Past History Travel History Traveled to [place] past 21 day No Medical History Any Pertinent Medical History? 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 SISTER (Breast cancer). Relation not specified for: FH: diabetes mellitus FH: hypertension Hx Contributory? No (BEN POWERS) Review of Systems Review of Systems Constitutional: Reports: see HPI, malaise, weakness. EENTM: Reports: see HPI. Respiratory: Reports: no symptoms. Cardiovascular: Reports: no symptoms. GI: Reports: no symptoms. Genitourinary: Reports: no symptoms. Musculoskeletal: Reports: see HPI. Skin: Reports: see HPI. Neurological/Psychological: Reports: no symptoms. Hematologic/Endocrine: Reports: no symptoms. Immunologic/Allergic: Reports: no symptoms. All Other Systems: Reviewed and Negative (BEN POWERS) Physical Exam Physical Exam General Appearance: no apparent distress, comfortable Head: atraumatic Eyes: Bilateral: normal appearance. Ears, Nose, Throat: normal pharynx, normal ENT inspection Neck: normal inspection, supple Respiratory: normal breath sounds, chest non-tender Cardiovascular: regular rate/rhythm Peripheral Pulses: 2+ dorsalis pedis (R), 2+ dorsalis pedis (L) Gastrointestinal: normal bowel sounds, soft, non-tender Back: normal inspection Extremities: NOTED +1 PITTING EDEMA BILATERAL LEGS nOTED GENERALIZED ERYTHEMA NO WARMTH NOTED DRY CRACKING SKIN TO BILATERAL LEGS Neurologic/Psych: no motor/sensory deficits, awake Skin: intact Core Measures ACS in differential dx? No CVA/TIA Diagnosis: No Severe Sepsis Present: No Septic Shock Present: No (BEN POWERS) Progress Differential Diagnoses I considered the following diagnoses in my evaluation of the patient: [ Electrolyte abnormality, DKA, hypertension, hyperglycemia, electrolyte abnormality, kidney disease, PVD, DVT,] Plan of Care: Orders Procedure Date/time Status CBC WITHOUT DIFFERENTIAL 07/09 0600 Active BASIC ELECTROLYTES PLUS BUN&CR 07/09 0600 Active Anticipated Discharge 07/09 UNK Active Renal Dialysis Diet 07/08 D Active Change service to 07/08 0859 Active PHOSPHORUS 07/08 0615 Complete PARATHYROID HORMONE 07/08 0600 Complete PT Evaluate & Treat 07/08 UNK Active Lab Add-on Test 07/08 UNK Active Nursing Misc 07/08 UNK Active Elevate 07/08 UNK Active Activity/Ambulation 07/08 UNK Active Diet Message 07/08 UNK Active SOCIAL WORK CONSULT 07/08 UNK Active MISSING MEDICATION FORM 07/07 0304 Active Current Medications Sig/Michael Start time Last Medication Dose Stop Time Status Admin Clonidine 0.4 MG QPM 07/09 2200 CAN (Catapres) Clonidine 0.2 MG QPM 07/09 2199 AC (Catapres) Bumetanide 1 MG DAILY 07/09 1000 AC (Bumex) Insulin Detemir 10 UNITS DAILY 07/09 1000 AC (Levemir) Sodium Bicarbonate 1,300 MG BID 07/08 2199 AC (Sodium Bicarb 325MG Tab) Acetaminophen 650 MG Q8P PRN 07/07 1914 AC (Tylenol) Acetaminophen/ 1 TAB Q8P PRN 07/07 1914 AC Hydrocodone Bitart (Vicodin) Laboratory Tests 07/08/16 0615: Anion Gap 11, Estimated GFR 19 L, BUN/Creatinine Ratio 22.4, Glucose 88, Calcium 8.5, Phosphorus 5.1 H, Total Bilirubin 0.3, AST 12 L, ALT 21, Alkaline Phosphatase 83, Total Protein 6.2 L, Albumin 3.1 L, Globulin 3.1, Albumin/ Globulin Ratio 1.0 L, CBC w Diff NO MAN DIFF REQ, RBC 3.01 L, MCV 89.4, MCH 29.6, RDW 14.3, MPV 9.3, Gran % 63.3, Lymphocytes % 22.8, Monocytes % 10.4 H, Eosinophils % 3.0, Basophils % 0.5, Absolute Granulocytes 3.6, Absolute Lymphocytes 1.3, Absolute Monocytes 0.6, Absolute Eosinophils 0.2, Absolute Basophils 0, PUBS MCHC 33.1 07/08/16 0600: PTH Intact 229.1 H Patient currently is in no apparent distress however patient did have critical findings of elevated potassium with mild EKG peak T waves compared to previous EKG. Patient also has findings of acute on chronic renal failure which mild fluid resuscitation was warranted in the ER however patient was administered IV medications for his concerns of elevated potassium. Discussed admission with Dr. BETANCOURT to telemetry and he discussed admission to hospital staff Patient was made aware of disposition plan and agrees (BEN POWERS) Initial ED EKG: SINUS RHYTHM NOTED AT 67 BPM WITH MILD PEAKED t WAVES COMPARED TO PREVIOUS ekg Prior EKG: changed (BEN POWERS) Departure Departure Disposition: STILL A PATIENT Condition: Fair Clinical Impression Primary Impression: Hyperkalemia Secondary Impressions: [id number] renal failure, Hypertension, PVD ( peripheral vascular disease) Referrals: JAVIER GODOY MD (PCP/Family) Departure Forms: Customer Survey General Discharge Information Admission Note Spoke With: CRISTINA GOODMAN MD Documentation of Exam: Documentation of any treatments & extenuating circumstances including Concerns Regarding Discharge (functional status, medication knowledge or non-compliance, living conditions, etc.) that warrant an admission rather than observation: [ Patient will be admitted to telemetry under hospital staff for concerns of hyperkalemia which patient requires IV calcium gluconate, IV medications FOR potassium CORRECTION, nephrology consultation, cardiology consultation, telemetry monitoring repeat labs and wound care, outpatient treatment at this time due to critical findings would be medically harmful] (BEN POWERS) Admission Note Documentation of Exam: Documentation of any treatments & extenuating circumstances including Concerns Regarding Discharge (functional status, medication knowledge or non-compliance, living conditions, etc.) that warrant an admission rather than observation: PA/WIND PROJECTS SUPERVISOR Co-Sign Statement Statement: ED Attending supervision documentation- x I saw and evaluated the patient. I have also reviewed all the pertinent lab results and diagnostic results. I agree with the findings and the plan of care as documented in the PA's/WIND PROJECTS SUPERVISOR's documentation. [] I have reviewed the ED Record and agree with the PA's/WIND PROJECTS SUPERVISOR's documentation. [] Additions or exceptions (if any) to the PAs/WIND PROJECTS SUPERVISOR's note and plan are summarized below: [] (SERAFIN GIBBS,NOLAN) Critical Care Note Critical Care Note Critical Care Time: 30-74 min (BEN POWERS) Critical Care Note Critical Care Time: 30-74 min
--- NOTE | 2016-07-07 14:13 | NUR ---
BLOODWORK, SST (2), LAV,BLUE,RUSSELL, AND PINK TOP TUBES SENT TO LAB. MIXED VENOUS BLOOD GAS OBTAINED, RESP PAGED FOR MEDICAL RECORD LIBRARIAN OF SPECIMEN.
[2016-07-07 14:14] LABS: ABSOLUTE BASOPHIL COUNT 0 /CUMM (0.0-0.2); ABSOLUTE EOSINOPHIL COUNT 0.2 /CUMM (0.0-0.7); ABSOLUTE GRANULOCYTE CT 6.5 /CUMM (1.4-6.5); ABSOLUTE LYMPH COUNT 0.9 /CUMM (1.2-3.4); ABSOLUTE MONOCYTE COUNT 0.7 /CUMM (0.10-0.60); BASOPHIL % 0.4 % (0.0-2.0); EOSINOPHIL % 2.5 % (0-5); GRANULOCYTE % 77.9 % (42.2-75.2); HEMATOCRIT 32.7 % (42-52); MEAN CORPUSCULAR HGB 29.3 PG (27.0-31.0); MEAN CORPUSCULAR HGB CONC 32.9 G/DL (33.0-37.0); MEAN PLATELET VOLUME 8.9 FL (7.4-10.4); PLATELET COUNT 221 /CUMM (130-400); RBC DISTRIBUTION WIDTH 14.2 % (11.5-14.5); RED BLOOD CELL CT 3.67 /CUMM (4.70-6.10); WHITE BLOOD CELL COUNT 8.3 /CUMM (4.8-10.8)
--- NOTE | 2016-07-07 14:30 | NUR ---
SPOKE WITH RESP THERAPIST ALICE TO CONSTRUCTION SITE MANAGER VBG SPECIMEN.
--- NOTE | 2016-07-07 14:37 | NUR ---
CRITICAL TEST RESULTS [id number] TANI NESS 60 M TESTS AND RESULTS: POTASSIUM: 6.3 Results received and read back by: DAVID CHI Results received date and time: 07/07/16 1437 The following provider was notified of the results, and read the results back: BEN CAMPBELL. Notified date and time: 07/07/16 at 1437
--- NOTE | 2016-07-07 15:04 | NUR ---
IVF'S NS 1L BOLUS INFUSING ORDERED. URINAL GIVEN PER PT REQUEST.
--- NOTE | 2016-07-07 15:23 | NUR ---
BP 209/105, HEART RATE 69, BEN CAMPBELL AWARE, AT BEDSIDE FOR RE-EVAL AND SPEAK WITH PT AND FOR PROBABLE ADMISSION.
[2016-07-07] MEDS ORDERED: SENNA8.6 M3 PO (15:24)
[2016-07-07] MEDS ORDERED: FUROSEMIDE40 M1 PO (15:24)
[2016-07-07] MEDS ORDERED: ASPIRIN EC81 M1 PO (15:25)
[2016-07-07] MEDS ORDERED: PRAVACHOL40 M1 PO (15:25)
[2016-07-07] MEDS ORDERED: SODIUM BICARBO325 M1 PO (15:26)
[2016-07-07] MEDS ORDERED: TRADJENTA5 M1 PO (15:28)
--- NOTE | 2016-07-07 15:48 | NUR ---
MED ORDERED WITH 1 AMP D50 IV, REGULAR INSULIN 10 UNITS IV, NORVASC 10MG PO, TOLERATED WELL, CALCIUM GLUCONATE 1GM IV INFUSING OVER 1 HOUR WITHOUT DIFFICULTY AT THIS TIME.
--- NOTE | 2016-07-07 16:09 | NUR ---
MED WITH LABETOLOL 10MG IV FOR HIGH BP, WITH GOOD EFFECT, REPEAT BP 156/70, HEART RATE 63, WILL CONTINUE TO MONITOR. PT CONTINUES TO DENY CHEST PAIN OR SOB, ONLY COMPLAINT "MY FEET HURT".
--- NOTE | 2016-07-07 16:21 | NUR ---
[facility] assignment [phone]
--- NOTE | 2016-07-07 16:35 | Admission Certification ---
Admission Certification Certification Statement - As attending physician, I certify that at the time of - admission, based on clinical presentation, severity of - symptoms, need for further diagnostic testing and - therapeutic interventions, and risk of adverse outcomes - without in-hospital treatment, in my clinical assessment, - this patient requires an acute hospital stay for a minimum - of two nights or longer. I have also considered psychsocial - factors such as support system, advanced age, financial - issues, cognitive issues, and failed out-patient treatments, - past re-admission history, safety of patient, and lack of - compliance as applicable. Specific rationale supporting this admission is: Hyperkalemia and Diabetes in pt with CKD advanced
--- NOTE | 2016-07-07 16:42 | NUR ---
REPEAT BP: 163/71, HEART RATE: 61, O2 SAT 97% ON ROOM AIR. PT HAS NO COMPLAINTS AT THIS TIME. REPORT CALLED TO TELE NURSE
--- NOTE | 2016-07-07 16:56 | History & Physical ---
JIMMY MENDEZ MD 07/07/16 7464: General Information and HPI MD Statement: I have seen and personally examined TANI ROBLERO and documented this H&P. The patient is a 60 year old M who presented with a patient stated chief complaint of bilateral lower extremity pain/rash as well as running out of his medications Source of Information: patient Exam Limitations: no limitations History of Present Illness: Mr. Roblero is a pleasant 60 year old male with PMH HTN, HLD, diabetes mellitus type 1, diabetic nephropathy (CKD stage 4), diabetic retinopathy, diabetic neuropathy, asthma, cholelithiasis, and history of medication non-compliance who presented to the [facility] ED today with chief complaint of bilateral lower extremity rash as well as running out of his medications for 1 week. Patient is noted to have been displaced from his apartment and for the last five days has been living in his car. During this time, he was unable to administer his own medications, including his insulin. Patient also notes he has chronic bilateral lower extremity erythema with overlaying rash that has been present for over six months, but the pain from this rash was severe this morning, promting a visit to the ED. Currently, patient admits to occasional chills, diaphoresis, polyuria, polydipsia and pain of his bilateral lower extremities. He reports the lower extremity rash worsens with increased soap use and drying of the skin. Patient currently denies fever, confusion, dizziness, chest pain, palpitations, shortness of breath, abdominal pain, dysuria orweakness. Social history is negative for tobacco or ilicit drug use. He currently resides in a car. He was recently discharged from [facility] on 06/24/16 after an admission for hyperglycemia. Allergies/Medications Allergies: Coded Allergies: Fish Containing Products (Severe, RASH, BREATHING PROBLEM? 06/01/16) Uncoded Allergies: SEAFOOD (Severe, RASH, BREATHING PROBLEM 06/01/16) Home Med list Allopurinol 100 MG TABLET 1 TAB PO DAILY Gout (Reported) Amlodipine Besylate 10 MG TABLET 1 TAB PO DAILY Hypertension (Reported) Aspirin (Ecotrin*) 81 MG TABLET.DR 1 TAB PO DAILY HEART HEALTH (Reported) Atorvastatin Calcium 80 MG TABLET 1 TAB PO DAILY HYPERLIPIDEMIA Bumetanide 1 MG TABLET 1 TAB PO DAILY Heart (Reported) Calcium Acetate 667 MG CAPSULE 1 CAP PO TID Unknown (Reported) Clonidine HCl 0.2 MG TABLET 2 TAB PO QPM HTN (Reported) Doxazosin Mesylate 4 MG TABLET 1 TAB PO QPM HTN Furosemide 40 MG TABLET 1 TAB PO BID WATER PILL (Reported) Gabapentin 100 MG CAPSULE 1 CAP PO TID Neuropathy (Reported) Hydralazine HCl 50 MG TABLET 2 TAB PO BID HTN Insulin Glargine,Hum.rec.anlog (Basaglar Kwikpen U-100) 100 UNIT/ML (3 ML) INSULN.PEN 10 UNITS SQ DAILY DIABETES MELLITUS Insulin Lispro (Humalog Kwikpen U-100) 100 UNIT/ML INSULN.PEN 0 SQ SEE ADMIN CRITERIA DIABETES MELLITUS. Blood sugar UNITS 80-150 2 151-200 3 201-250 4 251-300 5 301-350 6 351-400 7 Linagliptin (Tradjenta) 5 MG TABLET 1 TAB PO DAILY DM (Reported) Nitroglycerin (Nitrostat) 0.4 MG TAB.SUBL 1 TAB SL AD PRN Chest pain ( Reported) 1st sign of attack; may repeat every 5 minutes until relief; if pain persists after 3 tablets in 15 minutes, prompt medical att Pravastatin Sodium (Pravachol) 40 MG TABLET 1 TAB PO DAILY CHOLESTEROL ( Reported) Sennosides (Senna) 8.6 MG TABLET 1 TAB PO QPM CONSTIPATION (Reported) Sodium Bicarbonate 325 MG TABLET 4 TAB PO BID METAB ACIDOSIS (Reported) Compliance With Home Meds: POOR Past History Travel History Traveled to [place] past 21 day No Medical History EENT: cataracts Cardiovascular: hypertension, hyperlipidemia Respiratory: asthma Gastrointestinal: NONE Hepatic: NONE Renal: chronic kidney disease Musculoskeletal: NONE Psychiatric: NONE Endocrine: diabetes Blood Disorders: anemia Cancer(s): NONE 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 SISTER (Breast cancer). Relation not specified for: FH: diabetes mellitus FH: hypertension Psychosocial History Where do you live? Other (Car) Who Do You Live With? self Services at Home: None Primary Language: Niuean ETOH Use: denies use Illicit Drug Use: denies illicit drug use Functional Ability ADLs Independent: dressing, eating, toileting, bathing. Employment History Employment Retired Review of Systems Review of Systems Constitutional: Reports: chills, diaphoresis. Denies: fever. EENTM: Reports: see HPI. Denies: nasal congestion, throat pain. Cardiovascular: Denies: chest pain, palpitations. Respiratory: Denies: cough, short of breath, sputum production. GI: Denies: abdominal pain, bloating, constipation, diarrhea, nausea. Genitourinary: Reports: frequency. Denies: dysuria. Musculoskeletal: Reports: see HPI, muscle pain (Bilateral calf pain). Skin: Reports: dryness, erythema, rash. Neurological/Psychological: Reports: paresthesia (Neuropathy). Denies: confusion, headache, tremors. Hematologic/Endocrine: Reports: polyuria, polydipsia. Denies: bruising, bleeding. Immunologic/Allergic: Denies: splenectomy. All Other Systems: Reviewed and Negative Exam & Diagnostic Data Last 24 Hrs of Vital Signs/I&O Vital Signs Date Time Temp Pulse Resp B/P Pulse O2 O2 Flow FiO2 Ox Delivery Rate 07/07 1726 98.2 62 16 178/78 96 Room Air 07/07 1642 61 18 163/71 97 Room Air Room Air 07/07 1615 63 20 156/70 98 Room Air Room Air 07/07 1608 97.9 69 20 192/90 07/07 1548 97.9 69 192/90 07/07 1530 192/90 07/07 1521 97.9 69 20 209/105 95 Room Air Room Air 07/07 1424 97.7 66 18 198/88 07/07 1220 98.0 79 20 144/78 95 Room Air Intake & Output 07/07 1600 / 0800 07/07 0000 Intake Total 1000 Output Total Balance 1000 Intake, IV 1000 Patient 170 lb Weight Physical Exam General Appearance Alert, Oriented X3, Cooperative, No Acute Distress Skin Bilateral lower extremity erythema with overlaying dryness. Fungal infection of all ten toes noted. RLE noted to be more edematous/swollen., Left eyebrow 1cm x 1cm lesion (patient reports girlfriend removed a white mole from the area 2 days ago). HEENT Atraumatic, EOMI, Mucous Membr. moist/pink Neck Supple, No thryomegaly, +2 Carotid Pulse wo Bruit Lymphatic Cervical nl Cardiovascular Regular Rate, Normal S1, Normal S2, +Systolic ejection murmur noted Lungs Clear to Auscultation, Normal Air Movement Abdomen Normal Bowel Sounds, Soft, No Tenderness, Obese Neurological Normal Speech, Strength at 5/5 X4 Ext, Normal Tone Extremities No Clubbing, No Cyanosis, Bilateral lower extremity edema in setting of warmth, erythema and skin changes. Vascular Pulses Symmetrical Last 24 Hrs of Labs/Eduardo: Laboratory Tests 07/07/16 1650: Lactic Acid Cancelled 07/07/16 1510: Urine Color YEL, Urine Clarity CLEAR, Urine pH 7.0, Ur Specific [place] 1.020, Urine Protein 100 H, Urine Ketones NEG, Urine Nitrite NEG, Urine Bilirubin NEG, Urine Urobilinogen 0.2, Ur Leukocyte Esterase NEG, Ur Microscopic SEDIMENT EXAMINED, Urine RBC 5-10 H, Urine WBC RARE, Ur Epithelial Cells RARE, Urine Hemoglobin SMALL H, Urine Glucose 100 H 07/07/16 1400: Bicarbonate Actual 26, Mixed VBG pH 7.38, Mixed VBG pCO2 46, Mixed VBG O2 Saturation 41, Carboxyhemoglobin 0.5 L, O2 Concentration % EA, Anion Gap 12, Estimated GFR 18 L, BUN/Creatinine Ratio 22.3, Glucose 229 H, Lactic Acid 0.6 L, Calcium 9.3, Magnesium 2.3, Total Bilirubin 0.4, AST 15 L, ALT 24, Alkaline Phosphatase 122, Total Protein 7.7, Albumin 4.1, Globulin 3.6, Albumin/Globulin Ratio 1.1, CBC w Diff NO MAN DIFF REQ, RBC 3.67 L, MCV 89.0, MCH 29.3, RDW 14.2 , MPV 8.9, Gran % 77.9 H, Lymphocytes % 11.1 L, Monocytes % 8.1, Eosinophils % 2.5, Basophils % 0.4, Absolute Granulocytes 6.5, Absolute Lymphocytes 0.9 L, Absolute Monocytes 0.7 H, Absolute Eosinophils 0.2, Absolute Basophils 0, PUBS MCHC 32.9 L, Phlebotomy Draw Site AC/VENOUS, Acetone Level NEGATIVE Microbiology 07/07 1737 BLOOD: Blood Culture - ORD 07/07 1737 BLOOD: Blood Culture - ORD Diagnostic Data EKG Results NSR, HR 67, QTC 418, AK prolonged to 213 ms. Assessment/Plan Assessment: Mr. 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 In the ED: Vital signs showed T 98.0, HR 79, RR 20, BP 209/105, and O2 saturation of 95% on RA. Labs showed CBC with mild normocytic anemia to 10.7/ 32.7 (baseline). BEP was significant for hyperkalemia to 6.3 and abnormal renal function to 78/3.5. Glu 229. Lactic acid 0.6. Acetone level negative. UA showed small Hgb, 100 glu, and high protein. Patient is admitted to the telemetry floor and the following is the management: 1. Hypertensive urgency * BP on admission elevated to 209/105; this is associated with acute worsening renal function (end-organ damage) * Patient has been given norvasc and labetolol in ED with good BP response * Monitor vital signs every shift * For now we will resume amlodipine 10 mg PO daily, hydralazine 100 gm PO BID and lasix 40 gm PO BID * We will hold home clonidine and bumetanide for now so as not to lower the blood pressure too rapidly, consider restarting if BP remains significantly elevated 2. Hyperkalemia * K of 6.3 on admission * Patient given 500 cc bolus NS in the ED along with dextrose, regular insulin and calcium gluconate in the ED * EKG shows no concerning signs or peaked T waves * Repeat BEP at 6 pm and if K remains elevated, will give kayexalate * Repeat BEP in AM * Continuous tele monitoring for arrythmias 3. Uncontrolled diabetes mellitus * Glu of 229 on admission * Insulin levemir 5 U SC daily * Moderate dose novolog sliding scale * Accuchecks TIDAC/HS * Continue gabapentin for diabetic neuropathy 4. Acute on chronic renal failure with CKD stage 4 * Patient s/p 500 cc fluid bolus * Monitor BEP daily * Renal consult placed for renal replacement therapy, follow up recommendations 5. Bilateral lower extremity rash * DDx: Fungal infection, cellulitis, DVT of RLE * Blood cultures ordered, f/u results * IV ancef for possible cellulitis * Doppler RLE to rule out DVT, follow up results * Monitor for fevers, leukocytosis * Wound consult to be placed in AM FULL CODE DVTP: SC Heparin Mild pain pathway Diabetic diet As Ranked By This Provider Problem List: 1. Hypertensive urgency 2. [id number] renal failure 3. Tinea pedis 4. Hyperkalemia 5. Hyperglycemia 6. Diabetes Core Measures/Miscellaneous Acute Coronary Syndrome ACS Diagnosis: No Cerebrovascular Accident CVA/TIA Diagnosis: No Congestive Heart Failure CHF Diagnosis: No Venous Thromboembolism VTE Risk Factors: Acute medical illness, Age > 40, Obesity VTE Prophylaxis Ordered Inpt: Mech & Pharm No Mech VTE prophylaxis d/t: No contraindications No VTE Pharm Prophylaxis d/t: No contraindications VTE Diagnosis: No VTE Type: NONE VTE Confirmed by (Test): NONE Severe Sepsis Severe Sepsis Present: No Septic Shock Septic Shock Present: No Miscellaneous Documentation Attending Case Discussed With: REX GIBBS,CRISTINA Nur Primary Care Physician: JAVIER GODOY MD Patient sees these Specialists Unknown. Level of Patient Care: Telemetry RADHA BARTH 07/07/16 1656: Resident Review Statement Resident Statement: examined this patient, discussed with internet e commerce specialist, agreed with internet e commerce specialist Other Findings: Patient is 60 year old male with PMH of type 1 diabetes, HTN, CKD stage 4, b/l lower extremety swelling was brought to ER with chief complain of b/l lower extremety reddness and swelling. Patient reports that he has been living in the car since 1 day and he ran out of his medications since 1 week. Last time he was admitted to was from 06/01-06/08 with DKA. His Echo showed normal EF and b/l lower ext doppler was not significant for DVT. Patient states his b/l lower ext reddness and swelling has worsened since past 1 week, denies any fever/chills. Patient reports of 10/10 pain in b/l lower extremety and reports that it is progressively worse. he did not follow up with PCP after his disxcharge. Labs and imaging as above On examination, reddish discoloration of b/l foot till lower third of tibia with flaky skin, patient reports that he had some kind of fungal skin infection 6 months ago? No open areas of necrosis or open wounds. Right lower extremety swollen compared to leg leg. Chest clear to auscultation. Unable to palpate lower extremety pulses due to edema. Problem list assessmenta and Plan b/l lower extremety reddness and swelling Hypertensive urgency SAMSON on CKD Hyperkalemia Diabetes Mellitus Will admit to [facility] floor, start patient on home dose of 40 PO lasix BID for lower ext swelling, give him cephazolin for possible cellulitis, will obtain 2 sets of BC, will obtain doppler right lower ext to rule out DVT. Hyperkalemia, patient got insulin and calcium gluconate in ER, will recheck BEP at 7 pm and give kayexelate if Potassium continues to be elevated. Patient's BP in ER was 204/84, he has not taken his medications since 1 week. He was given labetalol and amlodipine in ER and he responded to that. Will restart him on his home medications including amlodipin, lasix 40 BID and hydralazine 100 bid. If BP continues to be elevated, can restart him on Clonidine and bumatenide as well. Patient has stage 4 CKD, his new baseline creatinine looks like around 3, he may need renal replacement therapy in future, will call nephro consult in am. DVT ppx SC heprin Patient is full code. REX GIBBS,CRISTINA 07/08/16 0859: Attending MD Review Statement Attending Statement Attending MD Statement: examined this patient, discuss w/resident/PA/BRONZER, agreed w/resident/PA/BRONZER, reviewed EMR data (avail), reviewed images Attending Assessment/Plan: See medical brief addendum note dated 07/07/16
[2016-07-07 17:26] VITALS: BP 178/78
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
--- NOTE | 2016-07-07 22:22 | ULTRASOUND REPORT ---
EXAMINATION: US TRIPLEX LOWER EXTREMITY, RIGHT CLINICAL INFORMATION: Right lower extremity erythema and swelling. COMPARISON: None TECHNIQUE: Color-flow triplex imaging with spectral analysis and compression Doppler were performed on the right lower extremity. FINDINGS: Respiratory variation, normal compression and augmented flow are noted throughout the lower extremity. The visualized common femoral vein, superficial femoral vein, profunda femoral vein, popliteal vein and midcalf peroneal and posterior tibial venous segments show no evidence of deep venous thrombosis. There is no Crawford's cyst. Incidentally seen are prominent lymph nodes in the right groin with benign morphology. IMPRESSION: Normal triplex scan without evidence of deep venous thrombosis involving the right lower extremity.
[2016-07-07 23:00] VITALS: BP 160/78
[2016-07-08 04:30] VITALS: BP 154/68
--- NOTE | 2016-07-08 07:00 | PN- Housestaff ---
JIMMY MENDEZ MD 07/08/16 0700: Subjective Follow-up For: Hypertensive urgency Hyperkalemia Uncontrolled DM Acute on chronic renal failure with CKD stage 4 LE chronic venous stasis changes Subjective: Patient seen and evaluated at bedside this AM. He was sleeping comfortably and offered no complaints. He reports the current pain regimen is controlling his pain, though they remain slightly itchy. He denies fever, chills, chest pain, shortness of breath or weakess. Review of Systems Constitutional: Denies: chills, fever. EENTM: Denies: double vision, nasal congestion. Cardiovascular: Denies: chest pain, palpitations. Respiratory: Denies: cough, short of breath. Gastrointestinal: Denies: abdominal pain, nausea, vomiting. Genitourinary: Denies: dysuria. Musculoskeletal: Reports: muscle pain (Bilateral lower extremities). Denies: back pain. Skin: Reports: erythema, rash. Neurological/Psychological: Denies: confusion, headache. Hematologic/Endocrine: Denies: bruising, bleeding. Objective Last 24 Hrs of Vital Signs/I&O Vital Signs Date Time Temp Pulse Resp B/P Pulse O2 O2 Flow FiO2 Ox Delivery Rate 07/08 1031 160/62 07/08 1031 160/62 07/08 0800 98.0 58 18 160/70 95 Room Air 07/08 0430 55 154/68 07/07 2300 98.3 60 18 160/78 96 Room Air 07/07 2056 60 160/78 07/07 1726 98.2 62 16 178/78 96 Room Air 07/07 1642 61 18 163/71 97 Room Air Room Air 07/07 1615 63 20 156/70 98 Room Air Room Air 07/07 1608 97.9 69 20 192/90 07/07 1548 97.9 69 192/90 07/07 1530 192/90 07/07 1521 97.9 69 20 209/105 95 Room Air Room Air 07/07 1424 97.7 66 18 198/88 07/07 1220 98.0 79 20 144/78 95 Room Air Intake & Output 07/08 1600 07/08 0800 07/08 0000 Intake Total 120 500 Output Total 300 1225 Balance -180 -725 Intake, IV 100 Intake, Oral 120 400 Output, Urine 300 1225 Patient 170 lb Weight Physical Exam General Appearance: Alert, Oriented X3, Cooperative, No Acute Distress Skin: Bilateral lower extremity erythema with overlaying skin peeling/dryness. Noted fissures at base of bilateral large toes. RLE swelling more prominent than LLE. HEENT: Atraumatic, Mucous Membr. moist/pink Neck: No thryomegaly, +2 Carotid Pulse wo Bruit Lymphatic: Cervical nl Cardiovascular: Regular Rate, Normal S1, Normal S2, No Murmurs Lungs: Clear to Auscultation, Normal Air Movement Abdomen: Normal Bowel Sounds, Soft, No Tenderness Neurological: Normal Speech, Strength at 5/5 X4 Ext, Normal Tone Extremities: No Clubbing, No Cyanosis, + swelling of bilateral lower extremities , R>L., Chronic venous stasis changes also evident. Current Medications: Current Medications Sig/Michael Start time Last Medication Dose Route Stop Time Status Admin Acetaminophen 650 MG Q8P PRN 07/07 1914 AC PO Acetaminophen/ 1 TAB Q8P PRN 07/07 1914 AC Hydrocodone Bitart PO Amlodipine Besylate 10 MG DAILY 07/08 1000 AC 07/08 PO 1031 Amlodipine Besylate 10 MG DAILY 07/07 1733 DC PO Amlodipine Besylate 0 .STK-MED ONE 07/07 1536 DC PO Amlodipine Besylate 10 MG ONCE ONE 07/07 1530 DC 07/07 PO 07/07 1531 1548 Aspirin Buffered 81 MG DAILY 07/07 1735 AC 07/08 PO 1028 Bacitracin 1 ALISIA DAILY 07/08 1023 AC 07/08 TOP 1029 Calcium Gluconate 0 .STK-MED ONE 07/07 1536 DC IV Calcium Gluconate 1 GM ONCE ONE 07/07 1530 DC 07/07 Sodium Chloride 100 ML IV 07/07 1629 1548 Cefazolin Sodium 500 MG Q12H 07/07 2000 DC 07/07 IV 205 Dextrose 0 .STK-MED ONE 07/07 1536 DC IV Dextrose 25 GM ONCE ONE 07/07 1530 DC 07/07 IV 07/07 1531 1548 Furosemide 40 MG BID 07/070 DC 07/07 PO 2057 Gabapentin 100 MG TID 07/07 1735 AC 07/08 PO 1028 Heparin Sodium 5,000 UNIT Q8 07/07 2200 AC 07/08 (Porcine) SC 0610 Hydralazine HCl 100 MG BID 07/08 1000 AC 02/16 PO 1031 Hydralazine HCl 100 MG BID 07/07 2199 DC PO Hydralazine HCl 100 MG BID 07/07 1915 DC 07/08 PO 0447 Insulin Aspart 0 TIDAC 07/08 0800 AC SC Insulin Detemir 10 UNITS DAILY 07/09 1000 AC SC Insulin Detemir 5 UNITS DAILY 07/07 1745 DC 07/08 SC 1029 Insulin Human Regular 10 UNITS ONCE ONE 07/07 1530 DC 07/07 IV 07/07 1531 1548 Labetalol HCl 10 MG ONCE ONE 07/07 1600 DC 07/07 IV 07/07 1601 1608 Labetalol HCl 0 .STK-MED ONE 07/07 1554 DC IV Pravastatin Sodium 40 MG 1700 07/08 1700 AC PO Sodium Bicarbonate 1,300 MG BID 07/07 2200 AC 07/08 PO 1028 Sodium Chloride 500 ML BOLUS ONE 07/07 1445 DC 07/07 IV 07/07 1544 1459 Sodium Polystyrene 120 ML ONCE ONE 07/07 1999 DC 07/07 Sulfonate PO 07/07 Last 24 Hrs of Lab/Eduardo Results Last 24 Hrs of Labs/Mics: Laboratory Tests 07/08/16 0615: Anion Gap 11, Estimated GFR 19 L, BUN/Creatinine Ratio 22.4, Glucose 88, Calcium 8.5, Total Bilirubin 0.3, AST 12 L, ALT 21, Alkaline Phosphatase 83, Total Protein 6.2 L, Albumin 3.1 L, Globulin 3.1, Albumin/Globulin Ratio 1.0 L, CBC w Diff NO MAN DIFF REQ, RBC 3.01 L, MCV 89.4, MCH 29.6, RDW 14.3, MPV 9.3, Gran % 63.3, Lymphocytes % 22.8, Monocytes % 10.4 H, Eosinophils % 3.0, Basophils % 0.5, Absolute Granulocytes 3.6, Absolute Lymphocytes 1.3, Absolute Monocytes 0.6, Absolute Eosinophils 0.2, Absolute Basophils 0, PUBS MCHC 33.1 07/07/16 1800: Anion Gap 9, Estimated GFR 19 L, BUN/Creatinine Ratio 22.7 07/07/16 1650: Lactic Acid Cancelled 07/07/16 1510: Urine Color YEL, Urine Clarity CLEAR, Urine pH 7.0, Ur Specific Stephenson 1.020, Urine Protein 100 H, Urine Ketones NEG, Urine Nitrite NEG, Urine Bilirubin NEG, Urine Urobilinogen 0.2, Ur Leukocyte Esterase NEG, Ur Microscopic SEDIMENT EXAMINED, Urine RBC 5-10 H, Urine WBC RARE, Ur Epithelial Cells RARE, Urine Hemoglobin SMALL H, Urine Glucose 100 H 07/07/16 1400: Bicarbonate Actual 26, Mixed VBG pH 7.38, Mixed VBG pCO2 46, Mixed VBG O2 Saturation 41, Carboxyhemoglobin 0.5 L, O2 Concentration % EA, Anion Gap 12, Estimated GFR 18 L, BUN/Creatinine Ratio 22.3, Glucose 229 H, Lactic Acid 0.6 L, Calcium 9.3, Magnesium 2.3, Total Bilirubin 0.4, AST 15 L, ALT 24, Alkaline Phosphatase 122, Total Protein 7.7, Albumin 4.1, Globulin 3.6, Albumin/Globulin Ratio 1.1, CBC w Diff NO MAN DIFF REQ, RBC 3.67 L, MCV 89.0, MCH 29.3, RDW 14.2 , MPV 8.9, Gran % 77.9 H, Lymphocytes % 11.1 L, Monocytes % 8.1, Eosinophils % 2.5, Basophils % 0.4, Absolute Granulocytes 6.5, Absolute Lymphocytes 0.9 L, Absolute Monocytes 0.7 H, Absolute Eosinophils 0.2, Absolute Basophils 0, PUBS MCHC 32.9 L, Phlebotomy Draw Site AC/VENOUS, Acetone Level NEGATIVE Microbiology 07/07 1820 BLOOD: Blood Culture - RECD 07/07 1800 BLOOD: Blood Culture - RECD Orders Miscellaneous Findings: Venous doppler: IMPRESSION: Normal triplex scan without evidence of deep venous thrombosis involving the right lower extremity. Assessment/Plan Assessment: Mr. 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 In the ED: Vital signs showed T 98.0, HR 79, RR 20, BP 209/105, and O2 saturation of 95% on RA. Labs showed CBC with mild normocytic anemia to 10.7/ 32.7 (baseline). BEP was significant for hyperkalemia to 6.3 and abnormal renal function to 78/3.5. Glu 229. Lactic acid 0.6. Acetone level negative. UA showed small Hgb, 100 glu, and high protein. Patient is admitted to the telemetry floor and the following is the management: 1. Hypertensive urgency * BP on admission elevated to 209/105; this is associated with acute worsening renal function (end-organ damage) * Patient has been given norvasc and labetolol in ED with good BP response * Monitor vital signs every shift * For now we will resume amlodipine 10 mg PO daily, hydralazine 100 gm PO BID * Lasix on hold 2/2 acute on chronic renal dysfunction * We will hold home clonidine and bumetanide for now so as not to lower the blood pressure too rapidly, consider restarting if BP remains significantly elevated 2. Hyperkalemia * K of 6.3 on admission * Patient given 500 cc bolus NS in the ED along with dextrose, regular insulin and calcium gluconate in the ED * EKG shows no concerning signs or peaked T waves, continuous tele monitoring for arrythmias * Patient s/p 120 mL kayexalate, K this AM came down to 5.1 3. Uncontrolled diabetes mellitus * Glu of 229 on admission * Insulin levemir 10 U SC daily * Moderate dose novolog sliding scale * Accuchecks TIDAC/HS * Continue gabapentin for diabetic neuropathy 4. Acute on chronic renal failure with CKD stage 4 * Patient s/p 500 cc fluid bolus * Monitor BEP daily * Renal consult placed for renal replacement therapy, follow up recommendations * Bilateral renal US ordered to rule out post-obstructive cause of worsening renal failure 5. Bilateral lower extremity rash * Likely PVD changes with overlaying skin dryness * IV ancef discontinued as lower extremity erythema likely 2/2 PVD * Aloe vesta (petroleum based) to be placed Q shift, continue leg elevation * F/U blood cultures * Doppler RLE to rule out DVT was negative * Wound consult with Dr. Smyth placed, f/u recommendations 6. Social * Patient currently living in a car * Social work consult placed, f/u recommendations for discharge plannign FULL CODE DVTP: SC Heparin Mild pain pathway Diabetic diet Problem List: 1. Hypertensive urgency 2. Tinea pedis 3. [id number] renal failure 4. Hyperkalemia 5. PVD (peripheral vascular disease) Pain Ratin Pain Location: Bilateral lower extremities Pain Goal: Pain 4 or less Pain Plan: Tylenol for mild pain. Tomorrow's Labs & Rationales: CBC (drop in H&H), BEP (acute on chronic renal failure) DESIREE CASTELLANO MD 07/08/16 1119: Attending MD Review Statement Attending Statement Attending MD Statement: examined this patient, discuss w/resident/PA/GREASE REFINING SUPERVISOR, agreed w/resident/PA/GREASE REFINING SUPERVISOR, reviewed EMR data (avail), discussed with nursing, discussed with case mgmt, amended to note Attending Assessment/Plan: Patient seen and examined. Lying comfortably in bed and not in acute distress. No events overnight on telemetry. Denies chest pain. Denies shortness of breath. The pressure is better controlled this morning. On examination lungs are clear to auscultation bilaterally. Heart sounds are regular he does have a 2/6 pansystolic murmur. He has bilateral lower extremity edema worse on the right lower extremity. Very mild erythema bilaterally. He has extensive dry skin with scaling of the skin bilaterally. House and nontender. He has some healed wounds on the toes and extensive onychomycosis Echocardiogram reports normal ejection fraction, mild aortic stenosis and evidence of pulmonary hypertension. Problems: 1. Uncontrolled hypertension secondary to medication noncompliance 2. Uncontrolled diabetes secondary to medication noncompliance 3. Mild aortic stenosis 4. Pulmonary hypertension 5. Bilateral lower extremity edema secondary to venous stasis. 6. Chronic kidney disease stage IV. Plan: -Continue current antihypertensive regimen. We'll hold his diuretic therapy for now given his worsening renal function. -His clonidine and Cardura may be resumed upon discharge in other to avoid aggressive drop in his blood pressure for now. Will refer recommendations regarding his diuretic therapy to the nephrology service following evaluation. -Obtain renal sonogram to rule out underlying structural or obstructive disease. -Resume his home insulin dose and monitor response closely. -We'll discontinue antibiotic therapy for now as his bilateral lower extremity edema do not appear to be secondary to infection. He has no leukocytosis or fever. Dopplers have shown no evidence of DVT. Recommend leg elevation and generous application of skin lubricant. -Mobilize patient. -balcony worker consultation for assistance with obtaining his medications.
[2016-07-08 08:00] VITALS: BP 160/70
[2016-07-08 08:20] LABS: ABSOLUTE BASOPHIL COUNT 0 /CUMM (0.0-0.2); ABSOLUTE EOSINOPHIL COUNT 0.2 /CUMM (0.0-0.7); ABSOLUTE GRANULOCYTE CT 3.6 /CUMM (1.4-6.5); ABSOLUTE LYMPH COUNT 1.3 /CUMM (1.2-3.4); ABSOLUTE MONOCYTE COUNT 0.6 /CUMM (0.10-0.60); BASOPHIL % 0.5 % (0.0-2.0); GRANULOCYTE % 63.3 % (42.2-75.2); MEAN CORPUSCULAR HGB 29.6 PG (27.0-31.0); MEAN CORPUSCULAR HGB CONC 33.1 G/DL (33.0-37.0); MEAN CORPUSCULAR VOLUME 89.4 FL (80.0-94.0); MEAN PLATELET VOLUME 9.3 FL (7.4-10.4); PLATELET COUNT 193 /CUMM (130-400); RBC DISTRIBUTION WIDTH 14.3 % (11.5-14.5); RED BLOOD CELL CT 3.01 /CUMM (4.70-6.10); WHITE BLOOD CELL COUNT 5.7 /CUMM (4.8-10.8)
[2016-07-08 08:32] LABS: HEMATOCRIT 26.9 % (42-52)
--- NOTE | 2016-07-08 10:41 | NUR ---
wound care: pt seen by dr restrepo this am - please refer to mds wound care recommendations
--- NOTE | 2016-07-08 13:25 | NUR ---
Referral received this am from Dr. Ramos. The patient is a 60 year old man, admitted to the hospital last evening with a hypertensive urgency admission. This patient is known to me from a an admission last month, at which time he was discharged to his daughter Amee's home. He stayed there for a short while and then returned to his common law 's home, to be with his twin 6 year old daughters. THat living arrangement, again, did not work out well, and instead of calling one of his daughters, Yvan stayed in his truck for 2 or 3 days; and did not take his medications for diabetes or high blood pressure. Record reviewed. Case discussed with MD, introduced self to patient and called daughter Amee with permission from patient. Patients vision is so impaired that when standing only 4 feet away from him all he could see were shadows. Yvan reports that he intends to stay with his daughter (again) upon discharge and then transition to a "room" in a home owned by a friend. (Daughter validated this). Daughter was hopeful that the patient might be eligible for a short term stay in a facility for medical management. I told her that he would need to be in agreement with same. Will collaborate with case management and plan accordingly.
--- NOTE | 2016-07-08 14:42 | Cons- Nephrology ---
General Information and HPI Consulting Request Date of Consult: 07/08/16 Requested By: DESIREE CASTELLANO M.D Reason for Consult: CKD Source of Information: patient, old records History of Present Illness: 60 yr old male known to our service w mult med problems including HTN, long standing IDDM complicated by retinopathy, neuropathy, & nephropathy (stage IV CKD), recurrent hyperkalemia, & CKD presented to ED with severe hypertension and hyperkalemia. He has apparently not been taking his medications which I am told is because he is unable to access them. He is legally blind and I am told that he is living in his car (?).He has declined all ESRD planning in past but denies gross uremic sx or SOB. No record of any NSAIDs or recent IV contrast. Has also had chronic met acidosis requiring po bicarb supplement. He is followed in our office by Emily Deshpande APRN but he has missed a number of appointments. Past medical history is as noted above Medications: See below Allergies: Seafood, no known drug allergies Family history: Positive for hypertension and diabetes mellitus but negative for kidney disease Social history: Homeless, denies cigarette smoking, drug or alcohol abuse Allergies/Medications Allergies: Coded Allergies: Fish Containing Products (Severe, RASH, BREATHING PROBLEM? 06/01/16) Uncoded Allergies: SEAFOOD (Severe, RASH, BREATHING PROBLEM 06/01/16) Home Med List: Allopurinol 100 MG TABLET 1 TAB PO DAILY Gout (Reported) Amlodipine Besylate 10 MG TABLET 1 TAB PO DAILY Hypertension (Reported) Aspirin (Ecotrin*) 81 MG TABLET.DR 1 TAB PO DAILY HEART HEALTH (Reported) Atorvastatin Calcium 80 MG TABLET 1 TAB PO DAILY HYPERLIPIDEMIA Bumetanide 1 MG TABLET 1 TAB PO DAILY Heart (Reported) Calcium Acetate 667 MG CAPSULE 1 CAP PO TID Unknown (Reported) Clonidine HCl 0.2 MG TABLET 2 TAB PO QPM HTN (Reported) Doxazosin Mesylate 4 MG TABLET 1 TAB PO QPM HTN Furosemide 40 MG TABLET 1 TAB PO BID WATER PILL (Reported) Gabapentin 100 MG CAPSULE 1 CAP PO TID Neuropathy (Reported) Hydralazine HCl 50 MG TABLET 2 TAB PO BID HTN Insulin Glargine,Hum.rec.anlog (Basaglar Kwikpen U-100) 100 UNIT/ML (3 ML) INSULN.PEN 10 UNITS SQ DAILY DIABETES MELLITUS Insulin Lispro (Humalog Kwikpen U-100) 100 UNIT/ML INSULN.PEN 0 SQ SEE ADMIN CRITERIA DIABETES MELLITUS. Blood sugar UNITS 80-150 2 151-200 3 201-250 4 251-300 5 301-350 6 351-400 7 Linagliptin (Tradjenta) 5 MG TABLET 1 TAB PO DAILY DM (Reported) Nitroglycerin (Nitrostat) 0.4 MG TAB.SUBL 1 TAB SL AD PRN Chest pain ( Reported) 1st sign of attack; may repeat every 5 minutes until relief; if pain persists after 3 tablets in 15 minutes, prompt medical att Pravastatin Sodium (Pravachol) 40 MG TABLET 1 TAB PO DAILY CHOLESTEROL ( Reported) Sennosides (Senna) 8.6 MG TABLET 1 TAB PO QPM CONSTIPATION (Reported) Sodium Bicarbonate 325 MG TABLET 4 TAB PO BID METAB ACIDOSIS (Reported) Review of Systems Review of Systems: Review of Systems Constitutional: Reports: chills, diaphoresis. Denies: fever. EENTM: Reports: see HPI. Denies: nasal congestion, throat pain. Cardiovascular: Denies: chest pain, palpitations. Respiratory: Denies: cough, short of breath, sputum production. GI: Denies: abdominal pain, bloating, constipation, diarrhea, nausea. Genitourinary: Reports: frequency. Denies: dysuria. Musculoskeletal: Reports: see HPI, muscle pain (Bilateral calf pain). Skin: Reports: dryness, erythema, rash. Neurological/Psychological: Reports: paresthesia (Neuropathy). Denies: confusion, headache, tremors. Hematologic/Endocrine: Reports: polyuria, polydipsia. Denies: bruising, bleeding. Immunologic/Allergic: Denies: splenectomy. All Other Systems: Reviewed and Negative Past History Travel History Traveled to [place] past 21 day No Medical History Blood Transfusion Hx: No EENT: cataracts Cardiovascular: hypertension, hyperlipidemia Respiratory: asthma Gastrointestinal: NONE Hepatic: NONE Renal: chronic kidney disease Musculoskeletal: NONE Psychiatric: NONE Endocrine: diabetes Blood Disorders: anemia Cancer(s): NONE STOCK HANGER/Reproductive: NONE Surgical History Surgical History: MICHELLE Family History Relations & Conditions If Any: MOTHER (CVA, DM, ). SISTER (Breast cancer). Relation not specified for: FH: diabetes mellitus FH: hypertension Psychosocial History Where Do You Live? Other (Car) Who Do You Live With? self Services at Home: None Primary Language: Danish Smoking Status: Former Smoker ETOH Use: denies use Illicit Drug Use: denies illicit drug use Functional Ability ADLs Independent: dressing, eating, toileting, bathing. Employment History Employment: Retired Exam & Diagnostic Data Vital Signs and I&O Vital Signs Date Time Temp Pulse Resp B/P Pulse O2 O2 Flow FiO2 Ox Delivery Rate 07/08 1031 160/62 07/08 1031 160/62 07/08 0800 98.0 58 18 160/70 95 Room Air 07/08 0430 55 154/68 07/07 2300 98.3 60 18 160/78 96 Room Air 07/07 2056 60 160/78 07/07 1726 98.2 62 16 178/78 96 Room Air 07/07 1642 61 18 163/71 97 Room Air Room Air 07/07 1615 63 20 156/70 98 Room Air Room Air 07/07 1608 97.9 69 20 192/90 07/07 1548 97.9 69 192/90 07/07 1530 192/90 07/07 1521 97.9 69 20 209/105 95 Room Air Room Air 07/07 1424 97.7 66 18 198/88 Intake & Output 07/08 1600 07/08 0400 07/07 1600 07/07 0400 07/06 1600 07/06 0400 Intake Total 060 008 4791 Output Total 300 1225 Balance -180 -725 1000 Intake, IV 100 1000 Intake, Oral 120 400 Output, Urine 300 1225 Patient 170 lb 170 lb Weight Physical Exam: General: Well-developed, chronically ill-appearing man in NAD Skin: Desquamating rash both lower extremities; no jaundice HEENT: Conjunctivae pink, sclerae anicteric, mucous membranes moist Neck: Without masses or thyromegaly, no supraclavicular or cervical adenopathy Chest: Clear to P&A Heart: Regular rate and rhythm without S3 or rub Abdomen: Soft and nontender without palpable masses or organomegaly Extremities: Desquamating rash both lower extremities, 1+ edema Neuro: No focal findings, no asterixis or myoclonus Assessment/Plan Assessment/Recommendations Assessment: 60-year-old man with CK D stage IV due to diabetic and hypertensive nephrosclerosis, with uncontrolled hypertension and a tendency towards hyperkalemia and acidemia primarily because of noncompliance with medication regimen and diet. The issue is to large extent a social one as the patient is homeless and apparently having difficulty getting his medications. Dialysis is not indicated at this time. Recommendations: 1. Diet: 2 g sodium, 2 g potassium, 60 g protein, no concentrated sweets 2. Continue his antihypertensives as well as sodium bicarbonate 3. Avoid ACEI's or ARB's; no K sparing diuretics 4. Please check a phosphorus and PTH level 5. fitness services manager to address his untenable living circumstances. There is little hope of adequately addressing his serious medical problems in the context of his current social situation. If possible, consideration should be given to ECF placement. Thank you. Will follow along with you.
--- NOTE | 2016-07-08 15:14 | ULTRASOUND REPORT ---
EXAMINATION: US RETROPERITONEAL COMPLETE (RENAL) CLINICAL INFORMATION: Acute on chronic renal dysfunction. Presumptive diagnosis of postobstructive nephropathy. COMPARISON: None TECHNIQUE: Real-time imaging of the kidneys and bladder. FINDINGS: RIGHT KIDNEY: 11.4 x 6.8 x 5.5 cm (SAG x AP x TRV). The kidney is normal in size, contour, and echogenicity. Renal cortical thickness is normal. No calculi or focal parenchymal lesions. No hydronephrosis. LEFT KIDNEY: 12.0 x 6.3 x 5.2 cm (SAG x AP x TRV). The kidney is normal in size, contour, and echogenicity. Renal cortical thickness is normal. No calculi or focal parenchymal lesions. No hydronephrosis. BLADDER: Partially distended and unremarkable. Bilateral ureteral jets are demonstrated. Prevoid bladder volume is 88 mL. Postvoid bladder volume is not assessed. IMPRESSION: Normal kidneys. No evidence of hydronephrosis/renal obstruction.
--- NOTE | 2016-07-08 15:27 | NUR ---
PHYSICAL THERAPY: RECIEVED CONSULT ORDER, REVIEWED CHART. PER LEGAL ADVISER, PATIENT IS INDEPENDENT WITH STEADY GAIT REQUIRING SUPERVISION DUE TO LOW VISION. AT THIS TIME ACUTE PHYSICAL THERAPY SERVICES ARE NOT INDICATED. PLEASE RE-CONSULT IF MEDICAL OR MOBILITY STATUS DECLINES. THANK YOU.
[2016-07-08 16:00] VITALS: BP 178/56
--- NOTE | 2016-07-08 16:43 | Patient Discharge Instructions ---
Discharge Instructions General Discharge Information You were seen/treated for: Uncontrolled high blood pressure Diabetes mellitus Lower extremity rash Chronic kidney disease Special Instructions: Please follow up with Dr. Gilmore your PCP within 1 week of discharge. Please follow up witih Dr. Foster within 1 week of discharge for continued care. Please follow up with Dr. Park, nephrology, as an outpatient within 1 week of discharge. Please take all medications as directed. I have provided you with a referral to a customer relations specialist for your lower extremity erythema/dryness. You may call and contact them to schedule an appointment. Repeat BEP in about 1 week to monitor renal function and K. Diet Recommended Diet: Diabetic Activity Activity Self Limited: Yes Acute Coronary Syndrome Inclusion Criteria At DC or during hospital stay patient has or had the following: ACS DIAGNOSIS No Discharge Core Measures Meds if any: Prescribed or Continued at Discharge Meds if any: NOT Prescribed or Continued at Discharge Congestive Heart Failure Inclusion Criteria At DC or during hospital stay patient has or had the following: CHF DIAGNOSIS No Discharge Core Measures Meds if any: Prescribed or Continued at Discharge Meds if any: NOT Prescribed or Continued at Discharge Cerebrovascular accident Inclusion Criteria At DC or during hospital stay patient has or had the following: CVA/TIA Diagnosis No Discharge Core Measures Meds if any: Prescribed or Continued at Discharge Meds if any: NOT Prescribed or Continued at Discharge Venous thromboembolism Inclusion Criteria VTE Diagnosis No VTE Type NONE VTE Confirmed by (Test) NONE Discharge Core Measures - Per Current guidelines, there needs to be overlap - treatment for the first 5 days of Warfarin therapy. - If discharged on Warfarin prior to 5 days of - overlap therapy, the patient will need to be - assessed for post discharge needs including - *Post discharge parental anticoagulation - *Warfarin and/or parental anticoagulation education - *Follow up date to check INR post discharge At least 5 days overlap therapy as Inpatient No Meds if any: Prescribed or Continued at Discharge Note: Overlap Therapy is Warfarin and Anticoagulant Meds if any: NOT Prescribed or Continued at Discharge
--- NOTE | 2016-07-08 16:43 | Cons- Wound Care ---
General Information and HPI Consulting Request Date of Consult: 07/08/16 Requested By: DESIREE CASTELLANO M.D Reason for Consult: Multiple ulcers of the toes present on admission History of Present Illness: Patient is 60-year-old with diabetes severe chronic kidney disease presently homeless who is admitted for poorly controlled hypertension and evaluation of bilateral great toe wounds present on admission. Denies symptoms of peripheral vascular disease but is had chronic lower extremity edema and bilateral scaling rash Allergies/Medications Allergies: Coded Allergies: Fish Containing Products (Severe, RASH, BREATHING PROBLEM? 06/01/16) shellfish derived (Severe, RASH, BREATHING PROBLEM 07/08/16) Home Med List: Allopurinol 100 MG TABLET 1 TAB PO DAILY Gout (Reported) Amlodipine Besylate 10 MG TABLET 1 TAB PO DAILY Hypertension (Reported) Aspirin (Ecotrin*) 81 MG TABLET.DR 1 TAB PO DAILY HEART HEALTH (Reported) Atorvastatin Calcium 80 MG TABLET 1 TAB PO DAILY HYPERLIPIDEMIA Bumetanide 1 MG TABLET 1 TAB PO DAILY Heart (Reported) Calcium Acetate 667 MG CAPSULE 1 CAP PO TID Unknown (Reported) Clonidine HCl 0.2 MG TABLET 1 TAB PO QPM HTN (Reported) Doxazosin Mesylate 4 MG TABLET 1 TAB PO QPM HTN Furosemide 40 MG TABLET 1 TAB PO BID WATER PILL (Reported) Gabapentin 100 MG CAPSULE 1 CAP PO TID Neuropathy (Reported) Hydralazine HCl 50 MG TABLET 2 TAB PO BID HTN Insulin Glargine,Hum.rec.anlog (Basaglar Kwikpen U-100) 100 UNIT/ML (3 ML) INSULN.PEN 10 UNITS SQ DAILY DIABETES MELLITUS Insulin Lispro (Humalog Kwikpen U-100) 100 UNIT/ML INSULN.PEN 0 SQ SEE ADMIN CRITERIA DIABETES MELLITUS. Blood sugar UNITS 80-150 2 151-200 3 201-250 4 251-300 5 301-350 6 351-400 7 Linagliptin (Tradjenta) 5 MG TABLET 1 TAB PO DAILY DM (Reported) Nitroglycerin (Nitrostat) 0.4 MG TAB.SUBL 1 TAB SL AD PRN Chest pain ( Reported) 1st sign of attack; may repeat every 5 minutes until relief; if pain persists after 3 tablets in 15 minutes, prompt medical att Pravastatin Sodium (Pravachol) 40 MG TABLET 1 TAB PO DAILY CHOLESTEROL ( Reported) Sennosides (Senna) 8.6 MG TABLET 1 TAB PO QPM CONSTIPATION (Reported) Sodium Bicarbonate 325 MG TABLET 4 TAB PO BID METAB ACIDOSIS (Reported) Review of Systems Review of Systems: He denies claudication Past History Travel History Traveled to [place] past 21 day No Medical History Blood Transfusion Hx: No EENT: cataracts Cardiovascular: hypertension, hyperlipidemia Respiratory: asthma Gastrointestinal: NONE Hepatic: NONE Renal: chronic kidney disease Musculoskeletal: NONE Psychiatric: NONE Endocrine: diabetes Blood Disorders: anemia Cancer(s): NONE 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 SISTER (Breast cancer). Relation not specified for: FH: diabetes mellitus FH: hypertension Psychosocial History Where Do You Live? Other (Car) Who Do You Live With? self Services at Home: None Primary Language: Salvadorean Smoking Status: Former Smoker ETOH Use: denies use Illicit Drug Use: denies illicit drug use Functional Ability ADLs Independent: dressing, eating, toileting, bathing. Employment History Employment: Retired Exam & Diagnostic Data Vital Signs and I&O Vital Signs Result Date Time B/P 160/62 07/08 1031 Pulse Ox 95 07/08 0800 O2 Delivery Room Air 07/08 0800 Temp 98.0 07/08 0800 Pulse 58 07/08 0800 Resp 18 07/08 0800 O2 Flow Rate Room Air 07/07 1642 Intake & Output 07/08 0000 07/07 1600 07/07 0800 Intake Total 500 1000 Output Total 1225 Balance -725 1000 Intake, IV 100 1000 Intake, Oral 400 Output, Urine 1225 Patient 170 lb 170 lb Weight Family left toe shows there to be a very superficial probable partial thickness ulcer of approximately 1 x 1 cm along the plantar surface of the great toe is a 1 cm ulcer by a slit over the right great toe are several minute ulcers of several millimeters distal pulses are unable to be palpated. There is evidence of chronic edema there is evidence of faint erythema over both legs with scaling. Assessment/Plan Impression/Plan: 60-year-old gentleman with severe kidney disease chronic metabolic acidosis poorly controlled diabetes admitted with poorly controlled hypertension. His exam raises the spectrum of comp getting peripheral vascular disease. His wounds can be treated with Xeroform and offloading. Changes are of uncertain significance and recommend dermatology evaluation. Consult Acknowledgment - Thank you for your consult request.
[2016-07-08 20:01] VITALS: BP 168/70
[2016-07-08 23:34] VITALS: BP 148/70
[2016-07-09 01:47] VITALS: BP 130/58
[2016-07-09 06:12] VITALS: BP 152/68
--- NOTE | 2016-07-09 07:01 | PN- Housestaff ---
See Addendum Subjective Follow-up For: Hypertensive urgency Hyperkalemia Acute on chronic CKD Uncontrolled DM Bilateral lower extremity PVD Subjective: Patient seen and examined at bedside this AM. He reports his lower extremity erythema and edema are much improved after elevation and aloe vesta. Patient does continue to endorse itchiness which is improved with the moisturizer. Patient currently offers no other complaints. Review of Systems Constitutional: Denies: chills, fever, malaise. EENTM: Denies: hearing changes, nasal congestion. Cardiovascular: Denies: chest pain, palpitations. Respiratory: Denies: cough, short of breath, sputum production. Gastrointestinal: Denies: abdominal pain, nausea, vomiting. Genitourinary: Denies: dysuria, urgency. Musculoskeletal: Denies: back pain. Skin: Reports: erythema, rash. Neurological/Psychological: Reports: paresthesia (Peripheral neuropathy). Denies: confusion, numbness. Hematologic/Endocrine: Denies: polyuria, polydipsia. Objective Last 24 Hrs of Vital Signs/I&O Vital Signs Date Time Temp Pulse Resp B/P Pulse O2 O2 Flow FiO2 Ox Delivery Rate 07/09 0819 97.9 49 17 164/70 95 Room Air 07/09 0612 50 152/68 07/09 0147 47 130/58 07/09 0014 63 184/78 07/08 2334 97.9 61 20 148/70 95 Room Air 07/08 2205 192/50 07/08 2001 59 168/70 07/08 1600 98.2 58 20 178/56 95 Room Air 07/08 1031 160/62 07/08 1031 160/62 Intake & Output 07/09 1600 07/09 0800 07/09 0000 Intake Total 150 350 Output Total 200 700 Balance -50 -350 Intake, Oral 150 350 Number 0 Bowel Movements Output, Urine 200 700 Physical Exam General Appearance: Alert, Oriented X3, Cooperative, No Acute Distress Skin: Bilateral lower extremity edema much improved as well as erythema has regressed. Dryness still present though now only on the lower love/foot. HEENT: Atraumatic, EOMI, Mucous Membr. moist/pink Neck: Supple, +2 Carotid Pulse wo Bruit Cardiovascular: Regular Rate, Normal S1, Normal S2 Lungs: Clear to Auscultation, Normal Air Movement Abdomen: Normal Bowel Sounds, Soft, No Tenderness, No Masses Neurological: Normal Speech, Strength at 5/5 X4 Ext, Normal Tone Extremities: No Clubbing, No Cyanosis, Bilateral lower extremity edema, much improved, as well as rash as noted in skin assessment. Vascular: Pulses Symmetrical Current Medications: Current Medications Sig/Michael Start time Last Medication Dose Route Stop Time Status Admin Acetaminophen 650 MG Q8P PRN 07/07 1914 AC PO Acetaminophen/ 1 TAB Q8P PRN 07/07 191 AC Hydrocodone Bitart PO Amlodipine Besylate 10 MG DAILY 07/08 1000 AC 07/08 PO 1031 Aspirin Buffered 81 MG DAILY 07/07 1735 AC 07/08 PO 1028 Bacitracin 1 ALISIA DAILY 07/08 1023 AC 07/08 TOP 1029 Bumetanide 1 MG DAILY 07/09 1000 AC PO Cefazolin Sodium 500 MG Q12H 07/07 2000 DC 07/07 IV 2056 Clonidine 0.4 MG QPM 07/09 2200 CAN PO Clonidine 0.2 MG QPM 07/09 2200 AC PO Clonidine 0.2 MG ONE ONE 07/08 2300 DC 07/09 PO 07/08 2301 0014 Furosemide 40 MG BID 07/07 2200 DC 07/07 PO 2057 Gabapentin 100 MG TID 07/07 1735 AC 07/08 PO 2158 Heparin Sodium 5,000 UNIT Q8 07/07 2200 AC 07/09 (Porcine) SC 0612 Hydralazine HCl 100 MG BID 07/08 1000 AC 07/08 PO 2205 Insulin Aspart 0 TIDAC 07/08 0800 AC 07/08 SC 1235 Insulin Detemir 10 UNITS DAILY 07/09 1000 AC SC Insulin Detemir 5 UNITS DAILY 07/07 1745 DC 07/08 SC 1029 Pravastatin Sodium 40 MG 1700 07/08 1700 AC 07/08 PO 1613 Sodium Bicarbonate 1,300 MG BID 07/08 2200 AC 07/08 PO 2158 Sodium Bicarbonate 1,300 MG BID 07/07 2200 DC 07/08 PO 1028 Last 24 Hrs of Lab/Eduardo Results Last 24 Hrs of Labs/Mics: Laboratory Tests 07/09/16 0600: Anion Gap 11, Estimated GFR 21 L, BUN/Creatinine Ratio 21.3, 25-OH Vitamin D Total Pending, CBC w Diff NO MAN DIFF REQ, RBC 2.97 L, MCV 89.8, MCH 29.4, RDW 13.4, MPV 9.2, Gran % 65.1, Lymphocytes % 20.2 L, Monocytes % 10.4 H, Eosinophils % 3.4, Basophils % 0.9, Absolute Granulocytes 3.6, Absolute Lymphocytes 1.1 L, Absolute Monocytes 0.6, Absolute Eosinophils 0.2, Absolute Basophils 0.1, PUBS MCHC 32.8 L Orders Miscellaneous Findings: Renal US: IMPRESSION: Normal kidneys. No evidence of hydronephrosis/renal obstruction. Venous Doppler: IMPRESSION: Normal triplex scan without evidence of deep venous thrombosis involving the right lower extremity. Assessment/Plan Assessment: Mr. 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 He was recently displaced from his apartment and has been living in his car the week prior to admission. In the ED: Vital signs showed T 98.0, HR 79, RR 20, BP 209/105, and O2 saturation of 95% on RA. Labs showed CBC with mild normocytic anemia to 10.7/ 32.7 (baseline). BEP was significant for hyperkalemia to 6.3 and abnormal renal function to 78/3.5. Glu 229. Lactic acid 0.6. Acetone level negative. UA showed small Hgb, 100 glu, and high protein. Patient is admitted to the telemetry floor and the following is the management: 1. Hypertensive urgency * BP on admission elevated to 209/105; this is associated with acute worsening renal function (end-organ damage) * Patient was given norvasc and labetolol in ED with good BP response * For now we will continue amlodipine 10 mg PO daily, hydralazine 100 gm PO BID and restart his clonidine and bumetanide today as BP remains above goal * Lasix on hold 2/2 acute on chronic renal dysfunction, will hold at discharge 2. Hyperkalemia * K of 6.3 on admission * Patient given 500 cc bolus NS in the ED along with dextrose, regular insulin and calcium gluconate in the ED, given 120 mL kayexalate on 07/07/16 * EKG showed no concerning signs or peaked T waves, continuous tele monitoring for arrythmias * Monitor BEP (repeat BEP at ECF to monitor K) 3. Uncontrolled diabetes mellitus * Glu of 229 on admission * Continue insulin levemir 10 U SC daily * Moderate dose novolog sliding scale * Accuchecks TIDAC/HS * Continue gabapentin for diabetic neuropathy * Patient to follow up with endo after discharge for continued management 4. Acute on chronic renal failure with CKD stage 4 * Patient s/p 500 cc fluid bolus * Monitor BEP daily * Renal consult placed for renal replacement therapy, suggested changing to 2g Na, 2g K, 60 g protein diet without concentrated sweets as well as resuming NaHCO3 tabs * Bilateral renal US ordered and negative for post-obstructive cause of worsening renal failure (no nephrolithiasis) * Phos level high to 5.1, PTH significantly elevated to 229, Ca normal, Vit D pending * Patient will f/u with Dr. Park after discharge for close monitoring of renal function and future planning for dialysis 5. Bilateral lower extremity erythema/swelling * Much improved with elevation and aloe vesta, highly suggestive of PVD * IV ancef discontinued as lower extremity erythema likely 2/2 PVD (no fever, no leukocytosis, no systemic signs of infection and cellulitis less likely to be bilateral) * Aloe vesta (petroleum based) to be placed Q shift, continue leg elevation * Blood cultures show NGTD * Doppler RLE to rule out DVT was negative * Wound consult with Dr. Smyth placed and appreciated, suggests adding xeroform to cracked toes (also consideration for derm eval on DC) * Patient ordered compression stockings to continue at STR/after DC 6. Social * Patient currently living in a car * Social work consult placed, STR recommended for 24 hour care, patient will be discharged to STR today FULL CODE DVTP: SC Heparin Mild pain pathway 2g Na, 2g K, 60 g protein diet without concentrated sweets Problem List: 1. Hypertensive urgency 2. Diabetes 3. PVD (peripheral vascular disease) 4. [id number] renal failure 5. Tinea pedis 6. Hyperkalemia Pain Ratin Pain Location: n/a Pain Goal: Remain pain free Pain Plan: Mild pain pathway. Tomorrow's Labs & Rationales: BEP (monitor renal function and K in setting of hyperkalemia).
[2016-07-09 07:42] LABS: ABSOLUTE BASOPHIL COUNT 0.1 /CUMM (0.0-0.2); ABSOLUTE EOSINOPHIL COUNT 0.2 /CUMM (0.0-0.7); ABSOLUTE GRANULOCYTE CT 3.6 /CUMM (1.4-6.5); ABSOLUTE LYMPH COUNT 1.1 /CUMM (1.2-3.4); ABSOLUTE MONOCYTE COUNT 0.6 /CUMM (0.10-0.60); BASOPHIL % 0.9 % (0.0-2.0); EOSINOPHIL % 3.4 % (0-5); GRANULOCYTE % 65.1 % (42.2-75.2); HEMATOCRIT 26.7 % (42-52); MEAN CORPUSCULAR HGB 29.4 PG (27.0-31.0); MEAN CORPUSCULAR HGB CONC 32.8 G/DL (33.0-37.0); MEAN CORPUSCULAR VOLUME 89.8 FL (80.0-94.0); MEAN PLATELET VOLUME 9.2 FL (7.4-10.4); PLATELET COUNT 185 /CUMM (130-400); RBC DISTRIBUTION WIDTH 13.4 % (11.5-14.5); RED BLOOD CELL CT 2.97 /CUMM (4.70-6.10); WHITE BLOOD CELL COUNT 5.6 /CUMM (4.8-10.8)
[2016-07-09 08:19] VITALS: BP 164/70
[2016-07-09] MEDS ORDERED: VITAMIN D2000 UNIT PO (13:42)
--- NOTE | 2016-07-09 13:44 | Discharge Summary ---
See Addendum Visit Information Visit Dates Admission Date: 07/07/16 Discharge Date: 07/09/16 Hospital Course Course Attending Physician: DESIREE CASTELLANO M.D Primary Care Physician: WALT GIBBS,[facility] Hospital Course: This is a 60-year-old gentleman with past medical history significant for insulin-dependent diabetes,resultant diabetic nephropathy (CKD stage 4), diabetic retinopathy, diabetic neuropathy, HTN, HLD, asthma and medication non- compliance who presented to the ED with bilateral lower extremity erythema and rash as well as running out of his home medications. He was recently displaced from his apartment and has been living in his car the week prior to admission. In the ED: Vital signs showed T 98.0, HR 79, RR 20, BP 209/105, and O2 saturation of 95% on RA. Labs showed CBC with mild normocytic anemia to 10.7/ 32.7 (baseline). BEP was significant for hyperkalemia to 6.3 and abnormal renal function to 78/3.5. Glucose 229. Lactic acid 0.6. Acetone level negative. UA showed small Hgb, 100 glu, and high protein. He was admitted to the compliance monitor service. The following problems were addressed during the course of his hospital stay: #Hypertensive emergency: BP on admission elevated to 209/105; this is associated with acute worsening renal function (end-organ damage). Most likely secondary to noncompliance with outpatient antihypertensive medications. Patient was given norvasc and labetolol in ED with good BP response He was maintained on amlodipine 10 mg PO daily, hydralazine 100 gm PO BID and restart his clonidine and bumetanide today as BP remains above goal * Lasix on hold 2/2 acute on chronic renal dysfunction, to be held at discharge. # Hyperkalemia Patient had potassium level of 6.3 on admission. He was given 500 cc bolus NS in the ED along with dextrose, regular insulin and calcium gluconate in the ED, given 120 mL kayexalate on 07/07/16. EKG showed no concerning signs or peaked T waves, continuous tele monitoring for arrythmias * Monitor BEP (repeat BEP at F to monitor K) #Uncontrolled diabetes mellitus: The patient had blood glucose level of 229 on admission. He was maintained on levemir 10 U SC daily, Moderate dose novolog sliding scale, blood glucose levels were monitored closely and remained within acceptable range. He was maintained on gabapentin for diabetic neuropathy. * Patient to follow up with endo after discharge for continued management #Acute on chronic renal failure with CKD stage 4 BEP was monitored daily. Renal consult placed for renal replacement therapy, suggested changing to 2g Na, 2g K, 60 g protein diet without concentrated sweets as well as resuming NaHCO3 tabs. Bilateral renal US ordered and negative for post-obstructive cause of worsening renal failure (no nephrolithiasis). Phos level high to 5.1, PTH significantly elevated to 229, Ca normal, Vit D 18.4. Patient was started on vitamin D supplementation. * Patient will f/u with Dr. Park after discharge for close monitoring of renal function and future planning for dialysis #Bilateral lower extremity erythema/swelling Much improved with elevation and aloe vesta, highly suggestive of PVD. He was initially started on IV cefazolin which was later on discontinued as erythema was thought to be secondary to PVD.(no fever, no leukocytosis, no systemic signs of infection and cellulitis less likely to be bilateral) * Aloe vesta (petroleum based) to be placed Q shift, continue leg elevation * Blood cultures show NGTD * Doppler RLE to rule out DVT was negative * Wound consult was placed and appreciated, suggests adding xeroform to cracked toes (also consideration for derm eval on DC) * Patient ordered compression stockings to continue at STR/after DC #Social * Patient currently living in a car * Social work consult placed, STR recommended for 24 hour care, patient will be discharged to STR today FULL CODE DVTP: SC Heparin Mild pain pathway 2g Na, 2g K, 60 g protein diet without concentrated sweets Complications: None Allergies: Coded Allergies: Fish Containing Products (Severe, RASH, BREATHING PROBLEM? 06/01/16) shellfish derived (Severe, RASH, BREATHING PROBLEM 07/08/16) Disposition Summary Disposition Principal Diagnosis: Hypertensive emergency Additional Diagnosis: Uncontrolled diabetes Discharge Disposition: SNF Discharge Instructions General Discharge Information Code Status: Full Code Patient's Diet: 2g Na, 2g K, 60 g protein diet without concentrated sweets Patient's Activity: As tolerated Follow-Up Instructions/Appts: -Follow-up with PCP within a week of discharge. -Follow-up with endocrinology within a vehicle of discharge. -Follow-up with Dr. Park after discharge for close monitoring of renal function and future planning for dialysis. -Monitor BEP (repeat BEP at [facility] to monitor K). Medications at Discharge Discharge Medications: Stop taking the following medications: Calcium Acetate (Calcium Acetate) 667 MG CAPSULE ORAL THREE TIMES DAILY Doxazosin Mesylate (Doxazosin Mesylate) 4 MG TABLET ORAL Every night Qty = 30 Atorvastatin Calcium (Atorvastatin Calcium) 80 MG TABLET ORAL DAILY Days = 30 Furosemide (Furosemide) 40 MG TABLET ORAL TWICE DAILY Linagliptin (Tradjenta) 5 MG TABLET ORAL DAILY Continue taking these medications: Allopurinol (Allopurinol) 100 MG TABLET 1 Tablet ORAL DAILY Comments: NOT GIVEN IN HOSPITAL Amlodipine Besylate (Amlodipine Besylate) 10 MG TABLET 1 Tablet ORAL DAILY Comments: Last Taken: 06/08/16 Time: 10:30 AM Gabapentin (Gabapentin) 100 MG CAPSULE 1 Capsule ORAL THREE TIMES DAILY Comments: NOT GIVEN IN HOSPITAL Nitroglycerin (Nitrostat) 0.4 MG TAB.SUBL 1 Tablet SUBLINGUAL As Directed as needed for Chest pain Instructions: 1st sign of attack; may repeat every 5 minutes until relief; if pain persists after 3 tablets in 15 minutes, prompt medical att Comments: NOT GIVEN IN HOSPITAL Bumetanide (Bumetanide) 1 MG TABLET 1 Tablet ORAL DAILY Comments: NOT GIVEN IN HOSPITAL Clonidine HCl (Clonidine HCl) 0.2 MG TABLET 1 Tablet ORAL Every night Comments: Last Taken: 06/08/16 Time: 10:30 AM Insulin Glargine,Hum.rec.anlog (Basaglar Kwikpen U-100) 100 UNIT/ML (3 ML) INSULN.PEN 10 Units SUB-Q DAILY Days = 30 Comments: Last Taken: 06/08/16 Time: 10:30 AM Insulin Lispro (Humalog Kwikpen U-100) 100 UNIT/ML INSULN.PEN 0 SUB-Q SEE INSTRUCTIONS Days = 30 Instructions: Blood sugar UNITS 80-150 2 151-200 3 201-250 4 251-300 5 301-350 6 351-400 7 Hydralazine HCl (Hydralazine HCl) 50 MG TABLET 2 Tablet ORAL TWICE DAILY Days = 30 Sennosides (Senna) 8.6 MG TABLET 1 Tablet ORAL Every night Pravastatin Sodium (Pravachol) 40 MG TABLET 1 Tablet ORAL DAILY Aspirin (Ecotrin*) 81 MG TABLET.DR 1 Tablet ORAL DAILY Sodium Bicarbonate (Sodium Bicarbonate) 325 MG TABLET 4 Tablet ORAL TWICE DAILY Start taking the following new medications: Cholecalciferol (Vitamin D3) (Vitamin D) 2,000 UNIT CAPSULE 1 Capsule ORAL DAILY Qty = 30 No Refills Copies To: MAURICIO GIBBS,JAROD Harrison; DIMA GIBBS,TITA; TRAM GIBBS,TINO
[2016-07-09 14:57] VITALS: BP 146/68
--- NOTE | 2016-07-09 15:00 | PN- Nephrology ---
Assessment/Plan Assessment: 1. 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 SAMSON secondary to prerenal factors - improving 3. Hyperkalemia - resolved 4. Severe hypertension - improved with reinstitution of antihypertensive therapy 5. Peripheral vascular disease Suggestion: 1. No need for 2 different loop diuretics; can continue bumetanide 2. Otherwise continue current medication regimen. 3. Daily weights, intake and output, chemistries 4. Mobilize 5. Social service follow-up regarding disposition plans 6. Outpatient Renal follow-up in our office after discharge Subjective Subjective: Patient looks and feels better today. He denies shortness of breath, chest pain , nausea, vomiting or abdominal pain. His legs are also feeling better. Blood pressure improved. Serum potassium now within normal limits as is his serum CO2 level. Renal function is improving and approaching baseline levels. Objective Vital Signs and I&Os Vital Signs Date Time Temp Pulse Resp B/P Pulse O2 O2 Flow FiO2 Ox Delivery Rate 07/09 1130 61 146/68 07/09 1029 Room Air Room Air 07/09 0819 97.9 49 17 164/70 95 Room Air 07/09 0612 50 152/68 07/09 0147 47 130/58 07/09 0014 63 184/78 07/08 2334 97.9 61 20 148/70 95 Room Air 07/08 2205 192/50 07/08 2001 59 168/70 07/08 1600 98.2 58 20 178/56 95 Room Air Intake & Output 07/09 1600 07/09 0400 07/08 1600 07/08 0400 07/07 1600 07/07 0400 Intake Total 150 350 366 666 8170 Output Total 612 787 9266 1225 Balance -50 -350 -560 -725 1000 Intake, IV 100 1000 Intake, Oral 150 350 840 400 Number 0 Bowel Movements Output, Urine 491 034 2215 1225 Patient 170 lb 170 lb 170 lb Weight Physical Exam: General: Well-developed, chronically ill-appearing man in NAD Skin: Desquamating rash both lower extremities; no jaundice HEENT: Markedly decreased vision both eyes, conjunctivae pink, sclerae anicteric , mucous membranes moist Neck: Without masses or thyromegaly, no supraclavicular or cervical adenopathy Chest: Clear to P&A Heart: Regular rate and rhythm without S3 or rub Abdomen: Soft and nontender without palpable masses or organomegaly Extremities: Desquamating rash both lower extremities, 1+ edema Neuro: No focal findings, no asterixis or myoclonus Current Medications: Current Medications Sig/Michael Start time Last Medication Dose Route Stop Time Status Admin Acetaminophen 650 MG Q8P PRN 07/07 1914 AC PO Acetaminophen/ 1 TAB Q8P PRN 07/07 1914 AC Hydrocodone Bitart PO Amlodipine Besylate 10 MG DAILY 07/08 1000 AC 07/09 PO 1130 Aspirin Buffered 81 MG DAILY 07/07 1735 AC 07/09 PO 1130 Bacitracin 1 ALISIA DAILY 07/08 1023 AC 07/09 TOP 1130 Bumetanide 1 MG DAILY 07/09 1000 AC 07/09 PO 1130 Clonidine 0.4 MG QPM 07/09 2200 CAN PO Clonidine 0.2 MG QPM 07/09 2200 AC PO Clonidine 0.2 MG ONE ONE 07/08 2300 DC 07/09 PO 07/08 2301 0014 Gabapentin 100 MG TID 07/07 1735 AC 07/09 PO 1130 Heparin Sodium 5,000 UNIT Q8 07/07 2200 AC 07/09 (Porcine) SC 1322 Hydralazine HCl 100 MG BID 07/08 1000 AC 07/09 PO 1130 Insulin Aspart 0 TIDAC 07/08 0800 AC 07/09 SC 1322 Insulin Detemir 10 UNITS DAILY 07/09 1000 AC 07/09 SC 1134 Pravastatin Sodium 40 MG 1700 07/08 1700 AC 07/08 PO 1613 Sodium Bicarbonate 1,300 MG BID 07/08 2200 AC 07/09 PO 1130 Results Pertinent Lab Results: Laboratory Tests 07/09 07/08 0600 0615 Chemistry Sodium (137 - 145 mmol/L) 143 143 Potassium (3.5 - 5.1 mmol/L) 4.8 5.1 Chloride (98 - 107 mmol/L) 108 H 107 Carbon Dioxide (22 - 30 mmol/L) 24 24 Anion Gap (5 - 16) 11 11 BUN (9 - 20 mg/dL) 66 H 74 H Creatinine (0.7 - 1.2 mg/dL) 3.1 H 3.3 H Estimated GFR (>60 ml/min) 21 L 19 L BUN/Creatinine Ratio (7 - 25 %) 21.3 22.4 Glucose (65 - 99 mg/dL) 88 Calcium (8.4 - 10.2 mg/dL) 8.5 Phosphorus (2.5 - 4.5 mg/dL) 5.1 H Total Bilirubin (0.2 - 1.3 mg/dL) 0.3 AST (17 - 59 U/L) 12 L ALT (21 - 72 U/L) 21 Alkaline Phosphatase (< 127 U/L) 83 Total Protein (6.3 - 8.2 g/dL) 6.2 L Albumin (3.5 - 5.0 g/dL) 3.1 L Globulin (1.9 - 4.2 gm/dL) 3.1 Albumin/Globulin Ratio (1.1 - 2.2 %) 1.0 L 25-OH Vitamin D Total (30 - 100 ng/ml) 18.4 L Hematology CBC w Diff NO MAN DIFF REQ NO MAN DIFF REQ WBC (4.8 - 10.8 /CUMM) 5.6 5.7 RBC (4.70 - 6.10 /CUMM) 2.97 L 3.01 L Hgb (14.0 - 18.0 G/DL) 8.8 L 8.9 L Hct (42 - 52 %) 26.7 L 26.9 L MCV (80.0 - 94.0 FL) 89.8 89.4 MCH (27.0 - 31.0 PG) 29.4 29.6 RDW (11.5 - 14.5 %) 13.4 14.3 Plt Count (130 - 400 /CUMM) 185 193 MPV (7.4 - 10.4 FL) 9.2 9.3 Gran % (42.2 - 75.2 %) 65.1 63.3 Lymphocytes % (20.5 - 51.1 %) 20.2 L 22.8 Monocytes % (1.7 - 9.3 %) 10.4 H 10.4 H Eosinophils % (0 - 5 %) 3.4 3.0 Basophils % (0.0 - 2.0 %) 0.9 0.5 Absolute Granulocytes (1.4 - 6.5 /CUMM) 3.6 3.6 Absolute Lymphocytes (1.2 - 3.4 /CUMM) 1.1 L 1.3 Absolute Monocytes (0.10 - 0.60 /CUMM) 0.6 0.6 Absolute Eosinophils (0.0 - 0.7 /CUMM) 0.2 0.2 Absolute Basophils (0.0 - 0.2 /CUMM) 0.1 0 PUBS MCHC (33.0 - 37.0 G/DL) 32.8 L 33.1 07/08 07/07 07/07 0600 1800 1650 Chemistry Sodium (137 - 145 mmol/L) 141 Potassium (3.5 - 5.1 mmol/L) 5.5 H Chloride (98 - 107 mmol/L) 106 Carbon Dioxide (22 - 30 mmol/L) 26 Anion Gap (5 - 16) 9 BUN (9 - 20 mg/dL) 75 H Creatinine (0.7 - 1.2 mg/dL) 3.3 H Estimated GFR (>60 ml/min) 19 L BUN/Creatinine Ratio (7 - 25 %) 22.7 Lactic Acid Cancelled PTH Intact (13.8 - 85 pg/ml) 229.1 H 07/07 07/07 1510 1400 Blood Gas Bicarbonate Actual (22 - 26 MEQ/L) 26 Mixed VBG pH (7.31 - 7.41 PH) 7.38 Mixed VBG pCO2 (41 - 51 TORR) 46 Mixed VBG O2 Saturation (35 - 45 TORR) 41 Carboxyhemoglobin (1.5 - 5.0 %) 0.5 L O2 Concentration % EA Chemistry Sodium (137 - 145 mmol/L) 140 Potassium (3.5 - 5.1 mmol/L) 6.3 *H Chloride (98 - 107 mmol/L) 103 Carbon Dioxide (22 - 30 mmol/L) 26 Anion Gap (5 - 16) 12 BUN (9 - 20 mg/dL) 78 H Creatinine (0.7 - 1.2 mg/dL) 3.5 H Estimated GFR (>60 ml/min) 18 L BUN/Creatinine Ratio (7 - 25 %) 22.3 Glucose (65 - 99 mg/dL) 229 H Lactic Acid (0.7 - 2.1 mmol/L) 0.6 L Calcium (8.4 - 10.2 mg/dL) 9.3 Magnesium (1.6 - 2.3 mg/dL) 2.3 Total Bilirubin (0.2 - 1.3 mg/dL) 0.4 AST (17 - 59 U/L) 15 L ALT (21 - 72 U/L) 24 Alkaline Phosphatase (< 127 U/L) 122 Total Protein (6.3 - 8.2 g/dL) 7.7 Albumin (3.5 - 5.0 g/dL) 4.1 Globulin (1.9 - 4.2 gm/dL) 3.6 Albumin/Globulin Ratio (1.1 - 2.2 %) 1.1 Hematology CBC w Diff NO MAN DIFF REQ WBC (4.8 - 10.8 /CUMM) 8.3 RBC (4.70 - 6.10 /CUMM) 3.67 L Hgb (14.0 - 18.0 G/DL) 10.7 L Hct (42 - 52 %) 32.7 L MCV (80.0 - 94.0 FL) 89.0 MCH (27.0 - 31.0 PG) 29.3 RDW (11.5 - 14.5 %) 14.2 Plt Count (130 - 400 /CUMM) 221 MPV (7.4 - 10.4 FL) 8.9 Gran % (42.2 - 75.2 %) 77.9 H Lymphocytes % (20.5 - 51.1 %) 11.1 L Monocytes % (1.7 - 9.3 %) 8.1 Eosinophils % (0 - 5 %) 2.5 Basophils % (0.0 - 2.0 %) 0.4 Absolute Granulocytes (1.4 - 6.5 /CUMM) 6.5 Absolute Lymphocytes (1.2 - 3.4 /CUMM) 0.9 L Absolute Monocytes (0.10 - 0.60 /CUMM) 0.7 H Absolute Eosinophils (0.0 - 0.7 /CUMM) 0.2 Absolute Basophils (0.0 - 0.2 /CUMM) 0 PUBS MCHC (33.0 - 37.0 G/DL) 32.9 L Miscellaneous Phlebotomy Draw Site AC/VENOUS Toxicology Acetone Level (NEGATIVE) NEGATIVE Urines Urine Color (YEL,AMB,STR) YEL Urine Clarity (CLEAR) CLEAR Urine pH (5.0 - 8.0) 7.0 Ur Specific [place] (1.001 - 1.035) 1.020 Urine Protein (NEG,<30 MG/DL) 100 H Urine Ketones (NEG) NEG Urine Nitrite (NEG) NEG Urine Bilirubin (NEG) NEG Urine Urobilinogen (0.1 - 1.0 EU/dl) 0.2 Ur Leukocyte Esterase (NEG) NEG Ur Microscopic SEDIMENT EXAMINED Urine RBC (0 - 5 /HPF) 5-10 H Urine WBC (0 - 2 /HPF) RARE Ur Epithelial Cells (NONE,FEW) RARE Urine Hemoglobin (NEG) SMALL H Urine Glucose (N MG/DL) 100 H
--- NOTE | 2016-07-12 07:52 | NUR ---
Late Entry: Aware of patients discharge on 07/09/16 to short term rehabiliatation.
== END 2016-07-09 15:15 | DRG 199 ==
LOC: ENRESERVTM → ENRESERVDT → CANRESERV → ERH 12:12 → 1NO 15:19 → ERHI 15:19 → ENPENDDIS 15:19 → 1NO 17:00
PROVIDERS: Internal Medicine; Physician Assistant; Student in an Organized Health Care Education/Training Program; ADMIT Internal Medicine
DX: I16.0 Hypertensive urgency (principal); E87.5 Hyperkalemia; I73.9 Peripheral vascular disease, unspecified; I27.2 Other secondary pulmonary hypertension; I35.0 Nonrheumatic aortic (valve) stenosis; I87.2 Venous insufficiency (chronic) (peripheral); Z79.4 Long term (current) use of insulin; E87.2 Acidosis; I12.9 Hypertensive chronic kidney disease with stage 1 through stage 4 chronic kidney disease, or unspecified chronic kidney disease; E10.22 Type 1 diabetes mellitus with diabetic chronic kidney disease; E10.65 Type 1 diabetes mellitus with hyperglycemia; N18.4 Chronic kidney disease, stage 4 (severe); Z68.28 Body mass index [BMI] 28.0-28.9, adult; E10.319 Type 1 diabetes mellitus with unspecified diabetic retinopathy without macular edema; E66.9 Obesity, unspecified; E10.40 Type 1 diabetes mellitus with diabetic neuropathy, unspecified; E10.621 Type 1 diabetes mellitus with foot ulcer; L97.519 Non-pressure chronic ulcer of other part of right foot with unspecified severity; J45.909 Unspecified asthma, uncomplicated; E78.5 Hyperlipidemia, unspecified; Z91.14 Patient's other noncompliance with medication regimen; Z87.891 Personal history of nicotine dependence
CPT/HCPCS: 1NP; 76775; 81001; 82436; 87040; 93005; 93010; 96365; 99291; J0610; J0690; J1644; J1815; J7040

== ENCOUNTER 2016-08-12 18:28 | Inpatient (IN) | payer OTHER ==
[~2016-08-12] VITALS: Ht 165.1 cm; Wt 80.7 kg
[~2016-08-12 18:28] MED LIST changes: +ASPIRIN EC81 M1 PO; +PRAVACHOL40 M1 PO; +SENNA8.6 M3 PO; +VITAMIN D2000 UNIT PO
--- NOTE | 2016-08-12 19:02 | ED GENERAL ADULT ---
History of Present Illness General Chief Complaint: General Adult Stated Complaint: SIB BY URGENT CARE FOR B/P HIGH Source: patient, old records Exam Limitations: no limitations Vital Signs & Intake/Output Vital Signs & Intake/Output Vital Signs Date Time Temp Pulse Resp B/P Pulse O2 O2 Flow FiO2 Ox Delivery Rate 08/12 2236 97.6 55 18 187/84 94 Room Air Room Air 08/12 2200 97.4 62 18 93 96 Room Air Room Air 08/12 2158 97.5 64 16 21208/12 97.5 64 16 212/93 08/12 2158 97.5 64 16 212/93 08/12 2056 64 227/94 08/12 2004 55 207/94 08/12 1934 57 240/102 08/12 183 97.5 56 16 224/88 98 Room Air ED Intake and Output 08/13 0000 08/12 1200 Intake Total Output Total Balance Patient 178 lb Weight Allergies Coded Allergies: No Known Allergies (08/12/16) Reconcile Medications Allopurinol 100 MG TABLET 1 TAB PO DAILY Gout (Reported) Amlodipine Besylate 10 MG TABLET 1 TAB PO DAILY Hypertension (Reported) Aspirin (Ecotrin*) 81 MG TABLET.DR 1 TAB PO DAILY HEART HEALTH (Reported) Bumetanide 1 MG TABLET 1 TAB PO DAILY Heart (Reported) Cholecalciferol (Vitamin D3) (Vitamin D) 2,000 UNIT CAPSULE 1 CAP PO DAILY Supplement Clonidine HCl 0.2 MG TABLET 1 TAB PO QPM HTN (Reported) Gabapentin 100 MG CAPSULE 1 CAP PO TID Neuropathy (Reported) Hydralazine HCl 50 MG TABLET 2 TAB PO BID HTN Insulin Glargine,Hum.rec.anlog (Basaglar Kwikpen U-100) 100 UNIT/ML (3 ML) INSULN.PEN 10 UNITS SQ DAILY DIABETES MELLITUS Insulin Lispro (Humalog Kwikpen U-100) 100 UNIT/ML INSULN.PEN 0 SQ SEE ADMIN CRITERIA DIABETES MELLITUS. Blood sugar UNITS 80-150 2 151-200 3 201-250 4 251-300 5 301-350 6 351-400 7 Nitroglycerin (Nitrostat) 0.4 MG TAB.SUBL 1 TAB SL AD PRN Chest pain ( Reported) 1st sign of attack; may repeat every 5 minutes until relief; if pain persists after 3 tablets in 15 minutes, prompt medical att Pravastatin Sodium (Pravachol) 40 MG TABLET 1 TAB PO DAILY CHOLESTEROL ( Reported) Sennosides (Senna) 8.6 MG TABLET 1 TAB PO QPM CONSTIPATION (Reported) Sodium Bicarbonate 325 MG TABLET 4 TAB PO BID METAB ACIDOSIS (Reported) Triage Note: PT SENT IN BY HIS VISITING NURSE FOR HTN Triage Nurses Notes Reviewed? yes Onset: Abrupt Duration: unknown duration Timing: recent history Injury Environment: home No Modifying Factors: none HPI: 60-year-old male sent into the emergency room for high blood pressure. Patient has a visiting nurse and she took his blood pressure home and it was high. Patient was then sent to the urgent care in the urgent care sent him here. He currently denies any headache chest pain shortness of breath. History of hypertension. He admits that he may have not taken his medication like he was supposed to over last couple days. Denies any vomiting diaphoresis shortness of breath. Denies any other associated symptoms at this time. (FRANK VERDUZCO) Past History Travel History Traveled to [place] past 21 day No Medical History Any Pertinent Medical History? see below for history EENT: cataracts Cardiovascular: hypertension, hyperlipidemia Respiratory: asthma Gastrointestinal: NONE Hepatic: NONE Renal: chronic kidney disease Musculoskeletal: NONE Psychiatric: NONE Endocrine: diabetes Blood Disorders: anemia Cancer(s): NONE PROCTOLOGIST/Reproductive: NONE History of MRSA: No History of VRE: No History of CDIFF: No Surgical History Surgical History: MICHELLE Psychosocial History Who do you live with Friend Services at Home None What is your primary language Setswana Tobacco Use: Quit >30 days ago ETOH Use: occasional use Illicit Drug Use: denies illicit drug use Family History Family History, If Any: MOTHER (CVA, DM, ). SISTER (Breast cancer). Relation not specified for: FH: diabetes mellitus FH: hypertension Hx Contributory? No (FRANK VERDUZCO) Review of Systems Review of Systems Constitutional: Reports: no symptoms. EENTM: Reports: no symptoms. Respiratory: Reports: no symptoms. Cardiovascular: Reports: no symptoms. GI: Reports: no symptoms. Genitourinary: Reports: no symptoms. Musculoskeletal: Reports: no symptoms. Skin: Reports: no symptoms. Neurological/Psychological: Reports: no symptoms. Hematologic/Endocrine: Reports: no symptoms. Immunologic/Allergic: Reports: no symptoms. All Other Systems: Reviewed and Negative (FRANK VERDUZCO) Physical Exam Physical Exam General Appearance: well developed/nourished, no apparent distress, alert, awake Head: atraumatic, normal appearance Eyes: Bilateral: normal appearance, EOMI. Ears, Nose, Throat: normal pharynx, normal ENT inspection Neck: normal inspection, full range of motion Respiratory: normal breath sounds, no respiratory distress Cardiovascular: regular rate/rhythm Gastrointestinal: soft Back: normal inspection Extremities: normal inspection, normal range of motion Neurologic/Psych: awake, alert, oriented x 3, normal gait, normal mood/affect Skin: intact, normal color Core Measures ACS in differential dx? No CVA/TIA Diagnosis: No Severe Sepsis Present: No Septic Shock Present: No (FRANK VERDUZCO) Progress Differential Diagnoses I considered the following diagnoses in my evaluation of the patient: Hypertensive urgency, hypertensive emergency, CVA, end organ damage, Plan of Care: Orders Procedure Date/time Status Heart Healthy Diet 08/13 B Active TROPONIN LEVEL 08/13 0600 Active CBC WITHOUT DIFFERENTIAL 08/13 0600 Active BASIC ELECTROLYTES PLUS BUN&CR 08/13 0600 Active EKG 08/13 0600 Active TROPONIN LEVEL 08/13 0100 Active EKG 08/13 0100 Active Intake & Output 08/12 2359 Active Pathway - chart 08/12 222 Active House Staff 08/12 2225 Active Patient Data 08/12 222 Active Code Status 08/12 222 Active OXYGEN SETUP (GEN) 08/12 2199 Active Saline Lock 08/12 2199 Active Admit to inpatient 08/12 220 Active Vital Signs 08/12 2199 Active Activity/Ambulation 08/12 220 Active Code Status 08/12 220 Complete Patient Data 08/12 2021 Active URINALYSIS 08/12 185 Complete TROPONIN LEVEL 08/12 185 Complete COMPREHENSIVE METABOLIC PANEL 08/12 185 Complete CBC WITHOUT DIFFERENTIAL 08/12 185 Complete EKG 08/12 185 Active VTE Mechanical Prophylaxis 08/12 UNK Active Telemetry/Single Wire Saw Operator 08/12 UNK Active FingerStick- Glucose 08/12 UNK Active Current Medications Sig/Michael Start time Last Medication Dose Stop Time Status Admin Allopurinol 100 MG DAILY 08/13 1000 AC (Zyloprim) Aspirin Buffered 81 MG DAILY 08/13 1000 AC (Ecotrin) Cholecalciferol 1,000 IU DAILY 08/13 1000 AC (Vitamin D) Gabapentin 100 MG TID 08/13 1000 AC (Neurontin) Hydralazine HCl 100 MG BID 08/13 1000 AC (Apresoline) Insulin Detemir 10 UNITS DAILY 08/13 1000 AC (Levemir) Pravastatin Sodium 40 MG DAILY 08/13 1000 AC (Pravachol) Insulin Aspart 0 TIDAC 08/13 0800 AC (NovoLOG) Heparin Sodium 5,000 UNIT Q8 08/13 0600 AC (Porcine) Acetaminophen 650 MG Q6P PRN 08/12 2230 AC (Tylenol) Laboratory Tests 08/12/16 1908: Anion Gap 11, Estimated GFR 22 L, BUN/Creatinine Ratio 17.9, Glucose 159 H, Calcium 9.1, Total Bilirubin 0.4, AST 14 L, ALT 23, Alkaline Phosphatase 127 H , Troponin I 0.05, Total Protein 7.7, Albumin 4.0, Globulin 3.7, Albumin/ Globulin Ratio 1.1, CBC w Diff NO MAN DIFF REQ, RBC 3.80 L, MCV 89.1, MCH 29.1, RDW 14.3, MPV 8.6, Gran % 75.4 H, Lymphocytes % 12.8 L, Monocytes % 8.4, Eosinophils % 3.0, Basophils % 0.4, Absolute Granulocytes 6.4, Absolute Lymphocytes 1.1 L, Absolute Monocytes 0.7 H, Absolute Eosinophils 0.3, Absolute Basophils 0, PUBS MCHC 32.7 L, Urine Color YEL, Urine Clarity CLEAR, Urine pH 6.0, Ur Specific [place] 1.020, Urine Protein >=300 H, Urine Ketones NEG, Urine Nitrite NEG, Urine Bilirubin NEG, Urine Urobilinogen 0.2, Ur Leukocyte Esterase NEG, Ur Microscopic SEDIMENT EXAMINED, Urine RBC 5-10 H, Urine WBC RARE, Ur Epithelial Cells OCCAS, Hyaline Casts MOD H, Granular Casts FEW H, Urine Hemoglobin SMALL H, Urine Glucose 100 H Initial ED EKG: normal intervals, normal p-waves, normal sinus rhythm, rate (58) (CHARLIE CAMPBELL,FRANK) Departure Departure Disposition: STILL A PATIENT Condition: Stable Clinical Impression Primary Impression: Hypertensive urgency Referrals: DONNIE GIBBS,DAHLIA Gage (PCP/Family) Departure Forms: Customer Survey General Discharge Information Admission Note Spoke With: AICHA GILES MD Documentation of Exam: Documentation of any treatments & extenuating circumstances including Concerns Regarding Discharge (functional status, medication knowledge or non-compliance, living conditions, etc.) that warrant an admission rather than observation: Patient will require IV blood pressure control. Cardiac consultation. Cardiac telemetry. High risk. Would do poorly as an outpatient. Proteinuria. (FRANK VERDUZCO) PA/WAREHOUSING TECHNICIAN Co-Sign Statement Statement: ED Attending supervision documentation- x I saw and evaluated the patient. I have also reviewed all the pertinent lab results and diagnostic results. I agree with the findings and the plan of care as documented in the PA's/WAREHOUSING TECHNICIAN's documentation. [] I have reviewed the ED Record and agree with the PA's/WAREHOUSING TECHNICIAN's documentation. [] Additions or exceptions (if any) to the PAs/WAREHOUSING TECHNICIAN's note and plan are summarized below: [] (SERAFIN GIBBS,NOLAN) Critical Care Note Critical Care Note Critical Care Time: 30-74 min (35) (FRANK VERDUZCO)
[2016-08-12 19:23] LABS: ABSOLUTE BASOPHIL COUNT 0 /CUMM (0.0-0.2); ABSOLUTE EOSINOPHIL COUNT 0.3 /CUMM (0.0-0.7); ABSOLUTE GRANULOCYTE CT 6.4 /CUMM (1.4-6.5); ABSOLUTE LYMPH COUNT 1.1 /CUMM (1.2-3.4); ABSOLUTE MONOCYTE COUNT 0.7 /CUMM (0.10-0.60); BASOPHIL % 0.4 % (0.0-2.0); GRANULOCYTE % 75.4 % (42.2-75.2); HEMATOCRIT 33.8 % (42-52); MEAN CORPUSCULAR HGB 29.1 PG (27.0-31.0); MEAN CORPUSCULAR HGB CONC 32.7 G/DL (33.0-37.0); MEAN CORPUSCULAR VOLUME 89.1 FL (80.0-94.0); MEAN PLATELET VOLUME 8.6 FL (7.4-10.4); PLATELET COUNT 270 /CUMM (130-400); RBC DISTRIBUTION WIDTH 14.3 % (11.5-14.5); WHITE BLOOD CELL COUNT 8.5 /CUMM (4.8-10.8)
--- NOTE | 2016-08-12 20:42 | History & Physical ---
REYNA GIBBS,[facility] 08/12/162040: General Information and HPI MD Statement: I have seen and personally examined TANI NESS and documented this H&P. The patient is a 61 year old M who presented with a patient stated chief complaint of elevated blood pressure. Source of Information: patient, ex Exam Limitations: no limitations History of Present Illness: This is a 60-year-old gentleman with past medical history significant for insulin-dependent diabetes,resultant diabetic nephropathy (CKD stage 4), diabetic retinopathy, diabetic neuropathy, HTN, HLD, asthma and medication non- compliance, and a recent [facility] in June 2016 which included treatment for hypertensive emergency, presents for evaluation of elevated blood pressure readings. Patient is accompanied by his ex- who helps in providing most of the history. Pt was reported to have been sent to a senior living at [place] after the last discharge in June. However,he decided to leave the senior living and has been living with a friend for the past 1 month. Patient was suppose to be setting up arrangements with VNA services, however this never materialized till today. When [facility]NA came to see patient today, at his new place of living, it was noted that his blood pressure was very elevated and was therefore instructed to come to [facility]. Patient reports that he is not able to take his medications as instructed and stated that he needs help partly because he is legally blind. Patient also reports that his roommate is not able to fully manage and help him with his complex medication regimen. Pt denies any chest pain,palpitation,acute vison changes, or altered mental status. Allergies/Medications Allergies: Coded Allergies: No Known Allergies (08/12/16) Home Med list Allopurinol 100 MG TABLET 1 TAB PO DAILY Gout (Reported) Amlodipine Besylate 10 MG TABLET 1 TAB PO DAILY Hypertension (Reported) Aspirin (Ecotrin*) 81 MG TABLET.DR 1 TAB PO DAILY HEART HEALTH (Reported) Bumetanide 1 MG TABLET 1 TAB PO DAILY Heart (Reported) Cholecalciferol (Vitamin D3) (Vitamin D) 2,000 UNIT CAPSULE 1 CAP PO DAILY Supplement Clonidine HCl 0.2 MG TABLET 1 TAB PO QPM HTN (Reported) Gabapentin 100 MG CAPSULE 1 CAP PO TID Neuropathy (Reported) Hydralazine HCl 50 MG TABLET 2 TAB PO BID HTN Insulin Glargine,Hum.rec.anlog (Basaglar Kwikpen U-100) 100 UNIT/ML (3 ML) INSULN.PEN 10 UNITS SQ DAILY DIABETES MELLITUS Insulin Lispro (Humalog Kwikpen U-100) 100 UNIT/ML INSULN.PEN 0 SQ SEE ADMIN CRITERIA DIABETES MELLITUS. Blood sugar UNITS 80-150 2 151-200 3 201-250 4 251-300 5 301-350 6 351-400 7 Nitroglycerin (Nitrostat) 0.4 MG TAB.SUBL 1 TAB SL AD PRN Chest pain ( Reported) 1st sign of attack; may repeat every 5 minutes until relief; if pain persists after 3 tablets in 15 minutes, prompt medical att Pravastatin Sodium (Pravachol) 40 MG TABLET 1 TAB PO DAILY CHOLESTEROL ( Reported) Sennosides (Senna) 8.6 MG TABLET 1 TAB PO QPM CONSTIPATION (Reported) Sodium Bicarbonate 325 MG TABLET 4 TAB PO BID METAB ACIDOSIS (Reported) Past History Travel History Traveled to [place] past 21 day No Medical History EENT: cataracts Cardiovascular: hypertension, hyperlipidemia Respiratory: asthma Gastrointestinal: NONE Hepatic: NONE Renal: chronic kidney disease Musculoskeletal: NONE Psychiatric: NONE Endocrine: diabetes Blood Disorders: anemia Cancer(s): NONE INTERPRETER/Reproductive: NONE History of MRSA: No History of VRE: No History of CDIFF: No Surgical History Surgical History: MICHELLE Past Family/Social History Family History Relations & Conditions if any MOTHER (CVA, DM, ). SISTER (Breast cancer). Relation not specified for: FH: diabetes mellitus FH: hypertension Psychosocial History Who Do You Live With? self Services at Home: None Primary Language: Portuguese ETOH Use: occasional use Illicit Drug Use: denies illicit drug use Functional Ability ADLs Independent: dressing, eating, toileting, bathing. Review of Systems Review of Systems Constitutional: Reports: see HPI. EENTM: Reports: no symptoms. Cardiovascular: Reports: no symptoms. Respiratory: Reports: no symptoms. GI: Reports: no symptoms. Genitourinary: Reports: no symptoms. Musculoskeletal: Reports: no symptoms. Skin: Reports: no symptoms. Neurological/Psychological: Reports: no symptoms. Hematologic/Endocrine: Reports: no symptoms. Immunologic/Allergic: Reports: no symptoms. Exam & Diagnostic Data Last 24 Hrs of Vital Signs/I&O Vital Signs Date Time Temp Pulse Resp B/P Pulse O2 O2 Flow FiO2 Ox Delivery Rate 08/13 0148 96 Room Air 08/12 2236 97.6 55 18 187/84 94 Room Air Room Air 08/12 2200 97.4 62 18 96 Room Air Room Air 08/12 2158 97.5 64 16 08/12 97.5 64 16 08/12 97.5 64 16 08/12 2056 64 227/94 08/13 2003 55 207/94 08/12 1934 57 240/102 08/12 1839 97.5 56 16 224/88 98 Room Air Intake & Output 08/13 0800 08/13 0000 08/12 1600 Intake Total 720 Output Total 400 Balance 320 Intake, Oral 720 Output, Urine 400 Patient 80.739 kg 80.739 kg Weight Physical Exam General Appearance Alert, Oriented X3, Cooperative Skin dry sclay lower extremity HEENT Atraumatic, Mucous Membr. moist/pink Neck No JVD, No thryomegaly, +2 Carotid Pulse wo Bruit Lymphatic Cervical nl Cardiovascular Regular Rate, Normal S1, Normal S2, murmur Lungs Clear to Auscultation, Normal Air Movement Abdomen Normal Bowel Sounds, Soft, No Hepatospenomegaly, No Masses Neurological Normal Speech, Sensation Intact Extremities No Cyanosis, No Tenderness/Swelling Vascular Pulses Symmetrical Assessment/Plan Assessment: This is a 60-year-old woman with an extensive past medical history including hypertension, sick ED stage IV, hyperlipidemia, diabetes, and difficulty taking his medication as prescribed is presenting with hypertensive urgency. Patient has a history of not able to take his medication as instructed. It is apparent that patient's legal blindness and his comprehension might be the main contributory factors of why he is not able to take his multiple regimen. Assessment and plan #Hypertensive urgency Patient is presenting with elevated blood pressure with systolic levels above 200. This is secondary to noncompliance. He however not endorse any chest pain, new acute vision changes, decrease urinary output, or altered mental status. Plan Status post hydralazine 10 mg X2. Will start patient's home medications bumetanide, clonidine, hydralazine, with a goal of not to drastically lower blood pressure. We'll try to maintain BP at 160 systolic. #History of diabetes NovoLog sliding scale Lantus home dose of 10 units daily at bedtime Accu-Cheks 3 times a day and bedtime #History of CKD stage IV No acute worsening noted currently. Likely caused by hypertensive nephropathy. Plan Continue to trend BEP Will avoid nephrotoxic agents #History of hyperlipidemia Continue pravastatin 40 mg daily #Chronic lower extremity skin changes Consistent with dry flaky skin, no obvious ulceration, prominent erythema or purulent discharge noted. Plan Will obtain wound consult As Ranked By This Provider Problem List: 1. Hypertensive urgency Core Measures/Miscellaneous Acute Coronary Syndrome ACS Diagnosis: No Cerebrovascular Accident CVA/TIA Diagnosis: No Congestive Heart Failure CHF Diagnosis: No Venous Thromboembolism VTE Risk Factors: Age > 40 [facility] prophylaxis d/t: No contraindications No VTE Pharm Prophylaxis d/t: No contraindications VTE Diagnosis: No VTE Type: NONE VTE Confirmed by (Test): NONE Severe Sepsis Severe Sepsis Present: No Septic Shock Septic Shock Present: No Miscellaneous Documentation Attending Case Discussed With: SIENNA GILES MDBossman Primary Care Physician: DAHLIA FIELDS MD Patient sees these Specialists .. Level of Patient Care: Telemetry IKE WELLER MD 08/12/16 1928: Resident Review Statement Resident Statement: examined this patient, discussed with campus interviews intern, agreed with campus interviews intern Other Findings: 60 Y/O M with PMH of HTN, HLD, CKD, DM, Anemia who presents to the ED after being sent in from home by his visiting nurse for elevated blood pressure. He was recently discharged from after being admitted for the same complaint. At the time, he was sent to a rehab facility in [place], where he signed out AMA from. He then went to live with his friend across the street from . His ex- bought him a pill box to organize his medications, but she does not feel that he was taking them on time. [facility]VA services were finally called and the patient had his first visit today, where the nurse found him to be hypertensive and asked him to go to the ED. He reports feeling a little dizzy this morning. He denies any chest pressure, shortness of breath, palpitations etc. Unable to report any changes in vision, because he cannot see well at baseline. He has lower extremity lesions, which he calls a fungal infection, for which he was scheduled to see Dr. Linares, tomorrow. He is also scheduled to see his cementer at [place] and his Operating Room Technologist (Dr. Tran, [place]). Vitals: BP was initialy 224/83, HR 55-57, saturating well on RA Physical Exam: Systolic Ejection murmur heard in the aortic area. Both lower extremities show peeling of the dermis upto the region of the love. There are no ulcers or breaks in the skin noted. Labs: Creatninie 2.9 (b/l) Imaging: No imaging was done. Problem List: 1) Hypertensive Urgency: * Patient has already received 10 mg of Hydralazine x2 in the ED. Restart his home medications for now as we do not want to drop the BP too quickly. His HR continues to be borderline. If his blood pressure does not respond to his PO meds, consider beta keri drip. * Continue home Amlodipine, Hydralazine, Clonidine for now. * Monitor BEP for end organ damage * Recent ECHO showed normal EF with and elevated RVSP 2) Diabetes Mellitus: * Fingersticks * Continue home Lantus 10 units at night * Novolog sliding scale 3) Hyperlipidemia: * Continue home statin 4) Pain Pathway: * Tylenol PRN 5) DVT PPx: * Heparin SubQ 6) Code Status: * Full Code TISHA GIBBS, [facility] 08/13/16 0025: Attending MD Review Statement Attending Statement Attending MD Statement: examined this patient, discuss w/resident/PA/LAND ACQUISITION SPECIALIST, agreed w/resident/PA/LAND ACQUISITION SPECIALIST, discussed with family Attending Assessment/Plan: 60 yo Portuguese speaking, legally blind male with h/o IDDM, asthma, HTN, HLD, diabetic neuropathy, retinopathy, CKD stage 4, is being admitted for hypertensive urgency 2/2 noncompliance with medications. He was recently admitted (07/07 07/09) for hypertensive emergency with renal dysfunction, discharged to [facility] from where he left [place] and has been living with his friend in [place]. His friend is unable to care in terms of providing proper diet, giving him his meds, etc. Although he arranges the medications in the pill box, patient is unable to see what he takes due to his poor vision. A visiting nurse was set up, she checked on the patient yesterday for the first time and noted elevated BP for which patient was sent to ER. Patient remains asymptomatic. Vitals: afebrile, HR 55-60's, BP 240/102 --> 212/93. He has chronic lower extremity edema with scaling rash, healing superficial ulcer to left great toe. Labs: BUN 52, creat 2.9 (baseline 2.7 3.0), trop neg. UA clear. EKG: SR, no acute changes. Echo (2017): EF 70%, LVH, elevated RVSP. 1. Hypertensive urgency. Tele admit, he received IV hydralazine 10 mg once in ER , will repeat another 10 mg and resume his home meds amlodipine, bumex, clonidine and hydralazine. Will lower BP by 20% over next 24 hours, avoid drastic drop in BP. Serial EKG and troponin, Cardio consult. He needs case management and social work consult to ensure he has a nurse helping him with his meds and also an ?aide to help with caring for the patient. Patient's ex- ( who was at bedside) requests help for the above. 2. LE wounds, scaling skin. Treat with Xeroform dressing. Wound consult in AM. DVT ppx Hep SC. Full code.
--- NOTE | 2016-08-12 23:17 | Admission Certification ---
Admission Certification Certification Statement - As attending physician, I certify that at the time of - admission, based on clinical presentation, severity of - symptoms, need for further diagnostic testing and - therapeutic interventions, and risk of adverse outcomes - without in-hospital treatment, in my clinical assessment, - this patient requires an acute hospital stay for a minimum - of two nights or longer. I have also considered psychsocial - factors such as support system, advanced age, financial - issues, cognitive issues, and failed out-patient treatments, - past re-admission history, safety of patient, and lack of - compliance as applicable. Specific rationale supporting this admission is: Hypertensive urgency
--- NOTE | 2016-08-13 07:06 | PN- Housestaff ---
WILLIS CROCKER 08/13/16 0701: Subjective Follow-up For: Hypertensive urgency Tele-Events Since Last Visit: Normal sinus rhythm, bradycardia, heart rate in the range of 40-54. Subjective: The patient is comfortable this morning. Did not have any complaints.blood pressure was elevated overnight, which improved to 142/68 in the AM. Review of Systems Constitutional: Reports: see HPI. Objective Last 24 Hrs of Vital Signs/I&O Vital Signs Date Time Temp Pulse Resp B/P Pulse O2 O2 Flow FiO2 Ox Delivery Rate 08/13 0148 96 Room Air 08/12 2236 97.6 55 18 187/84 94 Room Air Room Air 08/12 220 97.4 62 18 212/ 96 Room Air Room Air 08/12 2158 97.5 64 16 08/12 97.5 64 16 21208/12 97.5 64 16 21208/12 2056 64 227/94 08/12 2004 55 207/94 08/12 1934 57 240/102 08/12 1839 97.5 56 16 224/88 98 Room Air Intake & Output 08/13 0800 08/13 0000 08/12 1600 Intake Total 720 Output Total 400 Balance 320 Intake, Oral 720 Output, Urine 400 Patient 178 lb 178 lb Weight Physical Exam General Appearance: No Acute Distress Other Physical Findings: General Exam: AAOx3, No acute distress, Skin: No rashes, no breakdown HEENT: PERRLA, EOMI Neck: Supple, No JVD No cervical lymphadenopathy CVS: Reg Rate, Normal S1,S2, systolic murmur Resp: Normal air entry, no ronchi/rales Abdomen: Soft, No tenderness, Normal Bowel Sounds Neuro: Normal Speech, Strength 5/5 b/l x 4 extremities, Sensation intact, CN III -XII NL, Reflexes 2+ Extremities: desquamative rash on both feet, w/ linear cracks. Current Medications: Current Medications Sig/Michael Start time Last Medication Dose Route Stop Time Status Admin Acetaminophen 650 MG Q6P PRN 08/120 AC PO Allopurinol 100 MG DAILY 08/13 1000 AC PO Amlodipine Besylate 10 MG DAILY 08/12 2126 AC 08/12 PO 2158 Aspirin Buffered 81 MG DAILY 08/13 1000 AC PO Bumetanide 1 MG DAILY 08/12 2126 AC 08/12 PO 2158 Cholecalciferol 1,000 IU DAILY 08/13 1000 AC PO Clonidine 0.2 MG QPM 08/12 2200 AC 08/12 PO 2158 Gabapentin 100 MG TID 08/13 1000 AC PO Heparin Sodium 5,000 UNIT Q8 08/13 0600 AC (Porcine) SC Hydralazine HCl 100 MG BID 08/13 1000 AC PO Hydralazine HCl 0 .STK-MED ONE 08/12 2149 DC .ROUTE Hydralazine HCl 10 MG ONCE ONE 08/12 2129 DC 08/12 IV 08/12 Hydralazine HCl 0 .STK-MED ONE 08/13 1927 DC .ROUTE Hydralazine HCl 10 MG ONCE ONE 08/12 1914 DC 08/12 IV 08/12 Insulin Aspart 0 TIDAC 08/13 0800 AC SC Insulin Detemir 10 UNITS DAILY 08/13 1000 AC SC Pravastatin Sodium 40 MG DAILY 08/13 1000 AC PO Last 24 Hrs of Lab/Eduardo Results Last 24 Hrs of Labs/Mics: Laboratory Tests 08/13/16 0145: Troponin I 0.07 08/12/161907: Anion Gap 11, Estimated GFR 22 L, BUN/Creatinine Ratio 17.9, Glucose 159 H, Calcium 9.1, Total Bilirubin 0.4, AST 14 L, ALT 23, Alkaline Phosphatase 127 H , Troponin I 0.05, Total Protein 7.7, Albumin 4.0, Globulin 3.7, Albumin/ Globulin Ratio 1.1, CBC w Diff NO MAN DIFF REQ, RBC 3.80 L, MCV 89.1, MCH 29.1, RDW 14.3, MPV 8.6, Gran % 75.4 H, Lymphocytes % 12.8 L, Monocytes % 8.4, Eosinophils % 3.0, Basophils % 0.4, Absolute Granulocytes 6.4, Absolute Lymphocytes 1.1 L, Absolute Monocytes 0.7 H, Absolute Eosinophils 0.3, Absolute Basophils 0, PUBS MCHC 32.7 L, Urine Color YEL, Urine Clarity CLEAR, Urine pH 6.0, Ur Specific [place] 1.020, Urine Protein >=300 H, Urine Ketones NEG, Urine Nitrite NEG, Urine Bilirubin NEG, Urine Urobilinogen 0.2, Ur Leukocyte Esterase NEG, Ur Microscopic SEDIMENT EXAMINED, Urine RBC 5-10 H, Urine WBC RARE, Ur Epithelial Cells OCCAS, Hyaline Casts MOD H, Granular Casts FEW H, Urine Hemoglobin SMALL H, Urine Glucose 100 H Assessment/Plan Assessment: Mr. Roblero is a 60-year-old man with a past history of insulin-dependent diabetes, stage 4 CKD, diabetic retinopathy, hypertension, hyperlipidemia is being evaluated for hypertensive urgency. At the time of admission, vitals-temperature 97.5, pulse rate 56, respiratory rate 16, blood pressure 224/88, pulse ox 98% on room air.laboratory findings indicated-no leukocytosis, WBC 8.5, hemoglobin 11.1 (Baseline 10),MCV 89.1, platelets 270. Normal electrolytes-sodium 144, potassium 4.8, abnormal renal function BUN 52, serum creatinine 2.9 (baseline 3.1 likely diabetic nephropathy and or hypertensive), normal liver function AST 14, ALT 23, alkaline phosphatase 127. Cardiac enzymes-serial 3 less than 0.1. Urinalysis revealed urine protein above 300, urine leukocyte esterase negative, urine nitrates negative. Last echocardiogram 06/01/2016 revealed right 20/30 systolic pressure around 50. Also was noted diffuse thickening of aortic valve cusp with minimally reduced excursion and mild aortic stenosis. Admission diagnosis: #1 hypertensive urgency #2 diabetic nephropathy #3 bilateral lower extremity ulcers Below is the problem list and plan: #1 hypertensive urgency- systolic blood pressure above 200 at the time of admission. Continued the patient on Norvasc 10, hydralazine 100 twice a day, clonidine 0.2 mg daily, Bumex 1 mg daily. Elevated blood pressure was likely due to noncompliance. Currently medications are on hold, as the patient's blood pressure fell more than ready 5% in the first 24 hours. Reintroduce clonidine, and all other meds as needed. #2 diabetes-patient had type 1 diabetes. Blood sugars ranged in between 132- 159. Currently on Levemir 10 units twice a day with NovoLog sliding scale. Check HbA1c. #3 bilateral lower extremity desquamation-likely due to inadequate for care. Wound consult has been obtained. Emollients until then. Neuropathy-with pain control by gabapentin. #4 DVT prophylaxis-heparin subcutaneous. #5 anemia- Problem List: 1. PVD (peripheral vascular disease) 2. Hypertension Pain Ratin Pain Location: Back Pain Goal: Pain 4 or less Pain Plan: LOWER EXTREMITIES Tomorrow's Labs & Rationales: CBC BEP IVIS GIBBSCHINTAN 08/13/16 1022: Attending MD Review Statement Attending Statement Attending MD Statement: examined this patient, discuss w/resident/PA/PAPER AND PRINTS RESTORER, agreed w/resident/PA/PAPER AND PRINTS RESTORER, reviewed EMR data (avail) Attending Assessment/Plan: 61M PMH IDDM, diabetic nephropathy (CKD stage 4), diabetic retinopathy, diabetic neuropathy, HTN, HLD admitted for hypertensive urgency with BP 240/120, with overnight Hgb drop but no evidence of bleeding, hemodynamically stable, with bilateral lower extremity chronic skin changes. Patient feels well, only complaint is chronic bilateral foot pain. Both legs and feet have a desquamative rash with skin fissures but no evidence of ulceration or infection. BP is improved today to 140/80 after being given Bumex , Amlodipine, and Clonidine last night. Labs reviewed. 1. Hypertensive urgency 2. Bilateral leg and foot desquamative rash 3. Microcytic anemia 4. Diabetic neuropathy 5. CKD stage 4 6. IDDM Plan - Continue on telemetry - Will hold BP meds this morning as BP went from 240 systolic to 140 systolic overnight - Reintroduce BP meds incrementally, starting with Clonidine (to avoid rebound hypertension) - Recheck CBC tomorrow - Continue remaining home medications - Anticipated discharge tomorrow if BP controlled and Hgb stable. Please send CMR for review.
[2016-08-13 07:53] LABS: ABSOLUTE BASOPHIL COUNT 0 /CUMM (0.0-0.2); ABSOLUTE EOSINOPHIL COUNT 0.2 /CUMM (0.0-0.7); ABSOLUTE GRANULOCYTE CT 4.7 /CUMM (1.4-6.5); ABSOLUTE LYMPH COUNT 1.1 /CUMM (1.2-3.4); ABSOLUTE MONOCYTE COUNT 0.7 /CUMM (0.10-0.60); BASOPHIL % 0.6 % (0.0-2.0); EOSINOPHIL % 3.4 % (0-5); GRANULOCYTE % 69.6 % (42.2-75.2); MEAN CORPUSCULAR HGB CONC 33.3 G/DL (33.0-37.0); MEAN PLATELET VOLUME 8.9 FL (7.4-10.4); PLATELET COUNT 203 /CUMM (130-400); RBC DISTRIBUTION WIDTH 13.9 % (11.5-14.5); RED BLOOD CELL CT 2.95 /CUMM (4.70-6.10); WHITE BLOOD CELL COUNT 6.8 /CUMM (4.8-10.8)
[2016-08-13 08:19] LABS: HEMATOCRIT 26.6 % (42-52)
[2016-08-13 08:20] VITALS: BP 142/68
--- NOTE | 2016-08-13 12:35 | Cons- Cardiology ---
General Information and HPI Consulting Request Date of Consult: 08/13/16 Requested By: TISHA GIBBS,AICHA Reason for Consult: Uncontrolled hypertension. Source of Information: patient, old records Exam Limitations: language barrier History of Present Illness: The patient is a 61-year-old male with a history of progressive renal disease and hypertension. I saw him originally in May 2016 when he came in with uncontrolled diabetes. His echo showed minimal aortic stenosis and mild to moderate pulmonary hypertension. He required large amounts of blood pressure medications for control of his blood pressure. He was readmitted in June because of lower extremity edema and rash and medication noncompliance. Again his blood pressure was uncontrolled and required reinstitution of medications. The patient was apparently sent to rehabilitation but left there and has been living with a friend but has been medication noncompliant once again. He was sent to the emergency room yesterday because of uncontrolled blood pressure, which on initial evaluation was over 200 systolic and around 100 diastolic. His medications have subsequently been reinstituted and his last blood pressure was in the 140/70 range. Troponins are negative 3. The patient tells me he has not been taking his medications for social reasons. He is complaining of pain in his legs and scaling of his legs. He does not have any chest pain or shortness of breath at this time. Allergies/Medications Allergies: Coded Allergies: No Known Allergies (08/12/16) Home Med List: Allopurinol 100 MG TABLET 1 TAB PO DAILY Gout (Reported) Amlodipine Besylate 10 MG TABLET 1 TAB PO DAILY Hypertension (Reported) Aspirin (Ecotrin*) 81 MG TABLET.DR 1 TAB PO DAILY HEART HEALTH (Reported) Bumetanide 1 MG TABLET 1 TAB PO DAILY Heart (Reported) Cholecalciferol (Vitamin D3) (Vitamin D) 2,000 UNIT CAPSULE 1 CAP PO DAILY Supplement Clonidine HCl 0.2 MG TABLET 1 TAB PO QPM HTN (Reported) Gabapentin 100 MG CAPSULE 1 CAP PO TID Neuropathy (Reported) Hydralazine HCl 50 MG TABLET 2 TAB PO BID HTN Insulin Glargine,Hum.rec.anlog (Basaglar Kwikpen U-100) 100 UNIT/ML (3 ML) INSULN.PEN 10 UNITS SQ DAILY DIABETES MELLITUS Insulin Lispro (Humalog Kwikpen U-100) 100 UNIT/ML INSULN.PEN 0 SQ SEE ADMIN CRITERIA DIABETES MELLITUS. Blood sugar UNITS 80-150 2 151-200 3 201-250 4 251-300 5 301-350 6 351-400 7 Nitroglycerin (Nitrostat) 0.4 MG TAB.SUBL 1 TAB SL AD PRN Chest pain ( Reported) 1st sign of attack; may repeat every 5 minutes until relief; if pain persists after 3 tablets in 15 minutes, prompt medical att Pravastatin Sodium (Pravachol) 40 MG TABLET 1 TAB PO DAILY CHOLESTEROL ( Reported) Sennosides (Senna) 8.6 MG TABLET 1 TAB PO QPM CONSTIPATION (Reported) Sodium Bicarbonate 325 MG TABLET 4 TAB PO BID METAB ACIDOSIS (Reported) Current Medications: Current Medications Sig/Michael Start time Last Medication Dose Route Stop Time Status Admin Acetaminophen 650 MG Q6P PRN 08/120 AC PO Allopurinol 100 MG DAILY 08/13 1000 AC 08/13 PO 1009 Amlodipine Besylate 10 MG DAILY 08/12 2126 DC 08/12 PO 2159 Aspirin Buffered 81 MG DAILY 08/13 1000 AC 08/13 PO 1008 Bumetanide 1 MG DAILY 08/12 2126 DC 08/12 PO 2159 Cholecalciferol 1,000 IU DAILY 08/13 1000 AC 08/13 PO 1009 Clonidine 0.2 MG QPM 08/12 2200 AC 08/12 PO 2159 Gabapentin 100 MG TID 08/13 1000 AC 08/13 PO 1008 Heparin Sodium 5,000 UNIT Q8 08/13 0600 AC (Porcine) SC Hydralazine HCl 100 MG BID 08/13 1000 CAN PO Hydralazine HCl 0 .STK-MED ONE 08/12 2149 DC .ROUTE Hydralazine HCl 10 MG ONCE ONE 08/12 2129 DC 08/12 IV 08/12 Hydralazine HCl 0 .STK-MED ONE 08/13 1927 DC .ROUTE Hydralazine HCl 10 MG ONCE ONE 08/12 1914 DC 08/12 IV 08/12 Insulin Aspart 0 TIDAC 08/13 0800 AC 08/13 SC 0800 Insulin Detemir 10 UNITS DAILY 08/13 1000 AC 08/13 SC 1011 Pravastatin Sodium 40 MG DAILY 08/13 1000 AC 08/13 PO 1008 Review of Systems Review of Systems: He has no specific complaints in the review of systems at this time. 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 SISTER (Breast cancer). Relation not specified for: FH: diabetes mellitus FH: hypertension Psychosocial History Where Do You Live? Home Who Do You Live With? self Services at Home: Nursing Primary Language: Maori Smoking Status: Former Smoker ETOH Use: occasional use Illicit Drug Use: denies illicit drug use Functional Ability ADLs Independent: dressing, eating, toileting, bathing. Exam & Diagnostic Data Vital Signs and I&O Vital Signs Date Time Temp Pulse Resp B/P Pulse O2 O2 Flow FiO2 Ox Delivery Rate 08/13 0820 97.3 44 18 142/68 95 Room Air 08/13 0148 96 Room Air 08/12 2237 97.6 55 18 187/84 94 Room Air Room Air 08/12 2201 97.4 62 18 212/93 96 Room Air Room Air 08/12 215 97.5 64 16 212/93 08/12 2159 97.5 64 16 212/93 08/12 2159 97.5 64 16 212/93 08/12 2056 64 227/94 08/12 2004 55 207/94 08/12 1934 57 240/102 08/12 1839 97.5 56 16 224/88 98 Room Air Intake & Output 08/13 1600 08/13 0800 08/13 0000 08/12 1600 08/12 0800 08/12 0000 Intake Total 720 Output Total 400 Balance 320 Intake, Oral 720 Output, Urine 400 Patient 178 lb 178 lb Weight Physical Exam: On physical exam he is in no distress. He is conversant. HEENT exam is normal. Chest is clear Heart reveals regular rhythm, bradycardic, grade 3/6 systolic ejection murmur at the base. Abdomen is benign Extremities reveal diffuse scaling of his skin but no pitting edema. Labs/Eduardo Results: Laboratory Tests 08/13 08/13 08/13 0900 0655 0145 Chemistry Sodium (137 - 145 mmol/L) 142 Potassium (3.5 - 5.1 mmol/L) 5.0 Chloride (98 - 107 mmol/L) 110 H Carbon Dioxide (22 - 30 mmol/L) 25 Anion Gap (5 - 16) 7 BUN (9 - 20 mg/dL) 54 H Creatinine (0.7 - 1.2 mg/dL) 3.1 H Estimated GFR (>60 ml/min) 21 L BUN/Creatinine Ratio (7 - 25 %) 17.4 Troponin I (<0.11 ng/ml) 0.04 0.07 Hematology CBC w Diff NO MAN DIFF REQ WBC (4.8 - 10.8 /CUMM) 6.8 RBC (4.70 - 6.10 /CUMM) 2.95 L Hgb (14.0 - 18.0 G/DL) 8.9 L Hct (42 - 52 %) 26.6 L MCV (80.0 - 94.0 FL) 90.0 MCH (27.0 - 31.0 PG) 30.0 RDW (11.5 - 14.5 %) 13.9 Plt Count (130 - 400 /CUMM) 203 MPV (7.4 - 10.4 FL) 8.9 Gran % (42.2 - 75.2 %) 69.6 Lymphocytes % (20.5 - 51.1 %) 16.5 L Monocytes % (1.7 - 9.3 %) 9.9 H Eosinophils % (0 - 5 %) 3.4 Basophils % (0.0 - 2.0 %) 0.6 Absolute Granulocytes (1.4 - 6.5 /CUMM) 4.7 Absolute Lymphocytes (1.2 - 3.4 /CUMM) 1.1 L Absolute Monocytes (0.10 - 0.60 /CUMM) 0.7 H Absolute Eosinophils (0.0 - 0.7 /CUMM) 0.2 Absolute Basophils (0.0 - 0.2 /CUMM) 0 PUBS MCHC (33.0 - 37.0 G/DL) 33.3 08/12 1908 Chemistry Sodium (137 - 145 mmol/L) 144 Potassium (3.5 - 5.1 mmol/L) 4.8 Chloride (98 - 107 mmol/L) 107 Carbon Dioxide (22 - 30 mmol/L) 25 Anion Gap (5 - 16) 11 BUN (9 - 20 mg/dL) 52 H Creatinine (0.7 - 1.2 mg/dL) 2.9 H Estimated GFR (>60 ml/min) 22 L BUN/Creatinine Ratio (7 - 25 %) 17.9 Glucose (65 - 99 mg/dL) 159 H Calcium (8.4 - 10.2 mg/dL) 9.1 Total Bilirubin (0.2 - 1.3 mg/dL) 0.4 AST (17 - 59 U/L) 14 L ALT (21 - 72 U/L) 23 Alkaline Phosphatase (< 127 U/L) 127 H Troponin I (<0.11 ng/ml) 0.05 Total Protein (6.3 - 8.2 g/dL) 7.7 Albumin (3.5 - 5.0 g/dL) 4.0 Globulin (1.9 - 4.2 gm/dL) 3.7 Albumin/Globulin Ratio (1.1 - 2.2 %) 1.1 Hematology CBC w Diff NO MAN DIFF REQ WBC (4.8 - 10.8 /CUMM) 8.5 RBC (4.70 - 6.10 /CUMM) 3.80 L Hgb (14.0 - 18.0 G/DL) 11.1 L Hct (42 - 52 %) 33.8 L MCV (80.0 - 94.0 FL) 89.1 MCH (27.0 - 31.0 PG) 29.1 RDW (11.5 - 14.5 %) 14.3 Plt Count (130 - 400 /CUMM) 270 MPV (7.4 - 10.4 FL) 8.6 Gran % (42.2 - 75.2 %) 75.4 H Lymphocytes % (20.5 - 51.1 %) 12.8 L Monocytes % (1.7 - 9.3 %) 8.4 Eosinophils % (0 - 5 %) 3.0 Basophils % (0.0 - 2.0 %) 0.4 Absolute Granulocytes (1.4 - 6.5 /CUMM) 6.4 Absolute Lymphocytes (1.2 - 3.4 /CUMM) 1.1 L Absolute Monocytes (0.10 - 0.60 /CUMM) 0.7 H Absolute Eosinophils (0.0 - 0.7 /CUMM) 0.3 Absolute Basophils (0.0 - 0.2 /CUMM) 0 PUBS MCHC (33.0 - 37.0 G/DL) 32.7 L Urines Urine Color (YEL,AMB,STR) YEL Urine Clarity (CLEAR) CLEAR Urine pH (5.0 - 8.0) 6.0 Ur Specific [place] (1.001 - 1.035) 1.020 Urine Protein (NEG,<30 MG/DL) >=300 H Urine Ketones (NEG) NEG Urine Nitrite (NEG) NEG Urine Bilirubin (NEG) NEG Urine Urobilinogen (0.1 - 1.0 EU/dl) 0.2 Ur Leukocyte Esterase (NEG) NEG Ur Microscopic SEDIMENT EXAMINED Urine RBC (0 - 5 /HPF) 5-10 H Urine WBC (0 - 2 /HPF) RARE Ur Epithelial Cells (NONE,FEW) OCCAS Hyaline Casts (0/LPF) MOD H Granular Casts (NONE /LPF) FEW H Urine Hemoglobin (NEG) SMALL H Urine Glucose (N MG/DL) 100 H Diagnostic Data EKG Results EKG on admission 08/12/2016 and 192 shows sinus rhythm at a rate of 58 and abnormalities. Repeat EKG early this morning shows sinus rhythm with some degree of sinus arrhythmia at a rate of about 50 years poor R-wave progression but normal ST and T waves. CXR Results No chest x-ray done on this admission. Assessment/Plan Assessment/Plan The patient presents once again with uncontrolled hypertension due to medication noncompliance. He has advanced renal disease and diabetes but these do not seem to be out of control at this time. He has mild aortic stenosis and mild to moderate pulmonary hypertension on previous echo. I recommend continuing him on his current antihypertensive regimen. It should be noted that he is somewhat bradycardic, although asymptomatic from this, and he is not on any rate limiting medications. I would just observe this. I would keep him on the monitor for another 24 hours mainly to assess his heart rate. At that time if she is asymptomatic telemetry can be discontinued. He does not need a repeat echocardiogram at this time. This patient needs more intensive social counseling and planning especially with regard to his medications. Otherwise he will continue to have hypertensive crises which will eventually lead to poor outcomes. Consult Acknowledgment - Thank you for your consult request.
[2016-08-13 13:37] VITALS: BP 160/80
[2016-08-13 16:18] VITALS: BP 162/67
[2016-08-13 22:00] VITALS: BP 184/70
--- NOTE | 2016-08-13 22:57 | Patient Discharge Instructions ---
Discharge Instructions General Discharge Information You were seen/treated for: Elevated blood pressure Watch for these problems: - shortness of breath, chest pain - tachycardia - lightheadedness, dizziness. Special Instructions: - Please see your PCP within one week of discharge. 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 - Please take your medications as prescribed. Acute Coronary Syndrome Inclusion Criteria At DC or during hospital stay patient has or had the following: ACS DIAGNOSIS No Discharge Core Measures Meds if any: Prescribed or Continued at Discharge Meds if any: NOT Prescribed or Continued at Discharge Congestive Heart Failure Inclusion Criteria At DC or during hospital stay patient has or had the following: CHF DIAGNOSIS No Discharge Core Measures Meds if any: Prescribed or Continued at Discharge Meds if any: NOT Prescribed or Continued at Discharge Cerebrovascular accident Inclusion Criteria At DC or during hospital stay patient has or had the following: CVA/TIA Diagnosis No Discharge Core Measures Meds if any: Prescribed or Continued at Discharge Meds if any: NOT Prescribed or Continued at Discharge Venous thromboembolism Inclusion Criteria VTE Diagnosis No VTE Type NONE VTE Confirmed by (Test) NONE Discharge Core Measures - Per Current guidelines, there needs to be overlap - treatment for the first 5 days of Warfarin therapy. - If discharged on Warfarin prior to 5 days of - overlap therapy, the patient will need to be - assessed for post discharge needs including - *Post discharge parental anticoagulation - *Warfarin and/or parental anticoagulation education - *Follow up date to check INR post discharge At least 5 days overlap therapy as Inpatient No Meds if any: Prescribed or Continued at Discharge Note: Overlap Therapy is Warfarin and Anticoagulant Meds if any: NOT Prescribed or Continued at Discharge
[2016-08-13 23:00] VITALS: BP 206/110
[2016-08-13 23:38] VITALS: BP 170/68
--- NOTE | 2016-08-14 01:26 | PN- Housestaff ---
SHELDON GIBBS,TOMAS 08/14/16 0117: Subjective Follow-up For: Hypertensive urgency Complaints: no complaints Tele-Events Since Last Visit: Normal sinus rhythm Subjective: Patient is comfortably lying in bed. Patient denies any chest pain, shortness of breath, palpitation, lightheadedness or dizziness, headache, abdominal pain, nausea, vomiting or urinary symptoms. Review of Systems Constitutional: Reports: see HPI. Objective Last 24 Hrs of Vital Signs/I&O Vital Signs Date Time Temp Pulse Resp B/P Pulse O2 O2 Flow FiO2 Ox Delivery Rate 08/13 2338 52 170/68 08/13 2300 55 206/110 08/13 2200 98.4 54 18 184/70 96 Room Air 08/13 2126 180/80 08/13 1618 98.8 49 16 162/67 93 Room Air 08/13 1337 160/80 08/13 0820 97.3 44 18 142/68 95 Room Air 08/13 0148 96 Room Air Intake & Output 08/14 0800 08/14 0000 08/13 1600 Intake Total 400 480 Output Total 550 400 Balance -150 80 Intake, Oral 400 480 Number 0 Bowel Movements Output, Urine 550 400 Physical Exam General Appearance: Alert, Oriented X3, Cooperative, No Acute Distress Skin: No Rashes HEENT: PERRLA, EOMI Neck: Supple, No JVD Cardiovascular: Normal S1, Normal S2, No Murmurs Lungs: Clear to Auscultation, Normal Air Movement Abdomen: Normal Bowel Sounds, Soft, No Tenderness Neurological: Normal Speech, Normal Tone, Sensation Intact Extremities: No Edema, Normal Pulses Vascular: Normal Pulses, Pulses Symmetrical Current Medications: Current Medications Sig/Michael Start time Last Medication Dose Route Stop Time Status Admin Acetaminophen 650 MG Q6P PRN 08/12 2229 AC PO Allopurinol 100 MG DAILY 08/13 1000 AC 08/13 PO 1009 Amlodipine Besylate 10 MG DAILY 08/12 2126 DC 08/12 PO 2158 Aspirin Buffered 81 MG DAILY 08/13 1000 AC 08/13 PO 1008 Bumetanide 1 MG DAILY 08/12 2126 DC 08/12 PO 2158 Cholecalciferol 1,000 IU DAILY 08/13 1000 AC 08/13 PO 100 Clonidine 0.2 MG QPM 08/12 2199 AC 08/13 PO 2125 Gabapentin 100 MG TID 08/13 1000 AC 08/13 PO 2118 Heparin Sodium 5,000 UNIT Q8 08/13 0600 AC 08/13 (Porcine) SC 211 Hydralazine HCl 100 MG BID 08/13 1000 CAN PO Insulin Aspart 0 TIDAC 08/13 0800 AC 08/13 SC 1225 Insulin Detemir 10 UNITS DAILY 08/13 1000 AC 08/13 NE 1011 Magnesium Hydroxide 30 ML ONE ONE 08/13 2014 DC 08/13 PO 08/13 Pravastatin Sodium 40 MG DAILY 08/13 1000 AC 08/13 PO 1008 Last 24 Hrs of Lab/Eduardo Results Last 24 Hrs of Labs/Mics: Laboratory Tests 08/13/16 0900: Anion Gap 7, Estimated GFR 21 L, BUN/Creatinine Ratio 17.4, Troponin I 0.04 08/13/16 0655: CBC w Diff NO MAN DIFF REQ, RBC 2.95 L, MCV 90.0, MCH 30.0, RDW 13.9, MPV 8.9, Gran % 69.6, Lymphocytes % 16.5 L, Monocytes % 9.9 H, Eosinophils % 3.4, Basophils % 0.6, Absolute Granulocytes 4.7, Absolute Lymphocytes 1.1 L, Absolute Monocytes 0.7 H, Absolute Eosinophils 0.2, Absolute Basophils 0, PUBS MCHC 33.3 08/13/16 0145: Troponin I 0.07 Assessment/Plan Assessment: Mr. Roblero is a 60-year-old man with a past history of insulin-dependent diabetes, stage 4 CKD, diabetic retinopathy, hypertension, hyperlipidemia is being evaluated for hypertensive urgency. At the time of admission, vitals-temperature 97.5, pulse rate 56, respiratory rate 16, blood pressure 224/88, pulse ox 98% on room air.laboratory findings indicated-no leukocytosis, WBC 8.5, hemoglobin 11.1 (Baseline 10),MCV 89.1, platelets 270. Normal electrolytes-sodium 144, potassium 4.8, abnormal renal function BUN 52, serum creatinine 2.9 (baseline 3.1 likely diabetic nephropathy and or hypertensive), normal liver function AST 14, ALT 23, alkaline phosphatase 127. Cardiac enzymes-serial 3 less than 0.1. Urinalysis revealed urine protein above 300, urine leukocyte esterase negative, urine nitrates negative. Last echocardiogram 06/01/2016 revealed right 20/30 systolic pressure around 50. Also was noted diffuse thickening of aortic valve cusp with minimally reduced excursion and mild aortic stenosis. Admission diagnosis: #1 hypertensive urgency #2 diabetic nephropathy #3 bilateral lower extremity ulcers Below is the problem list and plan: #1 hypertensive urgency- systolic blood pressure above 200 at the time of admission. Continued the patient on Norvasc 10, hydralazine 100 twice a day, clonidine 0.2 mg daily, Bumex 1 mg daily. Elevated blood pressure was likely due to noncompliance. BP is 170/68. - Blood pressure noted elevated, will restart amlodipine 10 mg daily today and if needed will add hydralazine 100 mg twice a day #2 diabetes-patient had type 1 diabetes. Blood sugars ranged in between 94-127. Currently on Levemir 10 units twice a day with NovoLog sliding scale. #3 bilateral lower extremity desquamation-likely due to inadequate for care. Wound consult has been obtained. Emollients until then. Neuropathy-with pain control by gabapentin. #4 DVT prophylaxis-heparin subcutaneous. #5 normocytic anemia-H&H stable at baseline around 8.8 #6 history of gout continue allopurinol Problem List: 1. Hypertensive urgency 2. Uncontrolled hypertension 3. Diabetes Pain Ratin Pain Location: back Pain Goal: Pain 4 or less Pain Plan: tylenol Tomorrow's Labs & Rationales: none DVT/Prophylaxis: pharmacological STEPHANIE MASON 08/14/16 0932: Attending MD Review Statement Attending Statement Attending MD Statement: examined this patient, discuss w/resident/PA/BRUSH OR BROOM CUTTER, agreed w/resident/PA/BRUSH OR BROOM CUTTER, discussed with family, reviewed EMR data (avail), discussed with nursing, discussed with case mgmt, reviewed images Attending Assessment/Plan: 61M PMH IDDM, diabetic nephropathy (CKD stage 4), diabetic retinopathy, diabetic neuropathy, HTN, HLD admitted for hypertensive urgency with BP 240/120, with overnight Hgb drop but no evidence of bleeding, hemodynamically stable, with bilateral lower extremity chronic skin changes. Patient feels well, only complaint is chronic bilateral foot pain. Both legs and feet have a desquamative rash with skin fissures but no evidence of ulceration or infection. BP is improved today to 140/80 after being given Bumex , Amlodipine, and Clonidine last night. Labs reviewed. 1. Hypertensive urgency 2. Bilateral leg and foot desquamative rash 3. Microcytic anemia 4. Diabetic neuropathy 5. CKD stage 4 6. IDDM Plan - Continue on telemetry - resume BP meds this morning - Reintroduce BP meds incrementally, starting with Clonidine (to avoid rebound hypertension) - Continue remaining home medications - Anticipated discharge if bp controlled.
[2016-08-14 08:13] VITALS: BP 138/80
[2016-08-14 08:30] LABS: ABSOLUTE BASOPHIL COUNT 0 /CUMM (0.0-0.2); ABSOLUTE EOSINOPHIL COUNT 0.2 /CUMM (0.0-0.7); ABSOLUTE GRANULOCYTE CT 4.3 /CUMM (1.4-6.5); ABSOLUTE LYMPH COUNT 1.4 /CUMM (1.2-3.4); ABSOLUTE MONOCYTE COUNT 0.7 /CUMM (0.10-0.60); BASOPHIL % 0.5 % (0.0-2.0); EOSINOPHIL % 2.6 % (0-5); GRANULOCYTE % 64.7 % (42.2-75.2); HEMATOCRIT 26.6 % (42-52); MEAN CORPUSCULAR HGB 29.9 PG (27.0-31.0); MEAN CORPUSCULAR HGB CONC 33.4 G/DL (33.0-37.0); MEAN CORPUSCULAR VOLUME 89.6 FL (80.0-94.0); MEAN PLATELET VOLUME 9.2 FL (7.4-10.4); PLATELET COUNT 183 /CUMM (130-400); RBC DISTRIBUTION WIDTH 13.5 % (11.5-14.5); RED BLOOD CELL CT 2.97 /CUMM (4.70-6.10); WHITE BLOOD CELL COUNT 6.6 /CUMM (4.8-10.8)
--- NOTE | 2016-08-14 12:28 | PN- Cardiology ---
Subjective Subjective: His reports that he is feeling well. No chest pain. No shortness of breath. No palpitations. No diaphoresis. No syncope. Blood pressure is now under control. Objective Vital Signs and I&Os Vital Signs Date Time Temp Pulse Resp B/P Pulse O2 O2 Flow FiO2 Ox Delivery Rate 08/14 0946 98.1 39 18 138/80 08/14 0813 98.1 39 18 138/80 95 Room Air 08/13 2338 52 170/68 08/13 2300 55 206/110 08/13 2200 98.4 54 18 184/70 96 Room Air 08/13 2126 180/80 08/13 1618 98.8 49 16 162/67 93 Room Air 08/13 1337 160/80 Intake & Output 08/14 1600 08/14 0808/14 0000 08/13 1600 08/13 0808/13 0000 Intake Total 60 400 480 720 Output Total 300 550 400 400 Balance -240 -150 80 320 Intake, IV 10 Intake, Oral 50 400 480 720 Number 0 Bowel Movements Output, Urine 300 550 400 400 Patient 178 lb 178 lb Weight Physical Exam: Gen: NAD HEENT: normal Lungs: clear to auscultation, normal resp. effort Heart: RRR, S1, S2, no murmurs Abdomen: Soft, nontender, no masses Extremities: No clubbing, cyanosis, or edema. Neuro: Alert and oriented x 3, cranial nerves intact Current Medications: Current Medications Sig/Michael Start time Last Medication Dose Route Stop Time Status Admin Acetaminophen 650 MG Q6P PRN 08/12 2229 AC PO Allopurinol 100 MG DAILY 08/13 1000 AC 08/14 PO 0947 Amlodipine Besylate 10 MG DAILY 08/14 1000 AC 08/14 PO 0946 Aspirin Buffered 81 MG DAILY 08/13 1000 AC 08/14 PO 0946 Cholecalciferol 1,000 IU DAILY 08/13 1000 AC 08/14 PO 0947 Clonidine 0.2 MG QPM 08/12 2200 AC 08/13 PO 2126 Gabapentin 100 MG TID 08/13 1000 AC 08/14 PO 0946 Heparin Sodium 5,000 UNIT Q8 08/13 0600 AC 08/14 (Porcine) SC 0528 Insulin Aspart 0 TIDAC 08/13 0800 AC 08/13 SC 1225 Insulin Detemir 10 UNITS DAILY 08/13 1000 AC 08/14 SC 0947 Magnesium Hydroxide 30 ML ONE ONE 08/13 2014 DC 08/13 PO 08/13 Pravastatin Sodium 40 MG DAILY 08/13 1000 AC 08/14 PO 0947 Results Last 48 Hrs of Labs/Mics: Laboratory Tests 08/14/16 0744: CBC w Diff NO MAN DIFF REQ, RBC 2.97 L, MCV 89.6, MCH 29.9, RDW 13.5, MPV 9.2, Gran % 64.7, Lymphocytes % 21.5, Monocytes % 10.7 H, Eosinophils % 2.6, Basophils % 0.5, Absolute Granulocytes 4.3, Absolute Lymphocytes 1.4, Absolute Monocytes 0.7 H, Absolute Eosinophils 0.2, Absolute Basophils 0, PUBS MCHC 33.4 08/13/16 0900: Anion Gap 7, Estimated GFR 21 L, BUN/Creatinine Ratio 17.4, Troponin I 0.04 08/13/16 0655: CBC w Diff NO MAN DIFF REQ, RBC 2.95 L, MCV 90.0, MCH 30.0, RDW 13.9, MPV 8.9, Gran % 69.6, Lymphocytes % 16.5 L, Monocytes % 9.9 H, Eosinophils % 3.4, Basophils % 0.6, Absolute Granulocytes 4.7, Absolute Lymphocytes 1.1 L, Absolute Monocytes 0.7 H, Absolute Eosinophils 0.2, Absolute Basophils 0, PUBS MCHC 33.3 08/13/16 0145: Troponin I 0.07 08/12/16 1908: Anion Gap 11, Estimated GFR 22 L, BUN/Creatinine Ratio 17.9, Glucose 159 H, Calcium 9.1, Total Bilirubin 0.4, AST 14 L, ALT 23, Alkaline Phosphatase 127 H , Troponin I 0.05, Total Protein 7.7, Albumin 4.0, Globulin 3.7, Albumin/ Globulin Ratio 1.1, CBC w Diff NO MAN DIFF REQ, RBC 3.80 L, MCV 89.1, MCH 29.1, RDW 14.3, MPV 8.6, Gran % 75.4 H, Lymphocytes % 12.8 L, Monocytes % 8.4, Eosinophils % 3.0, Basophils % 0.4, Absolute Granulocytes 6.4, Absolute Lymphocytes 1.1 L, Absolute Monocytes 0.7 H, Absolute Eosinophils 0.3, Absolute Basophils 0, PUBS MCHC 32.7 L, Urine Color YEL, Urine Clarity CLEAR, Urine pH 6.0, Ur Specific [place] 1.020, Urine Protein >=300 H, Urine Ketones NEG, Urine Nitrite NEG, Urine Bilirubin NEG, Urine Urobilinogen 0.2, Ur Leukocyte Esterase NEG, Ur Microscopic SEDIMENT EXAMINED, Urine RBC 5-10 H, Urine WBC RARE, Ur Epithelial Cells OCCAS, Hyaline Casts MOD H, Granular Casts FEW H, Urine Hemoglobin SMALL H, Urine Glucose 100 H Assessment/Plan Assessment/Plan Assessment: 1. Chronic renal insufficiency 2. Diabetes mellitus 3. Hypertension, uncontrolled on admission. Now under control Plan: * Continue current hypertension medications. * No further cardiac workup is indicated at this time. Continue telemetry? No
[2016-08-14 15:48] VITALS: BP 110/58
[2016-08-14 22:30] VITALS: BP 176/74
[2016-08-15 07:45] VITALS: BP 150/82
--- NOTE | 2016-08-15 08:52 | PN- Housestaff ---
WILLIS CROCKER 08/15/16 0850: Subjective Follow-up For: Hypertensive urgency Complaints: no complaints Tele-Events Since Last Visit: Normal sinus rhythm, heart rate 41-52. Subjective: The patient comfortable. Did not have any complaints. Vitals were stable. Blood pressure was slightly elevated overnight. As per the family, the patient did not have any assistance in the p.m. for administering his medications. The nurse will visit the patient in the a.m. In the meanwhile, clonidine was prescribed, so that it could be administered in the p.m. Shelby, bilingual patient support caseworker who made arrangements for nursing care to be resumed in the a.m. The family notified and educated about adhering to medications. Safe discharge in place. Review of Systems Constitutional: Reports: see HPI. Objective Last 24 Hrs of Vital Signs/I&O Vital Signs Date Time Temp Pulse Resp B/P Pulse O2 O2 Flow FiO2 Ox Delivery Rate 08/15 0745 98.3 50 20 150/82 97 08/14 2230 98.5 52 18 176/74 96 Room Air 08/14 2211 51 176/74 08/14 1548 98.3 51 18 110/58 95 Room Air 08/14 0946 98.1 39 18 138/80 Intake & Output 08/15 1600 08/15 0800 08/15 0000 Intake Total 120 680 Output Total 925 725 Balance -805 -45 Intake, Oral 120 680 Output, Urine 925 725 Physical Exam General Appearance: No Acute Distress Other Physical Findings: General Exam: AAOx3, No acute distress, Skin: No rashes, no breakdown HEENT: PERRLA, EOMI Neck: Supple, No JVD No cervical lymphadenopathy CVS: Reg Rate, Normal S1,S2, No MGR Resp: Normal air entry, no ronchi/rales Abdomen: Soft, No tenderness, Normal Bowel Sounds Neuro: Normal Speech, Strength 5/5 b/l x 4 extremities, Sensation intact, CN III -XII NL, Reflexes 2+ Extremities: No cyanosis, pedal edema Current Medications: Current Medications Sig/Michael Start time Last Medication Dose Route Stop Time Status Admin Acetaminophen 650 MG Q6P PRN 08/12 2230 DCD PO Allopurinol 100 MG DAILY 08/13 1000 DCD 08/15 PO 1043 Amlodipine Besylate 10 MG DAILY 08/14 1000 DCD 08/15 PO 1043 Aspirin Buffered 81 MG DAILY 08/13 1000 DCD 08/15 PO 1042 Cholecalciferol 1,000 IU DAILY 08/13 1000 DCD 08/15 PO 1055 Clonidine 0.2 MG QPM 08/12 2200 DCD 08/14 PO 2211 Gabapentin 100 MG TID 08/13 1000 DCD 08/15 PO 1042 Heparin Sodium 5,000 UNIT Q8 08/13 0600 DCD 08/15 (Porcine) SC 0741 Insulin Aspart 0 TIDAC 08/13 0800 DCD 08/15 SC 1225 Insulin Detemir 10 UNITS DAILY 08/13 1000 DCD 08/15 SC 1103 Pravastatin Sodium 40 MG DAILY 08/13 1000 DCD 08/15 PO 1043 Assessment/Plan Assessment: Mr. Roblero is a 60-year-old man with a past history of insulin-dependent diabetes, stage 4 CKD, diabetic retinopathy, hypertension, hyperlipidemia is being evaluated for hypertensive urgency. Admission diagnosis: #1 hypertensive urgency #2 diabetic nephropathy #3 bilateral lower extremity ulcers Below is the problem list and plan: #1 hypertensive urgency- systolic blood pressure above 200 at the time of admission. Patient on Norvasc 10, hydralazine 100 twice a day, clonidine 0.2 mg daily, Bumex 1 mg daily, which were held briefly.. Elevated blood pressure was likely due to noncompliance. Presumed Norvasc, clonidine, Bumex. Hydralazine on hold at this time, and advised the patient to follow up with the primary care physician for further advice. The dose of clonidine has been changed from by mouth daily to twice a day, which is appropriate. #2 diabetes-patient had type 1 diabetes. Blood sugars adequately controlled. Currently on Levemir 10 units twice a day with NovoLog sliding scale. #3 bilateral lower extremity desquamation-likely due to inadequate for care. Wound consult has been obtained. Emollients until then. Neuropathy-with pain control by gabapentin. #4 DVT prophylaxis-heparin subcutaneous. #5 normocytic anemia-H&H stable. #6 history of gout continue allopurinol Problem List: 1. Hypertension Pain Ratin Pain Location: None Pain Goal: Pain 4 or less Pain Plan: Tylenol when necessary Tomorrow's Labs & Rationales: No labs necessary. Patient to be discharged. STEPHANIE MASON 08/15/16 1040: Attending MD Review Statement Attending Statement Attending MD Statement: examined this patient, discuss w/resident/PA/MATERIAL HANDLER, agreed w/resident/PA/MATERIAL HANDLER, discussed with family, reviewed EMR data (avail), discussed with nursing, discussed with case mgmt, reviewed images Attending Assessment/Plan: 61M PMH IDDM, diabetic nephropathy (CKD stage 4), diabetic retinopathy, diabetic neuropathy, HTN, HLD admitted for hypertensive urgency with BP 240/120, with overnight Hgb drop but no evidence of bleeding, hemodynamically stable, with bilateral lower extremity chronic skin changes. Patient feels well, only complaint is chronic bilateral foot pain. Both legs and feet have a desquamative rash with skin fissures but no evidence of ulceration or infection. 1. Hypertensive urgency 2. Bilateral leg and foot desquamative rash 3. Microcytic anemia 4. Diabetic neuropathy 5. CKD stage 4 6. IDDM Plan - Continue on telemetry - resumed BP meds this morning - Reintroduce BP meds incrementally, starting with Clonidine (to avoid rebound hypertension) - Continue remaining home medications - Anticipated discharge today if bp controlled
[2016-08-15 10:43] VITALS: BP 150/82
--- NOTE | 2016-08-15 10:44 | PN- Cardiology ---
Subjective Subjective: The patient reports that he is feeling well. No chest pain. No palpitations. No diaphoresis. No palpitations. Blood pressure is mildly elevated this morning. Objective Vital Signs and I&Os Vital Signs Date Time Temp Pulse Resp B/P Pulse O2 O2 Flow FiO2 Ox Delivery Rate 08/15 0745 98.3 50 20 150/82 97 08/14 2230 98.5 52 18 176/74 96 Room Air 08/14 2211 51 176/74 08/14 1548 98.3 51 18 110/58 95 Room Air Intake & Output 08/15 1600 08/15 0800 08/15 0000 08/14 1600 08/14 0808/14 0000 Intake Total 120 680 800 60 400 Output Total 925 725 800 300 550 Balance -805 -45 0 -240 -150 Intake, IV 10 Intake, Oral 120 680 800 50 400 Number 0 Bowel Movements Output, Urine 925 725 800 300 550 Physical Exam: Gen: NAD HEENT: normal Lungs: clear to auscultation, normal resp. effort Heart: RRR, S1, S2, no murmurs Abdomen: Soft, nontender, no masses Extremities: No clubbing, cyanosis, or edema. Neuro: Alert and oriented x 3, cranial nerves intact Current Medications: Current Medications Sig/Michael Start time Last Medication Dose Route Stop Time Status Admin Acetaminophen 650 MG Q6P PRN 08/12 2230 AC PO Allopurinol 100 MG DAILY 08/13 1000 AC 08/14 PO 0947 Amlodipine Besylate 10 MG DAILY 08/14 1000 AC 08/14 PO 0946 Aspirin Buffered 81 MG DAILY 08/13 1000 AC 08/14 PO 0946 Cholecalciferol 1,000 IU DAILY 08/13 1000 AC 08/14 PO 0947 Clonidine 0.2 MG QPM 08/12 2200 AC 08/14 PO 2211 Gabapentin 100 MG TID 08/13 1000 AC 08/14 PO 2211 Heparin Sodium 5,000 UNIT Q8 08/13 0600 AC 08/15 (Porcine) SC 0741 Insulin Aspart 0 TIDAC 08/13 0800 AC 08/14 SC 1301 Insulin Detemir 10 UNITS DAILY 08/13 1000 AC 08/14 SC 0947 Pravastatin Sodium 40 MG DAILY 08/13 1000 AC 08/14 PO 0947 Senna/Docusate Sodium 1 TAB ONCE ONE 08/14 1530 DC 08/14 PO 08/14 1531 1635 Results Last 48 Hrs of Labs/Mics: Laboratory Tests 08/14/16 0744: CBC w Diff NO MAN DIFF REQ, RBC 2.97 L, MCV 89.6, MCH 29.9, RDW 13.5, MPV 9.2, Gran % 64.7, Lymphocytes % 21.5, Monocytes % 10.7 H, Eosinophils % 2.6, Basophils % 0.5, Absolute Granulocytes 4.3, Absolute Lymphocytes 1.4, Absolute Monocytes 0.7 H, Absolute Eosinophils 0.2, Absolute Basophils 0, PUBS MCHC 33.4 Assessment/Plan Assessment/Plan Assessment: 1. Chronic renal insufficiency 2. Diabetes mellitus 3. Hypertension, not fully controlled. Plan: * Change clonidine to 0.2 mg oral bid. * Continue other medications. * Likely ready for discharge to home today. * Follow up in the office with Dr. Lopez in one week. Continue telemetry? No
[2016-08-15] MEDS ORDERED: CATAPRES0.2 MG PO ×2 (10:46→13:25)
[2016-08-15] MEDS ORDERED: HUMALOG KW100 UNIT/1 SQ (13:54)
--- NOTE | 2016-08-26 18:51 | Discharge Summary ---
Visit Information Visit Dates Admission Date: 08/12/16 Discharge Date: 08/15/16 Hospital Course Course Attending Physician: CHINTAN LANGSTON MD Primary Care Physician: DAHLIA FIELDS MD Hospital Course: Mr. Roblero is a 60-year-old man with a past history of insulin-dependent diabetes, stage 4 CKD, diabetic retinopathy, hypertension, hyperlipidemia was evaluated for hypertensive urgency. At the time of admission, vitals-temperature 97.5, pulse rate 56, respiratory rate 16, blood pressure 224/88, pulse ox 98% on room air.laboratory findings indicated-no leukocytosis, WBC 8.5, hemoglobin 11.1 (Baseline 10),MCV 89.1, platelets 270. Normal electrolytes-sodium 144, potassium 4.8, abnormal renal function BUN 52, serum creatinine 2.9 (baseline 3.1 likely diabetic nephropathy and or hypertensive), normal liver function AST 14, ALT 23, alkaline phosphatase 127. Cardiac enzymes-serial 3 less than 0.1. Urinalysis revealed urine protein above 300, urine leukocyte esterase negative, urine nitrates negative. Last echocardiogram 06/01/2016 revealed right 20/30 systolic pressure around 50. Also was noted diffuse thickening of aortic valve cusp with minimally reduced excursion and mild aortic stenosis. Admission diagnosis: #1 hypertensive urgency #2 diabetic nephropathy #3 bilateral lower extremity ulcers Below is the problem list and plan: #1 hypertensive urgency- systolic blood pressure above 200 at the time of admission. Continued the patient on Norvasc 10, hydralazine 100 twice a day, clonidine 0.2 mg daily, Bumex 1 mg daily. Elevated blood pressure was likely due to noncompliance. The frequency of clonidine was changed from once daily to BID. BP was adequately contolled while the pt was admitted to telemetry service. Nursing service was arranged to ascertain the medication compliance. #2 diabetes- h/o type 1 diabetes. Blood sugars were adequately controlled. He was on Levemir 10 units twice a day with NovoLog sliding scale. #3 bilateral lower extremity desquamation-likely due to inadequate for care. Wound consult was been obtained. Pt continued to have pain in his lower extremity due to neuropathy, and was controlled w/ gabapentin. #5 anemia- Stable 11.1-->8.9. Likely Anemia of Chronic Disease. Pt to get outpatient work up. #6 CKD- Elevated Sr. Creatinine, likely +/- HTN +/- DM. Urine protein was elevated. Spot urine protein/creatinine was not done. Allergies: Coded Allergies: No Known Allergies (08/12/16) Disposition Summary Disposition Principal Diagnosis: Hypertenisve urgency Additional Diagnosis: CKD Discharge Disposition: home or self care Discharge Instructions General Discharge Information Code Status: Full Code Patient's Diet: renal diet Patient's Activity: as tolerated Follow-Up Instructions/Appts: - Please see your PCP within one week of discharge. - Please see your assistant nurse manager with in one week of discharge. - Please take your medications as prescribed. Medications at Discharge Discharge Medications: Stop taking the following medications: Hydralazine HCl (Hydralazine HCl) 50 MG TABLET ORAL TWICE DAILY Days = 30 Continue taking these medications: Allopurinol (Allopurinol) 100 MG TABLET 1 Tablet ORAL DAILY Comments: Last Taken: 08/15/16 Time: 10:00 AM Amlodipine Besylate (Amlodipine Besylate) 10 MG TABLET 1 Tablet ORAL DAILY Comments: Last Taken: 08/15/16 Time: 10:00 AM Gabapentin (Gabapentin) 100 MG CAPSULE 1 Capsule ORAL THREE TIMES DAILY Comments: Last Taken: 08/15/16 Time: 10:00 AM Nitroglycerin (Nitrostat) 0.4 MG TAB.SUBL 1 Tablet SUBLINGUAL As Directed as needed for Chest pain Instructions: 1st sign of attack; may repeat every 5 minutes until relief; if pain persists after 3 tablets in 15 minutes, prompt medical att Comments: NOT GIVEN IN HOSPITAL Bumetanide (Bumetanide) 1 MG TABLET 1 Tablet ORAL DAILY Comments: NOT GIVEN IN HOSPITAL Insulin Glargine,Hum.rec.anlog (Basaglar Kwikpen U-100) 100 UNIT/ML (3 ML) INSULN.PEN 10 Units SUB-Q DAILY Days = 30 Comments: NOT TAKEN IN HOSPITAL, LEVAMIR GIVEN INSTEAD Last Taken: 08/15/16 Time: 10:00 AM Sennosides (Senna) 8.6 MG TABLET 1 Tablet ORAL Every night Comments: NOT TAKEN IN HOSPITAL Pravastatin Sodium (Pravachol) 40 MG TABLET 1 Tablet ORAL DAILY Comments: Last Taken: 08/15/16 Time: 10:00 AM Aspirin (Ecotrin*) 81 MG TABLET.DR 1 Tablet ORAL DAILY Comments: Last Taken: 08/15/16 Time: 10:00 AM Sodium Bicarbonate (Sodium Bicarbonate) 325 MG TABLET 4 Tablet ORAL TWICE DAILY Comments: NOT TAKEN IN HOSPITAL Cholecalciferol (Vitamin D3) (Vitamin D) 2,000 UNIT CAPSULE 1 Capsule ORAL DAILY Qty = 30 Comments: Last Taken: 08/15/16 Time: 10:00 AM Start taking the following new medications: Clonidine (Catapres) 0.2 MG TABLET 1 Tablet ORAL TWICE DAILY Days = 30 No Refills Instructions: Please take clonidine as prescribed. Comments: Last Taken: 08/14/16 Time: 10:00 PM The following medications have been changed: Old: Insulin Lispro (Humalog Kwikpen U-100) 100 UNIT/ML INSULN.PEN 0 SUB-Q SEE INSTRUCTIONS Days = 30 New: Insulin Lispro (Humalog Kwikpen U-100) 100 UNIT/ML INSULN.PEN 0 SUB-Q 3 TIMES DAILY BEFORE MEALS Days = 30 Instructions: Blood sugar UNITS 80-150 2 151-200 3 201-250 4 251-300 5 301-350 6 351-400 7 Comments: NOT TAKEN IN HOSPITAL, NOVOLOG GIVEN INSTEAD Last Taken: 08/14/16 Time: 1:00 PM Copies To: DONNIE GIBBS,DAHLIA Maria MD Review Statement Documenting Attending: IVIS GIBBS,CHINTAN
== END 2016-08-15 14:55 | disposition home health service (06) | DRG 199 ==
LOC: ENRESERVDT → ENRESERVTM → ERH 18:28 → 1NO 22:00 → ENPENDDIS 22:00 → DELPENDDIS 22:00 → ERHI 22:00 → 1NO 22:00
PROVIDERS: Internal Medicine; Internal Medicine Endocrinology, Diabetes & Metabolism; Physician Assistant Medical; ADMIT Student in an Organized Health Care Education/Training Program
DX: I16.0 Hypertensive urgency (principal); N18.4 Chronic kidney disease, stage 4 (severe); E11.21 Type 2 diabetes mellitus with diabetic nephropathy; E11.42 Type 2 diabetes mellitus with diabetic polyneuropathy; E11.319 Type 2 diabetes mellitus with unspecified diabetic retinopathy without macular edema; I12.9 Hypertensive chronic kidney disease with stage 1 through stage 4 chronic kidney disease, or unspecified chronic kidney disease; Z79.4 Long term (current) use of insulin; E78.5 Hyperlipidemia, unspecified; J45.909 Unspecified asthma, uncomplicated; H54.8 Legal blindness, as defined in USA; M10.9 Gout, unspecified; D50.9 Iron deficiency anemia, unspecified; Z87.891 Personal history of nicotine dependence
CPT/HCPCS: 1NSP; ERO; 36415; 81001; 82436; 93005; 93010; 96374; 96376; 99291; J0360; J1644